=== PATIENT | female | born 1960 | race Caucasian/White ===

== ENCOUNTER 2023-07-20 05:11 | Inpatient (IN) | payer MEDICARE, OTHER, SELFPAY ==
[2023-07-19 23:00] VITALS: BP 127/78
[2023-07-20] VITALS (24 sets, daily range): BP systolic 101–139; BP diastolic 59–95; BMI 16.0
--- NOTE | 2023-07-20 00:44 | ED.GENMED ---
History of Present Illness
General
Chief Complaint: Abdominal Symptoms
Source: patient
Exam Limitations: none
Time Seen by Provider: 07/20/23 00:05
Travel History
Have you had any contact with someone who has COVID-19?: No
Do you have any symptoms of coronavirus? Fever > 100 degrees, chills, cough, shortness of breath, sore throat, loss of taste or smell, muscle aches, or headache?: No
History of Present Illness
History of Present Illness:
This is a 63 year old female that comes in with c/o abd pain and vomiting. States that for the past 3 days she has been vomiting. States that she had diarrhea 3-4 days ago but none since. States that she is SOB and has abd pain. States that she
didn't vomit today. States that she is also SOB and dizzy. Denies any fever, chills, chest pain, headache, urinary burning.
Past History
Past History
ED Past Medical History: GERD and Other (Scleroderma, esophageal stricture, PNA, interstitial lung disease, Raynaud's, Right enlarged heart); Negative Asthma, HTN, Hypercholesterolemia or NIDDM
ED Past Surgical History: Other (Skin grafts, Surgery on neck to remove cyst)
Social History
Tobacco: Former smoker
Alcohol: None
Drug: None
Personal:
Living: with family
Employment: Employed
Family History
Family History: Hypertension
Review of Systems
Review of Systems
All Other Systems: ROS reviewed and negative except as documented in HPI and ROS
Constitutional: Reports no symptoms; Denies fever or chills
EENT: Reports no symptoms
Respiratory: Reports trouble breathing; Denies cough
Cardiac: Reports no symptoms; Denies chest pain
ABD/GI: Reports abdominal pain, nausea, vomiting and diarrhea
: Reports dysuria; Denies frequency or urgency
Musculoskeletal: Reports no symptoms
Skin: Reports no symptoms
Neurological: Reports dizzy; Denies headache
Psychiatric: Reports no symptoms
Phy Exam
General Physical Exam
General Presentation: mild distress
General age: appears older than age
General Skin: warm and dry
General Habitus: cachetic
General Mental: confused (appears confused as keeps stating that her abd hurts. )
General Hydration: dry mucous membranes
ENT Exam
ENT Exam: TM's normal, pharynx normal and neck supple
Eye Exam
Eye Exam: EOMI
Cardiovascular Exam
Cardiovascular Exam: no edema, normal peripheral pulses and tachycardia
Pulmonary Exam
Pulmonary Exam: no respiratory distress, chest non tender, no rhonchi, no wheezing, no cough and other (Fine crackles throughout)
Gastrointestinal Exam
Gastrointestinal Exam: soft, no organomegaly, no pulsatile mass, non distended, tender (Generalized abd tenderness with palpation. ) and other (Hypoactive bowel sounds)
Musculoskeletal Exam
Musculoskeletal Exam: full ROM and no edema
Skin Exam
Skin Exam: normal color, warm/dry, no rash and no petechia
Psychiatric Exam
Psychiatric Exam: other (Lethargic)
Course
Orders/Labs/Results
Orders:
Orders
07/19/23 23:01
Abdominal Series [CR Obstruct Series W/pa Chest] Urgent
Comment:
Reason For Exam: abd pain, constipation
07/20/23 00:43
CT Abd/pel Without Iv Or Oral Urgent
Comment: ok to change to w/o due to iv access per Dara
Reason For Exam: Generalized abd pain
0.9% Sodium Chloride 1000 ml [Nss] 1,000 ml IV BOLUS
Ondansetron Injectable [Zofran] 4 mg IV NOW STA
07/20/23 00:55
Morphine Sulfate 2 mg IV NOW STA
07/20/23 01:29
Complete Blood Count/With Diff Urgent
Comprehensive Metabolic Panel Urgent
Lactic Acid Urgent
Abnormal Lab Results
07/20/23
01:29
RBC 3.12 L 10^6/uL
(4.20-5.40)
Hgb 9.5 L g/dL
(12.0-16.0)
Hct 27.9 L %
(37.0-47.0)
RDW 15.4 H %
(11.5-14.5)
Absolute Neuts (auto) 7.7 H 10^3/uL
(1.4-6.5)
Absolute Lymphs (auto) 0.3 L 10^3/uL
(1.2-3.4)
Neutrophils % 91.4 H %
(42.2-75.2)
Lymphocytes % 3.1 L %
(20.5-51.1)
Sodium 132 L mmol/L
(135-145)
Chloride 95 L mmol/L
(98-107)
Carbon Dioxide 31 H mmol/L
(22-30)
Creatinine 0.3 L mg/dL
(0.6-1.0)
Glucose 118 H mg/dl
(70-99)
07/20/23 01:29
07/20/23 01:29
H/H low compared to prior labs, Sodium slightly low, Chloride low. Glucose nonfasting. Lactic acid 1.6
Vital Signs
Initial and Last Documented VS:
Initial Vital Signs
Temp Pulse Resp BP Pulse Ox
97.8 F 129 17 127/78 92
07/19/23 23:00 07/19/23 23:00 07/19/23 23:00 07/19/23 23:00 07/19/23 23:00
Last Documented Vital Signs
Temp Pulse Resp BP Pulse Ox
97.8 F 121 31 127/74 85
07/19/23 23:00 07/20/23 02:00 07/20/23 02:00 07/20/23 02:00 07/20/23 01:30
MDM/Problems Addressed
Differential Diagnosis Includes:
Bowel obstruction, Viral syndrome.
MDM/Problems Addressed:
This is a 63 year old female that comes in with c/o abd pain and vomiting. States that for the past 3 days she has been vomiting. Significant other with patient state that she did not vomit today.
Will check labs and get CT of the abd.
Back into see patient. Explained that her blood work shows that her lactic acid is normal, WBC are normal and her CT may shows an Enteritis vs Ileus. Patient has also been hypoxic when here and has needed a 100% nonrebreather to help keep her oxygen
level up. Patient uses Dilaudid chronically and may be over using at home. Will admit. Hospitalist notified.
Chronic conditions affecting care: Other (Scleroderma, )
Acute Exacerbation and/or Progression of Chronic Illness: Other (Scleroderma)
*Radiology
Radiology exam reviewed: preliminary read by ED provider (chest- Negative for active disease. ), radiology read reviewed (CTnight hawk- Evluation some limited due to motion artifact and lack of IV contrast. The gastojejunostomy tube appears to be in
appropriate position. Somewhat prominent fluid loops of mid to distal small bowel, as well as fluid in the cecum. Findings are nonspecific and could be related to an ), all reviewed NAD by ED Provider (CT con-enteritis or ileus. Obstruction at the
level of the ascending colon is left less likely however this portion of the colon is slightly thickened. Differential included underdistension, a colitis, or less likely an underlying mass (although there are a few adjacent lymph nodes). Recommend
) and other (CT cont- follow up with agge-appropriate colon cancer screening. Small amount of free fluid in the pelvis. Mild mesenteric edema. unremarkable gallbladder, pancreas and kidneys. )
*Pulse Oximetry
Patient hypoxic: yes
*EKG
Interpreted by ED Provider?: NA
Rate: EKG- N/A
*Manager Of Distribution Interpretation
Rate: tachycardiac
Heart Rate: 126
Rhythm: sinus tachycardia
*Critical Care Note
Total Time (30-74mins, 75-104mins- exclusive of procedures): Not Applicable
ED Attending Note
-
Portions of this chart may have been created with voice recognition software.� Occasional wrong word or��sound alike� substitutions may have occurred due to the inherent limitations of voice recognition software.
Discharge Plan
Departure
Patient Disposition: Admit
Date of Disposition: 07/20/23
Time of Disposition: 03:29
Admit to: Telemetry
Presentation/result/management discussed w/ accepting MD/DO: Hospitalist
Patient with high blood pressure during this ER visit?: No
Condition: Good
Covid-19: Not Applicable
Discharge Problem:
Nausea & vomiting, Hypoxia
Prescriptions:
No Action
oxycodone [OxyContin] 10 MG tablet,oral only,ext.rel.12 hr
5 mg PO PRN PRN (Reason: pain)
albuterol sulfate 2.5 mg /3 mL (0.083 %) solution for nebulization
2.5 mg inhalation Q4H PRN (Reason: shortness of breath or wheezing) Qty: 180 0RF
mycophenolate mofetil 500 mg Tablet
500 mg PO Q12H
diltiazem HCl 30 mg Tablet
30 mg PO BID
Referrals:
Doc Solorio MD [Family Provider] -
Interventions
Interventions:
*Risk Screen - Suicide Last Done: 07/20/23 03:17
*General Assessment Last Done: 07/20/23 03:17
*ED COVID-19 Vaccine History Last Done: 07/20/23 03:17
AE-Gblnxx-Eczetaklmv Assessment Last Done: 07/20/23 01:09
[2023-07-20] MEDS: NSS 1000 IV ×2 (01:26→06:27)
[2023-07-20] MEDS: ZOFRAN 4 MG IV ×2 (01:27→12:06)
[2023-07-20 01:35] LABS: % Basophils 0.1 % (0-2); % Immature Granulocytes 0.4 % (0-0.5); % Lymphocytes 3.1 % (20.5-51.1); % Neutrophils 91.4 % (42.2-75.2); Absolute Lymphocytes 0.3 10^3/uL (1.2-3.4); Absolute Monocytes 0.4 10^3/uL (0.1-0.6); Absolute Neutrophils 7.7 10^3/uL (1.4-6.5); Hematocrit 27.9 % (37.0-47.0); Hemoglobin 9.5 g/dL (12.0-16.0); Mean Corp Hgb Conc. 34.1 g/dL (33.0-37.0); Mean Corpuscular Hgb 30.4 pg (27.0-31.0); Mean Corpuscular Volume 89.4 fL (81.0-99.0); Mean Platelet Volume 8.9 fL (7.4-10.4); Nucleated Red Blood Cells % 0 %; Platelet Count 379 10^3/uL (130-400); Red Blood Cell Count 3.12 10^6/uL (4.20-5.40); Red Cell Dist. Width 15.4 % (11.5-14.5); White Blood Cell Count 8.4 10^3/uL (4.8-10.8)
[2023-07-20 01:47] LABS: Lactic Acid 1.6 mmol/L (0.7-2.0)
[2023-07-20 01:50] LABS: ALT (SGPT) 12 U/L (0-35); AST (SGOT) 25 U/L (14-36); Albumin 3.9 g/dl (3.5-5.0); Alkaline Phosphatase 76 U/L (38-126); Blood Urea Nitrogen 16 mg/dl (7-17); Carbon Dioxide 31 mmol/L (22-30); Chloride 95 mmol/L (98-107); Glucose 118 mg/dl (70-99); Potassium 4.1 mmol/L (3.5-5.1); Sodium 132 mmol/L (135-145); Total Bilirubin 0.7 mg/dl (0.2-1.3); Total Protein 7.5 g/dl (6.3-8.2); eGFR > 60.00
--- NOTE | 2023-07-20 04:27 | HPS.HSE ---
Family Physician
-
Family Physician: Doc Solorio
Chief Complaint
-
N/V
History of Present Illness
63F HX ILdz, scleroderma pw abd pain and vomiting for the past 3 days she has been vomiting.
She had diarrhea 3-4 days ago but none since. She didn't vomit today.
ROS
SOB and has abd pain. States that she is also SOB and dizzy.
Denies any fever, chills, chest pain, headache, urinary burning.
Medical History
Past Medical History
Past Medical History: Reports Other (ILD , scleroderma)
Past Surgical History: Reports Other (finger and toe surgery)
Social History
Tobacco: Non-smoker
Alcohol: None
Personal:
Family History
Family History: Not pertinent
Allergies / Home Medications
Allergies reflects when Allergies were last updated in [employer].
Home Medications with original date entered in [employer]
Allergy/Medication List:
Allergies
Allergy/AdvReac Type Severity Reaction Status Date / Time
No Known Allergies Allergy Verified 07/19/23 22:59
Home Medications
oxycodone 10 mg tablet,crush resistant,extended release 12 hr (OxyContin) 5 mg PO PRN PRN pain 09/30/21
albuterol sulfate 2.5 mg/3 mL (0.083 %) solution for nebulization 2.5 mg (3 mL) inhalation Q4H PRN shortness of breath or wheezing #180 mL 06/07/22
diltiazem HCl 30 mg tablet 30 mg PO BID 08/18/22
mycophenolate mofetil 500 mg tablet 500 mg PO Q12H 08/18/22
Review of Systems
-
Constitutional: Reports No Symptoms
EENT: Reports No Symptoms
Respiratory: Reports No Symptoms
Cardiac: Reports No Symptoms
Abdomen/GI: Reports See HPI
: Reports No Symptoms
Musculoskeletal: Reports No Symptoms
Skin: Reports No Symptoms
Neurological: Reports No Symptoms
Endocrine: Reports No Symptoms
Hematologic/Lymphatic: Reports No Symptoms
Psych: Reports No Symptoms
Physical Exam
Vital Signs
Vital Signs
Temp Pulse Resp BP Pulse Ox
97.8 F 119 28 109/59 97
07/19/23 23:00 07/20/23 03:15 07/20/23 03:10 07/20/23 03:10 07/20/23 03:15
Physical Exam
General: Other (see below )
Laboratory Results
-
07/20/23:
07/20/23:
Laboratory Results
Lactic Acid 1.6 mmol/L (0.7-2.0) 07/20/23:
Total Bilirubin 0.7 mg/dl (0.2-1.3) 07/20/23:
AST 25 U/L (14-36) 07/20/23:
ALT 12 U/L (0-35) 07/20/23:
Alkaline Phosphatase 76 U/L (38-126) 07/20/23:
Data Reviewed
-
CT Scan: Report Reviewed by me
Lab Data: Labs Reviewed by me
Old Records: Reviewed
Impression/Plan
-
Reviewed VS: afebrile tachypneic tachycardic borderline hypotensivwe
PE
General: mild distress adn look toxic
HEENT:dry mucous membranes and Atraumatic
Respiratory: Decreased Breath Sounds
Cardiac: S1/S2 and Regular Rhythm; No Murmur or Rub
GI: Soft, Generalized abd tenderness with palpation.
Rectal: Deferred by Provider
Musculoskeletal: No Clubbing, No Cyanosis and No Edema
Skin: No Rash
Neuro: AO x 3 and Nonfocal/grossly intact
Psych: Calm
Data
Hgb 9.5 - baseline 12- 14s
Na 132
Cl 95
CO2 31
BUN 16
nl Cr
LA 1.6
prelim CXR - ??
CT AP night hawk
- Evluation some limited due to motion artifact and lack of IV contrast.
- The gastojejunostomy tube appears to be in appropriate position.
- Somewhat prominent fluid loops of mid to distal small bowel, as well as fluid in the cecum.
- Findings are nonspecific and could be related to an enteritis or ileus.
- Obstruction at the level of the ascending colon is left less likely however this portion of the colon is slightly thickened. - Differential included underdistension, a colitis, or less likely an underlying mass (although there are a few adjacent
lymph nodes).
- Small amount of free fluid in the pelvis.
- Mild mesenteric edema.
- unremarkable gallbladder, pancreas and kidneys.
ASSESSMENT & PLAN
Medication reconciliation pending
SIRS like picture of unclear etiology
Acute abd pain- resolved vomiting uncertain origin ? Viral origin
CT AP report review - Nonspecific enteritis or ileus vs colitis less likley obstructive
- check UA
- check Noro virus
- clear and ADAT
- IVF for now
- Anti emetics
- GI consult
Evolving sepsis and looks toxic
Acute on chr hypoxic RF required NRM
HX scleroderma ILD/pulmonary fibrosis on Home O2
Hypotension suspect hypovolemia form GI loss
- BCx
- Empirc vanco and Zosyn
- held Diltiazem
- IVF and observe HR
- cont O2 support
- Pul consult
HX scleroderma ILD/pulmonary fibrosis on Home O2
- Not on Mycophenlate per patent
DVT Ox; LMWH
Full code
IMU
[2023-07-20 06:24] LABS: Hematocrit 24.6 % (37.0-47.0); Hemoglobin 8.1 g/dL (12.0-16.0); Mean Corp Hgb Conc. 32.9 g/dL (33.0-37.0); Mean Corpuscular Hgb 30.5 pg (27.0-31.0); Mean Corpuscular Volume 92.5 fL (81.0-99.0); Mean Platelet Volume 9.2 fL (7.4-10.4); Platelet Count 390 10^3/uL (130-400); Red Blood Cell Count 2.66 10^6/uL (4.20-5.40); Red Cell Dist. Width 15.1 % (11.5-14.5); White Blood Cell Count 6.8 10^3/uL (4.8-10.8)
[2023-07-20 07:16] LABS: Blood Urea Nitrogen 13 mg/dl (7-17); Calcium 8.2 mg/dl (8.4-10.2); Carbon Dioxide 30 mmol/L (22-30); Chloride 98 mmol/L (98-107); Estimated Creatinine Clearance 72 ml/min; Glucose 107 mg/dl (70-99); Potassium 4.1 mmol/L (3.5-5.1); Sodium 133 mmol/L (135-145); eGFR > 60.00
--- NOTE | 2023-07-20 08:30 | PTCARENOTE ---
Received pt. @ change of shift. Drowsy, awakens to verbal stim, oriented x3. Anxious/flat. Generalized weakness. SR-ST on monitor. SpO2 98% on NRB. Placed on 15LMF, weaned to 10L and tolerating. +BS, abd soft, tender/tender to palpation LQ>UQ. G/J
tube in place, flushed and clamped. Assisted x 1 to BSC, cont b/b. No episodes of diarrhea. Intermittent nausea, no vomiting. #22 L wrist w IVF infusing. #24 R wrist patent, dressing c/d/i. Pt. instructed on how to report care concerns and call steele
w in reach.
[2023-07-20] MEDS: ZOSYN 50 IV ×4 (08:32→23:38)
[2023-07-20] MEDS: VANCOCIN 200 IV (09:08)
--- NOTE | 2023-07-20 09:09 | PHA.VAN.IN ---
Assessment
- Assessment
Renal Function: Appears similar to baseline
Concomitant Antimicrobials: piperacillin/tazobactam
AUC Dosing Plan
- Dosing Variables
Dosing Weight (kg): 62
Dosing CrCl (ml/min): 72-96
Vd coefficient (L/kg): 0.7
Utilized IBW for dosing weight and CrCl calculation of 96 ml/min
- Empiric Dosing
Initial / Loading Dose: 1000mg - 07/20 09:08
Maintenance Regimen: Vanc 750mg Q12H starting at 1800
Estimated AUC (mcg*h/mL): 428 - 556
Estimated Peak (mcg*h/mL): 27.2 - 32.2
Estimated Trough (mcg/ml): 10.8 - 15.9
Estimated Half Life (H): 8.2 - 10.8
- Monitoring
No levels ordered at this time: consider levels in next few days
MRSA Screen: Ordered per protocol
Pharmacokinetics Vancomycin I
- -
Patient Age: 63
Patient Sex: Female
Vancomycin Day #: 1
Indication: Gi / Intra-Abdominal
Requesting Provider: Herson Chacon
Pertinent Antimicrobial Allergies:
NKDA
Height / Weight:
Height 5 ft 7 in
Actual Weight 46.2 kg
IBW in k.6
Pertinent Past Medical History: BMI ~16, ILD (home O2)
- Vital Signs / Lab Results
Temp Pulse Resp BP Pulse Ox
99.0 F 114 28 130/72 100
07/20/23 07:51 07/20/23 04:30 07/20/23 04:30 07/20/23 04:00 07/20/23 06:43
Lab Results - Hematology
07/20/23 07/20/23
01:29 06:09
WBC 8.4 6.8
Lab Results - Chemistry
07/20/23 07/20/23
01:29 06:24
BUN 16 13
Creatinine 0.3 L 0.3 L
Estimated Creat Clear 72
Albumin 3.9
07/20/23
Lactic Acid 1.6
--- NOTE | 2023-07-20 09:25 | W.PN.UPDATE ---
Update Note
Progress Note Update
Seen by Dr. Avalos this morning
patient admitted with nausea vomiting abdominal pain and worsening of hypoxia.
She reports history of abdominal pain. Generalized. Rates 9 out of 10. Had small bowel movement today. Abdomen soft, nondistended, bowel sounds present but tender in all quadrants with some rebound. Keep her n.p.o. except meds. Hold her tube
feeds. Await GI input. Consult surgery.
Chest has bilateral crackles. Trace normally on 4 L requiring higher FiO2 here. Chest x-ray did not show any consolidation or fluid. With the repeat emesis/esophageal stricture concern for aspiration pneumonia/pneumonitis. Continue with
empirical antibiotics and follow chest x-ray. Check procalcitonin. Pulmonary to see.
BEVERLY ZHOU
--- NOTE | 2023-07-20 09:33 | CON.GI ---
Addendum entered and electronically signed by Verónica Salgado MD 07/20/23 14:43:
I saw and examined the patient.
The PA's note was reviewed and I agree with the note.
63 year old female with a past medical history of scleroderma with interstitial lung disease, esophagitis who complains of nausea, vomiting for the past 4 days with generalized 'all over' abdominal pain. On exam abdomen was distended with
generalized tenderness.
-- Abdominal pain/nausea/vomiting-noncontrast imaging showing possible enteritis/ileus r/o obstruction
--Anemia-no overt GI bleeding
-- Scleroderma
-- Interstitial lung disease-oxygen dependent. Currently on high flow oxygen
-- PEG-J placement at [place]
plan
N.p.o.
If recurrent vomiting will connect PEG-J tube for gravity
Surgical evaluation pending
antiemetics PRN
Repeat abdominal x-ray tomorrow a.m.
Will follow
Original Note:
Consultation
-
Date/Time Consultation Requested: 07/20/23
Date/Time Consultation Performed: 07/20/23 0930
Requesting Provider: Alfredo OSHEA
Performing Provider: Merlyn Medrano PA-C / Dr. Salgado
Reason for Consultation: abd pain, nausea, vomiting
Medical History
Chief Complaint / HPI
Chief Complaint: abdominal pain, nausea, vomiting
History of Present Illness:
This is a 63 year old female with a past medical history of scleroderma with interstitial lung disease, esophagitis who complains of nausea, vomiting for the past 4 days with generalized 'all over' abdominal pain. She had a few episodes of diarrhea
a few days ago, but this resolved and she now complains of constipation, which is typical for her. Her boyfriend states she has had black stools. No BRBPR. She denies any sick contacts, recent antibiotic use or travel. She is on prednisone for the
ILD. She is known to Dr. Salgado, who saw her in the office in June 2022 for complaints of dysphagia and weight loss, EGD and CT scan were ordered at that time. She had EGD with Dr. Salgado 08/2022 which showed LA Grade C esophagitis and a medium
sized hiatal hernia. She takes Pantoprazole 40mg twice daily and denies any alcohol or NSAID use. Labs show Hgb 8.1 (baseline in the 12-14 range previously) with normocytic indices. No leukocytosis, WBC count 6.8 and lactic acid 1.6. Lipase normal
(64). CT showing diffuse enteritis/ileus and mild colitis, with possible obstruction vs mass noted at the ileocecal junction. Pancreas noted to be NL on CT and PEG-J tube in place.
Past Medical History
Past Medical History: Other (scleroderma, ILD)
Social History
Tobacco: Non-Smoker
Alcohol: None
Drug: None
Personal: Partner
Allergies / Home Medications
Allergy/AdvReac Type Severity Reaction Status Date / Time
No Known Allergies Allergy Verified 07/19/23 22:59
Medication Instructions Recorded
magnesium oxide 400 mg feeding tube DAILY 07/20/23
olanzapine 5 mg tablet 5 mg PO HS 07/20/23
pantoprazole 40 mg tablet,delayed 40 mg PO DAILY 07/20/23
release
prednisone 2.5 mg tablet 7.5 mg PO DAILY 07/20/23
Review of Systems
-
History Source: Patient and Family
All other systems: A 12 pt ROS was Negative except as stated above in HPI
Vital Signs
Temp Pulse Resp BP Pulse Ox
99.0 F 114 28 130/72 100
07/20/23 07:51 07/20/23 04:30 07/20/23 04:30 07/20/23 04:00 07/20/23 06:43
Physical Exam
Exam
General: Other (thin, ill-appearing, in no acute distress)
HEENT: Anicteric
Respiratory: Clear
Cardiac: Regular Rhythm
GI: Soft, Normal Bowel Sounds, Tender (+diffuse tenderness; nonfocal exam) and Distended
Rectal: Other (no stool in rectal vault, hemoccult negative. No palpable rectal masses, no external hemorrhoids.)
Skin: Warm and Dry
Neuro: AO x 3
Psych: Calm
Results
WBC 6.8 10^3/uL (4.8-10.8) 07/20/23 06:09
Hgb 8.1 g/dL (12.0-16.0) L 07/20/23 06:09
Hct 24.6 % (37.0-47.0) L 07/20/23 06:09
MCV 92.5 fL (81.0-99.0) 07/20/23 06:09
Plt Count 390 10^3/uL (130-400) 07/20/23 06:09
Absolute Neuts (auto) 7.7 10^3/uL (1.4-6.5) H 07/20/23 01:29
Sodium 133 mmol/L (135-145) L 07/20/23 06:24
Potassium 4.1 mmol/L (3.5-5.1) 07/20/23 06:24
Chloride 98 mmol/L (98-107) 07/20/23 06:24
Carbon Dioxide 30 mmol/L (22-30) 07/20/23 06:24
BUN 13 mg/dl (7-17) 07/20/23 06:24
Creatinine 0.3 mg/dL (0.6-1.0) L 07/20/23 06:24
Calcium 8.2 mg/dl (8.4-10.2) L 07/20/23 06:24
Total Bilirubin 0.7 mg/dl (0.2-1.3) 07/20/23 01:
AST 25 U/L (14-36) 07/20/23:
ALT 12 U/L (0-35) 07/20/23:
Alkaline Phosphatase 76 U/L (38-126) 07/20/23 01:29
Diagnostic Image Results:
CT Abdomen/Pelvis 07/20/23:
-Findings suggesting diffuse ileus/enteritis.
-Mild colitis of the ascending and transverse colon. Difficult to rule out component of obstruction/mass at the ileocecal junction. Consider direct visualization.
Chest/Abdominal Xray obstruction series, 07/20/23:
1. No acute cardiopulmonary process.
2. Mildly dilated small bowel loops may reflect ileus or developing obstruction.
3. Mild to moderate diffuse colonic stool burden may reflect constipation.
Prior GI Procedures:
EGD:
08/24/22, Dr. Salgado:
Impression:� � � � � � - LA Grade C esophagitis with no bleeding.
�� � � � � � � � � � � - Medium-sized hiatal hernia.
�� � � � � � � � � � � - Normal stomach.
�� � � � � � � � � � � - Normal examined duodenum.
�� � � � � � � � � � � - No specimens collected.
01/27/2010, Dr. Dobson
�� � A benign-appearing, intrinsic moderate stenosis was found 40 cm from the
�� � incisors and was traversed. Biopsies were taken with a cold forceps for
�� � histology. A TTS dilator was passed through the scope. Dilation with a
�� � 15-16.5-18 mm balloon (to a maximum balloon size of 18 mm) and an 18 mm
�� � balloon dilator was successfully performed. The exam was otherwise
�� � without abnormality.�� � � � � � � � � � � � � � � � � � � � � � � � � � � � � � � � � � � � � � �
Impression:� � � � � - Benign-appearing esophageal stricture. This was
�� � � � � � � � � � biopsied and dilated.
�� � � � � � � � � � - The examination was otherwise normal.
Colonoscopy:
06/22/2016, Dr. Dobson
Impression:� � � � � - The entire examined colon is normal on direct and
�� � � � � � � � � � retroflexion views.
Assessment / Plan
-
This is a 63 year old female with a past medical history of scleroderma with interstitial lung disease, esophagitis who complains of nausea, vomiting for the past 4 days with generalized 'all over' abdominal pain. She had a few episodes of diarrhea
a few days ago, but this resolved and she now complains of constipation, which is typical for her. Her boyfriend states she has had black stools. No BRBPR. She denies any sick contacts, recent antibiotic use or travel. She is on prednisone for the
ILD. She is known to Dr. Salgado, who saw her in the office in June 2022 for complaints of dysphagia and weight loss, EGD and CT scan were ordered at that time. She had EGD with Dr. Salgado 08/2022 which showed LA Grade C esophagitis and a medium
sized hiatal hernia. She takes Pantoprazole 40mg twice daily and denies any alcohol or NSAID use. Labs show Hgb 8.1 (baseline in the 12-14 range previously) with normocytic indices. No leukocytosis, WBC count 6.8 and lactic acid 1.6. Lipase normal
(64). CT showing diffuse enteritis/ileus and mild colitis, with possible obstruction vs mass noted at the ileocecal junction. Pancreas noted to be NL on CT and PEG-J tube in place.
IMPRESSION / PLAN:
Enteritis/Colitis vs possible obstruction
-NPO / hold tube feeding
-await surgical consult
-
Normocytic Anemia
-Hgb 8.1 (was previously in the 12-14 range baseline)
-black stools per history, but hemoccult negative
-continue PPI
-await iron studies
-trend Hgb
Pulmonology has been consulted as well.
Other medical issues managed as per Hospitalist, Pulmonology.
We will follow.
-
-
Thank you for consultation and allowing me to participate in the patient's care. Please call the contract law specialist GI physician during the after hours with any questions or concerns.
[2023-07-20 10:02] LABS: Lipase 64 U/L (23-300)
--- NOTE | 2023-07-20 11:17 | CM ---
CM following re: discharge planning.
Reviewed pt's chart, met with pt and pt's SO Kade at bedside.
Pt is a 63 year old female, admitted with primary dx of nausea vomiting abdominal pain and worsening of hypoxia.
Pt reports she lives with UCHE Braun in a 2SH, 3 steps to enter, has no children. Pt reports she ambulates with a walker, has home Oxygen via [employer], 5L NC at baseline. Pt reports she is known to [facility] and would like to have them
again if recommended. Pt feels she will not need any after care VN services upon the discharge. No SNF history.
PCP: Luisito Solorio
Pharmacy: [facility].
D/C plan: home with anticipated no needs vs [facility] if recommended. SO to transport at discharge.
CM will follow with discharge plan updates as hospitalization progresses
--- NOTE | 2023-07-20 11:24 | CON.PUL ---
Addendum entered and electronically signed by Joseph Perkins MD 07/20/23 17:30:
HPI:
Mrs Paula Blair is a 63/W adm 07-20 with 3-4 d h/o abd pain, n/v, diarrhea, dyspnea and dizziness.
At ER, hypoxic requiring NRM. Known h/o scleroderma, Raynaud's phenomenon, ILD. Abd CT reported enteritis/colitis and suspected obstruction at ileocecal junction. Pulm consulted for hypoxemia
Chronic hypoxemia on home O2 4L for last few m
Scleroderma, Raynaud's phenomenon, ILD: follows Dr Pedersen at [facility] for last 5 y, before followed [facility]
Esophageal stricture
Required PEG placement
Pulm htn, mild: [facility] 08-18-22: PCWP 8, MPAP 24, PVR 5.3W
Moderate eccentric MR, normal RV size and function on TTE Jun 2022
Limited historian time of visit, still with abd pain and nausea, but now able to tolerate oral liquids
Currently on O2 MFNC at 8L, POx 92%, denies cough, wheezing, CP
Does not remember for how long and for what reason he is on prednisone
Original Note:
Consultation
Consultation Request
Date/Time Consultation Requested: 07-20-23
Date/Time Consultation Performed: 07-20-23
Requesting Provider: Hospitalist
Performing Provider: Dr Mendoza
Reason for Consultation: dyspnea
Medical History
-
Chief Complaint: dyspnea
Past Medical History
Past Medical History: Other (see A&P for PMH/PSH)
Social History
Tobacco: Former Smoker
Alcohol: None
Drug: None
Personal:
Living: With Family
Employment: Employed
Family History
Family History: Hypertension
Allergies / Home Medications
Allergies
Allergy/AdvReac Type Severity Reaction Status Date / Time
No Known Allergies Allergy Verified 07/19/23 22:59
Home Medications
Medication Instructions Recorded Confirmed Last Taken Type
acetaminophen 500 mg tablet 1,000 mg PO Q6H PRN pain 07/20/23 07/20/23 07/19/23 18:00 History
hydromorphone 4 mg tablet 4 mg feeding tube Q4 PRN pain 07/20/23 07/20/23 07/19/23 18:00 History
lorazepam 1 mg tablet 1 mg PO BID PRN anxiety 07/20/23 07/20/23 07/19/23 12:00 History
magnesium oxide 400 mg feeding tube DAILY 07/20/23 07/20/23 07/19/23 06:00 History
metoclopramide HCl 5 mg tablet 5 mg feeding tube TID 07/20/23 07/20/23 07/19/23 18:00 History
olanzapine 5 mg tablet 5 mg PO HS 07/20/23 07/20/23 07/19/23 21:00 History
ondansetron 4 mg oral soluble film 4 mg Q8H PRN nausea 07/20/23 07/20/23 07/19/23 18:00 History
pantoprazole 40 mg tablet,delayed 40 mg PO DAILY 07/20/23 07/20/23 07/19/23 18:00 History
release
prednisone 2.5 mg tablet 7.5 mg PO DAILY 07/20/23 07/20/23 07/19/23 06:00 History
sertraline 50 mg tablet 50 mg PO DAILY 07/20/23 07/20/23 07/19/23 06:00 History
Review of Systems
-
History Source: Patient
All other systems: Negative unless noted
Respiratory: Trouble Breathing
Abdomen/GI: Abdominal Pain, Nausea, Vomiting and Diarrhea
Vitals / Labs / Diagnostic Testing
Vital Signs
Temp Pulse Resp BP Pulse Ox
99.0 F 114 28 130/72 100
07/20/23 07:51 07/20/23 04:30 07/20/23 04:30 07/20/23 04:00 07/20/23 06:43
Lab Data
07/20/23 06:09
07/20/23 06:24
Diagnostic Testing:
Assessment
-
Assessment:
Mrs Paula Blair is a 63/W adm 07-20 with 3-4 d h/o abd pain, n/v, diarrhea, dyspnea and dizziness. At ER, hypoxic requiring NRM. Known h/o scleroderma, Raynaud's phenomenon, ILD. Abd CT reported enteritis/colitis and suspected obstruction at
ileocecal junction. Pulm consulted for hypoxemia
Impression:
Acute on chronic hypoxemia
On home O2 4L for last few m
Compounded by interim anemia and acute abdomen
Acute moderate anemia (adm Hgb 9.5 down to 8.1, was 13.5 on Jul 2022)
Diffuse ileus/enteritis, mild colitis, ?cannot rule out obstruction at ileocecal junction
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
Scleroderma, Raynaud's phenomenon, ILD: follows Dr Pedersen at [facility] for last 5 y, before followed [facility]
GERD
Esophageal stricture
Required PEG placement
Pulm htn, mild: [facility] 08-18-22: PCWP 8, MPAP 24, PVR 5.3W
Moderate eccentric MR, normal RV size and function on TTE Jun 2022
Pneumonia, pneumonitis, suspected asp pneumonia, adm DH Feb 2017
Former smoker
Plan:
Continue O2 protocol
Required NRM at ER, now down to MFNC
Increased O2 requirement from baseline 4L
Currently on 8L as inpatient, POx 92%
Known ILD due to scleroderma, also evidence of mild pulm HTN on C Jul 2022 but normal rV size/function on TTE Jun 2022
No evidence of pneumonia nor significant pneumonitis on CXR or in few lung basilar cuts on abd CT
Hypoxemia likely compounded by interim moderate anemia and acute abd
Follow H/H, transfuse as needed for Hgb <7
Keep asp precs
Add DNs prn, acapella and IS
Continue empirics atbs
GI and Surgical consultations pending
Certainly at increased risk for GI procedures or surgery given underlying lung disease
Continue prednisone outpatient regimen, she could not recall for how long or why she is on prednisone 7.5 mg qd
No current need to increase CS dose
D/w Mrs Blair
Diagnostic tests:
CXR 07-19-23 c/w Apr 2022, considering differences in technique, grossly unchanged mild to moderate increase in interstitial markings. No infiltrates. T-L scoliosis
CT abd/p 07-20-23: few lung basilar cuts with mild mosaic pattern
[2023-07-20] MEDS: ROXICODONE 5 MG TUBE ×2 (12:06→18:36)
[2023-07-20] MEDS: DELTASONE 7.5 MG TUBE (12:07)
[2023-07-20] MEDS: COLACE LIQUID 100 MG TUBE ×2 (12:07→20:16)
[2023-07-20] MEDS: MIRALAX 17 GRAMS TUBE (12:07)
--- NOTE | 2023-07-20 14:20 | CON.GS ---
Consultation
-
Date/Time Consultation Requested: 07/20/2023 10 AM
Date/Time Consultation Performed: 07/20/2023 1400
Requesting Provider: Yovani
Performing Provider: Sammie
Reason for Consultation: Abdominal pain
Medical History
-
Chief Complaint: Abdominal pain
History of Present Illness:
Patient is a 63-year-old female with multiple medical comorbidities including esophagitis with history of stricture, scleroderma with PEG/J tube for enteral access, interstitial lung disease on supplemental oxygen, Raynaud's.
Patient was in her usual baseline state of health until 3 to 4 days ago when she began developing generalized abdominal pain but worse in the lower abdomen. Her bowels are irregular at baseline between loose stools and constipation. She had a few
episodes of diarrhea but has not moved her bowels in the last 2 to 3 days. She was having nausea with vomiting so placed her PEG/J tube gastrostomy port to gravity drainage and she reports that it was significantly contents. She presented to the
emergency department secondary to persistence of her pain.
Patient's friend at bedside. She states that her nausea is better controlled now with antiemetics. She feels as though she needs to have a loose bowel movement. She continues with abdominal pain greatest in the lower abdominal region but not
localizing to the right or left side. She feels as though her pain has improved since admission overnight.
Past Medical History
Past Medical History: Other (Scleroderma with interstitial lung disease, supplemental oxygen requirement, Raynaud's, GERD, hiatal hernia, history of esophagitis)
Past Surgical History: Other (PEG/J tube, breast surgery, toe surgery, skin graft)
Social History
Tobacco: Former Smoker
Allergies / Home Medications
Allergy/AdvReac Type Severity Reaction Status Date / Time
No Known Allergies Allergy Verified 07/19/23 22:59
Medication Instructions Recorded Confirmed Type
acetaminophen 500 mg tablet 1,000 mg PO Q6H PRN pain 07/20/23 07/20/23 History
hydromorphone 4 mg tablet 4 mg feeding tube Q4 PRN pain 07/20/23 07/20/23 History
lorazepam 1 mg tablet 1 mg PO BID PRN anxiety 07/20/23 07/20/23 History
magnesium oxide 400 mg feeding tube DAILY 07/20/23 07/20/23 History
metoclopramide HCl 5 mg tablet 5 mg feeding tube TID 07/20/23 07/20/23 History
olanzapine 5 mg tablet 5 mg PO HS 07/20/23 07/20/23 History
ondansetron 4 mg oral soluble film 4 mg Q8H PRN nausea 07/20/23 07/20/23 History
pantoprazole 40 mg tablet,delayed 40 mg PO DAILY 07/20/23 07/20/23 History
release
prednisone 2.5 mg tablet 7.5 mg PO DAILY 07/20/23 07/20/23 History
sertraline 50 mg tablet 50 mg PO DAILY 07/20/23 07/20/23 History
Review of Systems
-
Unable to obtain full review of systems at this time due to: Acuity
History Source: Patient
A 10 point review of systems was completed, and was negative except as per HPI.
Physical Exam
Vital Signs
Temp Pulse Resp BP Pulse Ox
98.9 F 103 22 122/68 93
07/20/23 12:45 07/20/23 13:00 07/20/23 13:00 07/20/23 13:00 07/20/23 13:04
07/19/23 07/20/23 07/21/23
06:59 06:59 06:59
Actual Weight 46.2 kg
Body Mass Index (BMI) 16.0
Lab Results
07/20/23 06:09
07/20/23 06:24
WBC 6.8 10^3/uL (4.8-10.8) 07/20/23 06:09
Hgb 8.1 g/dL (12.0-16.0) L 07/20/23 06:09
Hct 24.6 % (37.0-47.0) L 07/20/23 06:09
Plt Count 390 10^3/uL (130-400) 07/20/23 06:09
Abs Immat Gran (auto) 0.0 10^3/uL (0-0.05) 07/20/23 01:29
Neutrophils % 91.4 % (42.2-75.2) H 07/20/23 01:29
Physical Exam
General: Other (Acute/chronically ill-appearing. Cachectic. Respiratory for history taking but somewhat limited historian.)
HEENT: Anicteric and Atraumatic
Respiratory: Accessory Resp Muscle Use and Other (Supplemental oxygen via high flow nasal cannula,)
Cardiac: Regular Rhythm (Sinus tachycardia)
GI: Soft, Tender (Generalized tenderness greatest in bilateral lower quadrant. No guarding on mild/moderate palpation. No rebound tenderness on palpation.) and Distended
Neuro: AO x 3
Psych: Calm
Data Reviewed
-
CT Scan: Image Personally Visualized and interpreted, Discussed with Physician and Discussed with Patient
Labs: Labs Reviewed by me, Discussed with Physician and Discussed with Patient
Assessment / Plan
-
Assessment: 63-year-old female with advanced scleroderma and interstitial lung disease with PEG/J-tube for enteral access/feedings. Presenting with acute on chronic abdominal pain.
Difficult to determine etiology based on very limited CT abdomen/pelvis imaging which was obtained without IV or oral contrast.
On my review, within limits of this noncontrast imaging study there is no evidence of free air, no pneumatosis, no intra-abdominal fluid collections. There is mild/moderately prominent loops of small bowel measuring up to 3 cm or slightly less in
diameter essentially all the way through the terminal ileum. There is liquid stool within the ascending colon. There is formed stool throughout the transverse and distal colon. Trace free fluid in the pelvis. PEG/J tube in appropriate position.
Possible slight thickening of the cecum/ascending colon but very challenging to adequately evaluate on this study. No additional acute intra-abdominal pathology noted.
White blood cell count normal but initially with neutrophil shift, no bandemia noted. Chemistry panel with normal BUN and creatinine, no metabolic acidosis and normal lactate. LFTs within normal limits as well as lipase.
Plan: Based on abdominal examination, stable vital signs although tachycardia noted, limited CT imaging there does not appear to be an acute surgical abdomen such as advanced bowel ischemia, perforation or closed-loop/complete bowel obstruction.
I advised patient of the need for better CT imaging with oral and IV contrast however she expressed that she cannot tolerate repeat study at this point. Again given her overall clinical stability with supportive care will follow today with bowel
rest, placed gastrostomy port to gravity drainage. Anticipate need for contrast CT imaging tomorrow unless significant clinical improvement.
Will follow.
--- NOTE | 2023-07-20 15:31 | PTCARENOTE ---
Pt.'s s/o assisted w completion of med rec, Dr. Pina aware of completed med rec. Inquired to Dr. Pina about multimedia programmer d/t pending surg/GI compliance vice president's. Received instruction per MD to admin meds through G/J tube as ordered. Pt. reported mod abd pain
and nausea @ 1200, medicated w prn pain/antiemetic medication w positive effect-see MAR. No further BMs today. Surgery to bedside this afternoon. No plan for surgery @ this time per Dr. Cochran. Further orders received, G port to gravity and J
port clamped/used for meds. Pt. call ivette w in reach.
[2023-07-20] MEDS: DILAUDID 0.25 MG IV (16:57)
[2023-07-20 17:05] LABS: Urine Albumin Trace (Neg - Trace); Urine Bilirubin Negative (Negative); Urine Character Clear (Clear); Urine Color Yellow; Urine Glucose Negative (Negative); Urine Ketone Negative (Negative); Urine Leukocyte Negative (Negative); Urine Nitrite Negative (Negative); Urine Occult Blood Negative (Negative); Urine Specific Gravity 1.015 (<1.030); Urine Urobilinogen Negative (Neg - 1+)
[2023-07-20] MEDS: LOVENOX 30 MG SC (17:45)
--- NOTE | 2023-07-20 18:10 | PTCARENOTE ---
Attempted to wean O2 back down to baseline 4LNC, pt. unable to tolerate. O2 titrated back up. Currently 10LMF to maintain SPO2 >90%. SNOW, requiring NRB for exertion. Pt.'s significant other remains @ bedside. Emotional support given. Call steele
remains w in reach.
[2023-07-20] MEDS: VANCOCIN 150 IV (18:16)
[2023-07-20] MEDS: D5/0.45%NACL 1000 IV (19:23)
--- NOTE | 2023-07-20 21:12 | PTCARENOTE ---
SOB with exertion increased midflow to 15L, pt having difficulty recovering from getting up from the bathroom. sats in the 70's. non-rebreather applied, pt did recover to the low 90's.
[2023-07-21] VITALS (13 sets, daily range): BP systolic 101–126; BP diastolic 57–76
[2023-07-21 04:02] LABS: Hematocrit 25.7 % (37.0-47.0); Hemoglobin 8.2 g/dL (12.0-16.0); Mean Corp Hgb Conc. 31.9 g/dL (33.0-37.0); Mean Corpuscular Volume 94.1 fL (81.0-99.0); Mean Platelet Volume 8.7 fL (7.4-10.4); Platelet Count 381 10^3/uL (130-400); Red Blood Cell Count 2.73 10^6/uL (4.20-5.40); Red Cell Dist. Width 15.3 % (11.5-14.5); White Blood Cell Count 9.1 10^3/uL (4.8-10.8)
[2023-07-21 04:46] LABS: Blood Urea Nitrogen 9 mg/dl (7-17); Calcium 8.7 mg/dl (8.4-10.2); Carbon Dioxide 29 mmol/L (22-30); Chloride 96 mmol/L (98-107); Estimated Creatinine Clearance 72 ml/min; Glucose 107 mg/dl (70-99); Iron 28 ug/dl (37-170); Potassium 3.4 mmol/L (3.5-5.1); Sodium 132 mmol/L (135-145); eGFR > 60.00
[2023-07-21 04:56] LABS: Percent Saturation 10 % (20-50); Total Iron Binding Capacity 260 ug/dl (265-497)
[2023-07-21 05:08] LABS: Procalcitonin 0.08 ng/ml (0.0-0.25)
[2023-07-21] MEDS: ZOSYN 50 IV ×4 (05:23→23:55)
[2023-07-21] MEDS: VANCOCIN 150 IV ×2 (06:06→17:19)
--- NOTE | 2023-07-21 06:37 | PTCARENOTE ---
Rec'd pt as transfer from [facility] [employer]. Pt presents w/ flat affect, on 15L midflow and NRB. This RN struggled to obtain accurate SaO2, replaced sensor several times. Ultimately, SaO2 of 95% on 15L midflow cannula achieved without NRB. Pt able to maintain
SaO2 while ambulating, stand/pivot to BS. Unable to obtain stool sample during this shift d/t lack of BM. G tube maintained to gravity with moderate amount of yellow drainage. J tube remained clamped. NPO maintained, very small amount ice chips
given per pt request. Mouth moisturizer packets provided to prevent dry mouth/lips. Pt denies SOB, pain, discomfort at this time. IV ABX maintained per AUG. Call steele placed within reach.
[2023-07-21] MEDS: D5/0.45%NACL 1000 IV (07:53)
--- NOTE | 2023-07-21 08:05 | PTCARENOTE ---
Patient received from security shift supervisor. Patient resting comfortably in bed. AAO, VSS. No events noted overnight. No complaints of pain or nausea. Currently on 15L MidFlow N/C, will attempt to wean as tolerated. Awaiting stool to send for sample,
R/O Norovirus. D5 1/2NSS through IV. Call steele in reach.
--- NOTE | 2023-07-21 08:38 | W.PN.HOSP.TC ---
Today's Communication/Plan
-
CT abdomen pelvis with IV and oral contrast
Assessment / Plan
Assessment / Plan
Acute abdominal pain with nausea and vomiting-patient with abdominal tenderness with mild rebound. CT scan of the abdomen pelvis which was done without oral or IV contrast shows diffuse ileus/enteritis. Mild colitis of ascending and transverse
colon. Difficult to rule out component of obstruction mass at the ileocecal junction without contrast. Patient was seen by GI and surgery. Surgery feels if persistent symptoms to repeat a CT with contrast. In view of persistent abdominal pain
plan to do a CT with oral contrast and IV contrast. In meantime keep n.p.o. except for meds and continue with IV fluids and pain medication.
Acute on chronic respiratory hypoxemic respiratory failure. Patient has scleroderma and ILD on home O2 at 4 L. On presentation she had increased oxygen demand requiring nonrebreather now weaned to mid flow nasal cannula. Chest x-ray on admission
showed no acute cardiopulmonary process but in view of nausea ,vomiting, and esophageal stricture concerned about aspiration pneumonitis/pneumonia. Continue with empirical antibiotics. Appreciate pulmonary input. No active bronchospasm. Continue
with her low-dose steroids which she takes [she is not sure about the indication]. Continue to wean oxygen as able.
Normocytic anemia-hemoglobin is low compared to her hemoglobin in July last year. No obvious external bleeding. Iron studies suggest anemia of chronic disease. Continue to follow H&H.
Hyponatremia-clinically more volume depleted. Check urine lites.
DW surgery
Full code.
Anticipated Discharge: > 48 hours
Subjective/Interval History
-
Date of Service: July 21, 2023
Nausea is improved but still with abdominal pain. Passing some gas. No vomiting.
No fever. Always feels cold.
Breathing is okay at rest. Not much cough.
Objective Data
-
Labs:
Laboratory Results
07/21/23
03:37
WBC 9.1
Hgb 8.2 L
Hct 25.7 L
Plt Count 381
Sodium 132 L
Potassium 3.4 L
Chloride 96 L
Carbon Dioxide 29
BUN 9
Creatinine 0.4 L
Glucose 107 H
Calcium 8.7
Vital Signs:
Vital Signs
Temp Pulse Resp BP Pulse Ox
98.8 F 103 30 123/71 97
07/21/23 01:00 07/21/23 06:00 07/21/23 06:00 07/21/23 06:00 07/21/23 06:34
I&O
07/20/23 07/21/23 07/22/23
06:59 06:59 06:59
Output Total 550 / 550 100 / 100
Balance -550 / -550 -100 / -100
Review of Systems
-
EENT: Denies Sore Throat
Cardiac: Denies Chest Pain
Genitourinary: Denies Dysuria
Neuro: Denies Dizzy
Physical Exam
-
General: No Apparent Distress
HEENT: Moist Mucous Membranes
Respiratory: Crackles (BL basilar left > right) and Non Labored Respirations; Negative Wheezes
Cardiac: Regular Rhythm, S1/S2 and Tachycardic
GI: Soft, Nondistended and Tender (in all quadrants ;still with some rebound); Negative Normal Bowel Sounds
Neuro: AO x 3
Psych: Calm
Data Reviewed
-
Labs: Labs Reviewed by me
[2023-07-21] MEDS: DILAUDID 0.25 MG IV ×2 (09:03→14:06)
[2023-07-21] MEDS: COLACE LIQUID 100 MG TUBE ×2 (09:03→20:03)
[2023-07-21] MEDS: MIRALAX TUBE ×2 (09:03→14:05)
[2023-07-21] MEDS: DELTASONE 7.5 MG TUBE (09:03)
[2023-07-21] MEDS: ZOFRAN 4 MG IV (09:09)
--- NOTE | 2023-07-21 09:36 | W.PN.PUL3 ---
Today's Communication / Plan
-
O2
BDs prn
CT abd
Assessment
-
Assessment:
Mrs Paula Blair is a 63/W adm 07-20 with 3-4 d h/o abd pain, n/v, diarrhea, dyspnea and dizziness. At ER, hypoxic requiring NRM. Known h/o scleroderma, Raynaud's phenomenon, ILD. Abd CT reported enteritis/colitis and suspected obstruction at
ileocecal junction. Pulm consulted for hypoxemia
Impression:
Acute on chronic hypoxemia
On home O2 4L for last few m
Compounded by interim anemia and acute abdomen
Acute moderate anemia (adm Hgb 9.5 down to 8.1, was 13.5 on Jul 2022)
Diffuse ileus/enteritis, mild colitis, ?cannot rule out obstruction at ileocecal junction
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
Scleroderma, Raynaud's phenomenon, ILD: follows Dr Pedersen at [facility] for last 5 y, before followed [facility]
GERD
Esophageal stricture
Required PEG placement
Pulm htn, mild: [facility] 08-18-22: PCWP 8, MPAP 24, PVR 5.3W
Moderate eccentric MR, normal RV size and function on TTE Jun 2022
Pneumonia, pneumonitis, suspected asp pneumonia, adm DH Feb 2017
Former smoker
Plan:
Continue O2 protocol
Required NRM at ER, now down to MFNC
Increased O2 requirement from baseline 4L at home
Currently on 15L as inpatient, POx 97%
Known ILD due to scleroderma, also evidence of mild pulm HTN on RLC Jul 2022 but normal RV size/function on TTE Jun 2022
No evidence of pneumonia nor significant pneumonitis on CXR or in few lung basilar cuts on abd CT
Hypoxemia likely to baseline ILD compounded by interim moderate anemia and acute abd
Follow H/H, transfuse as needed for Hgb <7
Keep asp precs
Added DNs prn, acapella and IS
Continue empirics atbs: zosyn/vanco
Suspected GI source: enteritis/colitgis, suspected obstruction on noncontrasted CT
MRSA screening pending
GI and Surgical consultants correspondence reviewed
CT abd/p c IV/oral c 07-21
Certainly at increased risk for GI procedures or surgery given underlying lung disease
Continue prednisone outpatient regimen, she could not recall for how long or why she is on prednisone 7.5 mg qd
No current need to increase CS dose
D/w Mrs Blair
Diagnostic tests:
CXR 07-19-23 c/w Apr 2022, considering differences in technique, grossly unchanged mild to moderate increase in interstitial markings. No infiltrates. T-L scoliosis
CT abd/p 07-20-23: few lung basilar cuts with mild mosaic pattern
Subjective Data
-
Date of Service:
Date of Service: July 21, 2023
Chief Complaint: Pulmonary Follow Up
Subjective:
No major events reported
Abd pain has mildly improved
Dyspnea improved on O2 at 15L
No longer vomiting, nausea improved
Review of Systems
General: Fever (n), Sweats (n), Chills and Satisfactory Appetite (n)
HEENT: Epistaxis
Cardiopulmonary: Dyspnea, Cough (n), Sputum Production (n), Wheezing and Hemoptysis
GI: Abdominal Pain and Nausea
Neuro: Weakness
Objective Data
Data Reviewed
Vital Signs / I&O / Oxygen:
Vital Signs
Temp Pulse Resp BP Pulse Ox
98.8 F 103 30 123/71 97
07/21/23 01:00 07/21/23 06:00 07/21/23 06:00 07/21/23 06:00 07/21/23 06:34
Intake and Output
07/20/23 07/21/23 07/22/23
06:59 06:59 06:59
Output Total 550 / 550 100 / 100
Balance -550 / -550 -100 / -100
SaO2 97
Nasal Cannula flow liters per 15
minute
Physical Exam
General: Respiratory Distress
HEENT: Normocephalic and Moist Mucous Membranes
Cardiovascular: Regular Rhythm, Murmur (n), JVD (n) and Peripheral Edema
Respiratory: Rhonchi, Accessory Resp Muscle Use and Stridor (n)
GI: Soft, Non Distended and Tender
Neurology: Awake, Oriented and No Motor Deficits
Skin: Dry
Labs/Micro/Reports
Lab Data
07/21/23 03:37
07/21/23 03:37
Microbiology
07/20/23 06:24 Blood/Venous Blood Culture - Preliminary
No Growth in 24 hours- Final report to follow
--- NOTE | 2023-07-21 09:51 | W.PN.GI.CBS2 ---
Addendum entered and electronically signed by Edwin Christiansen MD 07/21/23 20:08:
I saw and examined the patient.
The PA's note was reviewed and I agree with the note.
Comment:
Abdo CT with IV/oral contrast today showed significant stool burden, mild thickening suspicious for mild enterocolitis, otherwise unremarkable. Pt feels somewhat improved. Continue with bowel regimen. Will follow.
Original Note:
Today's Communication / Plan
-
await CT abd/pelvis with IV and oral contrast
stool studies if diarrhea persists
Assessment / Plan
-
This is a 63 year old female with a past medical history of scleroderma with interstitial lung disease, esophagitis who complains of nausea, vomiting for the past 4 days with generalized 'all over' abdominal pain. She had a few episodes of diarrhea
a few days ago, but this resolved and she now complains of constipation, which is typical for her. Her boyfriend states she has had black stools. No BRBPR. She denies any sick contacts, recent antibiotic use or travel. She is on prednisone for the
ILD. She is known to Dr. Salgado, who saw her in the office in June 2022 for complaints of dysphagia and weight loss, EGD and CT scan were ordered at that time. She had EGD with Dr. Salgado 08/2022 which showed LA Grade C esophagitis and a medium
sized hiatal hernia. She takes Pantoprazole 40mg twice daily and denies any alcohol or NSAID use. Labs show Hgb 8.1 (baseline in the 12-14 range previously) with normocytic indices. No leukocytosis, WBC count 6.8 and lactic acid 1.6. Lipase normal
(64). CT showing diffuse enteritis/ileus and mild colitis, with possible obstruction vs mass noted at the ileocecal junction. Pancreas noted to be NL on CT and PEG-J tube in place.
IMPRESSION / PLAN:
Enteritis/Colitis vs possible obstruction
-seen by Surgery and repeat CT, with oral and IV contrast, has been ordered - results pending
-NPO / hold tube feeding
-pt had loose stools again last night, consider stool studies if diarrhea persists
Normocytic Anemia
-Hgb 8.1 yesterday, 8.2 today (was previously in the 12-14 range baseline)
-black stools per history, but hemoccult negative
-continue PPI
-iron studies show slightly low serum iron, normal ferritin - suggestive of anemia of chronic disease
-continue to trend Hgb
Pulmonology has been consulted as well.
Other medical issues managed as per Hospitalist, Pulmonology.
We will follow.
Subjective
Subjective
Date of Service: July 21, 2023
'I feel a bit better today.' No vomiting, has still felt nauseous.
-She had loose bowel movements since yesterday, denies any melena/hematochezia.
-She is passing gas.
-Awaiting repeat CT scan, this time ordered with oral and IV contrast
Objective
Data Reviewed
Laboratory Data:
Laboratory Results
07/21/23 03:37
07/21/23 03:37
Laboratory Results
Total Bilirubin 0.7 mg/dl (0.2-1.3) 07/20/23 01:29
AST 25 U/L (14-36) 07/20/23 01:29
ALT 12 U/L (0-35) 07/20/23 01:29
Alkaline Phosphatase 76 U/L (38-126) 07/20/23 01:29
Lipase 64 U/L (23-300) 07/20/23 06:24
Vital Signs and I&O:
Vital Signs
Temp Pulse Resp BP Pulse Ox
98.8 F 103 30 123/71 97
07/21/23 01:00 07/21/23 06:00 07/21/23 06:00 07/21/23 06:00 07/21/23 06:34
I&O
07/20/23 07/21/23 07/22/23
06:59 06:59 06:59
Output Total 550 / 550 100 / 100
Balance -550 / -550 -100 / -100
Physical Exam
Physical Exam
GI: Soft, Non Distended, Tender (mild LLQ tenderness) and Other (hypoactive bowel sounds)
Extremities: No Edema
[2023-07-21] MEDS: OMNIPAQUE 50 ML PO (09:55)
--- NOTE | 2023-07-21 10:04 | PN.CDI ---
CDI
- -
CDI:
Physician Documentation Request
Admit Date: 07/20/23 05:11
Dear Doctor Yovani,
Patient admitted with ileus.
Please review the following and provide your response in the progress notes.
Clinical Indicators:
Height: 5' 7'
Weight: 101 lb 13 oz
BMI: 16.0
Please provide an associated diagnosis related to the abnormal BMI, such as:
Underweight
Cachectic
Anorexia
BMI is not significant
Other
BMI < or = to 19
Underweight
Weight Loss
Cachectic
Anorexia
Use of terms such as suspected, likely, concern for, or probable (associated with a specific diagnosis that is being evaluated, monitored, or treated as if it exists) are acceptable and can be coded in the inpatient setting, when documented at the
time of discharge.
Thank you,
Maira ASHER,RN,CCDS
CDI Specialist
Available via [place] text
Please use your independent medical judgment in providing your response.
[2023-07-21 10:08] LABS: Osmolality Urine 536 mOsm/kg (300-900)
--- NOTE | 2023-07-21 11:07 | W.PN.GS2 ---
Addendum entered and electronically signed by Marques Marrufo MD 07/21/23 14:55:
CT scan imaging was reviewed. No evidence of an obstruction, no significant inflammation or worry for bowel ischemia. Constipation and dilation of small bowel likely related to dysmotility from scleroderma. No plans for surgical intervention at
this time. Further care per GI. Please call with any questions or concerns.
Original Note:
Today's Communication / Plan
-
-- CT abdomen pelvis with oral and IV contrast
Assessment / Plan
-
Patient is a 63 yo F with advanced scleroderma and interstitial lung disease and PEG/J-tube for enteral access/feedings who presents with acute on chronic abdominal pain.
Difficult to exactly determine the etiology of her abdominal discomfort, however, most likely an acute on chronic exacerbation of her underlying scleroderma and bowel motility disorder. Differential also includes enteritis or colitis from an
ischemic or inflammatory standpoint. No radiographic evidence of pneumatosis or free air. Clinically symptoms have improved. Plan for repeat CT scan with oral and IV contrast, to help delineate diagnosis and rule out a more acute process. No
indication or plan for surgical intervention at this point.
-- No plans for surgical intervention
-- Repeat CT scan with oral and IV contrast
Subjective Data
-
Date of Service: July 21, 2023
Reports abdominal pain is slightly improved. No flatus, small loose BM. Mild nausea, no vomiting. No fevers
Objective Data
-
Intake and Output
07/20/23 07/21/23 07/22/23
06:59 06:59 06:59
Output Total 550 / 550 100 / 100
Balance -550 / -550 -100 / -100
Output:
Urine, Voided 550 / 550 100 / 100
Other:
Number of approximated SMALL 1
amounts of urine
Vital Signs
Temp Pulse Resp BP Pulse Ox
98.0 F 103 30 123/71 97
07/21/23 07:11 07/21/23 06:00 07/21/23 06:00 07/21/23 06:00 07/21/23 06:34
Lab Results
07/21/23 03:37
07/21/23 03:37
Calcium 8.7 mg/dl (8.4-10.2) 07/21/23 03:37
Total Bilirubin 0.7 mg/dl (0.2-1.3) 07/20/23 01:29
AST 25 U/L (14-36) 07/20/23 01:29
ALT 12 U/L (0-35) 07/20/23 01:29
Alkaline Phosphatase 76 U/L (38-126) 07/20/23 01:29
Total Protein 7.5 g/dl (6.3-8.2) 07/20/23 01:
Albumin 3.9 g/dl (3.5-5.0) 07/20/23 01:29
Physical Exam
-
Gen: NAD, tired
Abd: soft, mild tenderness, mild/moderate distension, non-peritoneal
[2023-07-21 11:25] LABS: Urine Sodium 67 mmol/L (30-90)
[2023-07-21] MEDS: ROXICODONE 5 MG TUBE ×2 (11:43→20:03)
--- NOTE | 2023-07-21 13:03 | CM ---
Patient with Hx advanced scleroderma, ILD, PEG/J-tube for enteral access/feedings with Dx abdominal pain with n/v, acute hypoxemic resp failure, anemia. NPO. O2 15 L midflow. Receiving IV Zosyn, IV vanco.
As per prior CM notes patient has home O2 in place, and had [facility] previously.
Plan follow patient's nutrition needs, activity/current functional status, and O2 needs.
Plan offer VN closer to d/c.
Probable home with VN.
[2023-07-21] MEDS: TYLENOL 650 MG TUBE (13:12)
[2023-07-21] MEDS: KCL ELIXIR 40 MEQ TUBE (14:01)
--- NOTE | 2023-07-21 16:26 | PHA.VAN.FU ---
Vancomycin Assessment / Plan
- Assessment
Renal Function: Stable
WBC's are: WNL
In the past 24 hrs, patient has been: Afebrile
Concomitant Antimicrobials: piperacillin/tazobactam
- Dosing Plan
Continue: Vanc 750mg Q12H
- Monitoring Plan
Peak Level: 07/21 20:30
Trough Level: 07/22 05:30
Monitoring Comments: levels to be drawn after 3rd maintenance dose
- Follow Up
Pharmacy will continue to follow.
Vancomycin Follow UP
- -
Patient Age: 63
Patient Sex: Female
Vancomycin Day #: 2
Indication: Gi / Intra-Abdominal
Requesting Provider: Herson Chacon
Pertinent Antimicrobial Allergies:
NKDA
Height / Weight:
Height 5 ft 7 in
Actual Weight 46.2 kg
IBW in k.6
Pertinent Past Medical History: BMI ~16, ILD (home O2)
- Vital Signs / Lab Results
Temp Pulse Resp BP Pulse Ox
98.3 F 98 33 123/71 92
07/21/23 11:16 07/21/23 10:00 07/21/23 10:00 07/21/23 06:00 07/21/23 11:25
Lab Results - Hematology
07/20/23 07/20/23 07/21/23
01:29 06:09 03:37
WBC 8.4 6.8 9.1
Lab Results - Chemistry
07/20/23 07/20/23 07/21/23
01:29 06:24 03:37
BUN 16 13 9
Creatinine 0.3 L 0.3 L 0.4 L
Estimated Creat Clear 72 72
Albumin 3.9
07/20/23
01:29
Lactic Acid 1.6
Lab Results - Urine
07/20/23
16:50
Urine Nitrite (Reflex) Negative
Leukocyte Esterase Rfl Negative
Microbiology Results
07/20/23 12:46 MRSA Screen - Final
Nose No Methicillin Resistant Staphylococcus aureus isolated.
07/20/23 06:24 Blood Culture - Preliminary
Blood/Venous No Growth in 24 hours- Final report to follow
[2023-07-21] MEDS: LOVENOX 30 MG SC (17:19)
--- NOTE | 2023-07-21 18:28 | PTCARENOTE ---
In patients I&O's, 960mL listed as oral intake even though ordered NPO. Given as Oral contrast for abdominal CT scan through the J-tube.
[2023-07-21] MEDS: D5/0.45%NSS with KCL 10 MEQ 1000 IV (20:06)
[2023-07-21 22:12] LABS: Vancomycin Peak 16.1 ug/ml (18-26)
[2023-07-22] VITALS (13 sets, daily range): BP systolic 104–155; BP diastolic 57–96; BMI 16.7
--- NOTE | 2023-07-22 00:09 | PTCARENOTE ---
Vanco peak due at 20:30. This RN had difficulty obtaining the lab. Lab was successfully drawn at 21:40.
[2023-07-22] MEDS: ROXICODONE 5 MG TUBE ×2 (00:21→04:23)
--- NOTE | 2023-07-22 02:20 | PTCARENOTE ---
Pt AAOx3, NSR on bus monitor. 12L midflow cannula at 93%, denies SOB. G tube maintained to gravity. J tube clamped unless used for medications. Pt c/o intense pain from IV sites, IVT assessed & remedied. Pt c/o 03/05 abdominal pain x2 for this
RN, denies nausea. PRN medication given x2. Pt educated on side effects of pain medications related to bowels and importance of being mindful about effect of analgesia on existing GI symptoms. On pain assessment, pt states that she has abdominal
pain at home as well.
[2023-07-22] MEDS: TYLENOL 650 MG TUBE ×2 (04:31→21:26)
[2023-07-22] MEDS: ZOSYN 50 IV ×4 (05:21→23:16)
--- NOTE | 2023-07-22 05:58 | PTCARENOTE ---
Assumed care of pt 3a-7a. aaox3, SR/ST on monitor. Remains 12LMF, NRB at bedside, pt uses periodically. all assessment findings the same. Changed GJtube dressing. Tylenol & oxycodone given for pain in abdomen & back. Very small looser bm. ivf
running. ivabx given. No other issues at this time. Call steele in reach.
[2023-07-22 06:07] LABS: Hematocrit 21.9 % (37.0-47.0); Hemoglobin 7.2 g/dL (12.0-16.0); Mean Corp Hgb Conc. 32.9 g/dL (33.0-37.0); Mean Corpuscular Hgb 30.3 pg (27.0-31.0); Mean Platelet Volume 9.2 fL (7.4-10.4); Platelet Count 382 10^3/uL (130-400); Red Blood Cell Count 2.38 10^6/uL (4.20-5.40); Red Cell Dist. Width 15.1 % (11.5-14.5); White Blood Cell Count 9.6 10^3/uL (4.8-10.8)
[2023-07-22 06:20] LABS: Blood Urea Nitrogen 6 mg/dl (7-17); Calcium 8.3 mg/dl (8.4-10.2); Carbon Dioxide 30 mmol/L (22-30); Chloride 92 mmol/L (98-107); Estimated Creatinine Clearance 75 ml/min; Glucose 110 mg/dl (70-99); Potassium 3.2 mmol/L (3.5-5.1); Sodium 130 mmol/L (135-145); eGFR > 60.00
[2023-07-22 06:23] LABS: Vancomycin Trough 8.3 ug/ml (5-20)
[2023-07-22] MEDS: VANCOCIN 150 IV (06:45)
--- NOTE | 2023-07-22 07:58 | PHA.VAN.FU ---
Vancomycin Assessment / Plan
- Assessment
Renal Function: Stable
WBC's are: WNL
In the past 24 hrs, patient has been: Afebrile
Concomitant Antimicrobials: zosyn
- Assessment - Therapeutic Drug Monitoring
Extrapolated Cmax (mcg/mL): 21.7
Peak level was drawn: More than 3 hours after previous dose (~3.5hrs after infusion finished)
Extrapolated Cmin (mcg/mL): 8.3
Trough Drawn: Appropriately (8.3)
Levels were drawn: At steady state
Calculated AUC (mcg*h/mL): 337
Calculated ke: 0.0872
Calculated half life (H): 7.9
Calculated Vd (L): 51.05
Calculated Vanc CL (ml/min): 74.18
- Dosing Plan
Adjust Regimen to: 1000mg q12h
New Regimen Predicts: AUC (469), Peak (30.2), Trough (11.6)
- Monitoring Plan
Level(s) appropriate: Recheck trough at minimum of weekly intervals, Repeat sooner for changes in renal function or clinical status
- Follow Up
Pharmacy will continue to follow.
Vancomycin Follow UP
- -
Patient Age: 63
Patient Sex: Female
Vancomycin Day #: 2
Indication: Gi / Intra-Abdominal
Requesting Provider: Herson Chacon
Pertinent Antimicrobial Allergies:
NKDA
Height / Weight:
Height 5 ft 7 in
Actual Weight 48.2 kg
IBW in k.6
Pertinent Past Medical History: BMI ~16, ILD (home O2)
- Vital Signs / Lab Results
Temp Pulse Resp BP Pulse Ox
99.3 F 105 25 111/66 91
07/22/23 03:19 07/22/23 06:00 07/22/23 06:00 07/22/23 06:00 07/22/23 06:00
Lab Results - Hematology
07/20/23 07/20/23 07/21/23
06:09 03:37
WBC 8.4 6.8 9.1
07/22/23
05:20
WBC 9.6
Lab Results - Chemistry
07/20/23 07/20/23 07/21/23
06:24 03:37
BUN 16 13 9
Creatinine 0.3 L 0.3 L 0.4 L
Estimated Creat Clear 72 72
Albumin 3.9
07/22/23
05:20
BUN 6 L
Creatinine 0.3 L
Estimated Creat Clear 75
Albumin
07/20/23
:
Lactic Acid 1.6
Microbiology Results
07/20/23 06:24 Blood Culture - Preliminary
Blood/Venous No Growth in 48 hours- Final report to follow
07/21/23 17:49 - Final
Feces/Stool Negative for Norovirus GI and GII.
07/20/23 12:46 MRSA Screen - Final
Nose No Methicillin Resistant Staphylococcus aureus isolated.
Therapeutic Drug Monitoring
Vancomycin Peak 16.1 ug/ml (18-26) L 07/21/23 21:44
Vancomycin Trough 8.3 ug/ml (5-20) 07/22/23 05:20
--- NOTE | 2023-07-22 08:57 | W.PN.HOSP.TC ---
Today's Communication/Plan
-
CW ABX
start on diet
Assessment / Plan
Assessment / Plan
Acute abdominal pain with nausea and vomiting-patient with abdominal tenderness with mild rebound.
CT scan of the abdomen pelvis which was done without oral or IV contrast shows diffuse ileus/enteritis. Mild colitis of ascending and transverse colon. Difficult to rule out component of obstruction mass at the ileocecal junction without contrast.
CT with contrast shows Large stool burden from the sigmoid colon to the mid transverse colon raising concern for constipation. Suspected mild enterocolitis. Nondistended distal sigmoid colon and rectum. Small volume pelvic ascites.
Pt CT shows constipation but pt having loose stools .
CW Emp abx for colitis -already on zosyn
Check stools for C diff /WBC
Start on PEG tube feeds
Acute on chronic respiratory hypoxemic respiratory failure. Patient has scleroderma and ILD on home O2 at 4 L. On presentation she had increased oxygen demand requiring nonrebreather now weaned to mid flow nasal cannula. Chest x-ray on admission
showed no acute cardiopulmonary process but in view of nausea ,vomiting, and esophageal stricture concerned about aspiration pneumonitis/pneumonia. Continue with empirical antibiotics. Appreciate pulmonary input. No active bronchospasm. Continue
with her low-dose steroids which she takes [she is not sure about the indication]. Continue to wean oxygen as able.
Normocytic anemia-hemoglobin is low compared to her hemoglobin in July last year. No obvious external bleeding. Iron studies suggest anemia of chronic disease. Continued drop in HH . Check stools for blood.
Hyponatremia-clinically more volume depleted and pt having loose stools with hypokalemia . Urine lytes suggests presence of ADH .Will hold on FR and follow .
Hypokalemia - repelete
Full code.
Anticipated Discharge: > 48 hours
Subjective/Interval History
-
Date of Service: July 22, 2023
Nausea improved but still with abdominal pain and discomfort.
Bowel movements are usually looser at home and they are looser here as well.
Breathing is okay.
Objective Data
-
Labs:
Laboratory Results
07/22/23
05:20
WBC 9.6
Hgb 7.2 L
Hct 21.9 L
Plt Count 382
Sodium 130 L
Potassium 3.2 L
Chloride 92 L
Carbon Dioxide 30
BUN 6 L
Creatinine 0.3 L
Glucose 110 H
Calcium 8.3 L
Vital Signs:
Vital Signs
Temp Pulse Resp BP Pulse Ox
99.3 F 105 25 111/66 91
07/22/23 03:19 07/22/23 06:00 07/22/23 06:00 07/22/23 06:00 07/22/23 06:00
I&O
07/21/23 07/22/23 07/23/23
06:59 06:59 06:59
Intake Total 1530 / 1530
Output Total 550 / 550 1100 / 1100
Balance -550 / -550 430 / 430
Review of Systems
-
Constitutional: Denies Fever or Chills
EENT: Denies Sore Throat
Respiratory: Reports Trouble Breathing (ok at rest)
Cardiac: Denies Chest Pain
Neuro: Denies Dizzy
Physical Exam
-
General: No Apparent Distress
HEENT: Moist Mucous Membranes
Respiratory: Crackles (bl lower zone); Negative Wheezes
Cardiac: Regular Rhythm and S1/S2
GI: Soft, Nondistended, Normal Bowel Sounds and Tender (discomfort in general but no rebound)
Neuro: AO x 3
Psych: Calm
Data Reviewed
-
CT Scan: Report Reviewed by me (CT a/p)
Labs: Labs Reviewed by me
[2023-07-22] MEDS: DILAUDID 0.25 MG IV ×2 (09:15→12:13)
[2023-07-22] MEDS: D5/0.45%NSS with KCL 10 MEQ 1000 IV ×2 (10:14→22:43)
[2023-07-22] MEDS: KCL ELIXIR 40 MEQ TUBE (10:15)
[2023-07-22] MEDS: DELTASONE 7.5 MG TUBE (10:15)
[2023-07-22] MEDS: COLACE LIQUID 100 MG TUBE (10:15)
[2023-07-22] MEDS: MIRALAX 17 GRAMS TUBE (10:16)
[2023-07-22] MEDS: ZOFRAN 4 MG IV (10:24)
--- NOTE | 2023-07-22 11:17 | PTCARENOTE ---
Patient complaining of severe abdominal pain, and nausea. Abdomen firm, hyperactive bowel sounds, small amounts of liquid stool in commode mixed with urine gastric tube to gravity draininage with 600 of green output. Orders to start tube feeding
ackowledged. Discussed patients pain and nausea with Dr. Pina and was instructed to proceed.
[2023-07-22] MEDS: ATIVAN 1 MG PO ×2 (12:32→20:03)
[2023-07-22] MEDS: ZOLOFT 50 MG PO (12:32)
--- NOTE | 2023-07-22 12:54 | PTCARENOTE ---
Stool testing negative for cdiff and norovirus, isolation removed at this time.
--- NOTE | 2023-07-22 14:00 | W.PN.GI.CBS2 ---
Today's Communication / Plan
-
enema
Assessment / Plan
-
This is a 63 year old female with a past medical history of scleroderma with interstitial lung disease, esophagitis who complains of nausea, vomiting for the past 4 days with generalized 'all over' abdominal pain. She had a few episodes of diarrhea
a few days ago, but this resolved and she now complains of constipation, which is typical for her. Her boyfriend states she has had black stools. No BRBPR. She denies any sick contacts, recent antibiotic use or travel. She is on prednisone for the
ILD. She is known to Dr. Salgado, who saw her in the office in June 2022 for complaints of dysphagia and weight loss, EGD and CT scan were ordered at that time. She had EGD with Dr. Salgado 08/2022 which showed LA Grade C esophagitis and a medium
sized hiatal hernia. She takes Pantoprazole 40mg twice daily and denies any alcohol or NSAID use. Labs show Hgb 8.1 (baseline in the 12-14 range previously) with normocytic indices. No leukocytosis, WBC count 6.8 and lactic acid 1.6. Lipase normal
(64). CT showing diffuse enteritis/ileus and mild colitis, with possible obstruction vs mass noted at the ileocecal junction. Pancreas noted to be NL on CT and PEG-J tube in place.
Continues to have abdominal pain. Had few watery BMs o/n, which may be overflow. Given the stool burden seen from recent CT, will order enema to see if she will have BMs.
Total Time Spent with Patient (in minutes): 35
Subjective
Subjective
Date of Service: July 22, 2023
continues to have abdominal pain
Objective
Data Reviewed
Laboratory Data:
Laboratory Results
07/22/23 05:20
07/22/23 05:20
Laboratory Results
Total Bilirubin 0.7 mg/dl (0.2-1.3) 07/20/23 01:29
AST 25 U/L (14-36) 07/20/23 01:29
ALT 12 U/L (0-35) 07/20/23 01:29
Alkaline Phosphatase 76 U/L (38-126) 07/20/23 01:29
Lipase 64 U/L (23-300) 07/20/23 06:24
Vital Signs and I&O:
Vital Signs
Temp Pulse Resp BP Pulse Ox
99.0 F 107 31 118/64 92
07/22/23 11:14 07/22/23 12:00 07/22/23 12:00 07/22/23 12:00 07/22/23 12:00
I&O
07/21/23 07/22/23 07/23/23
06:59 06:59 06:59
Intake Total 1530 / 1530 0 / 0
Output Total 550 / 550 1100 / 1100 900 / 900
Balance -550 / -550 430 / 430 -900 / -900
--- NOTE | 2023-07-22 15:00 | W.PN.PUL3 ---
Today's Communication / Plan
-
O2
BDs prn
Abx
IS
Ideally would get up OOB as tolerated
Pain control
Check CXR
Assessment
-
Assessment:
Mrs Paula Blair is a 63/W adm 07-20 with 3-4 d h/o abd pain, n/v, diarrhea, dyspnea and dizziness. At ER, hypoxic requiring NRM. Known h/o scleroderma, Raynaud's phenomenon, ILD. Abd CT reported enteritis/colitis and suspected obstruction at
ileocecal junction. Pulm consulted for hypoxemia
Impression:
Acute on chronic hypoxemia
On home O2 4L for last few m
Compounded by interim anemia and acute abdomen with hypoventilation
Acute moderate anemia (adm Hgb 9.5 down to 8.1, was 13.5 on Jul 2022)
Diffuse ileus/enteritis, mild colitis, no SBO seen on CT A/P from 07/21/2023
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
Scleroderma, Raynaud's phenomenon, ILD: follows Dr Pedersen at [facility] for last 5 y, before followed [facility]
GERD
Esophageal stricture
Required PEG placement
Pulm htn, mild: [facility] 08-18-22: PCWP 8, MPAP 24, PVR 5.3W
Moderate eccentric MR, normal RV size and function on TTE Jun 2022
Pneumonia, pneumonitis, suspected asp pneumonia, adm DH Feb 2017
Former smoker
Plan:
Continue O2 protocol
Required NRM at ER, now down to [facility]
Increased O2 requirement from baseline 4L at home
Currently on 12L as inpatient, POx 90%
Known ILD due to scleroderma, also evidence of mild pulm HTN on [facility] Jul 2022 but normal RV size/function on TTE Jun 2022
No evidence of pneumonia nor significant pneumonitis on CXR or in few lung basilar cuts on abd CT
Hypoxemia likely to baseline ILD compounded by interim moderate anemia and acute abd with hypoventilation
Follow H/H, transfuse as needed for Hgb <7
Keep asp precs
prn Nebulized albuterol/Duonebs, acapella and IS
Check CXR
Continue empirics atbs: zosyn/vanco --> narrowed today to only zosyn
Suspected GI source: enteritis/colitgis, suspected obstruction on noncontrasted CT
MRSA screening negative
GI and Surgical consultants correspondence reviewed
CT abd/p c IV/oral c 07-21
Certainly at increased risk for GI procedures or surgery given underlying lung disease
Procal is negative x2 (0.08 --> 0.16)
Continue prednisone outpatient regimen, she could not recall for how long or why she is on prednisone 7.5 mg qd
No current need to increase CS dose
D/w Mrs Blair and her at bedside.
Pulmonary service will continue to follow along.
(Patient seen and evaluated on 07/22/2023)
Diagnostic tests:
CXR 07-19-23 c/w Apr 2022, considering differences in technique, grossly unchanged mild to moderate increase in interstitial markings. No infiltrates. T-L scoliosis
CT A/P 07-21-2023: Large stool burden from the sigmoid colon to the mid transverse colon raising concern for constipation. Suspected mild enterocolitis. Nondistended distal sigmoid colon and rectum. Small volume pelvic ascites.
CT abd/p 07-20-23: few lung basilar cuts with mild mosaic pattern
Subjective Data
-
Date of Service:
Date of Service: July 22, 2023
Chief Complaint: Pulmonary Follow Up
Subjective:
Patient seen today at bedside with as well. BP 122/69, heart rate 113 and saturating 90% on 12 L/min mid flow. G-tube in place and she is receiving tube feeds. She denies any shortness of breath or cough. Denies chest pain, fevers or
chills.
Review of Systems
General: Other (12 point ROS performed and is negative unless mentioned above.)
Objective Data
Data Reviewed
Vital Signs / I&O / Oxygen:
Vital Signs
Temp Pulse Resp BP Pulse Ox
99.0 F 117 23 127/82 93
07/22/23 11:14 07/22/23 14:00 07/22/23 14:00 07/22/23 14:00 07/22/23 14:00
Intake and Output
07/21/23 07/22/23 07/23/23
06:59 06:59 06:59
Intake Total 1530 / 1530 0 / 0
Output Total 550 / 550 1100 / 1100 900 / 900
Balance -550 / -550 430 / 430 -900 / -900
SaO2 93
Nasal Cannula flow liters per 15
minute
Physical Exam
General: Respiratory Distress (neg) and Chills (neg)
HEENT: Normocephalic, Anicteric and Moist Mucous Membranes
Cardiovascular: S1-S2, Murmur (n), JVD (n) and Peripheral Edema (negative)
Respiratory: Wheeze (Negative), Crackles (R>L), Rhonchi (wet rhonchi heard on left hemithorax), Accessory Resp Muscle Use (with exertion) and Stridor (n)
GI: Soft, Non Distended, Tender and Feeding Tube (G-tube )
Neurology: Awake, Oriented and No Motor Deficits
Skin: Warm and Dry
Labs/Micro/Reports
Lab Data
07/22/23 05:20
07/22/23 05:20
Microbiology
07/22/23 12:03 Feces/Stool Stool Leukocytes - Final
07/22/23 12:03 Feces/Stool C. difficile GDH Antigen & Toxins - Final
Negative for toxigenic C.difficile
07/20/23 06:24 Blood/Venous Blood Culture - Preliminary
No Growth in 48 hours- Final report to follow
07/21/23 17:49 Feces/Stool - Final
Negative for Norovirus GI and GII.
07/20/23 12:46 Nose MRSA Screen - Final
No Methicillin Resistant Staphylococcus aureus isolated.
[2023-07-22] MEDS: DILAUDID 4 MG TUBE ×2 (16:08→20:03)
--- NOTE | 2023-07-22 16:26 | PTCARENOTE ---
Patient has been more comfortable since Ativan administered and extra dose of IV Dilaudid. Patient took a nap. Milk and molasses enema administered with moderate amount of loose stool. Tube feeds initiated at 20ml/ hour. Aspiration precaution
enforced, patient sitting up in bed with partner at bedside.
[2023-07-22] MEDS: LOVENOX 30 MG SC (17:40)
[2023-07-22] MEDS: COLACE LIQUID TUBE (20:01)
[2023-07-22] MEDS: ZYPREXA 5 MG PO (23:16)
[2023-07-23] VITALS (12 sets, daily range): BP systolic 94–148; BP diastolic 59–93; BMI 16.8
[2023-07-23] MEDS: ZOSYN 50 IV ×4 (05:05→23:37)
[2023-07-23] MEDS: DILAUDID 4 MG TUBE ×4 (05:05→18:09)
[2023-07-23 05:44] LABS: Hematocrit 26.4 % (37.0-47.0); Hemoglobin 8.6 g/dL (12.0-16.0); Mean Corp Hgb Conc. 32.6 g/dL (33.0-37.0); Mean Corpuscular Hgb 30.5 pg (27.0-31.0); Mean Corpuscular Volume 93.6 fL (81.0-99.0); Mean Platelet Volume 9.2 fL (7.4-10.4); Platelet Count 419 10^3/uL (130-400); Red Blood Cell Count 2.82 10^6/uL (4.20-5.40); White Blood Cell Count 13.4 10^3/uL (4.8-10.8)
--- NOTE | 2023-07-23 05:56 | PTCARENOTE ---
Partner is supportive of pt and was at bedside until about 2100. Patient can be drowsy and forgetful, especially after pain medication has been given. Patient had fever 101.4 overnight, medicated with tylenol. BILL CLERK Irma made aware. Prn dilaudid
and ativan provided per pt request. Abd pain varies from 9/10 down to 6/10. Multiple loose BMs. x1 episode of incontinence. Voiding adequately in BSC. Tolerating TF and IV Abx. Tele showing sinus tachycardia HR up to 140s when OOB. Sp02 85-88% on
12L, 02 increased to 15L midflow and Sp02 has been 90-97%. Lungs with crackles throughout; Encouraged deep breathing. Pt requesting cream for her hemorrhoids. Bed alarm set for safety. Call steele and tray table is within reach.
[2023-07-23 06:06] LABS: Blood Urea Nitrogen 6 mg/dl (7-17); Calcium 8.8 mg/dl (8.4-10.2); Carbon Dioxide 26 mmol/L (22-30); Chloride 93 mmol/L (98-107); Estimated Creatinine Clearance 75 ml/min; Glucose 125 mg/dl (70-99); Potassium 3.6 mmol/L (3.5-5.1); Sodium 130 mmol/L (135-145); eGFR > 60.00
--- NOTE | 2023-07-23 09:12 | W.PN.HOSP.TC ---
Addendum entered and electronically signed by Scotty Pina MD 07/25/23 17:49:
BMI 16.0 suggestive of underweight
Original Note:
Today's Communication/Plan
-
Repeat chest x-ray
Check an EKG/troponin/BNP
Repeat procalcitonin
Check COVID
Assessment / Plan
Assessment / Plan
Acute abdominal pain with nausea and vomiting-patient with abdominal tenderness with mild rebound.
CT scan of the abdomen pelvis which was done without oral or IV contrast shows diffuse ileus/enteritis. Mild colitis of ascending and transverse colon. Difficult to rule out component of obstruction mass at the ileocecal junction without contrast.
CT with contrast shows Large stool burden from the sigmoid colon to the mid transverse colon raising concern for constipation. Suspected mild enterocolitis. Nondistended distal sigmoid colon and rectum. Small volume pelvic ascites.
Pt CT shows constipation but pt having loose stools ?overflow- got enema .
CW Emp abx for colitis - on zosyn
Stools for C diff /WBC neg
seems tolerating PEG tube feeds
Acute on chronic respiratory hypoxemic respiratory failure. Patient has scleroderma and ILD on home O2 at 4 L. On presentation she had increased oxygen demand requiring nonrebreather now weaned to mid flow nasal cannula. Chest x-ray on admission
showed no acute cardiopulmonary process but in view of nausea ,vomiting, and esophageal stricture concerned about aspiration pneumonitis/pneumonia. Continue with empirical antibiotics. Appreciate pulmonary input. No active bronchospasm. Continue
with her low-dose steroids which she takes [she is not sure about the indication]. Continue to wean oxygen as able.
Repeat CXR with persistence of hypoxia and tahcypnea
Also check for CHF - see JVD and no improvement in FIO2 despite tx so far
Fever spike - now elevated WBC - on emp abx for colitis/aspiration pneumonia/itis. Check COVID, procal .Non bacteremic.
Normocytic anemia-hemoglobin is low compared to her hemoglobin in July last year. No obvious external bleeding. Iron studies suggest anemia of chronic disease. Heme neg stools
Hyponatremia-clinically more volume depleted and pt having loose stools with hypokalemia . Urine lytes suggests presence of ADH .Will hold on FR and follow .
Hypokalemia - repeleted
Hx of scleroderma
Full code.
Total time spent on today's encounter was 52 minutes which included time spent in counseling the patient regarding diagnosis and treatment plan as listed above, goals of care, and symptom management. Case was discussed with nursing staff . All labs
and imaging personally reviewed by me. Remainder the time spent in detailed review of previous records, lab data, imaging, and other medical provider documentation.
Anticipated Discharge: > 48 hours
Subjective/Interval History
-
Date of Service: July 23, 2023
Patient states abdominal pain better but she keeps moaning and when I asked why she keeps moaning she states beacause of abdominal pain. Denies any nausea or vomiting.
She is on tube feeds which she seems to be tolerating at 40 mL/h. She had an enema yesterday.
Patient still requiring high FiO2 via nasal cannula. Tachypnea noted. She is also tachycardic saturating okay on high FiO2.
Objective Data
-
Labs:
Laboratory Results
07/23/23 07/23/23
05:17 05:18
WBC 13.4 H
Hgb 8.6 L
Hct 26.4 L
Plt Count 419 H
Sodium 130 L
Potassium 3.6
Chloride 93 L
Carbon Dioxide 26
BUN 6 L
Creatinine 0.3 L
Glucose 125 H
Calcium 8.8
Vital Signs:
Vital Signs
Temp Pulse Resp BP Pulse Ox
98.4 F 126 26 119/67 90
07/23/23 07:56 07/23/23 06:00 07/23/23 06:00 07/23/23 06:00 07/23/23 06:00
I&O
07/22/23 07/23/23 07/24/23
06:59 06:59 06:59
Intake Total 1530 / 1530 2400 / 2400
Output Total 1100 / 1100 900 / 900
Balance 430 / 430 1500 / 1500
Review of Systems
-
Constitutional: Reports Fever (yesterday)
Respiratory: Reports Trouble Breathing
Cardiac: Denies Chest Pain
Abdomen/GI: Reports Abdominal Pain; Denies Nausea or Vomiting
Neuro: Denies Dizzy
Physical Exam
-
General: No Apparent Distress
HEENT: Moist Mucous Membranes
Respiratory: Crackles (BL lower zone) and Non Labored Respirations (tachypnea); Negative Wheezes or Accessory Resp Muscle Use
Cardiac: Regular Rhythm, S1/S2 and Tachycardic
GI: Soft, Nondistended, Normal Bowel Sounds and Tender (discomfort in general)
Musculoskeletal: No Edema
Neuro: AO x 3
Psych: Calm
Data Reviewed
-
Labs: Labs Reviewed by me
[2023-07-23] MEDS: ZOLOFT 50 MG PO (09:41)
[2023-07-23] MEDS: MIRALAX 17 GRAMS TUBE (09:41)
[2023-07-23] MEDS: DELTASONE 7.5 MG TUBE (09:41)
[2023-07-23] MEDS: COLACE LIQUID 100 MG TUBE ×2 (09:41→22:38)
[2023-07-23 10:42] LABS: Blood Urea Nitrogen 7 mg/dl (7-17); Calcium 8.2 mg/dl (8.4-10.2); Carbon Dioxide 31 mmol/L (22-30); Chloride 91 mmol/L (98-107); Estimated Creatinine Clearance 75 ml/min; Glucose 143 mg/dl (70-99); Potassium 3.5 mmol/L (3.5-5.1); Sodium 129 mmol/L (135-145); eGFR > 60.00
[2023-07-23 10:51] LABS: NT-proBNP 6330 pg/ml; Troponin I 0.408 ng/ml
[2023-07-23 10:55] LABS: Procalcitonin 0.16 ng/ml (0.0-0.25)
--- NOTE | 2023-07-23 11:02 | W.PN.PUL3 ---
Today's Communication / Plan
-
O2
BDs prn
Abx
IS
Ideally would get up OOB as tolerated
Pain control
Trial of diuresis
Assessment
-
Assessment:
Mrs Paula Blair is a 63/W adm 07-20 with 3-4 d h/o abd pain, n/v, diarrhea, dyspnea and dizziness. At ER, hypoxic requiring NRM. Known h/o scleroderma, Raynaud's phenomenon, ILD. Abd CT reported enteritis/colitis and suspected obstruction at
ileocecal junction. Pulm consulted for hypoxemia
Impression:
Acute on chronic hypoxemia
On home O2 4L for last few m
Compounded by interim anemia and acute abdomen with hypoventilation
Acute moderate anemia (adm Hgb 9.5 down to 8.1, was 13.5 on Jul 2022)
Diffuse ileus/enteritis, mild colitis, no SBO seen on CT A/P from 07/21/2023
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
Scleroderma, Raynaud's phenomenon, ILD: follows Dr Pedersen at [facility] for last 5 y, before followed [facility]
GERD
Esophageal stricture
Required PEG placement
Pulm htn, mild: [facility] 08-18-22: PCWP 8, MPAP 24, PVR 5.3W
Moderate eccentric MR, normal RV size and function on TTE Jun 2022
Pneumonia, pneumonitis, suspected asp pneumonia, adm DH Feb 2017
Former smoker
Plan:
Continue O2 protocol
Required NRM at ER, now down to [facility]NC
Increased O2 requirement from baseline 4L at home
Currently on 12-15L as inpatient, POx 90%
Known ILD due to scleroderma, also evidence of mild pulm HTN on C Jul 2022 but normal RV size/function on TTE Jun 2022
No evidence of pneumonia nor significant pneumonitis on CXR or in few lung basilar cuts on abd CT
Hypoxemia likely to baseline ILD compounded by interim moderate anemia and acute abd with hypoventilation
Follow H/H, transfuse as needed for Hgb <7
Keep asp precs
prn Nebulized albuterol/Duonebs, acapella and IS
Check CXR --> shows bilateral patchy opacities. Procal is <0.25, so unlikely a new pneumonia. Pro-BNP elevated --> trial of diuresis is warranted. Continue to trend proBNP and follow clinically. Hopefully her O2 requirements will improve with
diuresis. She does have a Hx of pulm HTN (Group III) --> recheck TTE
Continue empirics atbs: zosyn/vanco --> narrowed on 07/22 to zosyn only
Suspected GI source: enteritis/colitis, suspected obstruction on noncontrasted CT --> she is having bowel movements and tolerating TF
MRSA screening negative
GI and Surgical consultants correspondence reviewed
CT abd/p c IV/oral c 07-21
Certainly at increased risk for GI procedures or surgery given underlying lung disease
Procal is negative x2 (0.08 --> 0.16)
Continue prednisone outpatient regimen, she could not recall for how long or why she is on prednisone 7.5 mg qd
No current need to increase CS dose
D/w Mrs Blair and her at bedside.
Pulmonary service will continue to follow along.
(Patient seen and evaluated on 07/23/2023)
Diagnostic tests:
CXR 07-23-2023:
Prominent bronchovascular markings which could represent mild interstitial and alveolar edema. The differential may also include subtle diffuse pneumonia in the proper clinical setting.
Possible minor localized atelectasis or pneumonia in the lingula.
Subtle linear opacity in the left apex, unlikely pneumothorax, though not entirely excluded. Clinical correlation and follow-up recommended.
CXR 07-19-23 c/w Apr 2022, considering differences in technique, grossly unchanged mild to moderate increase in interstitial markings. No infiltrates. T-L scoliosis
CT A/P 07-21-2023: Large stool burden from the sigmoid colon to the mid transverse colon raising concern for constipation. Suspected mild enterocolitis. Nondistended distal sigmoid colon and rectum. Small volume pelvic ascites.
CT abd/p 07-20-23: few lung basilar cuts with mild mosaic pattern
Subjective Data
-
Date of Service:
Date of Service: July 23, 2023
Chief Complaint: Pulmonary Follow Up
Subjective:
Seen this afternoon. She is sleeping and at bedside. She says she feels well today. Having bowel movements, loose. Still on midflow at 15L/min. HR 121. No overnight events reported. There is no IS at bedside.
Review of Systems
General: Other (negative unless mentioned above)
Objective Data
Data Reviewed
Vital Signs / I&O / Oxygen:
Vital Signs
Temp Pulse Resp BP Pulse Ox
98.3 F 126 25 129/64 80
07/23/23 19:40 07/23/23 18:00 07/23/23 18:00 07/23/23 18:00 07/23/23 18:00
Intake and Output
07/22/23 07/23/23 07/24/23
06:59 06:59 06:59
Intake Total 1530 / 1530 2400 / 2400 50 / 50
Output Total 1100 / 1100 900 / 900
Balance 430 / 430 1500 / 1500 50 / 50
SaO2 80
Nasal Cannula flow liters per 15
minute
Physical Exam
General: Respiratory Distress (neg), Comfortable and Chills (neg)
HEENT: Normocephalic, Anicteric and Moist Mucous Membranes
Cardiovascular: S1-S2, Murmur (n), JVD (n) and Peripheral Edema (negative)
Respiratory: Wheeze (Negative), Crackles (R>L), Rhonchi (wet rhonchi heard on left hemithorax), Accessory Resp Muscle Use (with exertion), Stridor (n) and Other (Bubbling sounds during inspiration, likely due to severe esophageal dilation)
GI: Soft, Non Distended, Tender and Feeding Tube (G-tube )
Neurology: Awake, Oriented and No Motor Deficits
Skin: Warm and Dry
Labs/Micro/Reports
Lab Data
07/23/23 05:18
07/23/23 10:16
Microbiology
07/20/23 06:24 Blood/Venous Blood Culture - Preliminary
No Growth in 72 hours- Final report to follow
07/22/23 12:03 Feces/Stool Stool Leukocytes - Final
07/22/23 12:03 Feces/Stool C. difficile GDH Antigen & Toxins - Final
Negative for toxigenic C.difficile
07/21/23 17:49 Feces/Stool - Final
Negative for Norovirus GI and GII.
07/20/23 12:46 Nose MRSA Screen - Final
No Methicillin Resistant Staphylococcus aureus isolated.
[2023-07-23] MEDS: LASIX 40 MG IV (12:09)
--- NOTE | 2023-07-23 12:55 | W.PN.GI.CBS2 ---
Today's Communication / Plan
-
.
Assessment / Plan
-
This is a 63 year old female with a past medical history of scleroderma with interstitial lung disease, esophagitis who complains of nausea, vomiting for the past 4 days with generalized 'all over' abdominal pain. She had a few episodes of diarrhea
a few days ago, but this resolved and she now complains of constipation, which is typical for her. Her boyfriend states she has had black stools. No BRBPR. She denies any sick contacts, recent antibiotic use or travel. She is on prednisone for the
ILD. She is known to Dr. Salgado, who saw her in the office in June 2022 for complaints of dysphagia and weight loss, EGD and CT scan were ordered at that time. She had EGD with Dr. Salgado 08/2022 which showed LA Grade C esophagitis and a medium
sized hiatal hernia. She takes Pantoprazole 40mg twice daily and denies any alcohol or NSAID use. Labs show Hgb 8.1 (baseline in the 12-14 range previously) with normocytic indices. No leukocytosis, WBC count 6.8 and lactic acid 1.6. Lipase normal
(64). CT showing diffuse enteritis/ileus and mild colitis, with possible obstruction vs mass noted at the ileocecal junction. Pancreas noted to be NL on CT and PEG-J tube in place.
Received enema yesterday, had BM x 3. Reports abdo pain is improved, although this isn't clear. Tachycardic and requiring increased O2 supplements, ICU team working this up. Continue with TF for now. Will follow.
Total Time Spent with Patient (in minutes): 35
Subjective
Subjective
Date of Service: July 23, 2023
Requiring increased O2
Objective
Data Reviewed
Laboratory Data:
Laboratory Results
07/23/23 05:18
07/23/23 10:16
Laboratory Results
Total Bilirubin 0.7 mg/dl (0.2-1.3) 07/20/23 01:29
AST 25 U/L (14-36) 07/20/23 01:29
ALT 12 U/L (0-35) 07/20/23 01:29
Alkaline Phosphatase 76 U/L (38-126) 07/20/23 01:29
Lipase 64 U/L (23-300) 07/20/23 06:24
Vital Signs and I&O:
Vital Signs
Temp Pulse Resp BP Pulse Ox
98.4 F 138 26 119/76 92
07/23/23 07:56 07/23/23 12:09 07/23/23 06:00 07/23/23 12:09 07/23/23 08:00
I&O
07/22/23 07/23/23 07/24/23
06:59 06:59 06:59
Intake Total 1530 / 1530 2400 / 2400
Output Total 1100 / 1100 900 / 900
Balance 430 / 430 1500 / 1500
--- NOTE | 2023-07-23 13:00 | PTCARENOTE ---
Pt is AAOx3, tachycardic and tachypneic , Voiding and having BM on BSC.Pt states she has pain in her mouth Dr Pina advised. Boyfriend at bedside. Pt remains on 15 l mid flow at this time. POX 92% . PCXR done earlier
--- NOTE | 2023-07-23 13:30 | CON.CAR ---
Consultation
Consultation Request
Date/Time Consultation Requested: 07/23/2023 13: 00
Date/Time Consultation Performed: 07/23/2023 13: 30
Requesting Provider: Yovani
Performing Provider: Rafia
Reason for Consultation: CHF
Medical History
-
Chief Complaint: Abdominal pain and vomiting
History of Present Illness:
Paula has a history of pulm hypertension followed by Dr. Pang at the [facility], scleroderma, systemic sclerosis, esophageal dysmotility, hypertension, on chronic 4 L of oxygen. She had a right heart catheterization in July 2022
and felt to have class I pulm hypertension with PVR of 5.3 Wood units, PA pressure 38/15 with a mean of 24 and a wedge of 8 and cardiac index of 3.0 Liters.
She presented with n abdominal pain and vomiting. She had worsening shortness of breath and is now on 10 L. Cardiology is consulted for acute diastolic CHF with elevated proBNP of 6330 and chest x-ray with pneumonia versus CHF.
Past Medical History
Past Medical History: Other (See HPI)
Past Surgical History: Other (Skin graft, toe surgery, breast surgery)
Social History
Tobacco: Former Smoker
Alcohol: None
Drug: None
Personal:
Living: With Family
Employment: Employed
Family History
Family History: Other (Mother at 70 and had CHF)
Allergies / Home Medications
Allergy/AdvReac Type Severity Reaction Status Date / Time
No Known Allergies Allergy Verified 07/19/23 22:59
Medication Instructions Recorded Confirmed Type
acetaminophen 500 mg tablet 1,000 mg PO Q6H PRN pain 07/20/23 07/20/23 History
hydromorphone 4 mg tablet 4 mg feeding tube Q4 PRN pain 07/20/23 07/20/23 History
lorazepam 1 mg tablet 1 mg PO BID PRN anxiety 07/20/23 07/20/23 History
magnesium oxide 400 mg feeding tube DAILY 07/20/23 07/20/23 History
Supplement
metoclopramide HCl 5 mg tablet 5 mg feeding tube TID 07/20/23 07/20/23 History
Gastrointestinal Issue
olanzapine 5 mg tablet 5 mg PO HS Mental Health/Anxiety 07/20/23 07/20/23 History
ondansetron 4 mg oral soluble film 4 mg Q8H PRN nausea 07/20/23 07/20/23 History
pantoprazole 40 mg tablet,delayed 40 mg PO DAILY GERD 07/20/23 07/20/23 History
release
prednisone 2.5 mg tablet 7.5 mg PO DAILY INFLAMMATION 07/20/23 07/20/23 History
sertraline 50 mg tablet 50 mg PO DAILY Mental 07/20/23 07/20/23 History
Health/Anxiety
Review of Systems
-
History Source: Patient
All other systems: Negative unless noted
Constitutional: No Symptoms
EENT: No Symptoms
Respiratory: Trouble Breathing
Cardiac: No Symptoms
Abdomen/GI: Abdominal Pain and Vomiting
: No Symptoms
Musculoskeletal: No Symptoms
Skin: No Symptoms
Neurological: No Symptoms
Endocrine: No Symptoms
Hematologic/Lymphatic: No Symptoms
Physical Exam
Vital Signs
Temp Pulse Resp BP Pulse Ox
98.4 F 138 26 119/76 92
07/23/23 07:56 07/23/23 12:09 07/23/23 06:00 07/23/23 12:09 07/23/23 08:00
Lab Results
07/23/23 05:18
07/23/23 10:16
Troponin I Cancelled 07/23/23 19:15
.Vwm-D-Aktearlycnx Pept 6330 pg/ml 07/23/23 10:16
General: Appears chronically ill and cachectic
Neck: Supple, no JVD, HJR, carotids +2 B/L, no bruits bilaterally.
Heart: Non displaced PMI, RRR, no murmurs, No S3, S4, no rubs.
Lungs: Scattered rhonchi
Abdomen: Normal bowel sounds, soft, non-tender, non-distended.
Extremities: No clubbing, cyanosis or edema bilaterally.
Neuro: Grossly nonfocal, awake, alert and oriented x3.
Impression / Plan
-
Primary cardiology: [facility] cardiology: Bird
Primary: [facility]
Impression:
Acute diastolic CHF
Fever
Presentation with acute abdominal pain and vomiting
History of pulm hypertension
Scleroderma
Systemic sclerosis
Esophageal dysmotility
At least moderate MR in 2022
Hypertension
Anemia
Hyponatremia
Echocardiogram 07/07/2022: Ejection fraction 55 to 60%, mild prolapse of posterior mitral valve leaflet with at least moderate MR and cannot exclude more significant MR, moderate TR with PA systolic 57 mmHg
right heart catheterization in July 2022 and felt to have class I pulm hypertension with PVR of 5.3 Wood units, PA pressure 38/15 with a mean of 24 and a wedge of 8 and cardiac index of 3.0 Liters.
Plan:
Patient with acute respiratory failure
Of note her weight is approximately 14 pounds more than August 2022 (currently 106 pounds and was 92 pounds in August 2022)
She also has had fever and could have pneumonia
Will treat for acute diastolic CHF with IV Lasix and assess response
Continue antibiotics for pneumonia
Check echocardiogram
Patients with pulm hypertension can be very difficult to treat and right heart catheterization may need to be considered if he continues to remain hypoxemic
Data Reviewed
-
EKG: Tracing Personally Visualized and interpreted
Radiology: Report Reviewed by me
Medical Tests (Nuc Med, Echo etc): Report Reviewed by me
Labs: Labs Reviewed by me
Old Records: Reviewed
[2023-07-23] MEDS: ZOFRAN 4 MG IV (15:35)
[2023-07-23] MEDS: LOVENOX 30 MG SC (17:41)
[2023-07-23 19:43] LABS: Troponin I 0.449 ng/ml
[2023-07-23] MEDS: ZYPREXA 5 MG PO (22:38)
[2023-07-24] VITALS (12 sets, daily range): BP systolic 112–145; BP diastolic 75–92; BMI 16.8
--- NOTE | 2023-07-24 00:34 | PTCARENOTE ---
Patient reports 9/10 pain to abdomen. Upon getting prn dilaudid and returning to the room pt sleeping with eyes rolled back. Pt has been lethargic and forgetful, so dilaudid was returned and not given for safety.
Pt breathing via mouth and desatting to 70s. RT removed midflow and placed NRB. Sp02 98% on 15L NRB. Whenever pt takes off NRB, Sp02 decreases dramatically.
[2023-07-24] MEDS: DILAUDID 4 MG TUBE ×4 (01:06→17:36)
--- NOTE | 2023-07-24 01:41 | PTCARENOTE ---
Patient reports 9/10 'chest pressure' to left side of anterior chest. Pt reports it worsens with inspiration. EKG done. BUDGET COORDINATOR Irma made aware. Troponin drawn and sent. Tele showing sinus tachycardia heart rates 110-130s. NRB in place, Sp02 90-98%.
Prn dilaudid provided for 9/10 abdominal pain. Pt more alert at this time and less drowsy.
Call steele and tray table within reach. Reassurance provided. Bed alarm set for safety as pt can forget to call for assistance when getting oob.
[2023-07-24 02:45] LABS: Troponin I 0.471 ng/ml
[2023-07-24] MEDS: ZOSYN 50 IV ×4 (05:39→23:24)
[2023-07-24] MEDS: COLACE LIQUID 100 MG TUBE ×2 (08:01→20:08)
[2023-07-24] MEDS: ZOLOFT 50 MG PO (08:01)
[2023-07-24] MEDS: LASIX 40 MG IV ×2 (08:01→20:08)
[2023-07-24] MEDS: MIRALAX 17 GRAMS TUBE (08:01)
[2023-07-24] MEDS: DELTASONE 7.5 MG TUBE (08:01)
[2023-07-24 08:05] LABS: Hematocrit 22.8 % (37.0-47.0); Hemoglobin 7.2 g/dL (12.0-16.0); Mean Corp Hgb Conc. 31.6 g/dL (33.0-37.0); Mean Corpuscular Hgb 30.1 pg (27.0-31.0); Mean Corpuscular Volume 95.4 fL (81.0-99.0); Mean Platelet Volume 9.6 fL (7.4-10.4); Platelet Count 471 10^3/uL (130-400); Red Blood Cell Count 2.39 10^6/uL (4.20-5.40); Red Cell Dist. Width 15.1 % (11.5-14.5); White Blood Cell Count 19.6 10^3/uL (4.8-10.8)
[2023-07-24 08:31] LABS: Troponin I 0.314 ng/ml
--- NOTE | 2023-07-24 09:17 | W.PN.HOSP.TC ---
Today's Communication/Plan
-
Prolonged QTc: hold Sertraline and Olanzapine. Avoid/minimize QTc-prolonging medications
Please see below
Assessment / Plan
Assessment / Plan
Physical Exam
General: No Apparent Distress
HEENT: Moist Mucous Membranes
Respiratory: Crackles (BL lower zone) and Non Labored Respirations (tachypnea); Negative Wheezes or Accessory Resp Muscle Use
Cardiac: Regular Rhythm, S1/S2 and Tachycardic
GI: Soft, Nondistended, Normal Bowel Sounds and Tender (discomfort in general)
Musculoskeletal: No Edema
Neuro: AO x 3
Psych: Calm

Acute abdominal pain with nausea and vomiting-patient with abdominal tenderness with mild rebound.
CT scan of the abdomen pelvis which was done without oral or IV contrast shows diffuse ileus/enteritis. Mild colitis of ascending and transverse colon. Difficult to rule out component of obstruction mass at the ileocecal junction without contrast.
CT with contrast shows Large stool burden from the sigmoid colon to the mid transverse colon raising concern for constipation. Suspected mild enterocolitis. Nondistended distal sigmoid colon and rectum. Small volume pelvic ascites.
Pt CT shows constipation but pt having loose stools ?overflow- got enema .
CW Emp abx for colitis - on zosyn
Stools for C diff /WBC neg
seems tolerating PEG tube feeds
GI consulted, recommendations appreciated
Prolonged QTc: hold Sertraline and Olanzapine. Avoid/minimize QTc-prolonging medications
Acute on chronic respiratory hypoxemic respiratory failure. Patient has scleroderma and ILD on home O2 at 4 L. On presentation she had increased oxygen demand requiring nonrebreather now weaned to mid flow nasal cannula. Chest x-ray on admission
showed no acute cardiopulmonary process but in view of nausea ,vomiting, and esophageal stricture concerned about aspiration pneumonitis/pneumonia. Continue with empirical antibiotics. Appreciate pulmonary input. No active bronchospasm. Continue
with her low-dose steroids which she takes [she is not sure about the indication]. Continue to wean oxygen as able.
Repeat CXR with persistence of hypoxia and tahcypnea
Patient may have aspirated while brushing her teeth on 07/24/23.
Will consider ID consultation.
Repeat CXR tomorrow AM
Also check for CHF - cardiology consulted and IV Lasix has been increased to 40 mg twice daily (patient's weight is 15 lbs higher than her weight in August 2022 - currently 107 pounds and was 92 pounds in August 2022)
History of Pulmonary Hypertension - may need right heart catheterization if remains significantly hypoxemic
Echo as per Dr. Mark Rodriguez Text on 07/24/23 showed that the RV is dilated and hypo kinetic , which is different from June 2022. However, the pulmonary hypertension is less --> pulmonary aware
Fever spike - now elevated WBC - on emp abx for colitis/aspiration pneumonia/itis. Procal low. Check COVID. Non bacteremic.
Normocytic anemia-hemoglobin is low compared to her hemoglobin in July last year. No obvious external bleeding. Iron studies suggest anemia of chronic disease. Heme neg stools
Hyponatremia-clinically more volume depleted and pt having loose stools with hypokalemia . Urine lytes suggests presence of ADH .Will hold on FR and follow .
Hypokalemia - repleted
Hx of scleroderma
Systemic sclerosis
Esophageal dysmotility
History of MR
Hypertension
Anemia
Non-WA troponin elevation with peak troponin 0.449
Full code.
Anticipated Discharge: > 48 hours
Subjective/Interval History
-
Date of Service: July 24, 2023
Patient was seen and examined. There were no new symptoms or complaints reported. Per patient's nurse, patient may have aspirated while brushing her teeth.
Objective Data
-
Labs:
Laboratory Results
07/24/23
07:57
WBC 19.6 H
Hgb 7.2 L
Hct 22.8 L
Plt Count 471 H
Vital Signs:
Vital Signs
Temp Pulse Resp BP Pulse Ox
98.2 F 117 30 123/92 98
07/24/23 03:40 07/24/23 08:01 07/24/23 06:00 07/24/23 08:01 07/24/23 08:47
I&O
07/23/23 07/24/23 07/25/23
06:59 06:59 06:59
Intake Total 2400 / 2400 755 / 755
Output Total 900 / 900 100 / 100
Balance 1500 / 1500 655 / 655
--- NOTE | 2023-07-24 09:57 | W.PN.GI.CBS2 ---
Addendum entered and electronically signed by Edwin Christiansen MD 07/24/23 19:57:
I saw and examined the patient.
The PA's note was reviewed and I agree with the note.
Comment:
Abdominal pain has improved. Having BMs. Tolerating tube feeds. Currently having increased O2 requirements, ? aspiration pneumonitis vs pulm HTN, cardiology evaluating. Given improvement of GI symptoms, will s/o, pls call with additional
questions.
Original Note:
Today's Communication / Plan
-
Assessment / Plan
-
This is a 63 year old female with a past medical history of scleroderma with interstitial lung disease, esophagitis who complains of nausea, vomiting for the past 4 days with generalized 'all over' abdominal pain. She had a few episodes of diarrhea
a few days ago, but this resolved and she now complains of constipation, which is typical for her. Her boyfriend states she has had black stools. No BRBPR. She denies any sick contacts, recent antibiotic use or travel. She is on prednisone for the
ILD. She is known to Dr. Salgado, who saw her in the office in June 2022 for complaints of dysphagia and weight loss, EGD and CT scan were ordered at that time. She had EGD with Dr. Salgado 08/2022 which showed LA Grade C esophagitis and a medium
sized hiatal hernia. She takes Pantoprazole 40mg twice daily and denies any alcohol or NSAID use. Labs show Hgb 8.1 (baseline in the 12-14 range previously) with normocytic indices. No leukocytosis, WBC count 6.8 and lactic acid 1.6. Lipase normal
(64). CT showing diffuse enteritis/ileus and mild colitis, with possible obstruction vs mass noted at the ileocecal junction. Pancreas noted to be NL on CT and PEG-J tube in place.
Received enema yesterday, had BM x 3. Reports improved abdominal pain, no nausea, vomiting. Tachycardic and requiring increased O2 supplements, ICU team working this up and Cardiology consulted for acute CHF. Continue with TF for now. Will follow.
Subjective
Subjective
Date of Service: July 24, 2023
No abdominal pain, nausea or vomiting.
Has been having BMs, last BM last night.
No rectal bleeding.
Objective
Data Reviewed
Laboratory Data:
Laboratory Results
07/24/23 07:57
07/23/23 10:16
Laboratory Results
Total Bilirubin 0.7 mg/dl (0.2-1.3) 07/20/23:
AST 25 U/L (14-36) 07/20/23:
ALT 12 U/L (0-35) 07/20/23:
Alkaline Phosphatase 76 U/L (38-126) 07/20/23:
Lipase 64 U/L (23-300) 07/20/23 06:24
Vital Signs and I&O:
Vital Signs
Temp Pulse Resp BP Pulse Ox
96.5 F L 117 30 123/92 98
07/24/23 07:20 07/24/23 08:01 07/24/23 06:00 07/24/23 08:01 07/24/23 08:47
I&O
07/23/23 07/24/23 07/25/23
06:59 06:59 06:59
Intake Total 2400 / 2400 755 / 755
Output Total 900 / 900 100 / 100
Balance 1500 / 1500 655 / 655
Physical Exam
Physical Exam
GI: Soft, Distended, Non Tender and Normal Bowel Sounds
--- NOTE | 2023-07-24 10:46 | PTCARENOTE ---
Pt is AAO x3, very drowsy. Blanca TF at 45ml . Pt wearing Non rebreather . HR 111. Voiding on commode, lungs are coarse
--- NOTE | 2023-07-24 11:20 | W.PN.CARDCBS ---
Today's Communication / Plan
-
Remains significantly hypoxemic
Increase Lasix to 40 mg IV twice daily
Check echo
May need right heart cath if remains hypoxemic but could be multifactorial hypoxemia with fever and pneumonia
Impression / Plan
-
Primary cardiology: [facility]: Pang
Primary: [facility]
Impression:
Acute diastolic CHF
Fever
Presentation with acute abdominal pain and vomiting
History of pulm hypertension
Scleroderma
Systemic sclerosis
Esophageal dysmotility
At least moderate MR in 2022
Hypertension
Anemia
Hyponatremia
Non-PA troponin elevation with peak troponin 0.449
Echocardiogram 07/07/2022: Ejection fraction 55 to 60%, mild prolapse of posterior mitral valve leaflet with at least moderate MR and cannot exclude more significant MR, moderate TR with PA systolic 57 mmHg
right heart catheterization in July 2022 and felt to have class I pulm hypertension with PVR of 5.3 Wood units, PA pressure 38/15 with a mean of 24 and a wedge of 8 and cardiac index of 3.0 Liters.
Plan:
She remains significantly hypoxemic
She may have gained 1 pound overnight despite IV Lasix
Will increase Lasix to 40 mg IV twice daily
Of note her weight is approximately 15 pounds more than August 2022 (currently 107 pounds and was 92 pounds in August 2022)
Check echocardiogram
Patients with pulm hypertension can be very difficult to treat and right heart catheterization may need to be considered if he continues to remain hypoxemic
She also has had fever and could have pneumonia
Continue antibiotics for pneumonia
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
Subjective
Date of Service: July 24, 2023
She has no complaints. She remains on significant oxygen at 15 L. She normally is on 4 L at home.
Objective
Labs:
07/24/23 07:57
07/23/23 10:16
Labs
Hgb 7.2 g/dL (12.0-16.0) L 07/24/23 07:57
Hct 22.8 % (37.0-47.0) L 07/24/23 07:57
Plt Count 471 10^3/uL (130-400) H 07/24/23 07:57
Sodium 129 mmol/L (135-145) L 07/23/23 10:16
Potassium 3.5 mmol/L (3.5-5.1) 07/23/23 10:16
BUN 7 mg/dl (7-17) 07/23/23 10:16
Creatinine 0.3 mg/dL (0.6-1.0) L 07/23/23 10:16
Glucose 143 mg/dl (70-99) H 07/23/23 10:16
Troponins
07/23/23 07/23/23 07/23/23
10:15 10:16 11:15
Troponin I Cancelled 0.408 H* Cancelled
07/23/23 07/23/23 07/24/23
19:11 19:15 01:36
Troponin I 0.449 H* Cancelled 0.471 H*
07/24/23
07:57
Troponin I 0.314 H* D
Vital Signs and I&O:
Vital Signs
Temp Pulse Resp BP Pulse Ox
96.5 F L 117 30 123/92 98
07/24/23 07:20 07/24/23 08:01 07/24/23 06:00 07/24/23 08:01 07/24/23 08:47
Vital Signs
Temp Pulse Resp BP Pulse Ox
96.5 F L 117 30 123/92 98
07/24/23 07:20 07/24/23 08:01 07/24/23 06:00 07/24/23 08:01 07/24/23 08:47
Intake & Output
07/22/23 07/23/23 07/24/23 01/30/24
06:59 06:59 06:59 06:59
Intake Total 1530 / 1530 2400 / 2400 755 / 755
Output Total 1100 / 1100 900 / 900 100 / 100
Balance 430 / 430 1500 / 1500 655 / 655
Physical Exam
Physical Exam
General: Appears chronically ill
Neck: Supple, no JVD, HJR, carotids +2 B/L, no bruits bilaterally.
Heart: Non displaced PMI, RRR, no murmurs, No S3, S4, no rubs.
Lungs: Scattered rhonchi
Extremities: No clubbing, cyanosis or edema bilaterally.
Neuro: Grossly nonfocal, awake, alert and oriented x3.
[2023-07-24 12:34] LABS: Albumin 3.4 g/dl (3.5-5.0); Blood Urea Nitrogen 13 mg/dl (7-17); Calcium 8.2 mg/dl (8.4-10.2); Carbon Dioxide 37 mmol/L (22-30); Chloride 85 mmol/L (98-107); Estimated Creatinine Clearance 76 ml/min; Glucose 143 mg/dl (70-99); Magnesium 1.7 mg/dl (1.6-2.3); Phosphorus 3.4 mg/dl (2.5-4.5); Potassium 3.4 mmol/L (3.5-5.1); Sodium 130 mmol/L (135-145); eGFR > 60.00
[2023-07-24] MEDS: MAGNESIUM SULFATE 50 IV (12:48)
[2023-07-24] MEDS: KCL ELIXIR 40 MEQ TUBE (13:14)
--- NOTE | 2023-07-24 13:40 | PTCARENOTE ---
Kathy sisiter helping pt bruch teeth , pt choked desat to 70, 15 l o2 and 15 l NRB pt pox to 92%
--- NOTE | 2023-07-24 15:42 | W.PN.PUL3 ---
Today's Communication / Plan
-
O2
BDs prn
Abx
IS
Ideally would get up OOB as tolerated
Pain control
Trial of diuresis but careful not to over-diurese given her RV dysfunction
Assessment
-
Assessment:
Mrs Paula Blair is a 63/W adm 07-20 with 3-4 d h/o abd pain, n/v, diarrhea, dyspnea and dizziness. At ER, hypoxic requiring NRM. Known h/o scleroderma, Raynaud's phenomenon, ILD. Abd CT reported enteritis/colitis and suspected obstruction at
ileocecal junction. Pulm consulted for hypoxemia
Impression:
Acute on chronic hypoxemia
On home O2 4L for last few m
Compounded by interim anemia and acute abdomen with hypoventilation
Acute moderate anemia (adm Hgb 9.5 down to 8.1, was 13.5 on Jul 2022)
Diffuse ileus/enteritis, mild colitis, no SBO seen on CT A/P from 07/21/2023
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
Scleroderma, Raynaud's phenomenon, ILD: follows Dr Pedersen at [facility] for last 5 y, before followed [facility]
GERD
Esophageal stricture
Required PEG placement
Pulm htn, mild: [facility] 08-18-22: PCWP 8, MPAP 24, PVR 5.3W
Moderate eccentric MR, normal RV size and function on TTE Jun 2022
Pneumonia, pneumonitis, suspected asp pneumonia, adm DH Feb 2017
Former smoker
Plan:
Continue O2 protocol
Required NRM at ER, now down to [facility]
Increased O2 requirement from baseline 4L at home
Currently on 12-15L as inpatient, POx 90%
Known ILD due to scleroderma, also evidence of mild pulm HTN on RLC Jul 2022 but normal RV size/function on TTE Jun 2022
No evidence of pneumonia nor significant pneumonitis on CXR or in few lung basilar cuts on abd CT
Hypoxemia likely to baseline ILD compounded by interim moderate anemia and acute abd with hypoventilation
Follow H/H, transfuse as needed for Hgb <7
Keep asp precs
prn Nebulized albuterol/Duonebs, acapella and IS
CXR shows bilateral patchy opacities. Procal is <0.25, so unlikely a new pneumonia. Pro-BNP elevated --> trial of diuresis is warranted. Continue to trend proBNP and follow clinically. Hopefully her O2 requirements will improve with diuresis.
She does have a Hx of pulm HTN (Group III) -->TTE shows hypokinetic RV with RV dysfunction. I suspect she has acute right heart failure, perhaps acute on chronic given her long standing pHTN. RHC would be helpful to confirm this and to assess PCWP.
Continue empirics atbs: zosyn/vanco --> narrowed on 07/22 to zosyn only
Suspected GI source: enteritis/colitis, suspected obstruction on noncontrasted CT --> she is having bowel movements and tolerating TF
MRSA screening negative
GI and Surgical consultants correspondence reviewed
CT abd/p c IV/oral c 07-21
Certainly at increased risk for GI procedures or surgery given underlying lung disease
Procal is negative x2 (0.08 --> 0.16)
Continue prednisone outpatient regimen, she could not recall for how long or why she is on prednisone 7.5 mg qd
No current need to increase CS dose
D/w Mrs Blair and her at bedside.
Pulmonary service will continue to follow along.
(Patient seen and evaluated on 07/24/2023)
Diagnostic tests:
CXR 07-23-2023:
Prominent bronchovascular markings which could represent mild interstitial and alveolar edema. The differential may also include subtle diffuse pneumonia in the proper clinical setting.
Possible minor localized atelectasis or pneumonia in the lingula.
Subtle linear opacity in the left apex, unlikely pneumothorax, though not entirely excluded. Clinical correlation and follow-up recommended.
CXR 07-19-23 c/w Apr 2022, considering differences in technique, grossly unchanged mild to moderate increase in interstitial markings. No infiltrates. T-L scoliosis
CT A/P 07-21-2023: Large stool burden from the sigmoid colon to the mid transverse colon raising concern for constipation. Suspected mild enterocolitis. Nondistended distal sigmoid colon and rectum. Small volume pelvic ascites.
CT abd/p 07-20-23: few lung basilar cuts with mild mosaic pattern
Subjective Data
-
Date of Service:
Date of Service: July 24, 2023
Chief Complaint: Pulmonary Follow Up
Subjective:
Pt seen this afternoon. On 15L/min still, sats 96%. No acute events reported from overnight.
Review of Systems
General: Other (neg unless mentioned above)
Objective Data
Data Reviewed
Vital Signs / I&O / Oxygen:
Vital Signs
Temp Pulse Resp BP Pulse Ox
96.5 F L 117 30 123/92 98
07/24/23 07:20 07/24/23 08:01 07/24/23 06:00 07/24/23 08:01 07/24/23 08:47
Intake and Output
07/23/23 07/24/23 07/25/23
06:59 06:59 06:59
Intake Total 2400 / 2400 755 / 755
Output Total 900 / 900 100 / 100
Balance 1500 / 1500 655 / 655
SaO2 98
Nasal Cannula flow liters per 15
minute
Physical Exam
General: Respiratory Distress (neg), Comfortable and Chills (neg)
HEENT: Normocephalic, Anicteric and Moist Mucous Membranes
Cardiovascular: S1-S2, Murmur (n), JVD (n) and Peripheral Edema (negative)
Respiratory: Wheeze (Negative), Crackles (R>L), Rhonchi (neg), Accessory Resp Muscle Use (with exertion), Stridor (n) and Other (Bubbling sounds during inspiration, likely due to severe esophageal dilation)
GI: Soft, Non Distended, Tender and Feeding Tube (G-tube )
Neurology: Awake, Oriented and No Motor Deficits
Skin: Warm and Dry
Labs/Micro/Reports
Lab Data
07/24/23 07:57
Microbiology
07/20/23 06:24 Blood/Venous Blood Culture - Preliminary
No Growth in 4 days- Final report to follow
07/22/23 12:03 Feces/Stool Stool Leukocytes - Final
07/22/23 12:03 Feces/Stool C. difficile GDH Antigen & Toxins - Final
Negative for toxigenic C.difficile
07/21/23 17:49 Feces/Stool - Final
Negative for Norovirus GI and GII.
07/20/23 12:46 Nose MRSA Screen - Final
No Methicillin Resistant Staphylococcus aureus isolated.
[2023-07-24] MEDS: LOVENOX 30 MG SC (17:00)
[2023-07-24 19:05] LABS: COVID-19 Antigen Negative (Negative)
[2023-07-24 23:00] LABS: Glucose - Point of Care 104 mg/dl (70-99)
[2023-07-25] VITALS (13 sets, daily range): BP systolic 111–139; BP diastolic 71–89; BMI 16.4
[2023-07-25] MEDS: ATIVAN 1 MG PO ×2 (01:10→17:42)
[2023-07-25] MEDS: TYLENOL 650 MG TUBE ×2 (04:08→17:42)
[2023-07-25] MEDS: ZOSYN 50 IV (05:15)
[2023-07-25 05:30] LABS: % Basophils 0.3 % (0-2); % Eosinophils 0.6 % (0-6); % Immature Granulocytes 0.5 % (0-0.5); % Lymphocytes 3.8 % (20.5-51.1); % Monocytes 6.3 % (1.7-9.3); % Neutrophils 88.5 % (42.2-75.2); Absolute Eosinophils 0.1 10^3/uL (0-0.7); Absolute Immature Granulocytes 0.1 10^3/uL (0-0.05); Absolute Lymphocytes 0.6 10^3/uL (1.2-3.4); Absolute Neutrophils 13.5 10^3/uL (1.4-6.5); Mean Corpuscular Hgb 29.6 pg (27.0-31.0); Mean Corpuscular Volume 92.6 fL (81.0-99.0); Mean Platelet Volume 9.7 fL (7.4-10.4); Nucleated Red Blood Cells % 0 %; Platelet Count 477 10^3/uL (130-400); Red Cell Dist. Width 15.1 % (11.5-14.5); White Blood Cell Count 15.3 10^3/uL (4.8-10.8)
[2023-07-25] MEDS: ZOFRAN 4 MG IV (06:03)
[2023-07-25 07:29] LABS: ALT (SGPT) 24 U/L (0-35); AST (SGOT) 44 U/L (14-36); Alkaline Phosphatase 143 U/L (38-126); Blood Urea Nitrogen 21 mg/dl (7-17); Calcium 8.5 mg/dl (8.4-10.2); Carbon Dioxide 39 mmol/L (22-30); Chloride 83 mmol/L (98-107); Estimated Creatinine Clearance 74 ml/min; Glucose 135 mg/dl (70-99); Magnesium 2.2 mg/dl (1.6-2.3); Phosphorus 3.1 mg/dl (2.5-4.5); Potassium 3.5 mmol/L (3.5-5.1); Sodium 132 mmol/L (135-145); Total Bilirubin 0.5 mg/dl (0.2-1.3); Total Protein 6.4 g/dl (6.3-8.2); eGFR > 60.00
--- NOTE | 2023-07-25 09:11 | PTCARENOTE ---
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 Patient resting comfortably in bed. AAO, VSS. No events noted overnight. No complaints of pain or nausea. Currently on 15L MidFlow N/C, will attempt to wean as tolerated as well as get a more accurate and
consistent wave form. Multiple loose BM's. Quintana in place. Call steele in reach.
[2023-07-25] MEDS: COLACE LIQUID 100 MG TUBE ×2 (09:37→20:41)
[2023-07-25] MEDS: LASIX 40 MG IV ×2 (09:38→20:40)
[2023-07-25] MEDS: DELTASONE 7.5 MG TUBE (09:39)
[2023-07-25] MEDS: MIRALAX 17 GRAMS TUBE (09:40)
[2023-07-25] MEDS: KCL ELIXIR 40 MEQ TUBE (09:41)
--- NOTE | 2023-07-25 10:25 | CON.ID ---
Consultation
-
Date/Time Consultation Requested: July 25, 2023 0905
Date/Time Consultation Performed: July 25, 2023 1025
Requesting Provider: Dr. Claude Hinson
Performing Provider: Dr. Courtney Jauregui
Reason for Consultation: PNA
Chief Complaint / Past History
Chief Complaint
Abdominal pain
History of Present Illness
63-year-old female with advanced scleroderma on prednisone, mycophenolate, interstitial lung disease on chronic oxygen 4 L, pulmonary hypertension, esophagitis/dysphagia status post PEG tube placement who presented to the ER in July 19
complaining of 3-day history of abdominal pain with nausea and vomiting. Had diarrhea. Patient noted to be hypoxic. Procalcitonin on July 21 in July [address] of the abdomen pelvis showed ileus/enteritis, positive
stool burden. C. difficile negative. Stool cultures negative. Patient was started on empiric Zosyn since July 20. July 22 she had an episode of fever x 1. Blood cultures were negative. COVID-negative. UA negative. She is now having
bowel movements with enema. However patient with increased oxygen requirement.She had episodes of hypothermia yesterday. Also her white count has been trending up. She states she was brushing her teeth yesterday and aspirated. She now has
nonproductive cough. No chills. No fever. Abdominal pain slightly better. No urinary symptoms.
Past History
Additional Past Medical History:
Scleroderma on prednisone, mycophenolate
Interstitial lung disease on home 02 4L
pulm hypertension
Esophagitis/Dysphagia s/p PEG
Esophageal stricture dilations
Additional Past Surgical History:
Finger and toe amputations
Allergy History:
No Known Allergies Allergy (Verified 07/19/23 22:59)
Medications Reviewed: Yes
Current Antibiotics:
Zosyn d6
Social History
Tobacco: Former Smoker
Alcohol: None
Drug: None
Family History
Family History: Not Pertinent
Review of Systems
Review of Systems
General: Negative Fever or Chills
HEENT: Negative Sinus Problems, Headache or Pharyngitis
Cardiovascular: Negative Chest Pain
Respiratory: Dyspnea and Cough; Negative Sputum Production
Genital / Urological: Negative Dysuria or Flank Pain
Endocrine: Weakness
Skin / Hair / Nails: Negative Rash
Neurological: Negative Headache
All systems: All other systems were reviewed and were negative
Vital Signs
Temp Pulse Resp BP Pulse Ox
96.8 F L 108 37 135/79 87
07/25/23 07:35 07/25/23 09:38 07/25/23 06:07 07/25/23 09:38 07/25/23 04:00
Physical Exam
Physical Exam
Constitutional: Acutely Ill, Chronically Ill and Cachetic
Eyes: No Conjunctival Hemorrhage and Sclera Anicteric
Oral: Other (dry mucous membranes)
Cardiovascular: S1/S2 and Other (tachycardic)
Pulmonary: Coarse (coarse crackles bilaterally)
Gastrointestinal: Soft, Non Tender and Non Distended
Genito-Urinary: Negative CVA Tenderness
Extremities: Negative Edema
Neurological: AO x 3 and Other (Drowsy)
Lab / Diagnostic Study Results
07/25/23 05:20
07/25/23 06:35
Abs Immat Gran (auto) 0.1 10^3/uL (0-0.05) H 07/25/23 05:20
Absolute Neuts (auto) 13.5 10^3/uL (1.4-6.5) H 07/25/23 05:20
Absolute Lymphs (auto) 0.6 10^3/uL (1.2-3.4) L 07/25/23 05:20
Absolute Monos (auto) 1.0 10^3/uL (0.1-0.6) H 07/25/23 05:20
Absolute Basos (auto) 0.0 10^3/uL (0-0.2) 07/25/23 05:20
Immature Gran % 0.5 % (0-0.5) 07/25/23 05:20
Neutrophils % 88.5 % (42.2-75.2) H 07/25/23 05:20
Lymphocytes % 3.8 % (20.5-51.1) L 07/25/23 05:20
Monocytes % 6.3 % (1.7-9.3) 07/25/23 05:20
Eosinophils % 0.6 % (0-6) 07/25/23 05:20
Basophils % 0.3 % (0-2) 07/25/23 05:20
Lactic Acid 1.6 mmol/L (0.7-2.0) 07/20/23 01:29
C-Reactive Protein 196.40 mg/L (0.0-10.00) H 07/23/23 10:16
Procalcitonin 0.16 ng/ml (0.0-0.25) 07/23/23 10:16
Microbiology Results
Micro:
07/20/23 06:24 Blood Culture - Final
Blood/Venous No Growth - Final Report
07/22/23 12:03 Stool Leukocytes - Final
Feces/Stool
07/22/23 12:03 C. difficile GDH Antigen & Toxins - Final
Feces/Stool Negative for toxigenic C.difficile
07/21/23 17:49 - Final
Feces/Stool Negative for Norovirus GI and GII.
07/20/23 12:46 MRSA Screen - Final
Nose No Methicillin Resistant Staphylococcus aureus isolated.
07/23/23 CXR: Prominent bronchovascular markings which could represent mild interstitial and alveolar edema. The differential may also include subtle diffuse pneumonia in the proper clinical setting.
07/21/[address] a/p: Large stool burden from the sigmoid colon to the mid transverse colon raising concern for constipation. Suspected mild enterocolitis. Nondistended distal sigmoid colon and rectum. Small volume pelvic ascites.
07/20/23 CT a/p: Findings suggesting diffuse ileus/enteritis. Mild colitis of the ascending and transverse colon. Difficult to rule out component of obstruction/mass at the ileocecal junction. Consider direct visualization.
Assessment / Plan
#Aspiration event
# Acute on chronic hypoxemic respiratory failure, remains on midflow oxygen
# Leukocytosis, hypothermia
# advanced scleroderma, esophageal stricture with PEG
# ILD, pulmonary HTN on chronic baseline 02 4L
- Replace Zosyn (d5) with IV ceftriaxone and enteric metronidazole.
-Aspiration precaution.
-Follow temps/wbc.
--- NOTE | 2023-07-25 10:36 | W.PN.PUL3 ---
Today's Communication / Plan
-
O2 - try to obtain accurate O2 sats and titrate O2 to keep sats >90%
If chest pain persists then check troponin and repeat EKG - notify cardiology regarding any changes
Diuresis
If diuresis fails to improve hypoxia and b/l opacities persist, I will start high dose steroids for inflammatory pneumonitis
BDs prn
Abx per ID
IS
Ideally would get up OOB as tolerated - she is very weak/deconditioned; PT/OT
Pain control
Careful not to over-diurese given her RV dysfunction (TAPSE: 1cm)
Assessment
-
Assessment:
Mrs Paula Blair is a 63/W adm 07-20 with 3-4 d h/o abd pain, n/v, diarrhea, dyspnea and dizziness. At ER, hypoxic requiring NRM. Known h/o scleroderma, Raynaud's phenomenon, ILD. Abd CT reported enteritis/colitis and suspected obstruction at
ileocecal junction. Pulm consulted for hypoxemia
Impression:
Acute on chronic hypoxemia
On home O2 4L for last few m
Compounded by interim anemia and acute abdomen with hypoventilation;
Bialteral interstitial opacities on CXR - DDx includes acute HFpEF in setting of valvular heart disese (mild-moderate eccentric MR) vs inflammatory pneumonitis
Acute moderate anemia (adm Hgb 9.5 down to 8.1, was 13.5 on Jul 2022)
Diffuse ileus/enteritis, mild colitis, no SBO seen on CT A/P from 07/21/2023
RV dysfunction with hypokinetic RV seen on TTE from 07/24/2023
Chest pain with new TWI in V2-3
Conditions [employer]:
Scleroderma, Raynaud's phenomenon, ILD: follows Dr Pedersen at [facility] for last 5 y, before followed [facility]
GERD
Esophageal stricture
Required PEG placement
Pulm htn, mild: RHC 08-18-22: PCWP 8, MPAP 24, PVR 5.3W
Moderate eccentric MR, normal RV size and function on TTE Jun 2022
Pneumonia, pneumonitis, suspected asp pneumonia, adm DH Feb 2017
Former smoker
Plan:
Continue O2 protocol; change pulse ox site to forehead as there is discrepancy between her peripheral SaO2 versus DP O2 obtained on ABG showing pO2 159 on 15 L/min.
Required NRM at ER, now down to [facility]
Increased O2 requirement from baseline 4L at home
Currently on 12-15L as inpatient, POx 90%
Known ILD due to scleroderma, also evidence of mild pulm HTN on RLC Jul 2022 but normal RV size/function on TTE Jun 2022
Previously: No evidence of pneumonia nor significant pneumonitis on CXR or in few lung basilar cuts on abd CT
Hypoxemia likely to baseline ILD compounded by interim moderate anemia and acute abd with hypoventilation
Follow H/H, transfuse as needed for Hgb <7
Keep asp precs
prn Nebulized albuterol/Duonebs, acapella and IS
CXR shows bilateral patchy opacities from 07/24/2023 --> Procal is <0.25, so unlikely a new pneumonia. Pro-BNP elevated --> trial of diuresis is warranted. Continue to trend proBNP and follow clinically. Hopefully her O2 requirements will improve
with diuresis. She does have a Hx of pulm HTN (Group III) -->TTE shows hypokinetic RV with RV dysfunction. RHC would be helpful to confirm severity of her pHTN and to assess PCWP, however there is high risk with any sedation given her lethargic
mental status and high O2 requirements currently - she could end up on ventilator.
She is not in a low flow state given normal lactate today of 1.2. She also was not clinically in acute right heart failure given absent JVD and no lower extremity edema. RHC will at least tell us the severity of her pulmonary hypertension and
assess for left-sided heart failure given her recent CXR showing possible vascular congestion.
If her O2 requirements do not improve with diuresis then will raise her steroids. Check CRP level for now and tren pro-BNP
Continue empirics atbs: zosyn/vanco --> narrowed on 07/22 to zosyn only --> today she was narrowed further to rocephin/PO flagyl
Suspected GI source: enteritis/colitis, suspected obstruction on noncontrasted CT --> she is having bowel movements and tolerating TF
MRSA screening negative
GI and Surgical consultants correspondence reviewed
CT abd/p c IV/oral c 07-21
Certainly at increased risk for GI procedures or surgery given underlying lung disease
Procal is negative x2 (0.08 --> 0.16)
Cardiology on board - pt had chest pain with TWI seen in V2-3. Defer additional workup to cards.
Check lipid panel
Serial EKG and check troponin
Check a1C
Continue prednisone outpatient regimen, she could not recall for how long or why she is on prednisone 7.5 mg qd
No current need to increase CS dose unless she does not improve her O2 requirements with diuresis given the bilateral interstitial opacities seen on CXR
D/w Mrs Blair and her at bedside.
Pulmonary service will continue to follow along.
Diagnostic tests:
CXR 07/25/2023:
There is stable moderate diffuse coarsening of the interstitial markings throughout both lungs more prominent on the right than the left.
The stability of this finding is more suggestive of interstitial pneumonia than pulmonary edema though the latter is included in the differential diagnosis.
CXR 07-23-2023:
Prominent bronchovascular markings which could represent mild interstitial and alveolar edema. The differential may also include subtle diffuse pneumonia in the proper clinical setting.
Possible minor localized atelectasis or pneumonia in the lingula.
Subtle linear opacity in the left apex, unlikely pneumothorax, though not entirely excluded. Clinical correlation and follow-up recommended.
CXR 07-19-23 c/w Apr 2022, considering differences in technique, grossly unchanged mild to moderate increase in interstitial markings. No infiltrates. T-L scoliosis
CT A/P 07-21-2023: Large stool burden from the sigmoid colon to the mid transverse colon raising concern for constipation. Suspected mild enterocolitis. Nondistended distal sigmoid colon and rectum. Small volume pelvic ascites.
CT abd/p 07-20-23: few lung basilar cuts with mild mosaic pattern
Subjective Data
-
Date of Service:
Date of Service: July 25, 2023
Chief Complaint: Pulmonary Follow Up
Subjective:
Patient seen this morning. She has some chest pain while having a bowel movement. Chest pain comes and goes. EKG obtained showing
Objective Data
Data Reviewed
Vital Signs / I&O / Oxygen:
Vital Signs
Temp Pulse Resp BP Pulse Ox
96.8 F L 108 37 135/79 87
07/25/23 07:35 07/25/23 09:38 07/25/23 06:07 07/25/23 09:38 07/25/23 04:00
Intake and Output
07/24/23 07/25/23 07/26/23
06:59 06:59 06:59
Intake Total 755 / 755 1020 / 1020
Output Total 100 / 100 750 / 750
Balance 655 / 655 270 / 270
SaO2 87
Nasal Cannula flow liters per 15
minute
Physical Exam
General: Respiratory Distress (neg), Comfortable and Chills (neg)
HEENT: Normocephalic, Anicteric and Moist Mucous Membranes
Cardiovascular: S1-S2, Murmur (n), JVD (n) and Peripheral Edema (negative)
Respiratory: Wheeze (Negative), Crackles (R>L), Rhonchi (neg), Accessory Resp Muscle Use (with exertion), Stridor (n) and Other (Bubbling sounds during inspiration, likely due to severe esophageal dilation)
GI: Soft, Non Distended, Tender and Feeding Tube (G-tube )
Neurology: Oriented, No Motor Deficits and Lethargic (easily arousable and converses normally but then falls back asleep after few moments)
Skin: Warm and Dry
Labs/Micro/Reports
Lab Data
07/25/23 05:20
07/25/23 06:35
Microbiology
07/20/23 06:24 Blood/Venous Blood Culture - Final
No Growth - Final Report
07/22/23 12:03 Feces/Stool Stool Leukocytes - Final
07/22/23 12:03 Feces/Stool C. difficile GDH Antigen & Toxins - Final
Negative for toxigenic C.difficile
--- NOTE | 2023-07-25 12:18 | CM ---
Patient with Hx advanced scleroderma, ILD, PEG/J-tube for enteral access/feedings with Dx abdominal pain with n/v, acute hypoxemic resp failure, anemia. O2 15 L midflow. Vital 1.2 tube feeds. Receiving IV ceftriaxone, IV Lasix. Per nurse
assessment; drowsy, forgetful.
Message to Dr Hinson requesting PT/OT Evals.
Plan follow up after PT/OT Evals.
[2023-07-25] MEDS: STERILE WATER FOR INJECTION 10 ML IV (12:22)
[2023-07-25] MEDS: FLAGYL 500 MG TUBE ×2 (12:22→20:41)
[2023-07-25] MEDS: ROCEPHIN 1000 MG IV (12:22)
[2023-07-25 12:23] LABS: B.E. 21.5 mmol/L; O2 Saturation % 97.1 % (94-98); PCO2 62 mmHg (32-35); PO2 159 mmHg (83-108); pH 7.49 (7.35-7.45)
--- NOTE | 2023-07-25 12:23 | W.PN.CARDCBS ---
Today's Communication / Plan
-
Plan:
1. She remains significantly hypoxemic, on 15 L of oxygen mid flow. Her main complaint remains abdominal pain.
2. On exam she does not appear to be significantly volume overloaded however her weight is approximately 15 pounds more than August 2022 (currently 107 pounds and was 92 pounds in August 2022)
3. Echocardiogram with mild RV enlargement and reduced function in the setting of known severe pulmonary hypertension, WHO class I based on right heart cath in July 2022.
4. Given she appears frail and chronically ill with ongoing confusion or currently she does not appear to be consentable, I would favor optimizing medical therapy as best able before exposing her to a right heart catheterization.
5. Her pleth for oxygen saturation has not been quite reliable also recommended checking a arterial blood gas to figure out with her A-a gradient would be and to check a lactate to rule out any concerns for a low flow state and perfusion mismatch.
Reviewed ID note with some concern for possible aspiration event which could also be contributing to her hypoxia. She continues to remain hypothermic and is currently on antibiotic therapy for presumed pneumonia.
Discussed with nursing at bedside and Pulm/crit care attending.
Brisa Klein MD, [facility], [facility]
Impression / Plan
-
Primary cardiology: [facility] cardiology: P[facility]
Primary: [facility]
Impression:
Acute diastolic CHF
Fever
Presentation with acute abdominal pain and vomiting
History of pulm hypertension
Scleroderma
Systemic sclerosis
Esophageal dysmotility
At least moderate MR in 2022
Hypertension
Anemia
Hyponatremia
Non-MS troponin elevation with peak troponin 0.449
Echocardiogram 07/07/2022: Ejection fraction 55 to 60%, mild prolapse of posterior mitral valve leaflet with at least moderate MR and cannot exclude more significant MR, moderate TR with PA systolic 57 mmHg
Right heart catheterization in July 2022 and felt to have class I pulm hypertension with PVR of 5.3 Wood units, PA pressure 38/15 with a mean of 24 and a wedge of 8 and cardiac index of 3.0 Liters.
Plan:
1. She remains significantly hypoxemic, on 15 L of oxygen mid flow. Her main complaint remains abdominal pain.
2. On exam she does not appear to be significantly volume overloaded however her weight is approximately 15 pounds more than August 2022 (currently 107 pounds and was 92 pounds in August 2022)
3. Echocardiogram with mild RV enlargement and reduced function in the setting of known severe pulmonary hypertension, WHO class I based on right heart cath in July 2022.
4. Given she appears frail and chronically ill with ongoing confusion or currently she does not appear to be consentable, I would favor optimizing medical therapy as best able before exposing her to a right heart catheterization.
5. Her pleth for oxygen saturation has not been quite reliable also recommended checking a arterial blood gas to figure out with her A-a gradient would be and to check a lactate to rule out any concerns for a low flow state and perfusion mismatch.
Reviewed ID note with some concern for possible aspiration event which could also be contributing to her hypoxia. She continues to remain hypothermic and is currently on antibiotic therapy for presumed pneumonia.
Discussed with nursing at bedside and Pulm/crit care attending.
Progress Note - Office Aide
Subjective
Date of Service: July 25, 2023
Continues to complain of abdominal pain.
Objective
Labs:
07/25/23 05:20
07/25/23 06:35
Labs
Hgb 8.0 g/dL (12.0-16.0) L 07/25/23 05:20
Hct 25.0 % (37.0-47.0) L 07/25/23 05:20
Plt Count 477 10^3/uL (130-400) H 07/25/23 05:20
Sodium 132 mmol/L (135-145) L 07/25/23 06:35
Potassium 3.5 mmol/L (3.5-5.1) 07/25/23 06:35
BUN 21 mg/dl (7-17) H 07/25/23 06:35
Creatinine 0.4 mg/dL (0.6-1.0) L 07/25/23 06:35
Glucose 135 mg/dl (70-99) H 07/25/23 06:35
Troponins
07/23/23 07/23/23 07/23/23
10:15 10:16 11:15
Troponin I Cancelled 0.408 H* Cancelled
07/23/23 07/23/23 07/24/23
19:11 19:15 01:36
Troponin I 0.449 H* Cancelled 0.471 H*
07/24/23
07:57
Troponin I 0.314 H* D
Vital Signs and I&O:
Vital Signs
Temp Pulse Resp BP Pulse Ox
96.8 F L 108 37 135/79 93
07/25/23 07:35 07/25/23 09:38 07/25/23 06:07 07/25/23 09:38 07/25/23 09:41
Vital Signs
Temp Pulse Resp BP Pulse Ox
96.8 F L 108 37 135/79 93
07/25/23 07:35 07/25/23 09:38 07/25/23 06:07 07/25/23 09:38 07/25/23 09:41
Intake & Output
07/23/23 07/24/23 07/25/23 07/26/23
06:59 06:59 06:59 06:59
Intake Total 2400 / 2400 755 / 755 1020 / 1020
Output Total 900 / 900 100 / 100 750 / 750
Balance 1500 / 1500 655 / 655 270 / 270
Physical Exam
Physical Exam
General: Appears chronically ill, confused (states she had heart cath last week), A+O x2
Neck: Supple, no JVD, HJR, carotids +2 B/L, no bruits bilaterally.
Heart: Non displaced PMI, RRR, no murmurs, No S3, S4, no rubs.
Lungs: Scattered rhonchi
Extremities: No clubbing, cyanosis or edema bilaterally.
Neuro: Grossly nonfocal, very somnolent and difficult to arouse
[2023-07-25 12:25] LABS: HCO3 47.2 mmol/L (21-28)
[2023-07-25 12:37] LABS: Lactic Acid 1.2 mmol/L (0.7-2.0)
[2023-07-25 15:03] LABS: NT-proBNP 12700 pg/ml
[2023-07-25] MEDS: FLAGYL TUBE (17:39)
[2023-07-25] MEDS: LOVENOX 30 MG SC (17:42)
--- NOTE | 2023-07-25 18:26 | W.PN.HOSP.TC ---
Today's Communication/Plan
-
Continue antibiotics
Continue diuresis but careful not to overdiurese
Appreciate Pulm and Cardio assistance
Assessment / Plan
Assessment / Plan
Physical Exam
General: No Apparent Distress
HEENT: Moist Mucous Membranes
Respiratory: Crackles (BL lower zone)
Cardiac: Regular Rhythm, S1/S2 and Tachycardic
GI: Soft, Nondistended, Normal Bowel Sounds and Tender (discomfort in general)
Musculoskeletal: No Edema
Neuro: AO x 3
Psych: Calm

Acute abdominal pain with nausea and vomiting-patient with abdominal tenderness with mild rebound.
CT scan of the abdomen pelvis which was done without oral or IV contrast shows diffuse ileus/enteritis. Mild colitis of ascending and transverse colon. Difficult to rule out component of obstruction mass at the ileocecal junction without contrast.
CT with contrast shows Large stool burden from the sigmoid colon to the mid transverse colon raising concern for constipation. Suspected mild enterocolitis. Nondistended distal sigmoid colon and rectum. Small volume pelvic ascites.
Pt CT shows constipation but pt having loose stools ?overflow- got enema .
CW Emp abx for colitis - on zosyn
Stools for C diff /WBC neg
seems tolerating PEG tube feeds
GI consulted, recommendations appreciated
Prolonged QTc: hold Sertraline and Olanzapine. Avoid/minimize QTc-prolonging medications
Chest Pain
-If chest pain continues/recurs then check troponin and repeat EKG - notify cardiology regarding any changes
Acute on chronic respiratory hypoxemic respiratory failure. Patient has scleroderma and ILD on home O2 at 4 L. On presentation she had increased oxygen demand requiring nonrebreather now weaned to mid flow nasal cannula. Chest x-ray on admission
showed no acute cardiopulmonary process but in view of nausea ,vomiting, and esophageal stricture concerned about aspiration pneumonitis/pneumonia. Appreciate pulmonary input. No active bronchospasm. Continue with her low-dose steroids which she
takes [she is not sure about the indication]. Continue to wean oxygen as able.
Repeat CXR with persistence of hypoxia and tahcypnea
Patient may have aspirated while brushing her teeth on 07/24/23.
Aspiration Event.
ID consulted, recommendations appreciated
-Status post Zosyn
-Now on Ceftriaxone and Flagyl
Repeat CXR results noted
Congestive Heart Failure - cardiology consulted and IV Lasix has been increased to 40 mg twice daily (patient's weight is 15 lbs higher than her weight in August 2022 - currently 107 pounds and was 92 pounds in August 2022) - avoid overdiuresis given
patient's RV dysfunction and pulmonary hypertension history - if diuresis fails to improve hypoxia and b/l opacities persist, pulmonary will start high dose steroids for inflammatory pneumonitis
Known History of Severe Pulmonary Hypertension - may need right heart catheterization if remains significantly hypoxemic
Echo as per Dr. Mark Rodriguez Text on 07/24/23 showed that the RV is dilated and hypo kinetic , which is different from June 2022. However, the pulmonary hypertension is less --> pulmonary aware
Per cardiology, they would favor optimizing medical therapy as best able before exposing patient to a right heart catheterization which is carries an elevated risk in this patient.
Fever spike, Hypothermia - elevated WBC - on emp abx for colitis/aspiration pneumonia/itis. Procal low. Check COVID. Non bacteremic.
Normocytic anemia-hemoglobin is low compared to her hemoglobin in July last year. No obvious external bleeding. Iron studies suggest anemia of chronic disease. Heme neg stools
Hyponatremia-clinically more volume depleted and pt having loose stools with hypokalemia . Urine lytes suggests presence of ADH .Will hold on FR and follow .
Hypokalemia - repleted. Continue scheduled potassium. Appreciate clinical pharmacist's assistance.
Hx of scleroderma
Systemic sclerosis
Esophageal dysmotility
History of MR
Hypertension
Anemia
Non-CA troponin elevation with peak troponin 0.449
Full code.
Requirement of high levels of oxygen with RV dysfunction, as well as needing diuresis and antibiotics for pneumonia is a high-risk encounter.
Anticipated Discharge: > 48 hours
Subjective/Interval History
-
Date of Service: July 25, 2023
Patient was seen and examined. She remains hypoxic, but alert and awake and able to gesture yes and no to some questions.
Objective Data
-
Labs:
Laboratory Results
07/25/23 07/25/23 07/25/23
05:20 06:35 12:16
HCO3 47.2 H*
Sodium Cancelled 132 L
Potassium Cancelled 3.5
Chloride Cancelled 83 L
Carbon Dioxide Cancelled 39 H
BUN Cancelled 21 H
Creatinine Cancelled 0.4 L
Glucose Cancelled 135 H
Calcium Cancelled 8.5
Total Bilirubin Cancelled 0.5
AST Cancelled 44 H
ALT Cancelled 24
Alkaline Phosphatase Cancelled 143 H
Vital Signs:
Vital Signs
Temp Pulse Resp BP Pulse Ox
97.0 F 108 21 131/75 99
07/25/23 11:35 07/25/23 14:00 07/25/23 14:00 07/25/23 12:00 07/25/23 14:15
I&O
07/24/23 07/25/23 07/26/23
06:59 06:59 06:59
Intake Total 755 / 755 1020 / 1020
Output Total 100 / 100 750 / 750 350 / 350
Balance 655 / 655 270 / 270 -350 / -350
[2023-07-26] VITALS (12 sets, daily range): BP systolic 104–140; BP diastolic 68–99; PULSE 121; O2SAT 97; BMI 16.1
[2023-07-26] MEDS: FLAGYL 500 MG TUBE ×3 (04:36→19:01)
[2023-07-26] MEDS: DILAUDID 4 MG TUBE ×3 (04:36→19:01)
[2023-07-26 05:06] LABS: % Basophils 0.1 % (0-2); % Eosinophils 0.4 % (0-6); % Immature Granulocytes 0.9 % (0-0.5); % Lymphocytes 3.9 % (20.5-51.1); % Monocytes 6.9 % (1.7-9.3); % Neutrophils 87.8 % (42.2-75.2); Absolute Eosinophils 0.1 10^3/uL (0-0.7); Absolute Immature Granulocytes 0.1 10^3/uL (0-0.05); Absolute Lymphocytes 0.5 10^3/uL (1.2-3.4); Absolute Monocytes 0.9 10^3/uL (0.1-0.6); Hematocrit 24.7 % (37.0-47.0); Hemoglobin 7.8 g/dL (12.0-16.0); Mean Corp Hgb Conc. 31.6 g/dL (33.0-37.0); Mean Corpuscular Hgb 30.5 pg (27.0-31.0); Mean Corpuscular Volume 96.5 fL (81.0-99.0); Mean Platelet Volume 10.6 fL (7.4-10.4); Nucleated Red Blood Cells % 0 %; Platelet Count 564 10^3/uL (130-400); Red Blood Cell Count 2.56 10^6/uL (4.20-5.40); Red Cell Dist. Width 15.1 % (11.5-14.5); White Blood Cell Count 13.7 10^3/uL (4.8-10.8)
[2023-07-26 05:37] LABS: ALT (SGPT) 31 U/L (0-35); AST (SGOT) 41 U/L (14-36); Alkaline Phosphatase 179 U/L (38-126); Blood Urea Nitrogen 27 mg/dl (7-17); Calcium 8.8 mg/dl (8.4-10.2); Chloride 82 mmol/L (98-107); Estimated Creatinine Clearance 73 ml/min; Glucose 117 mg/dl (70-99); HDL Cholesterol 25 mg/dl; LDL Cholesterol, Calculated 94 mg/dl; Magnesium 2.1 mg/dl (1.6-2.3); Phosphorus 2.6 mg/dl (2.5-4.5); Potassium 3.8 mmol/L (3.5-5.1); Sodium 133 mmol/L (135-145); Total Bilirubin 0.5 mg/dl (0.2-1.3); Total Cholesterol 137 mg/dl (50-199); Total Protein 6.5 g/dl (6.3-8.2); Triglyceride 93 mg/dl (10-149); Very Low Density Lipoprotein 18 mg/dl (0-30); eGFR > 60.00
[2023-07-26 05:46] LABS: Carbon Dioxide 39 mmol/L (22-30)
[2023-07-26] MEDS: COLACE LIQUID 100 MG TUBE ×2 (08:16→19:01)
[2023-07-26] MEDS: TUMS 1 TABLET PO (08:16)
[2023-07-26] MEDS: KCL ELIXIR 40 MEQ TUBE (08:16)
[2023-07-26] MEDS: MIRALAX 17 GRAMS TUBE (08:16)
[2023-07-26] MEDS: LASIX 40 MG IV ×2 (08:16→20:01)
[2023-07-26] MEDS: DELTASONE 7.5 MG TUBE (08:16)
[2023-07-26] MEDS: ATIVAN 1 MG PO ×2 (08:18→20:22)
--- NOTE | 2023-07-26 08:31 | PTCARENOTE ---
Patient received from car shifter. Patient resting comfortably in bed. AAO and a little anxious, VSS. No events noted overnight. No complaints of pain but complaints of indigestion. Currently on 8L MidFlow N/C, will attempt to wean as
tolerated. Multiple loose BM's. Rectal trumpet in place, may removed if continuing to leak around. Tube Feed Vital 1.2 @ 45mL/hr with 15mL flush. Call steele in reach.
--- NOTE | 2023-07-26 09:10 | W.PN.PUL3 ---
Today's Communication / Plan
-
O2 - try to obtain accurate O2 sats and titrate O2 to keep sats >90%
If chest pain recurds then check troponin and repeat EKG - notify cardiology regarding any changes
Diuresis
Obtain RHC records from [facility]
If diuresis fails to improve hypoxia and b/l opacities persist, I will start high dose steroids for inflammatory pneumonitis
BDs prn
Abx per ID
IS
Ideally would get up OOB as tolerated - she is very weak/deconditioned; PT/OT
Pain control
Careful not to over-diurese given her RV dysfunction (TAPSE: 1cm)
Assessment
-
Assessment:
Mrs Paula Blair is a 63/W adm 07-20 with 3-4 d h/o abd pain, n/v, diarrhea, dyspnea and dizziness. At ER, hypoxic requiring NRM. Known h/o scleroderma, Raynaud's phenomenon, ILD. Abd CT reported enteritis/colitis and suspected obstruction at
ileocecal junction. Pulm consulted for hypoxemia
Impression:
Acute on chronic hypoxemia
On home O2 4L for last few m
Compounded by interim anemia and acute abdomen with hypoventilation
Bilateral interstitial opacities on CXR - DDx includes acute HFpEF in setting of valvular heart disese (mild-moderate eccentric MR) vs inflammatory pneumonitis
Acute moderate anemia (adm Hgb 9.5 down to 8.1, was 13.5 on Jul 2022)
Diffuse ileus/enteritis, mild colitis, no SBO seen on CT A/P from 07/21/2023
RV dysfunction with hypokinetic RV seen on TTE from 07/24/2023
Chest pain with new TWI in V2-3 - chest pain currently resolved as of evening of 07/25/2023
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
Scleroderma, Raynaud's phenomenon, ILD: follows Dr Pedersen at [place] [facility]D for last 5 y, before followed [facility]
GERD
Esophageal stricture
Required PEG placement
Pulm htn, mild: RHC 08-18-22: PCWP 8, MPAP 24, PVR 5.3W
Moderate eccentric MR, normal RV size and function on TTE Jun 2022
Pneumonia, pneumonitis, suspected asp pneumonia, adm DH Feb 2017
Former smoker
Plan:
Continue O2 protocol; change pulse ox site to forehead as there is discrepancy between her peripheral SaO2 versus DP O2 obtained on ABG showing pO2 159 on 15 L/min.
Required NRM at ER, now down to MFNC
Increased O2 requirement from baseline 4L at home
Known ILD due to scleroderma, also evidence of mild pulm HTN on [facility] Jul 2022 but normal RV size/function on TTE Jun 2022
Previously: No evidence of pneumonia nor significant pneumonitis on CXR or in few lung basilar cuts on abd CT
Hypoxemia likely to baseline ILD compounded by interim moderate anemia and acute abd with hypoventilation
Follow H/H, transfuse as needed for Hgb <7
Keep asp precs
prn Nebulized albuterol/Duonebs, acapella and IS
CXR from 07/24/2023 shows bilateral patchy opacities --> Procal is <0.25, so unlikely a new pneumonia. Pro-BNP elevated --> trial of diuresis is warranted. Continue to trend proBNP and follow clinically. Hopefully her O2 requirements will improve
with diuresis. She does have a Hx of pulm HTN (Group III) -->TTE shows hypokinetic RV with RV dysfunction. RHC would be helpful to confirm severity of her pHTN and to assess PCWP, however there is high risk with any sedation given her lethargic
mental status and high O2 requirements currently - she could end up on ventilator.
She is not in a low flow state given normal lactate today of 1.2 (collected 07/25). She also is not clinically in acute right heart failure given absent JVD and no lower extremity edema, but rather she is in chronic RHF given her dilated,
hypokinetic RV in setting of long-standing pHTN. RHC will at least tell us the severity of her pulmonary hypertension and assess for left-sided heart failure given her recent CXR showing suspected vascular congestion.
Obtain medical records of recent RHC done at [facility]
If her O2 requirements do not improve with diuresis then will raise her steroids. Trend CRP & proBNP
Continue empirics atbs: zosyn/vanco --> narrowed on 07/22 to zosyn only --> on 07/25 she was narrowed further to rocephin/PO flagyl
Suspected GI source: enteritis/colitis, suspected obstruction on noncontrasted CT --> she is having bowel movements and tolerating TF but with diarrhea --> she may need shaffer given UTI risk from frequent loose stool
MRSA screening negative
GI and Surgical consultants correspondence reviewed
CT abd/p c IV/oral c 07-21
Certainly at increased risk for GI procedures or surgery given underlying lung disease
Procal is negative x2 (0.08 --> 0.16)
Cardiology on board - pt had chest pain with TWI seen in V2-3. Defer additional workup to cards.
LDL 94 --> defer starting statin to cardiology
Continue prednisone outpatient regimen, she could not recall for how long or why she is on prednisone 7.5 mg qd
No current need to increase CS dose unless she does not improve her O2 requirements with diuresis given the bilateral interstitial opacities seen on CXR
D/w Mrs Blair and her at bedside.
Pulmonary service will continue to follow along.
Diagnostic tests:
CXR 07/25/2023:
There is stable moderate diffuse coarsening of the interstitial markings throughout both lungs more prominent on the right than the left.
The stability of this finding is more suggestive of interstitial pneumonia than pulmonary edema though the latter is included in the differential diagnosis.
CXR 07-23-2023:
Prominent bronchovascular markings which could represent mild interstitial and alveolar edema. The differential may also include subtle diffuse pneumonia in the proper clinical setting.
Possible minor localized atelectasis or pneumonia in the lingula.
Subtle linear opacity in the left apex, unlikely pneumothorax, though not entirely excluded. Clinical correlation and follow-up recommended.
CXR 07-19-23 c/w Apr 2022, considering differences in technique, grossly unchanged mild to moderate increase in interstitial markings. No infiltrates. T-L scoliosis
CT A/P 07-21-2023: Large stool burden from the sigmoid colon to the mid transverse colon raising concern for constipation. Suspected mild enterocolitis. Nondistended distal sigmoid colon and rectum. Small volume pelvic ascites.
CT abd/p 07-20-23: few lung basilar cuts with mild mosaic pattern
Subjective Data
-
Date of Service:
Date of Service: July 26, 2023
Chief Complaint: Pulmonary Follow Up
Subjective:
Seen this AM. at bedside. She is having loose stool. Purewick in place. Pt is at risk for UTI due to frequency of loose stools. She gets up to commode but does not always make it in time and is incontinent. I/O are not accurate due to
this. RN is taking daily weights. She is on 8L/min NC. She had RHC recently at [place] -cardiology is working on obtaining these records. Pt denies chest pain, CHATTERJEE, nausea, f/c.
Review of Systems
General: Other (neg unless mentioned above)
Objective Data
Data Reviewed
Vital Signs / I&O / Oxygen:
Vital Signs
Temp Pulse Resp BP Pulse Ox
98.8 F 116 23 133/80 94
07/26/23 07:40 07/26/23 08:16 07/26/23 06:00 07/26/23 08:16 07/26/23 11:21
Intake and Output
07/25/23 07/26/23 07/27/23
06:59 06:59 06:59
Intake Total 1020 / 1020 840 / 840
Output Total 750 / 750 1050 / 1050
Balance 270 / 270 -210 / -210
SaO2 94
Nasal Cannula flow liters per 15
minute
Physical Exam
General: Respiratory Distress (neg), Comfortable and Chills (neg)
HEENT: Normocephalic, Anicteric and Moist Mucous Membranes
Cardiovascular: S1-S2, Murmur (n), JVD (negative) and Peripheral Edema (negative)
Respiratory: Wheeze (Negative), Crackles (R>L), Rhonchi (bilaterally, heard best in posterior lung galeas), Accessory Resp Muscle Use (with exertion), Stridor (n) and Other (Bubbling sounds during inspiration, likely due to severe esophageal
dilation)
GI: Soft, Non Distended, Tender and Feeding Tube (G-tube )
Neurology: Oriented, No Motor Deficits and Lethargic (easily arousable and converses normally but then falls back asleep after few moments)
Skin: Warm and Dry
Labs/Micro/Reports
Lab Data
07/26/23 04:42
07/26/23 04:42
Laboratory Results
07/25/23
12:16
pH 7.49 H
pCO2 62 H
pO2 159 H
HCO3 47.2 H*
O2 Delivery Level
Microbiology
07/20/23 06:24 Blood/Venous Blood Culture - Final
No Growth - Final Report
--- NOTE | 2023-07-26 09:12 | W.PN.CARDCBS ---
Today's Communication / Plan
-
Obtain recent records right heart catheterization from [facility]
Continue diuresis dry weight is likely in the mid 90s
Continue to decrease oxygen as tolerates
Continue supportive care and pulmonary care.
Continue GI assessment.
Impression / Plan
-
Primary cardiology: [facility]
Being followed by Dr. Paula Pang at [facility]
Center cardiology: [facility]
Primary: [facility]
Impression:
Acute diastolic CHF
History of pre and postcapillary pulmonary hypertension.
Fever
Presentation with acute abdominal pain and vomiting
History of pulm hypertension
Scleroderma
Systemic sclerosis
Esophageal dysmotility
At least moderate MR in 2022
Hypertension
Anemia
Hyponatremia
Non-OK troponin elevation with peak troponin 0.449
Echocardiogram 07/07/2022: Ejection fraction 55 to 60%, mild prolapse of posterior mitral valve leaflet with at least moderate MR and cannot exclude more significant MR, moderate TR with PA systolic 57 mmHg
Right heart catheterization in July 2022 and felt to have class I pulm hypertension with PVR of 5.3 Wood units, PA pressure 38/15 with a mean of 24 and a wedge of 8 and cardiac index of 3.0 Liters.
Plan:
She is able to answer questions today. Her is at the bedside. They tell me she had a right heart catheterization within the past week at [facility]. Will obtain. She has not been in our office since September. She has been
seen at pulmonary hypertension clinic at [facility]. Have requested records.
At last right heart cath at [place] she had pre and post capillary pulmonary hypertension. Previously on sildenafil and appears to be discontinued. Await records. Volume continues to play a role given her dry weights are usually 92 to 97
pounds. She is now diuresing and I would continue.
-Hypoxemia noted but better today. She was on 15 L now on 8 L of oxygen (baseline at home 4 L). This is improved with diuresis. Continue diuresis. proBNP was significantly elevated 12,700.
-Hypoxemia is multifactorial. Pulmonary following for interstitial lung disease continue to maximize.,
-Echocardiogram with mild RV enlargement and reduced function in the setting of known pulmonary hypertension.
-She appears frail and chronically ill but a little bit brighter today. Continue support.
-Appreciate other physicians notes. Continue to maximize GI status. Avoid aspiration. Ileus and enteritis also noted.
Discussed with nursing at bedside and at the bedside.
Progress Note - Home Health Care Social Worker
Subjective
Date of Service: July 26, 2023
She does want to go home. She denies chest pain and palpitations.
Objective
Labs:
07/26/23 04:42
07/26/23 04:42
Labs
Hgb 7.8 g/dL (12.0-16.0) L 07/26/23 04:42
Hct 24.7 % (37.0-47.0) L 07/26/23 04:42
Plt Count 564 10^3/uL (130-400) H 07/26/23 04:42
Sodium 133 mmol/L (135-145) L 07/26/23 04:42
Potassium 3.8 mmol/L (3.5-5.1) 07/26/23 04:42
BUN 27 mg/dl (7-17) H 07/26/23 04:42
Creatinine 0.3 mg/dL (0.6-1.0) L 07/26/23 04:42
Glucose 117 mg/dl (70-99) H 07/26/23 04:42
Troponins
07/23/23 07/23/23 07/23/23
10:15 10:16 11:15
Troponin I Cancelled 0.408 H* Cancelled
07/23/23 07/23/23 07/24/23
19:11 19:15 01:36
Troponin I 0.449 H* Cancelled 0.471 H*
07/24/23
07:57
Troponin I 0.314 H* D
Vital Signs and I&O:
Vital Signs
Temp Pulse Resp BP Pulse Ox
97.7 F 116 23 133/80 99
07/26/23 04:14 07/26/23 08:16 07/26/23 06:00 07/26/23 08:16 07/26/23 06:00
Vital Signs
Temp Pulse Resp BP Pulse Ox
97.7 F 116 23 133/80 99
07/26/23 04:14 07/26/23 08:16 07/26/23 06:00 07/26/23 08:16 07/26/23 06:00
Intake & Output
07/24/23 07/25/23 07/26/23 07/27/23
06:59 06:59 06:59 06:59
Intake Total 755 / 755 1020 / 1020 840 / 840
Output Total 100 / 100 750 / 750 1050 / 1050
Balance 655 / 655 270 / 270 -210 / -210
Physical Exam
Physical Exam
Chronically ill thin woman
Heart: distant heart sounds tacky
Lungs: Coarse anterior breath sounds
Extremities: No clubbing, cyanosis or edema bilaterally.
Neuro: Grossly nonfocal, awake, alert
--- NOTE | 2023-07-26 09:15 | W.PN.UPDATE ---
Update Note
Progress Note Update
Called Dr. Alberts's ([phone]) office to obtain recent RHC. When asked for records was routed to [facility] and after on hold for 6:34 min was asked to leave number for a call back. Await call back to try and obtain RHC report.
[2023-07-26 09:34] LABS: Glycohemoglobin (HgbA1c) 5.6 % (4.0-5.6)
[2023-07-26] MEDS: ROCEPHIN 1000 MG IV (11:52)
[2023-07-26] MEDS: STERILE WATER FOR INJECTION 10 ML IV (11:52)
--- NOTE | 2023-07-26 13:16 | W.PN.ID1 ---
Date of Service
Date of Service: July 26, 2023
Today's Communication
Continue ceftriaxone/metronidazole.
Assessment / Plan
#Aspiration event/pneumonia
# Acute on chronic hypoxemic respiratory failure, remains on midflow oxygen
# Leukocytosis, hypothermia: improving
# advanced scleroderma, esophageal stricture with PEG
# ILD, pulmonary HTN on chronic baseline 02 4L
- Continue IV ceftriaxone and enteric metronidazole, short course through 07/29.
-Aspiration precaution.
-Follow temps/wbc.
Chief Complaint
-: Pneumonia
Subjective / Review of Systems
Cough better today.
Vital Signs / Physical Exam
Vital Signs
Vital Signs
Temp Pulse Resp BP Pulse Ox
98.8 F 116 23 133/80 94
07/26/23 07:40 07/26/23 08:16 07/26/23 06:00 07/26/23 08:16 07/26/23 11:21
Physical Exam
Constitutional: Comfortable and Chronically Ill
Eyes: Sclera Anicteric
Cardiovascular: S1/S2 and Other (tachycardic)
Pulmonary: Coarse
Gastrointestinal: Soft and Non Tender
Extremities: Negative Edema
Neurological: Alert (more alert today) and AO x 3
Objective Data
Lab Data
Lab Results
07/26/23 04:42
07/26/23 04:42
Estimated Creat Clear 73 ml/min 07/26/23 04:42
Lactic Acid 1.2 mmol/L (0.7-2.0) 07/25/23 12:16
Total Bilirubin 0.5 mg/dl (0.2-1.3) 07/26/23 04:42
AST 41 U/L (14-36) H 07/26/23 04:42
ALT 31 U/L (0-35) 07/26/23 04:42
Alkaline Phosphatase 179 U/L (38-126) H 07/26/23 04:42
C-Reactive Protein 211.70 mg/L (0.0-10.00) H 07/25/23 06:35
Most recent labs reviewed.
Micro Results:
07/20/23 06:24 Blood Culture - Final
Blood/Venous No Growth - Final Report
07/22/23 12:03 Stool Leukocytes - Final
Feces/Stool
07/22/23 12:03 C. difficile GDH Antigen & Toxins - Final
Feces/Stool Negative for toxigenic C.difficile
07/21/23 17:49 - Final
Feces/Stool Negative for Norovirus GI and GII.
07/20/23 12:46 MRSA Screen - Final
Nose No Methicillin Resistant Staphylococcus aureus isolated.
07/25/23 CXR: There is stable moderate diffuse coarsening of the interstitial markings throughout both lungs more prominent on the right than the left.
The stability of this finding is more suggestive of interstitial pneumonia than pulmonary edema though the latter is included in the differential diagnosis.
07/23/23 CXR: Prominent bronchovascular markings which could represent mild interstitial and alveolar edema. The differential may also include subtle diffuse pneumonia in the proper clinical setting.
07/21/[address] a/p: Large stool burden from the sigmoid colon to the mid transverse colon raising concern for constipation. Suspected mild enterocolitis. Nondistended distal sigmoid colon and rectum. Small volume pelvic ascites.
07/20/23 CT a/p: Findings suggesting diffuse ileus/enteritis. Mild colitis of the ascending and transverse colon. Difficult to rule out component of obstruction/mass at the ileocecal junction. Consider direct visualization.
--- NOTE | 2023-07-26 15:27 | CM ---
Patient with Hx advanced scleroderma, ILD, PEG/J-tube for enteral access/feedings with Dx acute hypoxemic resp failure, CHF, anemia. O2 8 L midflow. Receiving IV ceftriaxone, IV Lasix, IV Dilaudid prn. PT & OT Evals pending.
Spoke with patient and her SO Kade; patient/SO confirm that patient wants to return home at discharge regardless of PT/OT recommendations, and they are requesting a hospital bed for home due to tube feeds and due to respiratory status - agree to ask
MD and will order through [employer] if possible, the same company that provides her home O2.
The patient says she would like to have [facility] again for SN and PT/OT if needed. Will wait for therapy evals to make referral.
Kade states he feels able to resume caring for the patient at home, however he is unsure he will be able to continue doing this on his own in the future. The patient does not have the finances to hire a private caregiver. Provided ph # for [employer]
with information needed re; the Waiver program- he will look into it.
Kade wondering if patient will need higher flow O2 at home - her current concentrator goes to 5L and she has portable tanks - agree will watch for home O2 needs.
Message to Dr Hinson requesting documentation for hospital bed.
Referral to [facility].
Plan follow up after PT/OT Evals.
Plan continue to watch home O2 needs.
Plan referral for hospital bed once MD documentation available.
[facility]
--- NOTE | 2023-07-26 17:10 | W.PN.HOSP.TC ---
Today's Communication/Plan
-
Doing better, oxygen requirements better
Appreciate pulm, ID and cardio assistance
Assessment / Plan
Assessment / Plan
Physical Exam
General: No Apparent Distress
HEENT: Moist Mucous Membranes
Respiratory: Crackles (BL lower zone). Rhonchi. NOW ON 8 L MIDFLOW OXYGEN (decreased from the 15 L midflow before - HOME BASELINE is 4 L NASAL CANNULA).
Cardiac: Regular Rhythm, S1/S2 and Tachycardic
GI: Soft, Nondistended, Normal Bowel Sounds and Tender (discomfort in general). G-tube feeding.
Musculoskeletal: No Edema
Neuro: AAO x 3
Psych: Calm

Acute abdominal pain with nausea and vomiting-patient with abdominal tenderness with mild rebound.
CT scan of the abdomen pelvis which was done without oral or IV contrast shows diffuse ileus/enteritis. Mild colitis of ascending and transverse colon. Difficult to rule out component of obstruction mass at the ileocecal junction without contrast.
CT with contrast shows Large stool burden from the sigmoid colon to the mid transverse colon raising concern for constipation. Suspected mild enterocolitis. Nondistended distal sigmoid colon and rectum. Small volume pelvic ascites.
Pt CT shows constipation but pt having loose stools ?overflow- got enema .
CW Emp abx for colitis - on zosyn
Stools for C diff /WBC neg
seems tolerating PEG tube feeds
GI consulted, recommendations appreciated
Prolonged QTc: hold Sertraline and Olanzapine. Avoid/minimize QTc-prolonging medications
Chest Pain
-If chest pain continues/recurs then check troponin and repeat EKG - notify cardiology regarding any changes
Acute on chronic respiratory hypoxemic respiratory failure. Patient has scleroderma and ILD on home O2 at 4 L. On presentation she had increased oxygen demand requiring nonrebreather now weaned to mid flow nasal cannula. Chest x-ray on admission
showed no acute cardiopulmonary process but in view of nausea ,vomiting, and esophageal stricture concerned about aspiration pneumonitis/pneumonia. Appreciate pulmonary input. No active bronchospasm. Continue with her low-dose steroids which she
takes [she is not sure about the indication]. Continue to wean oxygen as able.
Repeat CXR with persistence of hypoxia and tahcypnea
Patient may have aspirated while brushing her teeth on 07/24/23.
Aspiration Event.
ID consulted, recommendations appreciated
-Status post Zosyn
-Now on Ceftriaxone and Flagyl -- continue
Repeat CXR results noted
Need records from [facility] including recent cardiac cath - cardiology assistance appreciated
Congestive Heart Failure - cardiology consulted and IV Lasix has been increased to 40 mg twice daily (patient's weight is 15 lbs higher than her weight in August 2022 - currently 107 pounds and was 92 pounds in August 2022) - avoid overdiuresis given
patient's RV dysfunction and pulmonary hypertension history - if diuresis fails to improve hypoxia and b/l opacities persist, pulmonary will start high dose steroids for inflammatory pneumonitis
Known History of Severe Pulmonary Hypertension - may need right heart catheterization if remains significantly hypoxemic
Echo as per Dr. Mark Rodriguez Text on 07/24/23 showed that the RV is dilated and hypo kinetic , which is different from June 2022. However, the pulmonary hypertension is less --> pulmonary aware
Per cardiology, they would favor optimizing medical therapy as best able before exposing patient to a right heart catheterization which is carries an elevated risk in this patient.
Fever spike, Hypothermia - elevated WBC - on emp abx for colitis/aspiration pneumonia/itis. Procal low. COVID negative. Non bacteremic.
Normocytic anemia-hemoglobin is low compared to her hemoglobin in July last year. No obvious external bleeding. Iron studies suggest anemia of chronic disease. Heme neg stools
Hyponatremia-clinically more volume depleted and pt having loose stools with hypokalemia . Urine lytes suggests presence of ADH .Will hold on FR and follow .
Hypokalemia - repleted. Continue scheduled potassium. Appreciate clinical pharmacist's assistance.
Hx of scleroderma
Systemic sclerosis
Esophageal dysmotility
History of MR
Hypertension
Anemia
Non-NV troponin elevation with peak troponin 0.449
Full code.
Anticipated Discharge: > 48 hours
Subjective/Interval History
-
Date of Service: July 26, 2023
Patient was seen and examined. She was doing better today, sitting up on the commode on 8 L of midflow oxygen. Patient's significant other/friend was present in the room at the time of attempted patient encounter.
Objective Data
-
Labs:
Laboratory Results
07/26/23
04:42
WBC 13.7 H
Hgb 7.8 L
Hct 24.7 L
Plt Count 564 H
Sodium 133 L
Potassium 3.8
Chloride 82 L
Carbon Dioxide 39 H
BUN 27 H
Creatinine 0.3 L
Glucose 117 H
Calcium 8.8
Total Bilirubin 0.5
AST 41 H
ALT 31
Alkaline Phosphatase 179 H
Vital Signs:
Vital Signs
Temp Pulse Resp BP Pulse Ox
98.7 F 114 40 124/99 96
07/26/23 11:35 07/26/23 16:00 07/26/23 16:00 07/26/23 14:00 07/26/23 14:00
I&O
07/25/23 07/26/23 07/27/23
06:59 06:59 06:59
Intake Total 1020 / 1020 1560 / 1560 720 / 720
Output Total 750 / 750 1050 / 1050
Balance 270 / 270 510 / 510 720 / 720
[2023-07-26] MEDS: LOVENOX 30 MG SC (18:24)
--- NOTE | 2023-07-26 23:45 | PTCARENOTE ---
Received pt at start of shift. aaox3, very drowsy, flat. ST on monitor, 120's. EKG was done by day shift RN at very start of shift. EKG was forwarded to overnight PATIENT ACCESS ASSOCIATE. CXR ordered for AM, ativan prn given. HR down to 110's. Started shift with 10LMF,
had to increase o2 to 12L then 15LMF, pt was 86% then 88%. SNOW & sob at rest. IV lasix given, purewick placed. GJ tube in place, J tube to tube feedings. Tolerating well. Q2T. Will continue to monitor. Call steele in reach.
[2023-07-27] VITALS (12 sets, daily range): BP systolic 125–158; BP diastolic 71–96; BMI 15.7
[2023-07-27] MEDS: ATIVAN 1 MG PO ×2 (01:38→20:02)
[2023-07-27] MEDS: XOPENEX 0.63 MG INHALANT SOLUTION 0.630000000000000004 MG INH (02:02)
[2023-07-27 04:10] LABS: % Basophils 0.4 % (0-2); % Eosinophils 0.5 % (0-6); % Immature Granulocytes 0.8 % (0-0.5); % Lymphocytes 7.5 % (20.5-51.1); % Monocytes 4.1 % (1.7-9.3); % Neutrophils 86.7 % (42.2-75.2); Absolute Eosinophils 0.1 10^3/uL (0-0.7); Absolute Immature Granulocytes 0.1 10^3/uL (0-0.05); Absolute Lymphocytes 0.8 10^3/uL (1.2-3.4); Absolute Monocytes 0.5 10^3/uL (0.1-0.6); Absolute Neutrophils 9.5 10^3/uL (1.4-6.5); Hematocrit 27.6 % (37.0-47.0); Hemoglobin 8.9 g/dL (12.0-16.0); Mean Corp Hgb Conc. 32.2 g/dL (33.0-37.0); Mean Corpuscular Hgb 29.6 pg (27.0-31.0); Mean Corpuscular Volume 91.7 fL (81.0-99.0); Mean Platelet Volume 9.9 fL (7.4-10.4); Nucleated Red Blood Cells % 0 %; Platelet Count 797 10^3/uL (130-400); Red Blood Cell Count 3.01 10^6/uL (4.20-5.40); Red Cell Dist. Width 15.3 % (11.5-14.5)
[2023-07-27 04:15] LABS: ALT (SGPT) 28 U/L (0-35); AST (SGOT) 32 U/L (14-36); Albumin 3.5 g/dl (3.5-5.0); Alkaline Phosphatase 163 U/L (38-126); Blood Urea Nitrogen 31 mg/dl (7-17); Calcium 9.5 mg/dl (8.4-10.2); Chloride 79 mmol/L (98-107); Estimated Creatinine Clearance 71 ml/min; Glucose 114 mg/dl (70-99); Magnesium 2.1 mg/dl (1.6-2.3); Phosphorus 3.4 mg/dl (2.5-4.5); Potassium 4.3 mmol/L (3.5-5.1); Sodium 133 mmol/L (135-145); Total Bilirubin 0.5 mg/dl (0.2-1.3); Total Protein 7.5 g/dl (6.3-8.2); eGFR > 60.00
[2023-07-27 04:18] LABS: NT-proBNP 14500 pg/ml
[2023-07-27 04:20] LABS: Carbon Dioxide 40 mmol/L (22-30)
[2023-07-27] MEDS: FLAGYL 500 MG TUBE ×3 (05:01→19:59)
--- NOTE | 2023-07-27 06:23 | PTCARENOTE ---
Up to 15LMF, WOB increased. RT up to see pt and give xopenex treatment. Another dose of ativan ordered and given.
This AM pt 86% on 15L, NRB placed and now 99%. RINK RAT & RT aware. CXR done this morning. When ask pt how she is feeling she stated she does not feel any different & she wants to go home today. Educated pt that she is very sick and will not be able to go
home today unfortunately, unless she decided on comfort care. Asked pt if that is something she would like to consider and pt shook her head no. Pt looks very tired and withdrawn. Will monitor.
--- NOTE | 2023-07-27 08:06 | W.PN.CARDCBS ---
Addendum entered and electronically signed by Tico Alvarez MD 07/27/23 09:48:
I saw and examined the patient.
The Correctional Classification Counselor's note was reviewed and I agree with the note.
Comment: 63-year-old woman past medical history of pulmonary hypertension and resultant heart failure with preserved ejection fraction, scleroderma/systemic sclerosis who presented with hypoxic respiratory failure related in part to heart failure
but also pneumonia
Has been receiving IV diuresis, renal function stable and weight downtrending
Unfortunately still requiring 15L O2 this AM on non-rebreather
Several pounds up from her dry weight, but with rising bicarbonate would hold on additional dose of IV lasix today
Reassess labs in AM and consider Diamox
Consider repeat ABG, she is lethargic today, possibly related to CO2 retention
Gen: NAD, awake, but lethargic
HEENT: NC/AT, sclera anicteric
Neck: No JVD
CV: RRR, NL s1/s2
Lungs: On 15L non-rebreather
Abd: S/ND
Ext: Trace LE edema
Skin: Warm, dry
Neuro: Non-focal
Original Note:
Today's Communication / Plan
-
RHC data at [facility] located and summarized below
Impression / Plan
-
Primary cardiology: [facility] cardiology: Dr. Paula Pang at [facility]
Primary: Dr. Solorio
Impression:
Acute diastolic CHF
History of pre and postcapillary pulmonary hypertension.
Fever
Presentation with acute abdominal pain and vomiting
History of pulm hypertension
Scleroderma
Systemic sclerosis
Esophageal dysmotility
At least moderate MR in 2022
Hypertension
Anemia
Hyponatremia
Non-OR troponin elevation with peak troponin 0.449
Echo 07/07/22: Ejection fraction 55 to 60%, mild prolapse of posterior mitral valve leaflet with at least moderate MR and cannot exclude more significant MR, moderate TR with PA systolic 57 mmHg
RHC in 07/2022 and felt to have class I pulm hypertension with PVR of 5.3 Wood units, PA pressure 38/15 with a mean of 24 and a wedge of 8 and cardiac index of 3.0 Liters.
RHC 07/07/23: RA 11, PA 63/27/38, PCWP 15, CO/CI 4.7/2.9, PVR 5.4
Plan:
-RHC data from 07/07/23 study at [facility] obtained by cardiology and noted above.
-Patient follows with Dr. Alberts at [facility] for her PHTN. Patient previously had hypoxia on a PDE 5. Thre was a recommendation for adding Tyvaso at her last visit, but the patient wanted to think about it and then decide at her upcoming Dr.
Aristeo appt which was scheduled for 07/26/23 and appointment missed due to this hospitalization.
-Dry weight was previously 92-97 lbs. Weight peaked at 107 lbs this admission. Patient has diuresed down to 100 lbs on 07/27/23 with Lasix 40 mg IV BID. Patient was not taking a diuretic prior to admission.
-Patient was on oxygen at 4 L NC prior to admission and now requiring 15 L.
-Echocardiogram with mild RV enlargement and reduced function in the setting of known pulmonary hypertension.
-Troponin peaked 0.471 and will be managed as a nonischemic myocardial injury Troponin elevation due to acute HF
Progress Note - Supervisor Scrap Preparation
Subjective
Date of Service: July 27, 2023
Tired
Objective
Labs:
07/27/23 03:32
07/27/23 03:32
Labs
Hgb 8.9 g/dL (12.0-16.0) L 07/27/23 03:32
Hct 27.6 % (37.0-47.0) L 07/27/23 03:32
Plt Count 797 10^3/uL (130-400) H D 07/27/23 03:32
Sodium 133 mmol/L (135-145) L 07/27/23 03:32
Potassium 4.3 mmol/L (3.5-5.1) 07/27/23 03:32
BUN 31 mg/dl (7-17) H 07/27/23 03:32
Creatinine 0.3 mg/dL (0.6-1.0) L 07/27/23 03:32
Glucose 114 mg/dl (70-99) H 07/27/23 03:32
Troponins
07/24/23
07:57
Troponin I 0.314 H* D
Vital Signs and I&O:
Vital Signs
Temp Pulse Resp BP Pulse Ox
98.4 F 121 40 151/88 91
07/27/23 07:13 07/27/23 06:00 07/27/23 06:00 07/27/23 06:00 07/27/23 06:00
Vital Signs
Temp Pulse Resp BP Pulse Ox
98.4 F 121 40 151/88 91
07/27/23 07:13 07/27/23 06:00 07/27/23 06:00 07/27/23 06:00 07/27/23 06:00
Intake & Output
07/25/23 07/26/23 07/27/23 07/28/23
06:59 06:59 06:59 06:59
Intake Total 1020 / 1020 1560 / 1560 720 / 720
Output Total 750 / 750 1050 / 1050 700 / 700
Balance 270 / 270 510 / 510
--- NOTE | 2023-07-27 09:59 | PTCARENOTE ---
Assumed are of pt from night RN, pt AAO, drowsy. Remains on 15L O2 midflow with NRB prn. Tachypneic, breathing appears labored at times. Tube feed infusing at goal. Repositioned in bed frequently, incontinence care provided as needed. Will continue
to monitor through shift.
--- NOTE | 2023-07-27 10:09 | W.PN.ID1 ---
Date of Service
Date of Service: July 27, 2023
Today's Communication
Continue IV ceftriaxone and enteric metronidazole, short course through 07/29.
Assessment / Plan
#Aspiration event/pneumonia
# Acute on chronic hypoxemic respiratory failure, remains on 15Lmidflow oxygen
# Leukocytosis improving
# advanced scleroderma, esophageal stricture with PEG
# ILD, pulmonary HTN on chronic baseline 02 4L
- Continue IV ceftriaxone and enteric metronidazole, short course through 07/29.
-Aspiration precaution.
Chief Complaint
-: Pneumonia
Subjective / Review of Systems
Cough better.
Vital Signs / Physical Exam
Vital Signs
Vital Signs
Temp Pulse Resp BP Pulse Ox
98.4 F 121 40 151/88 99
07/27/23 07:13 07/27/23 06:00 07/27/23 06:00 07/27/23 06:00 07/27/23 08:00
Physical Exam
Constitutional: Chronically Ill
Cardiovascular: S1/S2 and Other (tachy)
Pulmonary: Other (decreased BS )
Gastrointestinal: Soft, Non Tender and Non Distended
Extremities: Negative Edema
Objective Data
Lab Data
Lab Results
07/27/23 03:32
07/27/23 03:32
Estimated Creat Clear 71 ml/min 07/27/23 03:32
Lactic Acid 1.2 mmol/L (0.7-2.0) 07/25/23 12:16
Total Bilirubin 0.5 mg/dl (0.2-1.3) 07/27/23 03:32
AST 32 U/L (14-36) 07/27/23 03:32
ALT 28 U/L (0-35) 07/27/23 03:32
Alkaline Phosphatase 163 U/L (38-126) H 07/27/23 03:32
C-Reactive Protein 178.80 mg/L (0.0-10.00) H 07/27/23 03:32
Most recent labs reviewed.
Micro Results:
07/20/23 06:24 Blood Culture - Final
Blood/Venous No Growth - Final Report
07/22/23 12:03 Stool Leukocytes - Final
Feces/Stool
07/22/23 12:03 C. difficile GDH Antigen & Toxins - Final
Feces/Stool Negative for toxigenic C.difficile
07/21/23 17:49 - Final
Feces/Stool Negative for Norovirus GI and GII.
07/20/23 12:46 MRSA Screen - Final
Nose No Methicillin Resistant Staphylococcus aureus isolated.
07/25/23 CXR: There is stable moderate diffuse coarsening of the interstitial markings throughout both lungs more prominent on the right than the left.
The stability of this finding is more suggestive of interstitial pneumonia than pulmonary edema though the latter is included in the differential diagnosis.
07/23/23 CXR: Prominent bronchovascular markings which could represent mild interstitial and alveolar edema. The differential may also include subtle diffuse pneumonia in the proper clinical setting.
07/21/[address] a/p: Large stool burden from the sigmoid colon to the mid transverse colon raising concern for constipation. Suspected mild enterocolitis. Nondistended distal sigmoid colon and rectum. Small volume pelvic ascites.
07/20/23 CT a/p: Findings suggesting diffuse ileus/enteritis. Mild colitis of the ascending and transverse colon. Difficult to rule out component of obstruction/mass at the ileocecal junction. Consider direct visualization.
[2023-07-27] MEDS: COLACE LIQUID TUBE (10:56)
[2023-07-27] MEDS: DELTASONE 7.5 MG TUBE (10:56)
[2023-07-27] MEDS: MIRALAX TUBE (10:58)
[2023-07-27] MEDS: TYLENOL 650 MG TUBE ×2 (10:58→20:02)
--- NOTE | 2023-07-27 11:11 | W.PN.PUL3 ---
Today's Communication / Plan
-
Check lower extremity Dopplers
Wean oxygen, check saturation with forehead oximeter if possible
Finger oximeter inaccurate
Antibiotics per ID
May require increased to IV steroids given history of steroid responsive process if no improvement
Assessment
-
Mrs Paula Blair is a 63/W adm 07-20 with 3-4 d h/o abd pain, n/v, diarrhea, dyspnea and dizziness. At ER, hypoxic requiring NRM. Known h/o scleroderma, Raynaud's phenomenon, ILD. Abd CT reported enteritis/colitis and suspected obstruction at
ileocecal junction. Pulm consulted for hypoxemia
Acute on chronic hypoxemia
On home O2 4L for last few m
Compounded by interim anemia and acute abdomen with hypoventilation
Bilateral interstitial opacities on CXR - DDx includes acute HFpEF in setting of valvular heart disese (mild-moderate eccentric MR) vs inflammatory pneumonitis
Acute moderate anemia (adm Hgb 9.5 down to 8.1, was 13.5 on Jul 2022)
Diffuse ileus/enteritis, mild colitis, no SBO seen on CT A/P from 07/21/2023
RV dysfunction with hypokinetic RV seen on TTE from 07/24/2023
Chest pain with new TWI in V2-3 - chest pain currently resolved as of evening of 07/25/2023
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
Scleroderma, Raynaud's phenomenon, ILD: follows Dr Pedersen at [place] [facility] for last 5 y, before followed [facility]
GERD
Esophageal stricture
Required PEG placement
Pulm htn, mild: RHC 08-18-22: PCWP 8, MPAP 24, PVR 5.3W
Moderate eccentric MR, normal RV size and function on TTE Jun 2022
Pneumonia, pneumonitis, suspected asp pneumonia, adm DH Feb 2017
Former smoker
Plan/recommendations
At this time, respiratory status is tenuous
Not convinced she requires nonrebreather and nasal cannula, currently 99%, appears comfortable, no use of accessory muscles
I contacted her [place] curing oven tender (Edwardo Pedersen)
Patient has chronic hypoxia, requiring only 2 L. Apparently patient increases oxygen therapy despite lack of need, due to anxiety
Has responded to IV steroids in the past with worsening hypoxia
Cause of interstitial process is unclear
Patient also at high risk for aspiration
Moving forward
Decrease oxygen therapy down to 6 L
Maintain saturation greater than 88%
Patient requires forehead oximeter, finger pulse oximeter not accurate to due to Raynaud's
Patient with known interstitial disease, steroid responsive (per [facility])
Continue prednisone 7.5 mg for now, may require higher dose if no improvement
Will follow
Per discussion with [facility], recent RHC with mean PAP 35, normal cardiac index
Had failed sildenafil in the past, was being evaluated for Tyvaso (Kashif Pang)
Echo 07/24 with dilated RV, reduced function, PA pressure 40
Maintain n.p.o.
Keep asp precs
prn Nebulized albuterol/Duonebs, acapella and IS
Obtain lower extremity Dopplers
If her O2 requirements do not improve with diuresis then will raise her steroids. Trend CRP & proBNP
No indication for antibiotics from pulmonary standpoint
Do not suspect infectious pneumonitis
ID following, remains on ceftriaxone and enteric Flagyl through 07/29
Denies any GI symptoms at this time, tolerating tube feeds
GI has signed off
Reviewed with patient
Remains complex situation, high risk respiratory status
Follow
Diagnostic tests:
CXR 07/25/2023:
There is stable moderate diffuse coarsening of the interstitial markings throughout both lungs more prominent on the right than the left.
The stability of this finding is more suggestive of interstitial pneumonia than pulmonary edema though the latter is included in the differential diagnosis.
CXR 07-23-2023:
Prominent bronchovascular markings which could represent mild interstitial and alveolar edema. The differential may also include subtle diffuse pneumonia in the proper clinical setting.
Possible minor localized atelectasis or pneumonia in the lingula.
Subtle linear opacity in the left apex, unlikely pneumothorax, though not entirely excluded. Clinical correlation and follow-up recommended.
CXR 07-19-23 c/w Apr 2022, considering differences in technique, grossly unchanged mild to moderate increase in interstitial markings. No infiltrates. T-L scoliosis
CT A/P 07-21-2023: Large stool burden from the sigmoid colon to the mid transverse colon raising concern for constipation. Suspected mild enterocolitis. Nondistended distal sigmoid colon and rectum. Small volume pelvic ascites.
CT abd/p 07-20-23: few lung basilar cuts with mild mosaic pattern
Subjective Data
-
Date of Service:
Date of Service: July 27, 2023
Chief Complaint: Pulmonary Follow Up
Subjective:
Patient feels improved overall. Despite this, she is on 100% nonrebreather and nasal cannula, 99%. She has weak cough, generally weak. She is able to vocalize. She denies chest pain, abdominal pain, hemoptysis
Objective Data
Data Reviewed
Vital Signs / I&O / Oxygen:
Vital Signs
Temp Pulse Resp BP Pulse Ox
98.4 F 121 40 151/88 99
07/27/23 07:13 07/27/23 06:00 07/27/23 06:00 07/27/23 06:00 07/27/23 08:00
Intake and Output
07/26/23 07/27/23 07/28/23
06:59 06:59 06:59
Intake Total 1560 / 1560 720 / 720
Output Total 1050 / 1050 700 / 700
Balance 510 / 510 20 / 20
SaO2 99
Nasal Cannula flow liters per 15
minute
Physical Exam
General: Comfortable and Other (Cachectic)
HEENT: Normocephalic, Anicteric and Moist Mucous Membranes
Cardiovascular: S1-S2, Murmur (n), JVD (negative) and Peripheral Edema (negative)
Respiratory: Wheeze (Negative), Crackles (Scattered posterior), Rhonchi (n), Non-Labored Respirations, Stridor (n), Crepitus (n) and Other
GI: Soft, Non Distended, Non Tender and Feeding Tube (G-tube )
Neurology: Awake, Alert and No Motor Deficits (Generally weak)
Skin: Cyanosis (n), Jaundice (n) and Rash (n)
Labs/Micro/Reports
Lab Data
07/27/23 03:32
07/27/23 03:32
Microbiology
07/20/23 06:24 Blood/Venous Blood Culture - Final
No Growth - Final Report
[2023-07-27] MEDS: LASIX IV (11:13)
[2023-07-27] MEDS: KCL ELIXIR TUBE (11:13)
[2023-07-27] MEDS: ROCEPHIN 1000 MG IV (12:18)
[2023-07-27] MEDS: STERILE WATER FOR INJECTION 10 ML IV (12:18)
--- NOTE | 2023-07-27 13:12 | W.PN.HOSP.TC ---
Today's Communication/Plan
-
Might need transfer to [place]
IV Lasix stopped in setting of rising bicarb
Assessment / Plan
Assessment / Plan
Physical Exam
General: No Apparent Distress
HEENT: Moist Mucous Membranes
Respiratory: Crackles (BL lower zone). Rhonchi. BACK ON 15 L MIDFLOW OXYGEN
Cardiac: Regular Rhythm, S1/S2 and Tachycardic
GI: Soft, Nondistended, Normal Bowel Sounds and Tender (discomfort in general). G-tube feeding.
Musculoskeletal: No Edema
Neuro: AAO x 3
Psych: Calm

Acute abdominal pain with nausea and vomiting-patient with abdominal tenderness with mild rebound.
CT scan of the abdomen pelvis which was done without oral or IV contrast shows diffuse ileus/enteritis. Mild colitis of ascending and transverse colon. Difficult to rule out component of obstruction mass at the ileocecal junction without contrast.
CT with contrast shows Large stool burden from the sigmoid colon to the mid transverse colon raising concern for constipation. Suspected mild enterocolitis. Nondistended distal sigmoid colon and rectum. Small volume pelvic ascites.
Pt CT shows constipation but pt having loose stools ?overflow- got enema .
CW Emp abx for colitis
Stools for C diff /WBC neg
seems tolerating PEG tube feeds
GI consulted, recommendations appreciated
Prolonged QTc: hold Sertraline and Olanzapine. Avoid/minimize QTc-prolonging medications
Chest Pain
-If chest pain continues/recurs then check troponin and repeat EKG - notify cardiology regarding any changes
Acute on chronic respiratory hypoxemic respiratory failure. Patient has scleroderma and ILD on home O2 at 4 L. On presentation she had increased oxygen demand requiring nonrebreather now weaned to mid flow nasal cannula. Chest x-ray on admission
showed no acute cardiopulmonary process but in view of nausea ,vomiting, and esophageal stricture concerned about aspiration pneumonitis/pneumonia. Appreciate pulmonary input. No active bronchospasm. Continue with her low-dose steroids which she
takes [she is not sure about the indication]. Continue to wean oxygen as able.
Repeat CXR with persistence of hypoxia and tahcypnea
Patient may have aspirated while brushing her teeth on 07/24/23.
Aspiration Event.
ID consulted, recommendations appreciated
-Status post Zosyn
-Now on Ceftriaxone and Flagyl -- continue
Repeat CXR results noted
Records from [facility] including recent cardiac cath - cardiology assistance appreciated - per cardiology note, 'Patient follows with Dr. Alberts at [facility] for her PHTN. Patient previously had hypoxia on a PDE 5. Thre was a recommendation for adding
Tyvaso at her last visit, but the patient wanted to think about it and then decide at her upcoming Dr. Alberts appt which was scheduled for 07/26/23 and appointment missed due to this hospitalization.'
Congestive Heart Failure - cardiology consulted and now status post IV Lasix (patient's weight is 15 lbs higher than her weight in August 2022 - currently 107 pounds and was 92 pounds in August 2022) - avoid overdiuresis given patient's RV dysfunction
and pulmonary hypertension history - IV Lasix discontinued due to rise in bicarbonate
Known History of Severe Pulmonary Hypertension - may need right heart catheterization if remains significantly hypoxemic (but reportedly had cath at [facility] recently)
Echo as per Dr. Mark Rodriguez Text on 07/24/23 showed that the RV is dilated and hypo kinetic , which is different from June 2022. However, the pulmonary hypertension is less --> pulmonary aware
Per cardiology, they would favor optimizing medical therapy as best able before exposing patient to a right heart catheterization which is carries an elevated risk in this patient.
Fever spike, Hypothermia - elevated WBC - on emp abx for colitis/aspiration pneumonia/itis. Procal low. COVID negative. Non bacteremic.
Normocytic anemia-hemoglobin is low compared to her hemoglobin in July last year. No obvious external bleeding. Iron studies suggest anemia of chronic disease. Heme neg stools
Hyponatremia-clinically more volume depleted and pt having loose stools with hypokalemia . Urine lytes suggests presence of ADH .Will hold on FR and follow .
Hypokalemia - repleted. Appreciate clinical pharmacist's assistance.
Hx of scleroderma
Systemic sclerosis
Esophageal dysmotility
History of MR
Hypertension
Anemia
Non-NV troponin elevation with peak troponin 0.449
Full code.
Anticipated Discharge: > 48 hours
Subjective/Interval History
-
Date of Service: July 27, 2023
Patient was seen and examined. She is now back on 15 liter of midflow nasal cannula.
Objective Data
-
Labs:
Laboratory Results
07/27/23
03:32
WBC 11.0 H
Hgb 8.9 L
Hct 27.6 L
Plt Count 797 H D
Sodium 133 L
Potassium 4.3
Chloride 79 L
Carbon Dioxide 40 H
BUN 31 H
Creatinine 0.3 L
Glucose 114 H
Calcium 9.5
Total Bilirubin 0.5
AST 32
ALT 28
Alkaline Phosphatase 163 H
Vital Signs:
Vital Signs
Temp Pulse Resp BP Pulse Ox
98.9 F 121 40 151/88 99
07/27/23 11:00 07/27/23 06:00 07/27/23 06:00 07/27/23 06:00 07/27/23 08:00
I&O
07/26/23 07/27/23 07/28/23
06:59 06:59 06:59
Intake Total 1560 / 1560 720 / 720
Output Total 1050 / 1050 700 / 700
Balance 510 / 510 20 / 20
[2023-07-27] MEDS: LOVENOX 30 MG SC (17:20)
[2023-07-27] MEDS: COLACE LIQUID 100 MG TUBE (19:59)
[2023-07-28] VITALS (12 sets, daily range): BP systolic 131–152; BP diastolic 79–107; BMI 15.6
[2023-07-28] MEDS: NSS (PRESERVATIVE FREE) 0.5 ML IV (04:07)
[2023-07-28] MEDS: ATIVAN 1 MG IV (04:08)
[2023-07-28] MEDS: FLAGYL 500 MG TUBE ×3 (04:09→20:41)
--- NOTE | 2023-07-28 04:37 | PTCARENOTE ---
Received pt at start of shift. aaox3, flat, withdrawn. Tried weaning o2 down but unsuccessful. Was 86% on 10L. PT states that she just wants to go home. Pt c/o not being able to sleep. 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 GJ tube intact, tube feeds
running. abx given. Tylenol given for pain. 2 bm's overnight. No other issues at this time. Call steele in reach.
--- NOTE | 2023-07-28 06:43 | PTCARENOTE ---
Pt not improving. Loose Bm's overnight, rectal trumpet inserted. Pt SNOW & SOB at rest, tachypneic. Was able to wean down to 10LMF for brief time but began desating eventually. PT was at 12LMF but then started desating to 86% so we increased back up
to 14LMF. Pt frustrated & wants to go home.
[2023-07-28 06:44] LABS: % Basophils 0.3 % (0-2); % Eosinophils 0.5 % (0-6); % Immature Granulocytes 1.3 % (0-0.5); % Lymphocytes 4.9 % (20.5-51.1); % Monocytes 4.4 % (1.7-9.3); % Neutrophils 88.6 % (42.2-75.2); Absolute Eosinophils 0.1 10^3/uL (0-0.7); Absolute Immature Granulocytes 0.1 10^3/uL (0-0.05); Absolute Lymphocytes 0.5 10^3/uL (1.2-3.4); Absolute Monocytes 0.5 10^3/uL (0.1-0.6); Absolute Neutrophils 9.7 10^3/uL (1.4-6.5); Hematocrit 27.9 % (37.0-47.0); Hemoglobin 8.8 g/dL (12.0-16.0); Mean Corp Hgb Conc. 31.5 g/dL (33.0-37.0); Mean Corpuscular Hgb 29.3 pg (27.0-31.0); Mean Platelet Volume 9.8 fL (7.4-10.4); Nucleated Red Blood Cells % 0 %; Platelet Count 740 10^3/uL (130-400); Red Cell Dist. Width 15.2 % (11.5-14.5)
[2023-07-28 07:04] LABS: ALT (SGPT) 20 U/L (0-35); AST (SGOT) 24 U/L (14-36); Alkaline Phosphatase 127 U/L (38-126); Blood Urea Nitrogen 25 mg/dl (7-17); Calcium 8.9 mg/dl (8.4-10.2); Chloride 86 mmol/L (98-107); Estimated Creatinine Clearance 70 ml/min; Glucose 110 mg/dl (70-99); Magnesium 2.1 mg/dl (1.6-2.3); Sodium 131 mmol/L (135-145); Total Bilirubin 0.4 mg/dl (0.2-1.3); Total Protein 6.6 g/dl (6.3-8.2); eGFR > 60.00
[2023-07-28 07:13] LABS: Carbon Dioxide 41 mmol/L (22-30)
--- NOTE | 2023-07-28 08:29 | W.PN.PUL3 ---
Addendum entered and electronically signed by Jodie Valdez MD 07/28/23 15:53:
Updated sister at length.
Confirmed DNR status as well. Sister and patient have had multiple discussions in the past
Patient does not want intubation/mechanical ventilation/shock, intubation
Sister is POA
All questions answered
Addendum entered and electronically signed by Jodie Valdez MD 07/28/23 12:31:
Attempted to contact Sister Radha ([phone])
No answer
Message left
Original Note:
Today's Communication / Plan
-
Start IV steroids
GERD therapy
Consider Ventimask as patient is mouth breather, should be able to wean down to 30 to 45%
Patient is DNR
Assessment
-
Mrs Paula Blair is a 63/W adm 07-20 with 3-4 d h/o abd pain, n/v, diarrhea, dyspnea and dizziness. At ER, hypoxic requiring NRM. Known h/o scleroderma, Raynaud's phenomenon, ILD. Abd CT reported enteritis/colitis and suspected obstruction at
ileocecal junction. Pulm consulted for hypoxemia
Acute on chronic hypoxemia
On home O2 4L for last few m
Compounded by interim anemia and acute abdomen with hypoventilation
Bilateral interstitial opacities on CXR - DDx includes acute HFpEF in setting of valvular heart disese (mild-moderate eccentric MR) vs inflammatory pneumonitis
Acute moderate anemia (adm Hgb 9.5 down to 8.1, was 13.5 on Jul 2022)
Diffuse ileus/enteritis, mild colitis, no SBO seen on CT A/P from 07/21/2023
RV dysfunction with hypokinetic RV seen on TTE from 07/24/2023
Chest pain with new TWI in V2-3 - chest pain currently resolved as of evening of 07/25/2023
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
Scleroderma, Raynaud's phenomenon, ILD: follows Dr Pedersen at [facility] for last 5 y, before followed [facility]
GERD
Esophageal stricture
Required PEG placement
Pulm htn, mild: RHC 08-18-22: PCWP 8, MPAP 24, PVR 5.3W
Moderate eccentric MR, normal RV size and function on TTE Jun 2022
Pneumonia, pneumonitis, suspected asp pneumonia, adm DH Feb 2017
Former smoker
Plan/recommendations
At this time, respiratory status is tenuous
98% on 12 L nasal cannula
She is primarily a mouth breather, taking nasal oxygen therapy suboptimal
Primary complaint is fatigue, insomnia
She was given Ativan and additional dose through the night
Dopplers have yet to be obtained, ordered 07/27
I contacted her [facility] school based therapist (Edwardo Pedersen)
Patient has chronic hypoxia, requiring only 2 L. Apparently patient increases oxygen therapy despite lack of need, due to anxiety
Has responded to IV steroids in the past with worsening hypoxia
Cause of interstitial process is unclear
Patient also at high risk for aspiration
Moving forward
Continue to wean oxygen, baseline is 2 L at home per outpatient pulmonary, increases to 6 L with activity
Maintain saturation greater than 88%
May benefit from Ventimask set up given mouth breather. Will review with respiratory care
Patient requires forehead oximeter, finger pulse oximeter not accurate to due to Raynaud's
Presently finger oximetry is registering
Patient with known interstitial disease, steroid responsive (per [facility])
Will change to IV methylprednisolone and follow-up in the next 24 to 48 hours
Has had waxing and waning flareups of hypoxia in the past per [facility], responded to IV, increased dose steroids
Follow blood sugars
Continue GERD therapy
Will follow
Per discussion with [facility], recent RHC with mean PAP 35, normal cardiac index
Had failed sildenafil in the past, was being evaluated for Tyvaso (Kashif Pang)
Echo 07/24 with dilated RV, reduced function, PA pressure 40
Maintain n.p.o.
Keep asp precs
prn Nebulized albuterol/Duonebs, acapella and IS
No indication for antibiotics from pulmonary standpoint
Do not suspect infectious pneumonitis
ID following, remains on ceftriaxone and enteric Flagyl through 07/29
Denies any GI symptoms at this time, tolerating tube feeds
GI has signed off
Patient lives with boyfriend.
Power of transactional attorney is sister Radha Borrero ([phone])
Patient has requested medical information to be discussed with sister and ex- who was at bedside
Although boyfriend lives with the patient, he does not make medical decisions. Family is concerned about his lack of attention to patient's medical issues
Patient also has confirmed and clarified that she is DNR, does not want Mechanical ventilation/intubation, CPR
This was discussed with ex- at the bedside as well
Reviewed with patient, nursing, primary service
Remains complex situation, high risk respiratory status
Follow
Diagnostic tests:
CXR 07/25/2023:
There is stable moderate diffuse coarsening of the interstitial markings throughout both lungs more prominent on the right than the left.
The stability of this finding is more suggestive of interstitial pneumonia than pulmonary edema though the latter is included in the differential diagnosis.
CXR 07-23-2023:
Prominent bronchovascular markings which could represent mild interstitial and alveolar edema. The differential may also include subtle diffuse pneumonia in the proper clinical setting.
Possible minor localized atelectasis or pneumonia in the lingula.
Subtle linear opacity in the left apex, unlikely pneumothorax, though not entirely excluded. Clinical correlation and follow-up recommended.
CXR 07-19-23 c/w Apr 2022, considering differences in technique, grossly unchanged mild to moderate increase in interstitial markings. No infiltrates. T-L scoliosis
CT A/P 07-21-2023: Large stool burden from the sigmoid colon to the mid transverse colon raising concern for constipation. Suspected mild enterocolitis. Nondistended distal sigmoid colon and rectum. Small volume pelvic ascites.
CT abd/p 07-20-23: few lung basilar cuts with mild mosaic pattern
Subjective Data
-
Date of Service:
Date of Service: July 28, 2023
Chief Complaint: Pulmonary Follow Up
Subjective:
Patient has been weaned down to mid flow, currently 98% on 12 L. Patient is a mouth breather and with rapid shallow breathing at times. Patient primary complaint is insomnia, fatigue. Received Ativan overnight. Ex- is at bedside. She has
a weak cough, denies abdominal pain, chest pain, nausea
Objective Data
Data Reviewed
Vital Signs / I&O / Oxygen:
Vital Signs
Temp Pulse Resp BP Pulse Ox
98.5 F 121 38 150/84 90
07/28/23 03:10 07/28/23 04:00 07/28/23 04:00 07/28/23 04:00 07/28/23 04:00
Intake and Output
07/27/23 07/28/23 07/29/23
06:59 06:59 06:59
Intake Total 720 / 720 695 / 695
Output Total 700 / 700
Balance 20 / 20 695 / 695
SaO2 90
Nasal Cannula flow liters per 13
minute
Physical Exam
General: Comfortable, Other (Dry mucosa) and Other (Cachectic)
HEENT: Normocephalic, Anicteric and Moist Mucous Membranes
Cardiovascular: S1-S2, Murmur (n), JVD (negative) and Peripheral Edema (negative)
Respiratory: Wheeze (Negative), Crackles (Scattered posterior), Rhonchi (n), Non-Labored Respirations, Stridor (n), Crepitus (n) and Other
GI: Soft, Non Distended, Non Tender and Feeding Tube (G-tube )
Neurology: Awake, Alert and No Motor Deficits (Generally weak)
Skin: Cyanosis (n), Jaundice (n) and Rash (n)
Labs/Micro/Reports
Lab Data
07/28/23 06:26
07/28/23 06:26
Microbiology
07/20/23 06:24 Blood/Venous Blood Culture - Final
No Growth - Final Report
--- NOTE | 2023-07-28 08:42 | PTCARENOTE ---
Patient received from lieutenant shift supervisor. Patient resting comfortably in bed. AAO, VSS aside from consistent tachycardia. No events noted over night. No complaints of pain at this time. Continues on high level of O2, 14L Midflow. Will attempt to wean
as applicable. Patient remains incontinent of loose stool. Call steele in reach.
[2023-07-28] MEDS: COLACE LIQUID 100 MG TUBE (09:43)
[2023-07-28] MEDS: MIRALAX TUBE (09:44)
[2023-07-28] MEDS: DELTASONE 7.5 MG TUBE (09:44)
[2023-07-28] MEDS: PROTONIX IV 40 MG IV (11:13)
[2023-07-28] MEDS: NSS (PRESERVATIVE FREE) 10 ML IV (11:14)
[2023-07-28] MEDS: ROCEPHIN 1000 MG IV (11:15)
[2023-07-28] MEDS: STERILE WATER FOR INJECTION 10 ML IV (11:15)
[2023-07-28] MEDS: SOLU-MEDROL PF 40 MG IV (11:15)
--- NOTE | 2023-07-28 12:17 | W.PN.ID1 ---
Date of Service
Date of Service: July 28, 2023
Today's Communication
Continue ceftriaxone/metronidazole.
Assessment / Plan
#Aspiration event/pneumonia
# Acute on chronic hypoxemic respiratory failure, remains hypoxic
# Leukocytosis improving
# advanced scleroderma, esophageal stricture with PEG
# ILD, pulmonary HTN on chronic baseline 02 4L. IV steroid started by pulm
- Continue IV ceftriaxone and enteric metronidazole, short course through 07/29.
-Aspiration precaution.
Chief Complaint
-: Pneumonia
Subjective / Review of Systems
Weak. Not coughing as much.
Vital Signs / Physical Exam
Vital Signs
Vital Signs
Temp Pulse Resp BP Pulse Ox
97.9 F 121 38 150/84 90
07/28/23 11:49 07/28/23 04:00 07/28/23 04:00 07/28/23 04:00 07/28/23 04:00
Physical Exam
Constitutional: Chronically Ill and Cachetic
Cardiovascular: S1/S2
Pulmonary: Clear (anteriorly)
Gastrointestinal: Soft, Non Tender and Non Distended
Extremities: Negative Edema
Objective Data
Lab Data
Lab Results
07/28/23 06:26
07/28/23 06:26
Estimated Creat Clear 70 ml/min 07/28/23 06:26
Lactic Acid 1.2 mmol/L (0.7-2.0) 07/25/23 12:16
Total Bilirubin 0.4 mg/dl (0.2-1.3) 07/28/23 06:26
AST 24 U/L (14-36) 07/28/23 06:26
ALT 20 U/L (0-35) 07/28/23 06:26
Alkaline Phosphatase 127 U/L (38-126) H 07/28/23 06:26
C-Reactive Protein 178.80 mg/L (0.0-10.00) H 07/27/23 03:32
Most recent labs reviewed.
Micro Results:
07/20/23 06:24 Blood Culture - Final
Blood/Venous No Growth - Final Report
07/22/23 12:03 Stool Leukocytes - Final
Feces/Stool
07/22/23 12:03 C. difficile GDH Antigen & Toxins - Final
Feces/Stool Negative for toxigenic C.difficile
07/21/23 17:49 - Final
Feces/Stool Negative for Norovirus GI and GII.
07/20/23 12:46 MRSA Screen - Final
Nose No Methicillin Resistant Staphylococcus aureus isolated.
07/25/23 CXR: There is stable moderate diffuse coarsening of the interstitial markings throughout both lungs more prominent on the right than the left.
The stability of this finding is more suggestive of interstitial pneumonia than pulmonary edema though the latter is included in the differential diagnosis.
07/23/23 CXR: Prominent bronchovascular markings which could represent mild interstitial and alveolar edema. The differential may also include subtle diffuse pneumonia in the proper clinical setting.
07/21/[address] a/p: Large stool burden from the sigmoid colon to the mid transverse colon raising concern for constipation. Suspected mild enterocolitis. Nondistended distal sigmoid colon and rectum. Small volume pelvic ascites.
07/20/23 CT a/p: Findings suggesting diffuse ileus/enteritis. Mild colitis of the ascending and transverse colon. Difficult to rule out component of obstruction/mass at the ileocecal junction. Consider direct visualization.
07/27/23 CXR: Predominantly stable pattern of bilateral prominent interstitial markings,�
--- NOTE | 2023-07-28 12:28 | W.PN.HOSP.TC ---
Today's Communication/Plan
-
Accepted for transfer to [facility], under the care of Dr. Merry Sharp
Please see below
Assessment / Plan
Assessment / Plan
Physical Exam
General: No Apparent Distress. Cachexia.
HEENT: Normocephalic. Moist Mucous Membranes.
Respiratory: Crackles Bilaterally. REMAINS ON 15 L MIDFLOW OXYGEN
Cardiac: Regular Rhythm, S1/S2 and Tachycardic
GI: Soft, Nondistended, Normal Bowel Sounds and Tender (discomfort in general). G-tube feeding.
Musculoskeletal: No Edema
Neuro: AAO x 3
Psych: Calm

Acute on chronic respiratory hypoxemic respiratory failure
Bilateral Interstitial Opacities on Chest X-ray: pneumonitis vs. CHF
Right Ventricular dysfunction with hypokinetic Right Ventricle seen on Transthoracic Echocardiogram from 07/24/2023
Concern for Aspiration Pneumonitis/Pneumonia (patient may have aspirated while brushing her teeth on 07/24/23)
Abdominal Pain
Diffuse ileus/enteritis, mild colitis
Scleroderma - esophageal stricture requiring PEG placement
Systemic sclerosis
Esophageal dysmotility
Interstitial Lung Disease on 4 L of oxygen at home (baseline)
Fever
Hypothermia
On presentation she had increased oxygen demand requiring nonrebreather - now weaned to mid flow nasal cannula.
Home Prednisone 7.5 mg daily changed to Solumedrol 40 mg IV Q24H (changed from Q12H to Q24H due to concerns of preventing Scleroderma Renal Crisis)
Continue to wean oxygen as able.
Repeat CXR with persistence of hypoxia and tahcypnea
ID consulted, recommendations appreciated
-Status post Zosyn
-Now on Ceftriaxone and Flagyl -- continue through July 29, 2023 as per Infectious Disease
-Records from [facility] including recent cardiac cath - cardiology assistance appreciated - per cardiology note, 'Patient follows with Dr. Alberts at [facility] for her PHTN. Patient previously had hypoxia on a PDE 5. Thre was a recommendation for adding
Tyvaso at her last visit, but the patient wanted to think about it and then decide at her upcoming Dr. Alberts appt which was scheduled for 07/26/23 and appointment missed due to this hospitalization.' Patient also failed Sildenafil in the past.
-Spoke with Dr. Merry Sharp at [facility] and she accepted on July 28, 2023 patient for transfer to [facility] to be under the care of pulmonary service
Prolonged QTc
Hold Sertraline and Olanzapine. Avoid/minimize QTc-prolonging medications
Congestive Heart Failure
Chest Pain - RESOLVED
-Cardiology consulted and now status post IV Lasix - IV Lasix discontinued due to rise in bicarbonate - avoid overdiuresis given patient's RV dysfunction and pulmonary hypertension history -
-Echo as per Dr. Mark Rodriguez Text on 07/24/23 showed that the RV is dilated and hypo kinetic , which is different from June 2022. However, the pulmonary hypertension is less --> pulmonary aware
Per cardiology, they would favor optimizing medical therapy as best able before exposing patient to a right heart catheterization which is carries an elevated risk in this patient.
Known History of Severe Pulmonary Hypertension
-Patient reportedly had cath at [facility] recently. Patient being transferred to [facility] as above.
Normocytic anemia
-Likely from Anemia of Chronic Disease with Scleroderma
-Hemoglobin is low compared to her hemoglobin in July last year. No obvious external bleeding.
-Component of anemia of chronic disease
-Monitor CBC
Hyponatremia
-Stable
-Clinically volume depleted and patient having loose stools with some days of hypokalemia. Urine lytes suggested presence of ADH.Will hold on FR and follow .
Hypokalemia
-Repleted. Appreciate clinical pharmacist's assistance.
GERD
History of MR
Hypertension
Anemia
Non-NE troponin elevation with peak troponin 0.449
Full code.
Anticipated Discharge: 24 - 48 hours
Subjective/Interval History
-
Date of Service: July 28, 2023
Patient was seen and examined. Overnight, she had some loose bowel movements. She is still requiring significant levels of oxygen at 15 liters of mid-flow oxygen.
Objective Data
-
Labs:
Laboratory Results
07/28/23
06:26
WBC 11.0 H
Hgb 8.8 L
Hct 27.9 L
Plt Count 740 H
Sodium 131 L
Potassium 4.0
Chloride 86 L
Carbon Dioxide 41 H
BUN 25 H
Creatinine 0.3 L
Glucose 110 H
Calcium 8.9
Total Bilirubin 0.4
AST 24
ALT 20
Alkaline Phosphatase 127 H
Vital Signs:
Vital Signs
Temp Pulse Resp BP Pulse Ox
97.9 F 121 38 150/84 90
07/28/23 11:49 07/28/23 04:00 07/28/23 04:00 07/28/23 04:00 07/28/23 04:00
I&O
07/27/23 07/28/23 07/29/23
06:59 06:59 06:59
Intake Total 720 / 720 695 / 695
Output Total 700 / 700
Balance 695 / 695
--- NOTE | 2023-07-28 12:54 | CM ---
Patient with Hx advanced scleroderma, ILD, PEG/J-tube for enteral access/feedings with Dx acute hypoxemic resp failure, CHF, anemia. O2 12L midflow.
Message from Dr Hinson: he spoke with Dr. Sharp stone circular sawyer at [facility], and they accepted Ms Blair for transfer to [facility], apparently a bed was available.
spoke with Kade, SO this morning and told him that if Paula was going to be transferred to [facility] that would not be ordering a hospital bed for her, as [facility] will be doing the d/c planning for her, and he understood.
Plan transfer to [facility].
--- NOTE | 2023-07-28 13:56 | W.PN.CARDCBS ---
Today's Communication / Plan
-
For transfer to [facility] given continued severe hypoxemia despite attempts at diuresis
Impression / Plan
-
Primary cardiology: [facility]: Dr. Paula Pang at [facility]
Primary: Dr. Solorio
Impression:
Acute diastolic CHF
History of pre and postcapillary pulmonary hypertension.
Fever
Presentation with acute abdominal pain and vomiting
History of pulm hypertension
Scleroderma
Systemic sclerosis
Esophageal dysmotility
At least moderate MR in 2022
Hypertension
Anemia
Hyponatremia
Non-IN troponin elevation with peak troponin 0.449
Echo 07/07/22: Ejection fraction 55 to 60%, mild prolapse of posterior mitral valve leaflet with at least moderate MR and cannot exclude more significant MR, moderate TR with PA systolic 57 mmHg
RHC in 07/2022 and felt to have class I pulm hypertension with PVR of 5.3 Wood units, PA pressure 38/15 with a mean of 24 and a wedge of 8 and cardiac index of 3.0 Liters.
RHC 07/07/23: RA 11, PA 63/27/38, PCWP 15, CO/CI 4.7/2.9, PVR 5.4
Plan:
She remains severely hypoxemic despite treatment IV diuretics
Dry weight was previously 92-97 lbs. Weight peaked at 107 lbs this admission. Patient has diuresed down to 99 lbs on 07/28/23 with Lasix 40 mg IV BID. Patient was not taking a diuretic prior to admission.
May be also due to pneumonia as well
Transfer has been arranged to [facility] and agree and may need repeat right heart catheterization
Patient follows with Dr. Alberts at [facility] for her PHTN. Patient previously had hypoxia on a PDE 5. Thre was a recommendation for adding Tyvaso at her last visit, but the patient wanted to think about it and then decide at her upcoming .
[facility] appt which was scheduled for 07/26/23 and appointment missed due to this hospitalization.
Patient was on oxygen at 4 L NC prior to admission
Progress Note - Stevedoring Supervisor
Subjective
Date of Service: July 28, 2023
Remains short of breath on 10 L of oxygen
Objective
Labs:
07/28/23 06:26
07/28/23 06:26
Labs
Hgb 8.8 g/dL (12.0-16.0) L 07/28/23 06:26
Hct 27.9 % (37.0-47.0) L 07/28/23 06:26
Plt Count 740 10^3/uL (130-400) H 07/28/23 06:26
Sodium 131 mmol/L (135-145) L 07/28/23 06:26
Potassium 4.0 mmol/L (3.5-5.1) 07/28/23 06:26
BUN 25 mg/dl (7-17) H 07/28/23 06:26
Creatinine 0.3 mg/dL (0.6-1.0) L 07/28/23 06:26
Glucose 110 mg/dl (70-99) H 07/28/23 06:26
Vital Signs and I&O:
Vital Signs
Temp Pulse Resp BP Pulse Ox
97.9 F 121 38 150/84 90
07/28/23 11:49 07/28/23 04:00 07/28/23 04:00 07/28/23 04:00 07/28/23 04:00
Vital Signs
Temp Pulse Resp BP Pulse Ox
97.9 F 121 38 150/84 90
07/28/23 11:49 07/28/23 04:00 07/28/23 04:00 07/28/23 04:00 07/28/23 04:00
Intake & Output
07/26/23 07/27/23 07/28/23 07/29/23
06:59 06:59 06:59 06:59
Intake Total 1560 / 1560 720 / 720 695 / 695
Output Total 1050 / 1050 700 / 700
Balance 510 / 510 20 / 20 695 / 695
Physical Exam
Physical Exam
General: Appears chronically ill
Neck: Supple, no JVD, HJR, carotids +2 B/L, no bruits bilaterally.
Heart: Non displaced PMI, RRR, no murmurs, No S3, S4, no rubs.
Lungs: Scattered rhonchi
Extremities: No clubbing, cyanosis or edema bilaterally.
Neuro: Grossly nonfocal, awake, alert and oriented x3.
--- NOTE | 2023-07-28 14:22 | PTCARENOTE ---
Patient update given to Tommy at [facility], awaiting bed to become available and assigned.
[2023-07-28] MEDS: LOVENOX 30 MG SC (17:26)
[2023-07-28] MEDS: DILAUDID 4 MG TUBE (17:26)
[2023-07-28] MEDS: TYLENOL 650 MG TUBE (20:41)
[2023-07-28] MEDS: ATIVAN 1 MG PO (20:42)
[2023-07-28] MEDS: COLACE LIQUID TUBE (20:49)
--- NOTE | 2023-07-28 21:24 | PTCARENOTE ---
Report give to Andreas ZHOU @ [facility]
--- NOTE | 2023-07-28 21:49 | PTCARENOTE ---
Assumed care of Pt from Day RN. PT AAOx3, Pt will be transferred to [facility] day RN has called report. Assessment care and vitals as charted.
--- NOTE | 2023-07-28 22:56 | PTCARENOTE ---
Patient left via Ambulance to [facility] with all known belongings. Patients significant other with her until she left.
--- NOTE | 2023-07-31 09:23 | W.DCSUMMARY ---
Discharge Summary
Discharge Data
Date of Admission: 07/20/23
Date of Discharge: 07/28/23
Total time spent discharging patient (in min): 70
-
Pending Results: Yes
Additional Pending Results:
Any outstanding lab/imaging results
Hospital Course
63 y/o female with history of interstitial lung disease and scleroderma, pulmonary hypertension (followed at [facility]), on an outpatient prednisone daily regimen, and PEG-J placement at [facility] who presented with abdominal pain and vomiting.
Imaging showed possible enteritis/ileus and suspected obstruction at ileocecal junction. Patient was noted to be on baseline 4 liters of oxygen at home, requiring more oxygen when hospitalized this admission. There was also a concern that patient
aspirated with resultant aspiration pneumonitis/pneumonia. Patient was started on empiric antibiotics; patient did have a fever and also leukocytosis.
Pulmonary, gastroenterology and general surgery were consulted. Repeat CT imaging of the abdomen was done, and it showed as per surgery team, 'No evidence of an obstruction, no significant inflammation or worry for bowel ischemia. Constipation and
dilation of small bowel likely related to dysmotility from scleroderma' and there were no plans for surgical intervention at the time. Enema and bowel regimen were ordered for constipation and patient subsequently had bowel movements. Patient was
tolerating her tube feeding.
Patient's main complaint remained as abdominal pain.
Cardiology was consulted for exacerbation of congestive heart failure and patient was started on intravenous Lasix. Echocardiogram was performed showed LVEF of 65%, right ventricular enlargement, reduced right ventricular systolic function and
pulmonary hypertension (please see separate echocardiogram report for details). Patient was on nonrebreather oxygen but was switched to midflow at 15 L/min. She remained at that level of oxygen need for most of her hospitalization but occasionally
at times was decreased.
Patient was found to have a prolonged QTc and patient's Sertraline and Olanzapine were held. Infectious Diseases was consulted and switched her Zosyn to Ceftriaxone and Flagyl.
Patient's Lasix had to be stopped because of an increase in her bicarbonate. Patient's steroids were increased. Patient's case was discussed with Dr. Merry Sharp at [facility] and she accepted the patient on July 28, 2023 patient for
transfer to [facility] to be under the care of pulmonary service. Patient was transferred on July 28, 2023.
Discharge Plan
-
Patient Disposition: Acute Care Hospital
Discharge Orders:
Discharge Patient (As Directed); Ordered 08/01/23
Ordered By: Claude Hinson
Discharge Date and Time
Discharge Date/Time: 07/28/23 22:58
== END 2023-07-28 22:58 | disposition short-term general hospital (02) | DRG 177 ==
LOC: IMU 05:11
PROVIDERS: Clinical Nurse Specialist Family Health; Internal Medicine; Internal Medicine Critical Care Medicine; Nurse Practitioner Gerontology; ADMITTING PHYSICIAN Internal Medicine; ATTENDING PHYSICIAN Hospitalist; CONSULT PHYSICIAN Internal Medicine Cardiovascular Disease; CONSULT PHYSICIAN Internal Medicine Gastroenterology; CONSULT PHYSICIAN Internal Medicine Infectious Disease; CONSULT PHYSICIAN Surgery; EMERGENCY PHYSICIAN Emergency Medicine; FAMILY PHYSICIAN Family Medicine; OTHER PHYSICIAN Internal Medicine Pulmonary Disease
DX: J69.0 Pneumonitis due to inhalation of food and vomit (principal); I50.31 Acute diastolic (congestive) heart failure; J96.21 Acute and chronic respiratory failure with hypoxia; M34.81 Systemic sclerosis with lung involvement; K56.7 Ileus, unspecified; E87.1 Hypo-osmolality and hyponatremia; Z68.1 Body mass index [BMI] 19.9 or less, adult; I5A Non-ischemic myocardial injury (non-traumatic); K52.9 Noninfective gastroenteritis and colitis, unspecified; J84.10 Pulmonary fibrosis, unspecified; J84.89 Other specified interstitial pulmonary diseases; I11.0 Hypertensive heart disease with heart failure; K21.00 Gastro-esophageal reflux disease with esophagitis, without bleeding; K44.9 Diaphragmatic hernia without obstruction or gangrene; D64.9 Anemia, unspecified; I73.00 Raynaud's syndrome without gangrene; E87.6 Hypokalemia; R63.6 Underweight; K22.2 Esophageal obstruction; I27.20 Pulmonary hypertension, unspecified; Z11.52 Encounter for screening for COVID-19; Z87.891 Personal history of nicotine dependence; Z66 Do not resuscitate; Z99.81 Dependence on supplemental oxygen; Z82.49 Family history of ischemic heart disease and other diseases of the circulatory system; Z93.4 Other artificial openings of gastrointestinal tract status
CPT/HCPCS: 36600; 71045; 74022; 74176; 74177; 80048; 80053; 80061; 80069; 80202; 81003; 82728; 82805; 82962; 83036; 83540; 83550; 83605; 83690; 83735; 83880; 83935; 84100; 84145; 84300; 84484; 85025; 85027; 86140; 87040; 87070; 87324; 87449; 87798; 87811; 89055; 93005; 93306; 93970; 94640; 96361; 96374; 96375; 97163; 99285; J3480; Q9967

== ENCOUNTER 2023-08-08 06:47 | Emergency (ER) | payer MEDICARE, OTHER, SELFPAY ==
[2023-08-08] VITALS (9 sets, daily range): BP systolic 104–136; BP diastolic 69–89; BMI 15.7
--- NOTE | 2023-08-08 08:28 | EDRN ---
this RN called IV team to place line per Dr. Pitt
--- NOTE | 2023-08-08 08:37 | ED.GENMED ---
History of Present Illness
General
Chief Complaint: Abdominal Symptoms
Source: patient and family
Exam Limitations: none
Time Seen by Provider: 08/08/23 08:06
Nursing documentation reviewed up to this point in time: agreed with
Travel History
Have you had any contact with someone who has COVID-19?: No
Do you have any symptoms of coronavirus? Fever > 100 degrees, chills, cough, shortness of breath, sore throat, loss of taste or smell, muscle aches, or headache?: No
History of Present Illness
History of Present Illness:
Patient with history of scleroderma and oxygen dependent COPD, recently discharged from the hospital 5 days ago after being treated for aspiration pneumonia as well as ileus/constipation, returns to ED secondary to recurrent diffuse abdominal pain
associated with nausea and vomiting over the past 2 days. Patient does state that she is having bowel movements, but not as much, despite utilizing stool softeners and laxatives at home. Denies fever. Denies coughing. Denies dizziness. Patient
and family at bedside confirmed that her abdominal pain is similar to what she has been treated for and during recent admission with bowel regimen. Patient also receives feeding through the G-tube, which has not revealed any high residual volume.
Past History
Past History
ED Past Medical History: GERD and Other (Scleroderma, esophageal stricture, PNA, interstitial lung disease, Raynaud's, Right enlarged heart); Negative Asthma, HTN, Hypercholesterolemia or NIDDM
ED Past Surgical History: Other (Skin grafts, Surgery on neck to remove cyst)
Social History
Tobacco: Former smoker
Alcohol: None
Drug: None
Personal:
Living: with family
Employment: Employed
Family History
Family History: Hypertension
Review of Systems
Review of Systems
Allergies reviewed?: Yes
All Other Systems: ROS reviewed and negative except as documented in HPI and ROS
Constitutional: Reports no symptoms
EENT: Reports no symptoms
Respiratory: Reports no symptoms; Denies cough
Cardiac: Reports no symptoms
ABD/GI: Reports abdominal pain, nausea, vomiting and constipated; Denies diarrhea
: Reports no symptoms
Musculoskeletal: Reports no symptoms
Skin: Reports no symptoms
Neurological: Reports weakness
Phy Exam
Physical Exam
Physical Exam:
Physical Exam
General: mild distress, chronically ill appearing. afebrile
Head: nc/at. eomi
Neck: supple. no meningeal signs.
Heart: tachycardic, no murmur. equal radial pulses.
Lungs: no acute respiratory distress. clear bilaterally
Abdomen: normal bowel sounds. G-tube noted over LUQ, with minimal surrounding erythema, nontender. no distention. mild diffuse lower abdominal tenderness noted.
Neuro: alert and oriented. no focal neurological deficits
Skin: no rash
Psychiatric: well kept. interactive and cooperative
Extremities: no edema. no calf tenderness.
Course
Orders/Labs/Results
Orders:
Orders
08/08/23 08:26
Electrocardiogram (*1) Urgent
Reason for Study: QTc Monitoring
EKG- Treatment ONCE
CR Obstruct Series W/pa Chest Urgent
Comment:
Reason For Exam: abdominal pain
08/08/23 08:27
0.9% Sodium Chloride 1000 ml [Nss] 1,000 ml IV BOLUS
08/08/23 08:43
Ondansetron Injectable [Zofran] 4 mg IV NOW STA
08/08/23 08:47
Suctioning- Treatment ONCE
08/08/23 08:57
Complete Blood Count/With Diff Urgent
Comprehensive Metabolic Panel Urgent
Lactic Acid Urgent
Lipase Urgent
Magnesium Urgent
08/08/23 10:52
HYDROmorphone [Dilaudid] 0.5 mg IV NOW STA
Abnormal Lab Results
08/08/23
08:57
RBC 3.03 L 10^6/uL
(4.20-5.40)
Hgb 9.2 L g/dL
(12.0-16.0)
Hct 27.8 L %
(37.0-47.0)
RDW 16.0 H %
(11.5-14.5)
Plt Count 470 H 10^3/uL
(130-400)
Abs Immat Gran (auto) 0.1 H 10^3/uL
(0-0.05)
Absolute Neuts (auto) 7.8 H 10^3/uL
(1.4-6.5)
Absolute Lymphs (auto) 0.4 L 10^3/uL
(1.2-3.4)
Immature Gran % 0.7 H %
(0-0.5)
Neutrophils % 90.1 H %
(42.2-75.2)
Lymphocytes % 5.0 L %
(20.5-51.1)
Sodium 130 L mmol/L
(135-145)
Chloride 94 L mmol/L
(98-107)
Carbon Dioxide 33 H mmol/L
(22-30)
Creatinine 0.3 L mg/dL
(0.6-1.0)
Glucose 110 H mg/dl
(70-99)
08/08/23 08:57
08/08/23 08:57
Vital Signs
Initial and Last Documented VS:
Initial Vital Signs
Temp Pulse Resp BP Pulse Ox
98.0 F 125 18 132/86 99
08/08/23 06:49 08/08/23 06:49 08/08/23 06:49 08/08/23 06:49 08/08/23 06:49
Last Documented Vital Signs
Temp Pulse Resp BP Pulse Ox
97.6 F 87 16 136/71 99
08/08/23 14:05 08/08/23 14:05 08/08/23 14:05 08/08/23 14:05 08/08/23 14:05
MDM/Problems Addressed
MDM/Problems Addressed:
Pt unfortunately presenting with acute on chronic abdominal pain, with component of ileus, which is multifactorial. Patient given IV fluids and NG tube connected to suction, with significant improvement in symptoms. At this time, patient feels
comfortable going home without any further treatment. Patient and family will administer small quantities of tube feeding, may be more frequently, to reduce some of her symptoms. In addition, patient has a follow-up in the near future with her
scleroderma group at [facility]. Advised to return to ED with worsening symptoms. Otherwise as patient is afebrile, alert, awake, and hemodynamically, at time of discharge.
*EKG
Interpreted by ED Provider?: Yes
EKG Intrepretation Date: 08/08/23
Heart Rate: 116
Rate: tachycardiac
Rhythm: sinus
[place]: normal axis
Interval: normal interval
*Critical Care Note
Total Time (30-74mins, 75-104mins- exclusive of procedures): Not Applicable
ED Attending Note
-
Portions of this chart may have been created with voice recognition software.� Occasional wrong word or��sound alike� substitutions may have occurred due to the inherent limitations of voice recognition software.
Discharge Plan
Departure
Patient Disposition: Home (Routine Discharge)
Date of Disposition: 08/08/23
Time of Disposition: 13:47
Patient with high blood pressure during this ER visit?: Yes
Condition: Good
Discharge Problem:
Ileus
Instructions: Abdominal Pain, Adult ED
Prescriptions:
No Action
pantoprazole 40 mg Tablet,Delayed Release (Dr/Ec)
40 mg PO DAILY
olanzapine 5 mg Tablet
5 mg PO HS
magnesium oxide 400 mg magnesium Tablet
400 mg feeding tube DAILY
prednisone 2.5 mg Tablet
7.5 mg PO DAILY
metoclopramide HCl 5 mg Tablet
5 mg feeding tube TID
sertraline 50 mg Tablet
50 mg PO DAILY
acetaminophen 500 mg Tablet
1,000 mg PO Q6H PRN (Reason: pain)
hydromorphone 4 mg Tablet
4 mg feeding tube Q4 PRN (Reason: pain)
lorazepam 1 mg Tablet
1 mg PO BID PRN (Reason: anxiety)
ondansetron 4 mg Film
4 mg Q8H PRN (Reason: nausea )
naloxone 0.4 mg/mL Solution
1 mg SC Q1M PRN (Reason: opioid overdose)
azathioprine [Imuran] 50 mg Tablet
50 mg PO DAILY
sennosides [senna] 8.8 mg/5 mL Syrup
10 ml PO BID PRN (Reason: constipation)
levofloxacin 250 mg/10 mL Solution
750 mg feeding tube DAILY
linaclotide 145 mcg Capsule
145 mcg G-tube DAILY
Movantik 25 mg Tablet
25 mg PO DAILY
Rx Instructions:
must be taken on empty stomach; no food 1 hr after or 2-3 hrs before dose
Referrals:
Doc Solorio MD [Family Provider] -
Activity Restrictions/Additional Instructions:
As discussed, please follow up with your physician at [facility] for continual evaluation and treatment.
Interventions
Interventions:
*Risk Screen - Suicide Last Done: 08/08/23 07:46
*General Assessment Last Done: 08/08/23 07:46
*Neglect/Abuse Screening Last Done: 08/08/23 07:46
ED- Fall Risk Assessment Last Done: 08/08/23 07:46
*ED COVID-19 Vaccine History Last Done: 08/08/23 07:46
*Nursing Disposition Last Done: 08/08/23 14:05
IS-Pasosr-Fozagapzdg Assessment Last Done: 08/08/23 07:46
Discharge Date and Time
Discharge Date/Time: 08/08/23 14:05
--- NOTE | 2023-08-08 08:47 | EDRN ---
IV team at the pts bedside
[2023-08-08 09:10] LABS: % Basophils 0.1 % (0-2); % Eosinophils 0.1 % (0-6); % Immature Granulocytes 0.7 % (0-0.5); % Neutrophils 90.1 % (42.2-75.2); Absolute Immature Granulocytes 0.1 10^3/uL (0-0.05); Absolute Lymphocytes 0.4 10^3/uL (1.2-3.4); Absolute Monocytes 0.4 10^3/uL (0.1-0.6); Absolute Neutrophils 7.8 10^3/uL (1.4-6.5); Hematocrit 27.8 % (37.0-47.0); Hemoglobin 9.2 g/dL (12.0-16.0); Mean Corp Hgb Conc. 33.1 g/dL (33.0-37.0); Mean Corpuscular Hgb 30.4 pg (27.0-31.0); Mean Corpuscular Volume 91.7 fL (81.0-99.0); Mean Platelet Volume 8.9 fL (7.4-10.4); Nucleated Red Blood Cells % 0 %; Platelet Count 470 10^3/uL (130-400); Red Blood Cell Count 3.03 10^6/uL (4.20-5.40); White Blood Cell Count 8.7 10^3/uL (4.8-10.8)
[2023-08-08] MEDS: ZOFRAN 4 MG IV (09:13)
[2023-08-08 09:18] LABS: Lactic Acid 0.9 mmol/L (0.7-2.0)
[2023-08-08 09:19] LABS: ALT (SGPT) 16 U/L (0-35); AST (SGOT) 33 U/L (14-36); Albumin 3.6 g/dl (3.5-5.0); Alkaline Phosphatase 97 U/L (38-126); Blood Urea Nitrogen 16 mg/dl (7-17); Calcium 8.8 mg/dl (8.4-10.2); Carbon Dioxide 33 mmol/L (22-30); Chloride 94 mmol/L (98-107); Estimated Creatinine Clearance 71 ml/min; Glucose 110 mg/dl (70-99); Lipase 134 U/L (23-300); Magnesium 1.9 mg/dl (1.6-2.3); Potassium 4.6 mmol/L (3.5-5.1); Sodium 130 mmol/L (135-145); Total Bilirubin 0.5 mg/dl (0.2-1.3); Total Protein 7.4 g/dl (6.3-8.2); eGFR > 60.00
[2023-08-08] MEDS: NSS 1000 IV (09:19)
--- NOTE | 2023-08-08 09:49 | EDRN ---
Dr. Pitt contacted GI SENIOR CLINICAL SAS PROGRAMMER to look at the pts peg tube, the type of end of the Peg tube will now call center supervisor the suctions as it is a threaded port, awaiting for GI to come to the pts bedside
--- NOTE | 2023-08-08 10:08 | EDRN ---
GI MOTOR VEHICLES SUPERVISOR came to the pts bedside and provided apparatus to place PEG tube to suction, Dr. Pitt and this RN at the pts bedside
--- NOTE | 2023-08-08 10:52 | EDRN ---
Dr. Pitt at the pts bedside
--- NOTE | 2023-08-08 10:53 | EDRN ---
the pt is resting in stretcher in the lowest position, side rails up x2, call steele within reach, HOB slightly elevated, the pt is currently Sinus tach in the 120's, no c/o chest pain, no c/o SOB, no c/o palpitations, pt currently still on 5L NC Sp02
98%, the pt pressed the call steele and this RN entered the pts room, the pt stated that her right wrist PIV hurt her, this RN assessed the pts PIV and PIV was infiltrated, Dr. Pitt notified, per Dr. Pitt IV team is to be called and a midline is to be
placed
--- NOTE | 2023-08-08 11:24 | EDRN ---
Moshe GONZALEZ at the pts bedside attempting to place PIV
[2023-08-08] MEDS: DILAUDID 0.5 MG IV (11:38)
--- NOTE | 2023-08-08 13:39 | EDRN ---
Dr. Pitt currently at the pts bedside
== END 2023-08-08 14:05 | disposition home or self-care (01) ==
LOC: EMR 06:47
PROVIDERS: EMERGENCY PHYSICIAN Emergency Medicine; FAMILY PHYSICIAN Family Medicine
DX: K56.7 Ileus, unspecified (principal); I10 Essential (primary) hypertension; J44.9 Chronic obstructive pulmonary disease, unspecified; Z99.81 Dependence on supplemental oxygen; Z87.891 Personal history of nicotine dependence
CPT/HCPCS: 99285; 96375; 96374; 96361; 74022; 80053; 83605; 83690; 83735; 85025; 93005

== ENCOUNTER 2023-09-26 09:13 | Inpatient (IN) | payer MEDICARE, OTHER, SELFPAY ==
[2023-09-26] VITALS (9 sets, daily range): BP systolic 97–133; BP diastolic 58–71; BMI 13.9; BMI 14.6
--- NOTE | 2023-09-26 04:04 | ED.GENMED ---
History of Present Illness
<JERRICA De La Rosa - Last Filed: 09/26/23 04:34>
General
Chief Complaint: Abdominal Symptoms
Source: patient
Exam Limitations: none
Time Seen by Provider: 09/26/23 03:52
Nursing documentation reviewed up to this point in time: agreed with
Travel History
Have you had any contact with someone who has COVID-19?: No
Do you have any symptoms of coronavirus? Fever > 100 degrees, chills, cough, shortness of breath, sore throat, loss of taste or smell, muscle aches, or headache?: No
History of Present Illness
History of Present Illness:
patient is a 63 y/o female with PMH of scleroderma and a Peg tube presenting with N/V and abdominal pain x 1 day. patient states that her vomit is bilious and started spontaneously. Patient admits to lower abdominal pain x 1 day. Patient states the
pain is dull and comes and goes. Patient admits to associated diarrhea. patient admits to a new onset CHATTERJEE that is left sided that began yesterday around the same time. Patient denies fever, chills, heartburn, blood in vomit or urine, dysuria, or
bloating. Patient admits to medication change withe fentanyl patch. Patient denies any sick contacts.
Past History
<JERRICA De La Rosa - Last Filed: 09/26/23 04:34>
Past History
ED Past Medical History: GERD and Other (Scleroderma, esophageal stricture, PNA, interstitial lung disease, Raynaud's, Right enlarged heart); Negative Asthma, HTN, Hypercholesterolemia or NIDDM
ED Past Surgical History: Other (Skin grafts, Surgery on neck to remove cyst)
Social History
Tobacco: Former smoker
Alcohol: None
Drug: None
Personal:
Living: with family
Employment: Employed
Family History
Family History: Hypertension
Review of Systems
<JERRICA De La Rosa - Last Filed: 09/26/23 04:34>
Review of Systems
Constitutional: Reports no symptoms
EENT: Reports no symptoms
Respiratory: Reports trouble breathing
Cardiac: Reports no symptoms
ABD/GI: Reports abdominal pain, nausea, vomiting and diarrhea
: Reports no symptoms
Musculoskeletal: Reports no symptoms
Neurological: Reports headache
Phy Exam
<JERRICA De La Rosa - Last Filed: 09/26/23 04:34>
General Physical Exam
General Presentation: well appearing and no apparent distress
General Skin: warm and dry
General Habitus: normal
General Mental: alert
General Hydration: appears well hydrated
ENT Exam
ENT Exam: EOMI, pharynx normal, neck supple and normocephalic
Eye Exam
Eye Exam: PERRL, cornea clear and conjunctiva normal
Cardiovascular Exam
Cardiovascular Exam: regular rate/rhythm, no edema, no murmur and normal peripheral pulses
Pulmonary Exam
Pulmonary Exam: lungs clear, no respiratory distress, no rales, no crackles, no rhonchi, no stridor, no wheezing and no cough
Gastrointestinal Exam
Gastrointestinal Exam: normal bowel sounds, soft, no organomegaly, no pulsatile mass and non distended
Neurological Exam
Neurological Exam: alert, oriented x3, no motor deficits and speech normal
Musculoskeletal Exam
Musculoskeletal Exam: full ROM and no edema
Skin Exam
Skin Exam: normal color, warm/dry, no rash and no petechia
Psychiatric Exam
Psychiatric Exam: normal mood/affect
Course
<JERRICA De La Rosa - Last Filed: 09/26/23 04:34>
Orders/Labs/Results
Orders:
Orders
09/26/23 04:15
Urinalysis Reflex To Culture Urgent
09/26/23 04:20
Complete Blood Count/With Diff Urgent
Comprehensive Metabolic Panel Urgent
Lactic Acid Urgent
Lipase Urgent
09/26/23 04:33
0.9% Sodium Chloride 1000 ml [Nss] 1,000 ml IV 150 mls/hr
HYDROmorphone [Dilaudid] 1 mg IV NOW STA
Metoclopramide [Reglan] 5 mg IV NOW STA
09/26/23 04:34
Lorazepam [Ativan] 1 mg IV NOW STA
09/26/23 04:48
CT Abd/pelvis W Iv Cont Urgent
Comment:
Reason For Exam: gen abd pain, N/V x 2 days
09/26/23 07:38
HYDROmorphone [Dilaudid] 1 mg IV NOW STA
Abnormal Lab Results
09/26/23
04:20
RBC 3.28 L 10^6/uL
(4.20-5.40)
Hgb 9.7 L g/dL
(12.0-16.0)
Hct 30.5 L %
(37.0-47.0)
MCHC 31.8 L g/dL
(33.0-37.0)
RDW 15.1 H %
(11.5-14.5)
Plt Count 429 H 10^3/uL
(130-400)
Absolute Neuts (auto) 8.8 H 10^3/uL
(1.4-6.5)
Absolute Lymphs (auto) 0.2 L 10^3/uL
(1.2-3.4)
Neutrophils % 94.5 H %
(42.2-75.2)
Lymphocytes % 2.2 L %
(20.5-51.1)
Sodium 127 L mmol/L
(135-145)
Chloride 86 L mmol/L
(98-107)
Carbon Dioxide 33 H mmol/L
(22-30)
BUN 21 H mg/dl
(7-17)
Creatinine 0.4 L mg/dL
(0.6-1.0)
Glucose 118 H mg/dl
(70-99)
09/26/23 04:20
09/26/23 04:20
Vital Signs
Initial and Last Documented VS:
Initial Vital Signs
Temp Pulse Resp BP Pulse Ox
97.7 F 63 24 133/71 93
09/26/23 03:33 09/26/23 03:33 09/26/23 03:33 09/26/23 03:33 09/26/23 03:33
Last Documented Vital Signs
Temp Pulse Resp BP Pulse Ox
97.7 F 113 18 111/58 99
09/26/23 03:33 09/26/23 07:00 09/26/23 07:00 09/26/23 05:00 09/26/23 06:45
<Eugenie Fernández DO - Last Filed: 09/26/23 07:44>
Orders/Labs/Results
Orders:
Orders
09/26/23 04:15
Urinalysis Reflex To Culture Urgent
09/26/23 04:20
Complete Blood Count/With Diff Urgent
Comprehensive Metabolic Panel Urgent
Lactic Acid Urgent
Lipase Urgent
09/26/23 04:33
0.9% Sodium Chloride 1000 ml [Nss] 1,000 ml IV 150 mls/hr
HYDROmorphone [Dilaudid] 1 mg IV NOW STA
Metoclopramide [Reglan] 5 mg IV NOW STA
09/26/23 04:34
Lorazepam [Ativan] 1 mg IV NOW STA
09/26/23 04:48
CT Abd/pelvis W Iv Cont Urgent
Comment:
Reason For Exam: gen abd pain, N/V x 2 days
09/26/23 07:38
HYDROmorphone [Dilaudid] 1 mg IV NOW STA
Abnormal Lab Results
09/26/23
04:20
RBC 3.28 L 10^6/uL
(4.20-5.40)
Hgb 9.7 L g/dL
(12.0-16.0)
Hct 30.5 L %
(37.0-47.0)
MCHC 31.8 L g/dL
(33.0-37.0)
RDW 15.1 H %
(11.5-14.5)
Plt Count 429 H 10^3/uL
(130-400)
Absolute Neuts (auto) 8.8 H 10^3/uL
(1.4-6.5)
Absolute Lymphs (auto) 0.2 L 10^3/uL
(1.2-3.4)
Neutrophils % 94.5 H %
(42.2-75.2)
Lymphocytes % 2.2 L %
(20.5-51.1)
Sodium 127 L mmol/L
(135-145)
Chloride 86 L mmol/L
(98-107)
Carbon Dioxide 33 H mmol/L
(22-30)
BUN 21 H mg/dl
(7-17)
Creatinine 0.4 L mg/dL
(0.6-1.0)
Glucose 118 H mg/dl
(70-99)
09/26/23 04:20
09/26/23 04:20
Vital Signs
Initial and Last Documented VS:
Initial Vital Signs
Temp Pulse Resp BP Pulse Ox
97.7 F 63 24 133/71 93
09/26/23 03:33 09/26/23 03:33 09/26/23 03:33 09/26/23 03:33 09/26/23 03:33
Last Documented Vital Signs
Temp Pulse Resp BP Pulse Ox
97.7 F 113 18 111/58 99
09/26/23 03:33 09/26/23 07:00 09/26/23 07:00 09/26/23 05:00 09/26/23 06:45
<JERRICA De La Rosa - Last Filed: 09/26/23 04:34>
MDM/Problems Addressed
Differential Diagnosis Includes:
ileus
gastroenteritis
constipation
MDM/Problems Addressed:
N/V and abdominal pain
<JERRICA De La Rosa - Last Filed: 09/26/23 04:34>
*Critical Care Note
Total Time (30-74mins, 75-104mins- exclusive of procedures): Not Applicable
<Eugenie Fernández DO - Last Filed: 09/26/23 07:44>
*Radiology
Radiology exam reviewed: radiology read reviewed
*Pulse Oximetry
Patient hypoxic: no
*President And Ceo Interpretation
Rate: tachycardiac
Interpretation: abnormal
Rhythm: sinus, PAC's and PVC's
ED Attending Note
<JERRICA De La Rosa - Last Filed: 09/26/23 04:34>
-
Portions of this chart may have been created with voice recognition software.� Occasional wrong word or��sound alike� substitutions may have occurred due to the inherent limitations of voice recognition software.
<Eugenie Fernández DO - Last Filed: 09/26/23 07:44>
ED Attending Note
Patient seen and examined by attending physician: Yes
I performed the substantive portion of visit, reviewed & personally made and approve the management plan that is documented in note by myself or MICH.: Yes
I performed a history and physical exam of patient and discussed management with resident, I reviewed resident's note and agree with documented findings and plan of care.: Yes
ED Attending Note:
This is a 63-year-old woman with history of scleroderma, chronic pain syndrome�narcotic dependent, PEG tube, pulmonary hypertension/bronchiectasis�O2 dependent at 4 L nasal cannula who was last hospitalized early July with acute hypoxia, acute
abdominal pain and vomiting with initial imaging concerning for bowel obstruction versus enteritis/ileus. Repeat imaging showed no evidence of obstruction but did show element of constipation, symptoms improved with bowel regimen and continued pain
medication, she was transferred to [facility] for further evaluation and discharged within a few days from [facility].
She then returned to the ED with recurrent abdominal pain, nausea and vomiting on August 08, NG tube inserted with initial bilious drainage. She felt improved and was discharged to home.
She has had no recurrent episodes since that ED visit mid July until yesterday when she developed generalized mid to lower abdominal crampy pain, nausea with intermittent bilious vomiting as well as intermittent dry heaves and a few loose
stools. She has had no hematemesis nor hematochezia. She complains of moderate to severe crampy abdominal pain. She is chronically maintained on
Hydromorphone 4 mg tablets 150/month and most recently 6 days ago was started on fentanyl 12 mcg patch.
She continues on her regular bowel regimen of Linzess, Movantik. She does not believe she has had a fever and no close contacts with similar symptoms.
GENERAL: 63-year-old significantly thin, frail, cachectic woman appears somewhat older than stated age. She is awake and alert, appears in moderate distress related to pain.
EYE: anicteric
NECK: Supple, nontender, no meningismus, no significant adenopathy.
ENT: posterior pharynx is clear, oral mucosa is mildly dry. No rhinorrhea.
CARDIAC: Mildly tachycardic, occasional ectopy, no murmur.
LUNGS: no acute respiratory distress, fine dry rales at bases otherwise clear to auscultation.
ABDOMEN: Soft, nondistended, moderate generalized tenderness to the lower abdomen, no r/g, no cvat. Mildly hyperactive, high-pitched bowel sounds. PEG tube left upper quadrant, scant pale yellow exudate at base but no evidence of infection. There
is no leakage about the the PEG tube.
NEUROLOGICAL: Alert and oriented x3, no focal neuro deficits.
SKIN: Warm and dry, normal color, skin intact. No rash.
MUSCULOSKELETAL: No C/C/E. peripheral pulses are full and equal b/l. No palpable tenderness.
PSYCH: Mildly anxious related to pain.
Concern for acute gastroenteritis, small bowel obstruction, exacerbation of scleroderma, exacerbation of chronic pain syndrome/concern for potential opioid withdrawal syndrome.
Concern for electrolyte abnormality, acute kidney injury.
Labs are pending.
Will initiate IV fluids. Patient has prior history of CHF requiring IV Lasix during most recent hospitalization thus will be judicious with IV fluids. Will give an IV dose of Reglan, and IV dose of Dilaudid for pain and an IV dose of Ativan.
Will plan for CT abdomen pelvis with IV contrast.
09/26/2023 0706 AM
Patient reports near complete relief of abdominal pain, no further nausea/vomiting after 1 IV dose of Dilaudid, Ativan, metoclopramide.
She has had no diarrhea since arrival to the ED.
Labs show normal white blood cell count, mild stable anemia.
Chemistries show mild hyponatremia, somewhat similar to previous. Normal creatinine and stable BUN.
CAT scan shows acute gastroenteritis and colitis without obstruction or perforation. Patchy opacities at the lung bases are suspicious for pneumonia however patient has history of bronchiectasis, has not had a cough nor shortness of breath, I
suspect this is chronic.
She is tolerating ice chips without return of symptoms. Will trial some apple juice. She remains afebrile. She is eager to be discharged to home.
If tolerating oral fluids will plan for discharge to home with recommendations for clear liquids today, slowly advance as tolerated.
If pain, nausea return, due to significant chronic malnutrition and overall fragile state, patient will require acute hospitalization for continued intravenous fluids and IV antiemetics and pain medication.
09/26/2023 0742 AM with trial of limited oral fluids patient
Has had return of abdominal pain, nausea, retching.
Will continue IV fluids, IV pain medication and plan to admit to hospitalist service.
Discharge Plan
Departure
Patient Disposition: Admit
Date of Disposition: 09/26/23
Time of Disposition: 07:43
Admit to: Med/Surg
Presentation/result/management discussed w/ accepting MD/DO: Hospitalist
Condition: Fair
Discharge Problem:
Acute gastroenteritis, Acute colitis, Intractable nausea/vomiting/abdominal pa, Cachexia, Immunosuppressed status
Prescriptions:
No Action
pantoprazole 40 mg Tablet,Delayed Release (Dr/Ec)
40 mg PO DAILY
olanzapine 5 mg Tablet
5 mg PO HS
magnesium oxide 400 mg magnesium Tablet
400 mg feeding tube DAILY
prednisone 2.5 mg Tablet
7.5 mg PO DAILY
metoclopramide HCl 5 mg Tablet
5 mg feeding tube TID
sertraline 50 mg Tablet
50 mg PO DAILY
acetaminophen 500 mg Tablet
1,000 mg PO Q6H PRN (Reason: pain)
hydromorphone 4 mg Tablet
4 mg feeding tube Q4 PRN (Reason: pain)
lorazepam 1 mg Tablet
1 mg PO BID PRN (Reason: anxiety)
ondansetron 4 mg Film
4 mg Q8H PRN (Reason: nausea )
naloxone 0.4 mg/mL Solution
1 mg SC Q1M PRN (Reason: opioid overdose)
azathioprine [Imuran] 50 mg Tablet
50 mg PO DAILY
sennosides [senna] 8.8 mg/5 mL Syrup
10 ml PO BID PRN (Reason: constipation)
levofloxacin 250 mg/10 mL Solution
750 mg feeding tube DAILY
linaclotide 145 mcg Capsule
145 mcg G-tube DAILY
Movantik 25 mg Tablet
25 mg PO DAILY
Rx Instructions:
must be taken on empty stomach; no food 1 hr after or 2-3 hrs before dose
Referrals:
Doc Solorio MD [Family Provider] -
Interventions
Interventions:
*General Assessment Last Done: 09/26/23 04:06
*ED COVID-19 Vaccine History Last Done: 09/26/23 04:06
OY-Cltrog-Scinjpcjad Assessment Last Done: 09/26/23 04:08
Discharge Date and Time
Print Language: BENGALI
[2023-09-26 04:28] LABS: % Basophils 0.1 % (0-2); % Eosinophils 0.1 % (0-6); % Immature Granulocytes 0.2 % (0-0.5); % Lymphocytes 2.2 % (20.5-51.1); % Monocytes 2.9 % (1.7-9.3); % Neutrophils 94.5 % (42.2-75.2); Absolute Lymphocytes 0.2 10^3/uL (1.2-3.4); Absolute Monocytes 0.3 10^3/uL (0.1-0.6); Absolute Neutrophils 8.8 10^3/uL (1.4-6.5); Hematocrit 30.5 % (37.0-47.0); Hemoglobin 9.7 g/dL (12.0-16.0); Mean Corp Hgb Conc. 31.8 g/dL (33.0-37.0); Mean Corpuscular Hgb 29.6 pg (27.0-31.0); Mean Platelet Volume 8.8 fL (7.4-10.4); Nucleated Red Blood Cells % 0 %; Platelet Count 429 10^3/uL (130-400); Red Blood Cell Count 3.28 10^6/uL (4.20-5.40); Red Cell Dist. Width 15.1 % (11.5-14.5); White Blood Cell Count 9.4 10^3/uL (4.8-10.8)
[2023-09-26 04:42] LABS: ALT (SGPT) < 10 U/L (0-35); AST (SGOT) 27 U/L (14-36); Alkaline Phosphatase 87 U/L (38-126); Blood Urea Nitrogen 21 mg/dl (7-17); Calcium 9.1 mg/dl (8.4-10.2); Carbon Dioxide 33 mmol/L (22-30); Chloride 86 mmol/L (98-107); Estimated Creatinine Clearance 66 ml/min; Glucose 118 mg/dl (70-99); Lipase 53 U/L (23-300); Potassium 4.2 mmol/L (3.5-5.1); Sodium 127 mmol/L (135-145); Total Bilirubin 0.6 mg/dl (0.2-1.3); Total Protein 7.9 g/dl (6.3-8.2); eGFR > 60.00
[2023-09-26] MEDS: REGLAN 5 MG IV ×2 (04:48→15:10)
[2023-09-26] MEDS: DILAUDID 1 MG IV ×5 (04:52→21:01)
[2023-09-26 04:53] LABS: Lactic Acid 1.6 mmol/L (0.7-2.0)
[2023-09-26] MEDS: NSS 1000 IV ×2 (04:55→15:09)
[2023-09-26] MEDS: ATIVAN 1 MG IV (04:55)
[2023-09-26 08:41] LABS: Urine Albumin 1+ (Neg - Trace); Urine Bilirubin Negative (Negative); Urine Character Clear (Clear); Urine Color Yellow; Urine Glucose Negative (Negative); Urine Ketone Negative (Negative); Urine Leukocyte Negative (Negative); Urine Nitrite Negative (Negative); Urine Occult Blood Negative (Negative); Urine Specific Gravity 1.015 (<1.030); Urine Urobilinogen Negative (Neg - 1+)
--- NOTE | 2023-09-26 08:55 | HPS.HSE ---
Family Physician
-
Family Physician: Doc Solorio
Chief Complaint
-
Abdominal pain, vomiting
History of Present Illness
63-year-old female with scleroderma here with abdominal pain, nausea vomiting and diarrhea. Symptoms started 2 days ago. Improved somewhat in the emergency room with analgesics and antiemetics. Had a similar presentation a couple months ago.
Medical History
Past Medical History
Past Medical History: Reports Other
Additional Past Medical History:
Scleroderma
Pulmonary hypertension
Interstitial lung disease
Essential hypertension
Chronic anemia
Hyponatremia
Heart failure with preserved EF
Past Surgical History: Reports Other
Additional Past Surgical History:
Finger and toe surgery
Social History
Tobacco: Non-smoker
Alcohol: None
Drug: None
Personal:
Living: With Family
Family History
Family History: Not pertinent
Allergies / Home Medications
Allergies reflects when Allergies were last updated in [facility].
Home Medications with original date entered in [facility]
Allergy/Medication List:
Allergies
Allergy/AdvReac Type Severity Reaction Status Date / Time
No Known Allergies Allergy Verified 07/19/23 22:59
Review of Systems
-
History Source: Patient
A 12 point ROS was completed and negative except as noted: Yes
Abdomen/GI: Reports Abdominal Pain, Nausea, Vomiting and Diarrhea
Physical Exam
Vital Signs
Vital Signs
Temp Pulse Resp BP Pulse Ox
97.7 F 102 17 115/64 99
09/26/23 03:33 09/26/23 08:30 09/26/23 08:30 09/26/23 08:00 09/26/23 06:45
Physical Exam
General: No Apparent Distress, Comfortable and Other (Cachectic)
HEENT: NormoCephalic, Anicteric and Moist mucous membranes
Respiratory: Clear
Cardiac: S1/S2 and Regular Rhythm
GI: Soft, Non Distended and Tender (No guarding or rebound)
Genito-urinary: Deferred by me
Musculoskeletal: No Clubbing, No Cyanosis and No Edema
Neuro: AO x 3
Hematologic/Lymphatic: No Lymphadenopathy
Psych: Calm
Laboratory Results
-
09/26/23 04:20
09/26/23 04:20
Laboratory Results
Lactic Acid 1.6 mmol/L (0.7-2.0) 09/26/23 04:20
Total Bilirubin 0.6 mg/dl (0.2-1.3) 09/26/23 04:20
AST 27 U/L (14-36) 09/26/23 04:20
ALT < 10 U/L (0-35) 09/26/23 04:20
Alkaline Phosphatase 87 U/L (38-126) 09/26/23 04:20
Lipase 53 U/L (23-300) 09/26/23 04:20
Impression/Plan
-
Acute gastroenteritis -unclear trigger. Hemodynamically stable. Admit to [facility]. Clear liquid diet. Normally gets most of her nutrition through her PEG tube. Continue IV fluids, antiemetics, analgesics. CT abdomen completed, report pending.
Scleroderma
Interstitial lung disease/pulmonary hypertension
Chronic hypoxic respiratory failure -on 4 L nasal cannula oxygen at home. Etiology due to interstitial lung disease and pulmonary hypertension related to scleroderma.
Essential hypertension -stable.
Chronic heart failure preserved EF
Chronic hyponatremia -sodium 127 today, usually runs around 130. Will check labs. Fluid restriction.
Chronic anemia -likely due to anemia of chronic disease. Hemoglobin at baseline.
Chronic opiate dependence/chronic pain syndrome -on Dilaudid at home.
Severe protein calorie malnutrition -due to chronic illness. BMI 13.9.
DNR -confirmed with patient.
updated at the bedside.
--- NOTE | 2023-09-26 09:06 | PHANOTE ---
Addendum entered by Jimbo Perdomo 09/26/23 09:37:
09/26/2023, [facility], called [facility] to confirm dose and frequency of Azathioprine; per [facility], pt. filled Azathioprine 50 mg/ml liquid on 09/04/2023 for 45 ml and is instructed to take 1.5 ml (75 mg) daily; pt.'s significant other confirms
that he gives pt. 1.5 ml of this med. daily.
Original Note:
09/26/2023, med [employer], spoke to pt. and significant other to obtain pt.'s med. history; pt. takes Azathioprine 50 mg daily and fills this med. at [facility]; could not find in pharmacy fill data or [facility] records.
[2023-09-26 09:13] LABS: Urine Amorphous Seen
[2023-09-26 09:16] LABS: Urine Red Blood Cell 0-2 /HPF (0-2); Urine White Cell 0-2 /HPF (0-5)
[2023-09-26 13:45] LABS: TSH 0.37 uIU/ml (0.47-4.68)
[2023-09-26] MEDS: TYLENOL 1000 MG TUBE (15:09)
[2023-09-26] MEDS: DELTASONE 7.5 MG TUBE (15:09)
[2023-09-26 16:35] LABS: Urine Sodium 10 mmol/L (30-90)
[2023-09-26 16:43] LABS: Osmolality Urine 632 mOsm/kg (300-900)
--- NOTE | 2023-09-26 18:26 | PTCARENOTE ---
Pt admitted into room 407-1, ambulated with [id number] into room. VSS. Pt oriented to room and has call steele within reach. Per swallow screening, pt is to be made NPO because she has PEG tube. Pt reports having some swallowing difficulty in the past
but states the PEG was not placed due to to this. She says she does eat minimally at home - regular textures and thin liquids and has no issue with this currently. Spoke with Dr. Laura who states okay for patient to remain on clear liquids.
[2023-09-26] MEDS: HEPARIN 5000 UNITS SC (21:00)
[2023-09-26] MEDS: PREVACID 30 MG TUBE (21:00)
[2023-09-26] MEDS: ZOLOFT 100 MG TUBE (22:29)
[2023-09-26] MEDS: ZYPREXA 5 MG TUBE (22:29)
[2023-09-26] MEDS: MELATONIN 3 MG TUBE (22:29)
[2023-09-27] MEDS: TYLENOL 1000 MG TUBE ×3 (00:39→17:46)
[2023-09-27] MEDS: NSS 1000 IV (03:48)
[2023-09-27 06:29] LABS: ALT (SGPT) < 10 U/L (0-35); AST (SGOT) 25 U/L (14-36); Albumin 3.1 g/dl (3.5-5.0); Alkaline Phosphatase 71 U/L (38-126); Blood Urea Nitrogen 11 mg/dl (7-17); Calcium 8.6 mg/dl (8.4-10.2); Carbon Dioxide 28 mmol/L (22-30); Chloride 97 mmol/L (98-107); Estimated Creatinine Clearance 66 ml/min; Glucose 83 mg/dl (70-99); Sodium 128 mmol/L (135-145); Total Bilirubin 0.3 mg/dl (0.2-1.3); Total Protein 6.4 g/dl (6.3-8.2); eGFR > 60.00
[2023-09-27 07:00] VITALS: BP 110/62
[2023-09-27] MEDS: DURAGESIC 12 MCG/HR PATCH 1 PATCH TRANSDERM (08:42)
[2023-09-27] MEDS: HEPARIN 5000 UNITS SC ×2 (08:42→21:15)
[2023-09-27] MEDS: PREVACID 30 MG TUBE ×2 (08:43→21:15)
[2023-09-27] MEDS: DILAUDID 1 MG IV ×3 (09:55→17:46)
--- NOTE | 2023-09-27 10:14 | W.PN.HOSP.TC ---
Addendum entered and electronically signed by Toy Laura DO 09/27/23 13:03:
Patient is in need of a semi-electric hospital bed wiht foam mattress due to the need to elevate head of bed above 30 degrees to prevent aspiration
and to facilitate frequent repositioning to prevent bed ulcers and pressure points.
Original Note:
Today's Communication/Plan
-
Resume tube feeds
Assessment / Plan
Assessment / Plan
Gen-AAOx3, NAD, cachectic
HEENT-NC, AT, anicteric, clear oral mm
Neck-supple
CV-reg, no M, +S1/S2
Lungs-clear B/L
Abd-soft, NT, ND, G-tube
Ext-no edema
Musculoskeletal-no cyanosis, clubbing
Skin-warm and dry
Neuro-grossly non-focal
Psych-calm, cooperative
Acute gastroenteritis -clinically improved. No further vomiting or diarrhea. Hemodynamically stable. Can resume tube feeds today and gradually advance to goal over the next 24 hours. Anticipate discharge tomorrow if she tolerates tube feeds.
to bring in tube feed formula from home as we do not carry it. Discussed with nurse and patient.
Scleroderma likely playing a role in her GI symptoms.
Scleroderma
Interstitial lung disease/pulmonary hypertension
Chronic hypoxic respiratory failure -on 4 L nasal cannula oxygen at home. Etiology due to interstitial lung disease and pulmonary hypertension related to scleroderma.
Essential hypertension -stable.
Chronic heart failure preserved EF
Chronic hyponatremia -sodium 128.
Chronic anemia -likely due to anemia of chronic disease. Hemoglobin at baseline.
Chronic opiate dependence/chronic pain syndrome -on Dilaudid at home.
Severe protein calorie malnutrition -due to chronic illness. BMI 13.9.
DNR -confirmed with patient.
Anticipated Discharge: Within 24 hours
Subjective/Interval History
-
Date of Service: September 27, 2023
Patient seen and examined. Feeling much better. Eager to start her tube feeds and go home. No complaints.
Objective Data
-
Labs:
Laboratory Results
09/27/23
05:28
Sodium 128 L
Potassium 4.0
Chloride 97 L
Carbon Dioxide 28
BUN 11
Creatinine 0.4 L
Glucose 83
Calcium 8.6
Total Bilirubin 0.3
AST 25
ALT < 10
Alkaline Phosphatase 71
Vital Signs:
Vital Signs
Temp Pulse Resp BP Pulse Ox
98 F 75 16 110/62 98
09/27/23 07:00 09/27/23 07:00 09/27/23 07:00 09/27/23 07:00 09/27/23 07:00
I&O
09/26/23 09/27/23 09/28/23
06:59 06:59 06:59
Intake Total 1260 / 1260
Balance 1260 / 1260
Review of Systems
-
History Source: Patient
All other systems: Reviewed and negative
[2023-09-27 11:37] VITALS: BMI 14.6
[2023-09-27] MEDS: DELTASONE 7.5 MG TUBE (12:51)
--- NOTE | 2023-09-27 14:03 | CM ---
CM met with pt bedside
Pt resides with her SO Kade in a 2SH with 1 HERSON- 7 steps to second floor
Pt notes independence with her ADLs with use of WW- she utilizes a WC while incommunity
SO assists as needed
Pt has home oxygen through [facility] and peg/tube feeds through [facility]
Pt has hx with [facility] and notes she was closed recently
Would like to start back up with [facility] on dc
Pt requesting a hospital bed be arranged in dc
PCP- Doc Conner- pt notes she has seeing Dr Dent mostly
Rx- [facility]
Referral sent to [facility] via [facility]
Script and referral faxed to [facility] for hospital bed
Referral packet on chart
Discharge Disposition- home with [facility] ([facility] pending) and new hospital bed
[2023-09-27 15:00] VITALS: BP 104/58
[2023-09-27] MEDS: ATIVAN 1 MG TUBE (17:46)
[2023-09-27] MEDS: ZYPREXA 5 MG TUBE (21:15)
[2023-09-27] MEDS: ZOLOFT 100 MG TUBE (21:16)
[2023-09-27] MEDS: MELATONIN 3 MG TUBE (21:16)
[2023-09-27 23:50] VITALS: BP 126/66
[2023-09-28] MEDS: TYLENOL 1000 MG TUBE ×2 (01:44→07:46)
[2023-09-28 07:30] VITALS: BP 115/65
[2023-09-28] MEDS: HEPARIN 5000 UNITS SC (07:46)
[2023-09-28] MEDS: PREVACID 30 MG TUBE (07:46)
[2023-09-28] MEDS: DILAUDID 1 MG IV ×2 (08:15→11:42)
--- NOTE | 2023-09-28 09:16 | CM ---
Addendum entered by Tiarra Pittman 09/28/23 11:19:
Patient seen bedside.
Patient stated hospital bed to be delivered today, spouse is waiting.
patient hoping for d/c home today.
Patient able to manage TF at home.
Patient known to [facility], accepted on referral.
Spouse will transport home.
IMM completed.
Plan: home with [facility]

Original Note:
[facility] referral placed in [facility].
[2023-09-28 09:45] LABS: Blood Urea Nitrogen 10 mg/dl (7-17); Calcium 8.6 mg/dl (8.4-10.2); Carbon Dioxide 29 mmol/L (22-30); Chloride 98 mmol/L (98-107); Estimated Creatinine Clearance 66 ml/min; Glucose 93 mg/dl (70-99); Potassium 3.6 mmol/L (3.5-5.1); Sodium 130 mmol/L (135-145); eGFR > 60.00
--- NOTE | 2023-09-28 10:56 | PN.CDI ---
CDI
- -
CDI:
Physician Documentation Request
Admit Date: 09/26/23 09:13
Dear Doctor Valentín,
Hospitalist progress notes states 'Severe protein calorie malnutrition -due to chronic illness. BMI 13.9.
RD 09/26 note states 'Chart reviewed due to pt with low BMI.... Skin no pressure wounds. CBW: 93 lbs 5 oz BMI 14.6 underweight range, pts weight previous admission listed as 99 labs 2/2. Reflective of 6 lb (6%) weight loss.'
To ensure the quality of the medical record, based on the above information and the recognized standards for malnutrition , could you please verify in your progress notes which of the following responses best reflects the patient's nutritional
status:
Severe Malnutrition is/was present and is a clinical diagnosis (please provide additional support in the medical record)
Other level of malnutrition is present (Mild, Moderate please provide additional support in medical record)
Underweight without malnutrition
Other (please specify)
Woodruff Criteria (ACP Hospitalist 2017)
2 or more criteria must be present for either
non severe or severe malnutrition
Note that the criteria differs related to the
presence of an acute or chronic illness
Acute Illness Chronic Illness
Energy Intake Non Severe: <75% for >7 days Non Severe: <75% for >1 month
Severe: <50% for >5 days Severe: <75% for >1 month
Weight Loss Non Severe: 1-2% over 1 week Non Severe: 5% over 1 month
5% over 1 month 7.5% over 3 months
7.5% over 3 months 10% over 6 months
1 year N/A 20% over 1 year
Severe: >2% over 1 week Severe: >5% over 1 month
>5% over 1 month >7.5% over 3 months
>7.5% over 3 months >10% over 6 months
1 year N/A >20% over 1 year
Body Fat Non Severe: Mild Decrease Non Severe: Mild Loss
Severe: Moderate Decrease Severe: Severe Loss
Muscle Mass Non Severe: Mild Decrease Non Severe: Mild Loss
Severe: Moderate Decrease Severe: Severe Loss
Fluid Accumulation Non Severe: Mild Accumulation Non Severe: Mild Accumulation
Severe: Moderate to severe Severe: Moderate to severe
accumulation accumulation
Reduced Heating And Ventilating Drafter Strength Non Severe: N/A Non Severe: N/A
Severe: Measurably reduced Severe: Measurably reduced
Additional criteria that can be used to Determine if Mild or Moderate Malnutrition (Merck Manual 2018)
Mild Moderate Severe
Albumin gm/dl <3.0 gm/dl <2.5 gm/dl <2.0 gm/dl
Pre Albumin mg/dl <15 gm/dl <10 mg/dl <5.0 mg/dl
BMI <18.5 <17 <16
Use of terms such as suspected, likely, concern for, or probable (associated with a specific diagnosis that is being evaluated, monitored, or treated as if it exists) are acceptable and can be coded in the inpatient setting, when documented at the
time of discharge.
Thank you,
Yuko White RN, BSN
CDI Specialist
tiger text
Please use your independent medical judgment in providing your response.
[2023-09-28] MEDS: DELTASONE 7.5 MG TUBE (11:42)
--- NOTE | 2023-09-28 11:59 | W.PN.HOSP.TC ---
Addendum entered and electronically signed by Toy Laura DO 09/28/23 15:14:
BMI is less than 16 and severe muscle mass and body fat loss supportive of severe protein calorie malnutrition of chronic illness due to scleroderma.
Original Note:
Today's Communication/Plan
-
Discharge
Assessment / Plan
Assessment / Plan
Gen-AAOx3, NAD, cachectic
HEENT-NC, AT, anicteric, clear oral mm
Neck-supple
CV-reg, no M, +S1/S2
Lungs-clear B/L
Abd-soft, NT, ND, G-tube
Ext-no edema
Musculoskeletal-no cyanosis, clubbing
Skin-warm and dry
Neuro-grossly non-focal
Psych-calm, cooperative
Acute gastroenteritis -clinically improved. No further vomiting or diarrhea. Hemodynamically stable. Tolerating tube feeds.
Scleroderma likely playing a role in her GI symptoms.
Scleroderma -follow-up with rheumatology.
Interstitial lung disease/pulmonary hypertension
Chronic hypoxic respiratory failure -on 4 L nasal cannula oxygen at home. Etiology due to interstitial lung disease and pulmonary hypertension related to scleroderma.
Essential hypertension -stable.
Chronic heart failure preserved EF
Chronic hyponatremia -sodium 128.
Chronic anemia -likely due to anemia of chronic disease. Hemoglobin at baseline.
Chronic opiate dependence/chronic pain syndrome -on Dilaudid at home.
Severe protein calorie malnutrition -due to chronic illness. BMI 13.9.
DNR -confirmed with patient.
Dispo -medically stable for discharge. Outpatient follow-up.
32-minute spent in discharge process.
Anticipated Discharge: Today
Subjective/Interval History
-
Date of Service: September 28, 2023
Patient seen and examined. Tolerating tube feeds. Eager to go home.
Objective Data
-
Labs:
Laboratory Results
09/28/23
08:58
Sodium 130 L
Potassium 3.6
Chloride 98
Carbon Dioxide 29
BUN 10
Creatinine 0.3 L
Glucose 93
Calcium 8.6
Vital Signs:
Vital Signs
Temp Pulse Resp BP Pulse Ox
98.1 F 105 14 115/65 99
09/28/23 07:30 09/28/23 07:30 09/28/23 07:30 09/28/23 07:30 09/28/23 08:20
I&O
09/27/23 09/28/23 09/29/23
06:59 06:59 06:59
Intake Total 1260 / 1260 1625 / 1625
Balance 1260 / 1260 1625 / 1625
Review of Systems
-
History Source: Patient
All other systems: Reviewed and negative
--- NOTE | 2023-09-28 12:01 | W.DS.TRANS ---
DC Summary - Proced Tech
-
Discharge Instructions:
Discharge Diagnosis/Procedures Acute gastroenteritis
Diet Tube feeding
Activity As tolerated
Driving Restrictions As prior to admission
Bathing Restrictions None
Instructions:
Stand-Alone Forms:
Changes to Home Medications: No
Discharge Medications:
DC Medications w/original date entered in [facility]
Movantik 25 mg G-tube DAILY Constipation 09/26/23
acetaminophen 500 mg tablet 1,000 mg feeding tube Q8H Pain 09/26/23
azathioprine 75 mg G-tube DAILY scleroderma 09/26/23
fentanyl 12 mcg/hr transdermal patch 1 patch transdermal Q72H Pain 09/26/23
hydromorphone 4 mg tablet 4 mg feeding tube DAILYPRN PRN severe pain 09/26/23
hydromorphone 4 mg tablet 4 mg feeding tube QID Pain 09/26/23
linaclotide 290 mcg capsule (Linzess) 290 mcg G-tube DAILY Gastrointestinal Issue 09/26/23
lorazepam 1 mg tablet 1 mg feeding tube BID PRN anxiety 09/26/23
magnesium oxide 400 mg feeding tube NOON Supplement 09/26/23
melatonin 3 mg tablet 3 mg feeding tube HS Sleep 09/26/23
metoclopramide HCl 5 mg tablet 5 mg feeding tube BIDPRN PRN nausea/vomiting 09/26/23
olanzapine 5 mg tablet 5 mg feeding tube HS Neurological Condition 09/26/23
pantoprazole 40 mg G-tube BID Gastrointestinal Issue 09/26/23
prednisone 5 mg tablet 7.5 mg feeding tube NOON anti-inflammation 09/26/23
sertraline 100 mg tablet 100 mg feeding tube HS Mental Health 09/26/23
Home Medication Changes
Pending Results: No
[2023-09-28 13:25] VITALS: BP 105/67
== END 2023-09-28 14:09 | disposition home health service (06) | DRG 391 ==
LOC: 4 EAST ACU 09:13
PROVIDERS: ADMITTING PHYSICIAN Hospitalist; EMERGENCY PHYSICIAN Emergency Medicine; FAMILY PHYSICIAN Family Medicine
DX: K52.9 Noninfective gastroenteritis and colitis, unspecified (principal); E43 Unspecified severe protein-calorie malnutrition; J84.9 Interstitial pulmonary disease, unspecified; F11.20 Opioid dependence, uncomplicated; D84.9 Immunodeficiency, unspecified; E87.1 Hypo-osmolality and hyponatremia; J96.11 Chronic respiratory failure with hypoxia; I50.32 Chronic diastolic (congestive) heart failure; Z68.1 Body mass index [BMI] 19.9 or less, adult; M34.9 Systemic sclerosis, unspecified; I73.00 Raynaud's syndrome without gangrene; K21.9 Gastro-esophageal reflux disease without esophagitis; I27.20 Pulmonary hypertension, unspecified; G89.4 Chronic pain syndrome; I11.0 Hypertensive heart disease with heart failure; D63.8 Anemia in other chronic diseases classified elsewhere; Z66 Do not resuscitate; Z99.81 Dependence on supplemental oxygen; Z93.1 Gastrostomy status; Z87.891 Personal history of nicotine dependence
CPT/HCPCS: 74177; 80048; 80053; 81003; 81015; 82533; 83605; 83690; 83935; 84300; 84443; 85025; 96374; 96375; 96376; 99285; Q9967

== ENCOUNTER 2024-02-05 10:21 | Emergency (ER) | payer MEDICARE, OTHER, SELFPAY ==
[2024-02-05] VITALS (8 sets, daily range): BP systolic 101–135; BP diastolic 69–80
--- NOTE | 2024-02-05 10:57 | ED.MUSCINJ ---
HPI-Injury
<Briana Crystal CRACKER SPRAYER - Last Filed: 02/06/24 17:51>
General
Chief Complaint: Fall
Source: patient, spouse and ambulance crew
Exam Limitations: none
Time Seen by Provider: 02/05/24 10:48
Nursing documentation reviewed up to this point in time: agreed with
History of Present Illness-Injury
Initial Injury comments:
64 yo female w h/o scleroderma, Interstitial lung disease, GERD, dysphagia, feeding tube, presents with significant other who states as per their daily routine he placed pt in her chair to await for his mom to come over to watch her. He left her at
9:15 to golf, mom arrived 10:40 and found pt at the bottom of 8 wooden steps. S/O states she was going up to brush her teeth but she knows she's not supposed to go anywhere without assistance. Has noted diminished cognitive ability in past week. Pt
c/o pain in left shoulder.
Past History
<Briana Crystal, CRACKER SPRAYER - Last Filed: 02/06/24 17:51>
Past History
ED Past Medical History: GERD and Other (Scleroderma, esophageal stricture, PNA, interstitial lung disease, Raynaud's, Right enlarged heart); Negative Asthma, HTN, Hypercholesterolemia or NIDDM
ED Past Surgical History: Other (Skin grafts, Surgery on neck to remove cyst)
Social History
Tobacco: Former smoker
Alcohol: None
Drug: None
Personal:
Living: with family
Employment: Employed
Family History
Family History: Hypertension
Review of Systems
<Briana Crystal, CRACKER SPRAYER - Last Filed: 02/06/24 17:51>
Review of Systems
Allergies reviewed?: Yes
All Other Systems: ROS reviewed and negative except as documented in HPI and ROS
Constitutional: Reports fever
EENT: Denies sore throat
Respiratory: Denies trouble breathing
Cardiac: Denies chest pain
ABD/GI: Reports other (PEG tube); Denies abdominal pain, nausea, vomiting, diarrhea or constipated
Musculoskeletal: Reports other (left shoulder pain); Denies edema
Skin: Reports no symptoms
Neurological: Reports weakness (generalized, chronic)
Phy Exam
<Briana Crystal, CRACKER SPRAYER - Last Filed: 02/06/24 17:51>
Physical Exam
Physical Exam:
GENERAL: No acute distress. Cachectic . A&Ox3.
CONSTITUTIONAL: Afebrile.
EYES: PERRL, conjunctivae normal
ENMT: very dry mucus membranes, Pharynx nl
RESPIRATORY: Regular respirations, nonlabored, lungs clear.
CARDIOVASCULAR: Regular rate and rhythm, no murmurs, no rubs.
GI: Soft, nontender, normal BS
MUSCULOSKELETAL: Muscle wasting, cachectic, needs complete assist with pivoting from wheelchair to bed.no spinal bony tenderness. Left shoulder pain with anterior swelling compared to the right. Well perfused.
SKIN: Warm, dry, pink
PSYCH: Anxious, depressed mood and affect.
NEUROLOGIC: Awake, alert and oriented. No focal neurological deficits
Injury Course
<Briana Crystal, CRACKER SPRAYER - Last Filed: 02/06/24 17:51>
Orders/Labs/Results
Orders:
Orders
02/05/24 10:56
0.9% Sodium Chloride 1000 ml [Nss] 1,000 ml IV BOLUS
02/05/24 11:12
COVID-19 Antigen Urgent
Source: Nasal Swab
02/05/24 11:32
Complete Blood Count/With Diff Urgent
Comprehensive Metabolic Panel Urgent
02/05/24 11:51
Trauma Shoulder, Left CR [CR Shoulder, Trauma - Left] Urgent
Comment:
Reason For Exam: pain after fall
02/05/24 12:37
Shoulder Immobilizer Left- Tx ONCE
02/05/24 12:40
CT Head W/o Iv Contrast Urgent
Comment:
Reason For Exam: change in mental state, fall
02/05/24 12:58
Morphine Sulfate 4 mg IV NOW STA
02/05/24 13:00
0.9% Sodium Chloride 1000 ml [Nss] 1,000 ml IV BOLUS
02/05/24 13:21
Urinalysis Reflex To Culture Urgent
Date Specimen was Collected: 02/05/24
Time Specimen was Collected: 13:20
02/05/24 17:10
Aspirin Chewable [Low Strength Aspirin] 81 mg TUBE NOW STA
Clopidogrel Bisulfate [Plavix] 75 mg TUBE NOW STA
Abnormal Lab Results
02/05/24
11:32
RBC 2.97 L 10^6/uL
(4.20-5.40)
Hgb 8.1 L g/dL
(12.0-16.0)
Hct 25.6 L %
(37.0-47.0)
MCHC 31.6 L g/dL
(33.0-37.0)
RDW 16.1 H %
(11.5-14.5)
Absolute Neuts (auto) 7.2 H 10^3/uL
(1.4-6.5)
Absolute Lymphs (auto) 0.4 L 10^3/uL
(1.2-3.4)
Neutrophils % 87.1 H %
(42.2-75.2)
Lymphocytes % 5.0 L %
(20.5-51.1)
Sodium 133 L mmol/L
(135-145)
Chloride 95 L mmol/L
(98-107)
Creatinine 0.4 L mg/dL
(0.6-1.0)
Glucose 106 H mg/dl
(70-99)
02/05/24 11:32
02/05/24 11:32
<Jena Quintana MD - Last Filed: 02/05/24 17:09>
Orders/Labs/Results
Orders:
Orders
02/05/24 10:56
0.9% Sodium Chloride 1000 ml [Nss] 1,000 ml IV BOLUS
02/05/24 11:12
COVID-19 Antigen Urgent
Source: Nasal Swab
02/05/24 11:32
Complete Blood Count/With Diff Urgent
Comprehensive Metabolic Panel Urgent
02/05/24 11:51
Trauma Shoulder, Left CR [CR Shoulder, Trauma - Left] Urgent
Comment:
Reason For Exam: pain after fall
02/05/24 12:37
Shoulder Immobilizer Left- Tx ONCE
02/05/24 12:40
CT Head W/o Iv Contrast Urgent
Comment:
Reason For Exam: change in mental state, fall
02/05/24 12:58
Morphine Sulfate 4 mg IV NOW STA
02/05/24 13:00
0.9% Sodium Chloride 1000 ml [Nss] 1,000 ml IV BOLUS
02/05/24 13:21
Urinalysis Reflex To Culture Urgent
Date Specimen was Collected: 02/05/24
Time Specimen was Collected: 13:20
02/05/24 17:10
Aspirin Chewable [Low Strength Aspirin] 81 mg TUBE NOW STA
Clopidogrel Bisulfate [Plavix] 75 mg TUBE NOW STA
Abnormal Lab Results
02/05/24
11:32
RBC 2.97 L 10^6/uL
(4.20-5.40)
Hgb 8.1 L g/dL
(12.0-16.0)
Hct 25.6 L %
(37.0-47.0)
MCHC 31.6 L g/dL
(33.0-37.0)
RDW 16.1 H %
(11.5-14.5)
Absolute Neuts (auto) 7.2 H 10^3/uL
(1.4-6.5)
Absolute Lymphs (auto) 0.4 L 10^3/uL
(1.2-3.4)
Neutrophils % 87.1 H %
(42.2-75.2)
Lymphocytes % 5.0 L %
(20.5-51.1)
Sodium 133 L mmol/L
(135-145)
Chloride 95 L mmol/L
(98-107)
Creatinine 0.4 L mg/dL
(0.6-1.0)
Glucose 106 H mg/dl
(70-99)
02/05/24 11:32
02/05/24 11:32
<Briana Crystal, CRACKER SPRAYER - Last Filed: 02/06/24 17:51>
MDM/Problems Addressed
Differential Diagnosis Includes:
Fx left shoulder vs STI
Dehydration, UTI, fluid depletion
MDM/Problems Addressed:
64 yo female w h/o scleroderma, Interstitial lung disease, GERD, dysphagia, feeding tube, presents with significant other who states as per their daily routine he placed pt in her chair to await for his mom to come over to watch her. He left her at
9:15 to golf, mom arrived 10:40 and found pt at the bottom of 8 wooden steps. S/O states she was going up to brush her teeth but she knows she's not supposed to go anywhere without assistance. Has noted diminished cognitive ability in past week. Pt
c/o pain in left shoulder.
SO states for about 2 weeks she's been declining neurologically and 2 days ago she even forgot how to use her phone.
12:00 PM:
CBC: Hemoglobin 8.1, patient baseline
CMP: No clinically significant abnormality
COVID-negative
Left shoulder x-ray: Initially read by this examiner there is a nondisplaced fracture of the left humeral neck
3:[address] radiology report reviewed: IMPRESSION:
1. Small transcortical infarcts in the posterior and lateral right parietal lobe which appear to contain cytotoxic edema suggesting acute ischemic infarcts (possibly occurring 24 hours ago given the patient's onset of symptoms). Subacute or
chronic infarcts with encephalomalacia are also a diagnostic possibility.
2. Small chronic infarcts in the left cerebellar hemisphere.
3. No CT evidence for acute intracranial hemorrhage.
Hospitalist notified of admission
Dr. España neurology recommends Clopiogrel 75 mg and ASA 81 mg for 21 days.
Pharmacy confirmed these may be crushed and given in PEG tube
In further discussion with pt and family, she is choosing to go home. She wants to be DNR.
They are interested in hospice information. I spoke with Arminda Malik the hospice nurse instructor extension work and she will have someone reach out to them tomorrow.
<Briana Crystal NP - Last Filed: 02/06/24 17:51>
*Critical Care Note
Total Time (30-74mins, 75-104mins- exclusive of procedures): Not Applicable
ED Attending Note
<Briana Crystal CRACKER SPRAYER - Last Filed: 02/06/24 17:51>
-
Portions of this chart may have been created with voice recognition software.� Occasional wrong word or��sound alike� substitutions may have occurred due to the inherent limitations of voice recognition software.
<Jena Quintana MD - Last Filed: 02/05/24 17:09>
ED Attending Note
Patient seen and examined by attending physician: Yes
I performed the substantive portion of visit, reviewed & personally made and approve the management plan that is documented in note by myself or MICH.: Yes
ED Attending Note:
Very long d/w pt and pt's and mil...r/bof outpt w/u vs inpt w/u for acute infarcts discussed. She is not currenlt yon AP agents. Also, d/w neuro and hospitalists, recommend outpt eval and add asa and plavix. Given informed decision
making, understanding pts chronically ill status and her wishes (she reportedly has a DNR), risks of recurrent stroke, etc, they elect to do outpt eval. Will Rx asa and plavix with close neuro fu
Discharge Plan
Departure
Patient Disposition: Home (Routine Discharge)
Date of Disposition: 02/05/24
Time of Disposition: 16:25
Patient with high blood pressure during this ER visit?: No
Condition: Serious
Discharge Problem:
Fall, Fracture of left shoulder, Stroke
Instructions: Upper Arm Fracture, Stroke - Discharge instructions
Prescriptions:
New
clopidogrel 75 mg tablet
75 mg feeding tube DAILY Qty: 30 0RF
No Action
sertraline 100 mg Tablet
100 mg feeding tube HS
prednisone 5 mg Tablet
7.5 mg feeding tube NOON
olanzapine 5 mg Tablet
10 mg feeding tube HS
acetaminophen 500 mg Tablet
1,000 mg feeding tube TID
metoclopramide HCl 5 mg Tablet
5 mg feeding tube AC
pantoprazole [Protonix] 40 mg Tablet,Delayed Release (Dr/Ec)
40 mg PO DAILY Qty: 0
Rx Instructions:
VIA TUBE
lorazepam 1 mg Tablet
1 mg feeding tube NOON
Linzess 290 mcg Capsule
290 mcg G-tube DAILYPRN PRN (Reason: CONSTIPATION)
Movantik 25 mg Tablet
25 mg PO DAILYPRN PRN (Reason: CONSTIPATION) Qty: 0
magnesium oxide 400 mg magnesium Tablet
400 mg feeding tube NOON
ondansetron HCl [Zofran] 4 mg Tablet
4 mg feeding tube Q6HPRN PRN (Reason: NAUSEA)
morphine 15 mg tablet
15 mg feeding tube Q4HPRN PRN (Reason: SEVERE PAIN)
Referrals:
Jhony España MD [Active] - As needed
Andreas Neil MD [Active] - Next open appointment
UNKNOWN - PT DOES,NOT KNOW [Family Provider] -
Activity Restrictions/Additional Instructions:
As we discussed, wear the sling until further instructed by the orthopedic doctor. Call tomorrow and make next available appointment.
I sent a prescription to your pharmacy for Clopidogrel 75 mg to crush and give in feeding tube
Also, give Baby aspirin (81 mg) daily (crush and give in feeding tube)
Dr. España is the Neurologist to use if you wish to follow up for the stroke.
Someone from Hospice will call you tomorrow.
If you don't hear from them tomorrow, call [facility] at [phone]
Interventions
Interventions:
*Risk Screen - Suicide Last Done: 02/05/24 11:03
*General Assessment Last Done: 02/05/24 10:43
*Neglect/Abuse Screening Last Done: 02/05/24 10:43
ED- Fall Risk Assessment Last Done: 02/05/24 11:23
*ED COVID-19 Vaccine History Last Done: 02/05/24 18:03
*Nursing Disposition Last Done: 02/05/24 18:03
ED-Musculoskeletal Assessment Last Done: 02/05/24 11:22
ED- Neurological Assessment Last Done: 02/05/24 11:22
ED-Skin Assessment Last Done: 02/05/24 11:23
Discharge Date and Time
Discharge Date/Time: 02/05/24 18:03
Print Language: ECUADOREAN
[2024-02-05] MEDS: NSS 1000 IV ×2 (11:38→13:10)
[2024-02-05 11:40] LABS: COVID-19 Antigen Negative (Negative)
[2024-02-05 11:49] LABS: % Basophils 0.1 % (0-2); % Eosinophils 0.2 % (0-6); % Immature Granulocytes 0.4 % (0-0.5); % Monocytes 7.2 % (1.7-9.3); % Neutrophils 87.1 % (42.2-75.2); Absolute Lymphocytes 0.4 10^3/uL (1.2-3.4); Absolute Monocytes 0.6 10^3/uL (0.1-0.6); Absolute Neutrophils 7.2 10^3/uL (1.4-6.5); Hematocrit 25.6 % (37.0-47.0); Hemoglobin 8.1 g/dL (12.0-16.0); Mean Corp Hgb Conc. 31.6 g/dL (33.0-37.0); Mean Corpuscular Hgb 27.3 pg (27.0-31.0); Mean Corpuscular Volume 86.2 fL (81.0-99.0); Mean Platelet Volume 10.1 fL (7.4-10.4); Nucleated Red Blood Cells % 0 %; Platelet Count 331 10^3/uL (130-400); Red Blood Cell Count 2.97 10^6/uL (4.20-5.40); Red Cell Dist. Width 16.1 % (11.5-14.5); White Blood Cell Count 8.2 10^3/uL (4.8-10.8)
[2024-02-05 12:03] LABS: ALT (SGPT) < 10 U/L (0-35); AST (SGOT) 31 U/L (14-36); Albumin 4.3 g/dl (3.5-5.0); Alkaline Phosphatase 126 U/L (38-126); Blood Urea Nitrogen 13 mg/dl (7-17); Calcium 9.5 mg/dl (8.4-10.2); Carbon Dioxide 30 mmol/L (22-30); Chloride 95 mmol/L (98-107); Glucose 106 mg/dl (70-99); Sodium 133 mmol/L (135-145); Total Bilirubin 0.4 mg/dl (0.2-1.3); Total Protein 8.2 g/dl (6.3-8.2); eGFR > 60.00
[2024-02-05] MEDS: MORPHINE SULFATE 4 MG IV (13:09)
[2024-02-05 14:06] LABS: Urine Albumin Negative (Neg - Trace); Urine Bilirubin Negative (Negative); Urine Character Clear (Clear); Urine Color Yellow; Urine Glucose Negative (Negative); Urine Ketone Negative (Negative); Urine Leukocyte Negative (Negative); Urine Nitrite Negative (Negative); Urine Occult Blood Negative (Negative); Urine Urobilinogen Negative (Neg - 1+)
[2024-02-05] MEDS: PLAVIX 75 MG TUBE (17:23)
[2024-02-05] MEDS: LOW STRENGTH ASPIRIN 81 MG TUBE (17:23)
== END 2024-02-05 18:03 | disposition home or self-care (01) ==
LOC: EMR 10:21
PROVIDERS: Registered Nurse; EMERGENCY PHYSICIAN Emergency Medicine
DX: S42.92XA Fracture of left shoulder girdle, part unspecified, initial encounter for closed fracture (principal); I63.9 Cerebral infarction, unspecified; W19.XXXA Unspecified fall, initial encounter; K21.9 Gastro-esophageal reflux disease without esophagitis; I73.00 Raynaud's syndrome without gangrene; J84.9 Interstitial pulmonary disease, unspecified; M34.9 Systemic sclerosis, unspecified; M81.0 Age-related osteoporosis without current pathological fracture; Z11.52 Encounter for screening for COVID-19; Z66 Do not resuscitate; Z82.49 Family history of ischemic heart disease and other diseases of the circulatory system; Z87.891 Personal history of nicotine dependence
CPT/HCPCS: 99284; 96374; 96361; 70450; 73030; 80053; 81003; 85025; 87811

== ENCOUNTER 2024-02-26 18:53 | Inpatient (IN) | payer MEDICARE, OTHER, SELFPAY ==
[2024-02-26 13:09] VITALS: BP 115/75
--- NOTE | 2024-02-26 17:14 | ED.GENMED ---
History of Present Illness
General
Chief Complaint: Catheter/Tube Problem
Source: patient
Exam Limitations: none
Time Seen by Provider: 02/26/24 15:07
Nursing documentation reviewed up to this point in time: agreed with
History of Present Illness
History of Present Illness:
Patient to ED with blocked JG tube. Tube was placed at [facility] in the spring. He had tube changes approx 6weeks later at [facility] for blockage. Brought to ED today for tube changes. Tube became blocked after med use this AM.
Past History
Past History
ED Past Medical History: Asthma, CVA, GERD, HTN, Hypercholesterolemia, NIDDM, Other (Scleroderma, esophageal stricture, PNA, interstitial lung disease, Raynaud's, Right enlarged heart) and Other (fx left shoulder)
ED Past Surgical History: Other (Skin grafts, Surgery on neck to remove cyst)
Social History
Tobacco: Former smoker
Alcohol: None
Drug: None
Personal:
Living: with family
Employment: Employed
Family History
Family History: Hypertension
Review of Systems
Review of Systems
All Other Systems: ROS reviewed and negative except as documented in HPI and ROS
Constitutional: Reports no symptoms
EENT: Reports no symptoms
Respiratory: Reports no symptoms
Cardiac: Reports no symptoms
ABD/GI: Reports other (blocked GJ tube)
: Reports no symptoms
Musculoskeletal: Reports no symptoms
Skin: Reports no symptoms
Neurological: Reports weakness
Psychiatric: Reports no symptoms
Phy Exam
General Physical Exam
General Presentation: mild distress
General age: appears older than age
General Skin: warm, dry and decubitus (left posterior elbow)
General Habitus: cachetic and frail
General Mental: alert
Cardiovascular Exam
Cardiovascular Exam: regular rate/rhythm and no edema
Pulmonary Exam
Pulmonary Exam: no respiratory distress
Gastrointestinal Exam
Gastrointestinal Exam: non tender, soft, no organomegaly, non distended and other (blocked GJ tube)
Musculoskeletal Exam
Musculoskeletal Exam: full ROM
Skin Exam
Skin Exam: normal color, warm/dry and no rash
Psychiatric Exam
Psychiatric Exam: normal mood/affect
Course
Orders/Labs/Results
Orders:
Orders
02/26/24 17:13
Morphine Sulfate 4 mg IV NOW STA
02/26/24 17:15
0.9% Sodium Chloride 1000 ml [Nss] 1,000 ml IV 125 mls/hr
02/26/24 17:17
Ondansetron Injectable [Zofran] 4 mg IV NOW STA
02/26/24 17:52
Complete Blood Count/With Diff Urgent
Comprehensive Metabolic Panel Urgent
02/26/24 18:36
Admit/Transfer Patient As Directed
Co-Sign Provider:
Level of Care: Inpatient admission
Assign to:: Medical/Surgical
Physician / Group: Hospitalist
Diagnosis: clogged GJ tube
Reason for Hospitalization: Blocked GJ tube
Expected length of stay greater than two midnights?: Yes
ELOS- Estimated Length of Stay in days: 2
I certify the patient meets the requirements for IP care: Yes
02/26/24 18:37
PRN Pain Medication Management As Directed
May give lesser potent ordered pain med per pt: Yes
preference::
Protocol:: Medication orders for pain may be administered in a
manner that supports deferring to patient preference
when the pt is:
- Requesting an ordered lesser potent pain medication.
Least to most potent pain medications are defined
as: acetaminophen < NSAID < tramadol < opioids
(morphine, oxycodone, hydromorphone).
- Requesting a lesser dose of the same medication IF
ORDERED.
- Requesting a less intrusive route of administration
if both routes are prescribed by the provider (PO <
IV).
02/26/24 18:38
Code Status As Directed
Resuscitation Status: Do not resuscitate
Reached after discussion with pt or family/Healthcare POA: Yes
Decision communicated with: patient and at bedside
DNR Bracelet Application ONCE
02/26/24 20:10
Bisacodyl [Dulcolax] 10 mg RECTAL A63HCLL PRN
Morphine Sulfate 8 mg IV Q4HPRN PRN
Ondansetron Injectable [Zofran] 4 mg IV Q6HPRN PRN
02/26/24 20:10
[facility] CONSULT Routine
Consulting Provider: Ceasar Yap
Was physician already notified: Yes
Reason for Consult/Procedure: Replacement of clogged GJ tube
Acknowledgement that appropriate orders are entered: Yes
Activity As Directed
Activity Level: With Assistance
Pneumatic Compression Sleeves As Directed
Type: Knee high
Vital Signs As Directed
Frequency: Per unit guidelines
DX Deep Vein Thrombosis Video Routine
02/27/24 Breakfast
NPO
Allow oral meds: No
Allow clear liquids: Sips of Clears
Basic Metabolic Panel IN AM
Complete Blood Count/No Diff IN AM
Abnormal Lab Results
02/26/24
17:52
RBC 3.07 L 10^6/uL
(4.20-5.40)
Hgb 8.2 L g/dL
(12.0-16.0)
Hct 26.6 L %
(37.0-47.0)
MCH 26.7 L pg
(27.0-31.0)
MCHC 30.8 L g/dL
(33.0-37.0)
RDW 15.9 H %
(11.5-14.5)
Plt Count 435 H 10^3/uL
(130-400)
Absolute Lymphs (auto) 0.5 L 10^3/uL
(1.2-3.4)
Neutrophils % 86.1 H %
(42.2-75.2)
Lymphocytes % 6.8 L %
(20.5-51.1)
Chloride 92 L mmol/L
(98-107)
Carbon Dioxide 37 H mmol/L
(22-30)
Creatinine 0.3 L mg/dL
(0.6-1.0)
Alkaline Phosphatase 151 H U/L
(38-126)
02/26/24 17:52
02/26/24 17:52
Vital Signs
Initial and Last Documented VS:
Initial Vital Signs
Temp Pulse Resp BP Pulse Ox
97.5 F 112 22 115/75 89
02/26/24 13:09 02/26/24 13:09 02/26/24 13:09 02/26/24 13:09 02/26/24 13:09
Last Documented Vital Signs
Temp Pulse Resp BP Pulse Ox
97.7 F 100 18 123/73 89
02/26/24 20:29 02/26/24 20:29 02/26/24 20:29 02/26/24 20:29 02/26/24 20:29
*Critical Care Note
Total Time (30-74mins, 75-104mins- exclusive of procedures): Not Applicable
Update Note
Update Note:
Unable to unblock tube after multiple attempts. IR consulted, will plan for tube change tomorrow. Will admit for hydration, medication administration pending tube change
ED Attending Note
-
Portions of this chart may have been created with voice recognition software.� Occasional wrong word or��sound alike� substitutions may have occurred due to the inherent limitations of voice recognition software.
Discharge Plan
Departure
Patient Disposition: Admit
Date of Disposition: 02/26/24
Time of Disposition: 17:21
Presentation/result/management discussed w/ accepting MD/DO: Hospitalist
Condition: Fair
Covid-19: Not Applicable
Discharge Problem:
Encounter for gastrojejunal (GJ) tube placement
Interventions
Interventions:
*Risk Screen - Suicide Last Done: 02/26/24 15:23
*General Assessment Last Done: 02/26/24 15:23
*Neglect/Abuse Screening Last Done: 02/26/24 15:23
ED- Fall Risk Assessment Last Done: 02/26/24 15:24
*ED COVID-19 Vaccine History Last Done: 02/26/24 19:38
*Nursing Disposition Last Done: 02/26/24 19:38
YU-Qmfrcv-Odcbwhwxnn Assessment Last Done: 02/26/24 15:23
ED-Female Genitourinary Assessment Last Done: 02/26/24 15:23
Discharge Date and Time
Discharge Date/Time: 02/26/24 19:39
[2024-02-26 17:34] VITALS: BP 122/84
[2024-02-26] MEDS: NSS 1000 IV (17:49)
[2024-02-26] MEDS: MORPHINE SULFATE 4 MG IV ×3 (17:49→23:24)
[2024-02-26] MEDS: ZOFRAN 4 MG IV (17:49)
[2024-02-26 17:59] LABS: % Basophils 0.1 % (0-2); % Eosinophils 0.9 % (0-6); % Immature Granulocytes 0.4 % (0-0.5); % Lymphocytes 6.8 % (20.5-51.1); % Monocytes 5.7 % (1.7-9.3); % Neutrophils 86.1 % (42.2-75.2); Absolute Eosinophils 0.1 10^3/uL (0-0.7); Absolute Lymphocytes 0.5 10^3/uL (1.2-3.4); Absolute Monocytes 0.4 10^3/uL (0.1-0.6); Absolute Neutrophils 5.8 10^3/uL (1.4-6.5); Hematocrit 26.6 % (37.0-47.0); Hemoglobin 8.2 g/dL (12.0-16.0); Mean Corp Hgb Conc. 30.8 g/dL (33.0-37.0); Mean Corpuscular Hgb 26.7 pg (27.0-31.0); Mean Corpuscular Volume 86.6 fL (81.0-99.0); Mean Platelet Volume 9.6 fL (7.4-10.4); Nucleated Red Blood Cells % 0 %; Platelet Count 435 10^3/uL (130-400); Red Blood Cell Count 3.07 10^6/uL (4.20-5.40); Red Cell Dist. Width 15.9 % (11.5-14.5); White Blood Cell Count 6.7 10^3/uL (4.8-10.8)
[2024-02-26 18:00] VITALS: BP 120/78
--- NOTE | 2024-02-26 18:12 | HPS.HSE ---
Family Physician
-
Family Physician: Doc Solorio
Chief Complaint
-
Clogged GJ tube
History of Present Illness
64 woman with h/o scleroderma, comes to the ED with a blocked JG tube. This tube was placed at [facility] in the spring, and she has had a tube changed approx 6weeks later at [facility] for a blockage. The tube became blocked after med use this AM. At the
time of my interview, she was otherwise asymptomatic. She has an unrelated wound on her left elbow, from a fall.
Medical History
Past Medical History
Past Medical History: Reports Other
Additional Past Medical History:
Asthma,
CVA,
GERD,
essential HTN,
Hypercholesterolemia,
NIDDM,
Scleroderma,
esophageal stricture,
PNA,
interstitial lung disease,
Raynaud's,
Right enlarged heart
recent fx left shoulder
Skin grafts, Surgery on neck to remove cyst
Protein calorie malnutrition
CHF, chronic diastolic
BMI < 19
Chronic resp failure
Opioid dependence
Immunosuppression
Pos PPD
Past Surgical History: Reports Other
Additional Past Surgical History:
See above
Social History
Tobacco: Non-smoker
Alcohol: None
Personal:
Living: With Family
Family History
Family History: Not pertinent
Allergies / Home Medications
Allergies reflects when Allergies were last updated in [facility].
Home Medications with original date entered in [facility]
Allergy/Medication List:
Allergies
Allergy/AdvReac Type Severity Reaction Status Date / Time
No Known Allergies Allergy Verified 02/26/24 13:09
Home Medications
acetaminophen 500 mg tablet 1,000 mg feeding tube TID Pain 09/26/23
linaclotide 290 mcg capsule (Linzess) 290 mcg G-tube DAILYPRN PRN CONSTIPATION 04/02/24
lorazepam 1 mg tablet 1 mg feeding tube NOON 09/26/23
magnesium oxide 400 mg feeding tube NOON Supplement 09/26/23
metoclopramide HCl 5 mg tablet 5 mg feeding tube AC 09/26/23
naloxegol 25 mg tablet (Movantik) 25 mg PO DAILYPRN PRN CONSTIPATION ##0 09/26/23
olanzapine 5 mg tablet 10 mg feeding tube HS Neurological Condition 09/26/23
pantoprazole 40 mg tablet,delayed release (Protonix) 40 mg PO DAILY Gastrointestinal Issue ##0 09/26/23
prednisone 5 mg tablet 5 mg feeding tube NOON anti-inflammation 09/26/23
sertraline 100 mg tablet 100 mg feeding tube HS Mental Health 09/26/23
morphine 15 mg immediate release tablet 15 mg feeding tube Q4HPRN PRN SEVERE PAIN 02/05/24
ondansetron HCl 4 mg tablet 4 mg feeding tube Q6HPRN PRN NAUSEA 02/05/24
aspirin 81 mg chewable tablet 81 mg feeding tube QPM 02/26/24
clopidogrel 75 mg tablet 75 mg feeding tube HS 02/26/24
melatonin 3 mg tablet 3 mg feeding tube HS 02/26/24
Review of Systems
-
A 12 point ROS was completed and negative except as noted: Yes
Constitutional: Reports See HPI
Abdomen/GI: Reports See HPI
Physical Exam
Vital Signs
Vital Signs
Temp Pulse Resp BP Pulse Ox
97.5 F 101 19 122/84 93
02/26/24 13:09 02/26/24 17:34 02/26/24 17:34 02/26/24 17:34 02/26/24 15:24
Physical Exam
General: Comfortable, Conversant, Appears Chronically Ill and Cachectic
HEENT: Nose Appears Normal and Ears Appear Normal
Respiratory: Clear
Cardiac: S1/S2 and Regular Rhythm
GI: Soft, Non Tender and Non Distended
Skin: Warm, Dry and Decubitus Ulcers (On left elbow)
Neuro: Awake, Alert, Oriented and AO x 3
Psych: Calm
Laboratory Results
-
02/26/24 17:52
Data Reviewed
-
Lab Data: Labs Reviewed by me
Impression/Plan
-
IMPRESSION:
64 woman with blocked GJ tube, (h/o scleroderma). Needs replacement by IR.
PLAN:
1. Blocked GJ tube
IR consulted by ER
Replacement in AM
2. Wound on Left elbow (chronic)
Would consult
3. Anemia - H/H 8.2/26.6
At baseline
No acute action needed
Follow as outpatient
4. High A-phos, 151.
Has had this elevation before
Follow as outpatient
5. CO2 of 37
Has been at this level before
Follow as outpatient
6. Chronic pain and nausea
Switch morphine and zofran to IV overnight
Other meds OK to wait until tube is unclogged in am
Code: DNR (reviewed with patient and at bedside)
VCD for DVTp.
[2024-02-26 18:14] LABS: ALT (SGPT) < 10 U/L (0-35); AST (SGOT) 26 U/L (14-36); Albumin 3.7 g/dl (3.5-5.0); Alkaline Phosphatase 151 U/L (38-126); Blood Urea Nitrogen 14 mg/dl (7-17); Calcium 9.5 mg/dl (8.4-10.2); Carbon Dioxide 37 mmol/L (22-30); Chloride 92 mmol/L (98-107); Glucose 96 mg/dl (70-99); Potassium 4.4 mmol/L (3.5-5.1); Sodium 135 mmol/L (135-145); Total Bilirubin 0.4 mg/dl (0.2-1.3); Total Protein 7.3 g/dl (6.3-8.2); eGFR > 60.00
[2024-02-26 19:00] VITALS: BP 106/71
--- NOTE | 2024-02-26 19:50 | PTCARENOTE ---
Pt [facility] from the ED at 19:50 on a stretcher and was pulled over onto the bed. Unstageable pressure injury on Left elbow present on admission. Cleaned with saline, no sting barrier film applied and saline foam border applied. Stage 2
pressure injury on the sacrum present on admission. Cleaned with saline, no sting barrier film applied and saline foam border applied. Head to toe assessment complete. Patient complaining of 10/10 pain. Bed locked and in lowest position. Pt oriented
to room and call steele. Will continue to monitor.
[2024-02-26 20:29] VITALS: BP 123/73; BMI 13.5
[2024-02-26 23:20] VITALS: BP 114/67
[2024-02-27] MEDS: MORPHINE SULFATE 4 MG IV ×4 (00:47→21:04)
[2024-02-27] MEDS: NSS 1000 IV ×3 (01:56→21:08)
[2024-02-27] MEDS: NSS (PRESERVATIVE FREE) 0.5 ML IV (02:37)
[2024-02-27] MEDS: ATIVAN 1 MG IV (02:37)
[2024-02-27 07:25] VITALS: BP 121/71
--- NOTE | 2024-02-27 07:25 | W.PN.HOSP.TC ---
Addendum entered and electronically signed by Keya Magana MD 02/27/24 17:06:
Notified by Nurse new G-J tube is incompatible with patient's Home Equipment.
Discussed with Patient and her Kade at bedside, holding discharge at this time to arrange home services and appropriate supplies for new G-J tube by tomorrow.
Original Note:
Today's Communication/Plan
-
discharge
Assessment / Plan
Assessment / Plan
Physical Exam
General: Comfortable, Conversant, Appears Chronically Ill and Cachectic
HEENT: Nose Appears Normal and Ears Appear Normal
Respiratory: Clear
Cardiac: S1/S2 and Regular Rhythm
GI: Soft, Non Tender and Non Distended
Skin: Warm, Dry and Decubitus Ulcer On left elbow
Neuro: Awake, Alert, Oriented x 3
Psych: Calm
64 woman with blocked GJ tube, (h/o scleroderma). Replaced by IR. Hx left shoulder humerus neck fracture from fall and stroke diagnosed approx 3 weeks ago, started on ASA Plavix.
PLAN:
# Blocked GJ tube
IR consult appreciated GJ tube exchanged 02.27.24 ok to use
# Wound on Left elbow
Would consult appreciated
cont wound care
outpt follow up wound care center recommended
discussed obtaining elbow X-ray to evaluate for possible fracture or underlying bone infection contributing to wound, Patient and declined in favor of outpt follow up for imaging with primary care provider or outpatient orthopedic
#Left Shoulder humerus neck fracture
outpatient follow up with orthopedic
Anemia
Anemia of Chronic disease
H&H appears baseline
Iron Study suggests anemia of chronic disease, Iron level within normal limits
Outpatient follow up with primary recommended
Elevated A-phos, 151.
Has had this elevation before
possibly related to recent fracture as above
Follow up repeat CMP with primary care provider recommended
Chronic pain and nausea
well controlled at this time
ok to resume home regimen on discharge
Code: DNR
VCD for DVTp.
Total Time Preparing Discharge ___50____ minutes including examination of the patient, summary of the hospital stay, instructions for continuing care to all relevant caregivers; and preparation of discharge records, prescriptions, and referral
forms if necessary.
Anticipated Discharge: Today
Subjective/Interval History
-
Date of Service: February 27, 2024
Seen and examined at bedside, following G-J tube exchange with IR, in no acute distress sitting up comfortably in bed. Kade present during evaluation. Reports left arm pain and elbow wound, patient/ attributed to irritation due to
sling. Patient otherwise reports feeling well, eager to go home. Discussed concerns for possible fracture and/or underlying bone infection contributing to left elbow wound. Declines imaging of left arm, preferring to follow up outpatient instead.
Objective Data
-
Labs:
Laboratory Results
02/27/24 02/27/24
06:41 07:14
WBC Cancelled Pending
Hgb Cancelled Pending
Hct Cancelled Pending
Plt Count Cancelled Pending
Sodium Pending
Potassium Pending
Chloride Pending
Carbon Dioxide Pending
BUN Pending
Creatinine Pending
Glucose Pending
Calcium Pending
Vital Signs:
Vital Signs
Temp Pulse Resp BP Pulse Ox
97.6 F 97 18 114/67 97
02/26/24 23:20 02/26/24 23:20 02/26/24 23:20 02/26/24 23:20 02/27/24 01:46
[2024-02-27 07:36] LABS: Blood Urea Nitrogen 9 mg/dl (7-17); Calcium 8.8 mg/dl (8.4-10.2); Carbon Dioxide 29 mmol/L (22-30); Chloride 98 mmol/L (98-107); Estimated Creatinine Clearance 60 ml/min; Glucose 81 mg/dl (70-99); Potassium 4.3 mmol/L (3.5-5.1); Sodium 134 mmol/L (135-145); eGFR > 60.00
[2024-02-27 08:55] LABS: Hematocrit 24.3 % (37.0-47.0); Hemoglobin 7.6 g/dL (12.0-16.0); Mean Corp Hgb Conc. 31.3 g/dL (33.0-37.0); Mean Corpuscular Hgb 27.7 pg (27.0-31.0); Mean Corpuscular Volume 88.7 fL (81.0-99.0); Mean Platelet Volume 9.5 fL (7.4-10.4); Platelet Count 342 10^3/uL (130-400); Red Blood Cell Count 2.74 10^6/uL (4.20-5.40)
[2024-02-27 10:46] VITALS: BMI 13.5
[2024-02-27 11:00] VITALS: BP 124/72; BP_SYST 86
[2024-02-27 11:43] VITALS: BP 124/72
--- NOTE | 2024-02-27 13:45 | WOUNDNOTE ---
WON RN note: Patient admitted with blocked feeding tube.
See H&P for complete history. Lives at home with significant other.
PMH: NIDDM, Dysphagia, strokes, ex smoker, scleroderma, skin grafts post cyst removal, peg tube, anorexia.
Wound Location and type/assessment: Patient admitted with: Sacral stage 2 vs healing stage 3 PI, chronic wound. L elbow with large unstageable PI small yellow slough, remainder dark brown eschar, small drainage. L arm and elbow painful upon touch
or gentle movement. Patient and significant other Kade at bedside, states her L arm was fractured s/p fall and wound developed from sling. Now not using sling, elevating arm on pillow. R elbow intact and heels blanchable pink. Patient turned with
assistance, very weak. Takes supplemental boost protein drink at home states Kade, about 3 a day if can tolerate it. Plans to follow up with office machine mechanic and orthopedic MD for arm.
Appetite: NPO post Peg tube placement. Encouraged protein intake when she can eat.
Pressure redistribution devices in place: On Accumax, turns with assist, gets oob to chair with assist.
Plan: L elbow Cleaned with saline, adaptic and dry gauze dressing applied with Spandage. Will order Santyl and nurse Kary aware to apply when obtained. Sacrum applied silicone foam to be changed q 2-3 days. Protected R elbow with adhesive foam.
Dr. Magana to order x ray of L arm to rule out osteomyelitis and approved of Santyl. Made Dr. Magana aware patient not using sling. Confirmed can elevate L arm on pillow. Teaching done with Kade regarding wound care, confirmed he can do at home. Updated
care plan, nurse and will follow as needed.
Note to case management of equipment requested for discharge: None.
Recommend follow up at wound care center upon discharge.
--- NOTE | 2024-02-27 14:28 | CM ---
Addendum entered by Ashtyn Kim 02/27/24 16:15:
Referral sent via all scripts at physician request. Patient and significant other requested [facility]. fax [phone].
Original Note:
Patient seen at bedside with significant other. Patient s/p procedure in IR. Patient significant other stated that he was caring for patient and that she had 24/ aides. Patient stated that he has been working with a Director Of Enterprise Architecture to obtain more
assistance. Patient eager to resume diet and drink. Patient PCP is Dr. Solorio and she uses the [facility] in [place]. CM will continue to follow for discharge planning needs.
Plan; home with family and tube feeds.
[2024-02-27] MEDS: SANTYL OINTMENT 1 APPLIC TOPICAL (14:35)
--- NOTE | 2024-02-27 14:42 | PTCARENOTE ---
RN in to see patient for hourly rounds. Patient eating crackers, chips and drinking helena adilia. RN informed patient that her diet is NPO. Patient stated, 'I know I am NPO, but I need to eat food'. Dr. Magana made aware. Care ongoing at this time.
[2024-02-27 14:47] LABS: Iron 44 ug/dl (37-170)
[2024-02-27 14:56] LABS: Percent Saturation 17 % (20-50); Total Iron Binding Capacity 246 ug/dl (265-497)
[2024-02-27 15:10] VITALS: BP 130/81
--- NOTE | 2024-02-27 16:03 | W.DCSUMMARY ---
Discharge Summary
Discharge Data
Date of Admission: 02/26/24
Date of Discharge: 02/27/24
-
Pending Results: Yes
Additional Pending Results:
B12 Folate Ferritin
Discharge Plan
-
Patient Disposition: Home (Routine Discharge)
Discharge Diagnosis/Procedures: Blocked GJ tube status post Exchange
Left elbow wound/pressure injury
Left Shoulder Humeral neck fracture
Osteoporosis
Anemia
Anemia of Chronic disease
History Scleroderma
History Stroke
Condition: Fair
Diet: As tolerated and Tube feeding
Activity: As tolerated
Driving Restrictions: No driving
Bathing Restrictions: None
Blood Work: Please repeat CBC and CMP with primary care provider in 1 week of discharge
Others Tests: Please obtain Left Shoulder and Elbow X-ray with primary care provider in 1 week of discharge.
Activity Restrictions/Additional Instructions:
Wound Care Instructions
L elbow: Clean with saline or soap and water, Santyl, adaptic and dry gauze dressing daily.
elevate arm when in bed on pillow
sacrum: clean with soap and water, apply Neosporin then dry dressing leiva daily
Air cushion when sitting
increase protein in diet, follow up with biotechnician as planned.
Follow up at wound care center call for an appointment.
Please follow up with primary care provider and Orthopedic in 1 week of discharge.
Referrals:
Doc Solorio MD [Family Provider] - in one week
Prescriptions:
Continued
sertraline 100 mg Tablet
100 mg feeding tube HS
prednisone 5 mg Tablet
5 mg feeding tube NOON
olanzapine 5 mg Tablet
10 mg feeding tube HS
acetaminophen 500 mg Tablet
1,000 mg feeding tube TID
metoclopramide HCl 5 mg Tablet
5 mg feeding tube AC
pantoprazole [Protonix] 40 mg Tablet,Delayed Release (Dr/Ec)
40 mg PO DAILY Qty: 0
Rx Instructions:
VIA TUBE
lorazepam 1 mg Tablet
1 mg feeding tube NOON
Patient Comments:
02/26/24: last filled 02/13/24 for 60 tablets over 30 days.
Linzess 290 mcg Capsule
290 mcg G-tube DAILYPRN PRN (Reason: CONSTIPATION)
Movantik 25 mg Tablet
25 mg PO DAILYPRN PRN (Reason: CONSTIPATION) Qty: 0
magnesium oxide 400 mg magnesium Tablet
400 mg feeding tube NOON
ondansetron HCl 4 mg Tablet
4 mg feeding tube Q6HPRN PRN (Reason: NAUSEA)
morphine 15 mg tablet
15 mg feeding tube Q4HPRN MDD 75 mg PRN (Reason: SEVERE PAIN)
Patient Comments:
02/26/24: last filled 02/14/24 for 150 tablets over 30 days
melatonin 3 mg Tablet
3 mg feeding tube HS
aspirin 81 mg Tablet,Chewable
81 mg feeding tube QPM
clopidogrel 75 mg tablet
75 mg feeding tube HS
Discharge Orders:
Discharge Patient (As Directed); Ordered 02/27/24
Ordered By: Keya Magana
Discharge Date and Time
Print Language: ESTONIAN
[2024-02-27 16:12] LABS: Ferritin 71.1 ng/ml (11.1-264.0)
[2024-02-27 16:44] LABS: Folate > 20.0 ng/ml (2.76-20); Vitamin B12 643 pg/ml (239-931)
[2024-02-27 20:40] VITALS: BP 152/85
--- NOTE | 2024-02-27 22:09 | PTCARENOTE ---
Jevity went up at 19:45 at 20ml/hr, 21:30 pt requested to have it stopped until am because she feels she is not tolerating it well, she and her who is at the bedside said they will resume it at home... I tried to educate them but they were
both adamant about stopping it ... 21:50 nurse went in to re-educate and encourage pt regarding tube feed. pt is aaox3 and did not want tube feed re-started.. DATA CAPTURE CLERK notified
[2024-02-28] MEDS: ATIVAN 0.5 MG IV (00:34)
--- NOTE | 2024-02-28 00:47 | PTCARENOTE ---
pt accepted peg tube flushes 25cc /hr
[2024-02-28] MEDS: NSS 1000 IV ×2 (01:46→06:19)
[2024-02-28 03:06] VITALS: BP 138/80
[2024-02-28] MEDS: MORPHINE SULFATE 4 MG IV ×2 (04:31→08:34)
[2024-02-28 07:10] VITALS: BP 153/83
--- NOTE | 2024-02-28 07:19 | W.PN.HOSP.TC ---
Addendum entered and electronically signed by Keya Magana MD 03/07/24 13:13:
Sacral stage 2 vs healing stage 3 PI
Severe Protein Calorie Malnutrition
Original Note:
Today's Communication/Plan
-
discharge
Assessment / Plan
Assessment / Plan
Physical Exam
General: Comfortable, Conversant, Appears Chronically Ill and Cachectic
HEENT: Nose Appears Normal and Ears Appear Normal
Respiratory: Clear
Cardiac: S1/S2 and Regular Rhythm
GI: Soft, Non Tender and Non Distended
Skin: Warm, Dry and Decubitus Ulcer On left elbow
Neuro: Awake, Alert, Oriented x 3
Psych: Calm
64 woman with blocked GJ tube, (h/o scleroderma). Replaced by IR. Hx left shoulder humerus neck fracture from fall and stroke diagnosed approx 3 weeks ago, started on ASA Plavix.
PLAN:
# Blocked GJ tube
IR consult appreciated GJ tube exchanged 02.27.24 ok to use
case mgmt consult appreciated, adapter provided from central supply and shipment additional adapters, from pt's outpt vendor, arranged to arrive at home within next day.
Nutrition eval appreciated tube feeds resumed
speech eval appreciated soft bite size diet appropriate
#Left Shoulder humerus neck fracture
#Wound on Left elbow
Would consult appreciated
cont wound care
outpt follow up wound care center recommended
Lt Shoulder and Elbow X-rays appreciated no acute abn's, known left humeral neck fracture remains stable
outpatient follow up with orthopedic recommended
Anemia
Anemia of Chronic disease
H&H appears baseline, trending up
Iron Study suggests anemia of chronic disease, Iron level within normal limits
B12 Folate wnl
Outpatient follow up with primary recommended
Elevated A-phos, 151.
Has had this elevation before
possibly related to recent fracture as above
Follow up repeat CMP with primary care provider recommended
Chronic Hypoxic Respiratory Failure
on baseline oxygen supplementation 4L
Chronic pain and nausea
well controlled at this time
ok to resume home regimen on discharge
Code: DNR
VCD for DVTp.
Medically stable for discharge home with outpatient follow up recommendations
Total Time Preparing Discharge ___50____ minutes including examination of the patient, summary of the hospital stay, instructions for continuing care to all relevant caregivers; and preparation of discharge records, prescriptions, and referral
forms if necessary.
Anticipated Discharge: Today
Subjective/Interval History
-
Date of Service: February 28, 2024
Seen and examined at bedside in no acute distress sitting up comfortably in bed. Adapter was provided from central supply allowing patient's new G-J tube to be compatible with patient's old supplies- confirmed by at bedside. Case mgmt also
discussed with patient's outpt supply vendor who will be shipping adapters that will be available within in a day. Patient denies new acute issues, eager to go home.
Objective Data
-
Labs:
Laboratory Results
02/28/24
06:39
WBC Pending
Hgb Pending
Hct Pending
Plt Count Pending
Sodium Pending
Potassium Pending
Chloride Pending
Carbon Dioxide Pending
BUN Pending
Creatinine Pending
Glucose Pending
Calcium Pending
Vital Signs:
Vital Signs
Temp Pulse Resp BP Pulse Ox
97.0 F 110 20 138/80 91
02/28/24 03:06 02/28/24 03:06 02/28/24 03:06 02/28/24 03:06 02/28/24 03:06
I&O
02/27/24 02/28/24 02/29/24
06:59 06:59 06:59
Intake Total 3000 / 3000
Output Total 300 / 300
Balance 2700 / 2700
[2024-02-28 08:15] LABS: Hematocrit 26.8 % (37.0-47.0); Hemoglobin 8.5 g/dL (12.0-16.0); Mean Corp Hgb Conc. 31.7 g/dL (33.0-37.0); Mean Corpuscular Hgb 27.2 pg (27.0-31.0); Mean Corpuscular Volume 85.9 fL (81.0-99.0); Mean Platelet Volume 9.6 fL (7.4-10.4); Platelet Count 455 10^3/uL (130-400); Red Blood Cell Count 3.12 10^6/uL (4.20-5.40); Red Cell Dist. Width 16.3 % (11.5-14.5); White Blood Cell Count 8.3 10^3/uL (4.8-10.8)
[2024-02-28] MEDS: SANTYL OINTMENT 1 APPLIC TOPICAL (08:19)
[2024-02-28 08:23] LABS: Blood Urea Nitrogen 5 mg/dl (7-17); Calcium 8.8 mg/dl (8.4-10.2); Carbon Dioxide 31 mmol/L (22-30); Chloride 94 mmol/L (98-107); Estimated Creatinine Clearance 60 ml/min; Glucose 78 mg/dl (70-99); Magnesium 1.6 mg/dl (1.6-2.3); Phosphorus 3.7 mg/dl (2.5-4.5); Potassium 3.9 mmol/L (3.5-5.1); Sodium 133 mmol/L (135-145); eGFR > 60.00
--- NOTE | 2024-02-28 08:41 | CM ---
Addendum entered by Ashtyn Kim 02/28/24 12:55:
home with [facility] to follow up with patient. please fax transfer information to [phone].
Original Note:
CM spoke with patient significant other and problem is the connectors of the tubing. CM called to [facility] and await response. Physician also aware of issue as is patient nursing. CM will continue to follow for discharge planning needs.
Plan; home with [facility] for tube feedings
--- NOTE | 2024-02-28 09:26 | PTOTSP ---
ST Acute Care Evaluation
Pt currently presents with clinical signs of mild oral dysphagia characterized by prolonged mastication and bolus formation, reduced bolus formation, and oral residue with solids, as well as a documented hx of aspiration PNA, GERD, esophageal
stricture, and esophageal motility.
Recommendations:
- Continue with SOFT BITE SIZED SOLIDS and THIN LIQUIDS; meds whole in puree or via G/J tube.
- Aspiration & reflux precautions: HOB upright for all PO intake and for 60 minutes after PO intake; alternate liquids and solids; small frequent meals.
- AGING BOX HAND to f/u re: pt's tolerance of recommended diet consistencies.
- AGING BOX HAND to f/u re: pt's hx of cognitive linguistic evaluation/tx since TIA/CVA, as well as to perhaps complete updated testing to determine if pt would continue to benefit from these AGING BOX HAND services.
--- NOTE | 2024-02-28 12:10 | W.DCSUMMARY ---
Discharge Summary
Discharge Data
Date of Admission: 02/26/24
Date of Discharge: 02/28/24
-
Pending Results: No
Discharge Plan
-
Patient Disposition: Home with Home Care
Discharge Diagnosis/Procedures: Blocked GJ tube status post Exchange
Left elbow wound/pressure injury
Left Shoulder Humeral neck fracture
Osteoporosis
Anemia
Anemia of Chronic disease
History Scleroderma
History Stroke
Chronic Hypoxic Respiratory Failure on 4L at home
Condition: Fair
Diet: Tube feeding
Additional Diets: soft bite sized diet, tube feeds supplemental nutrition as tolerated
Activity: As tolerated
Driving Restrictions: No driving
Bathing Restrictions: None
Blood Work: Please repeat CBC and CMP with primary care provider in 1 week of discharge
Activity Restrictions/Additional Instructions:
Wound Care Instructions
L elbow: Clean with saline or soap and water, Santyl, adaptic and dry gauze dressing daily.
elevate arm when in bed on pillow
sacrum: clean with soap and water, apply Neosporin then dry dressing leiva daily
Air cushion when sitting
increase protein in diet, follow up with medical review specialist as planned.
Follow up at wound care center call for an appointment.
Please follow up with primary care provider and Orthopedic in 1 week of discharge- and keep your appointment with Neurology.
Referrals:
Doc Solorio MD [Family Provider] - in one week
Prescriptions:
Continued
sertraline 100 mg Tablet
100 mg feeding tube HS
prednisone 5 mg Tablet
5 mg feeding tube NOON
olanzapine 5 mg Tablet
10 mg feeding tube HS
acetaminophen 500 mg Tablet
1,000 mg feeding tube TID
metoclopramide HCl 5 mg Tablet
5 mg feeding tube AC
pantoprazole [Protonix] 40 mg Tablet,Delayed Release (Dr/Ec)
40 mg PO DAILY Qty: 0
Rx Instructions:
VIA TUBE
lorazepam 1 mg Tablet
1 mg feeding tube NOON
Patient Comments:
02/26/24: last filled 02/13/24 for 60 tablets over 30 days.
Linzess 290 mcg Capsule
290 mcg G-tube DAILYPRN PRN (Reason: CONSTIPATION)
Movantik 25 mg Tablet
25 mg PO DAILYPRN PRN (Reason: CONSTIPATION) Qty: 0
magnesium oxide 400 mg magnesium Tablet
400 mg feeding tube NOON
ondansetron HCl 4 mg Tablet
4 mg feeding tube Q6HPRN PRN (Reason: NAUSEA)
morphine 15 mg tablet
15 mg feeding tube Q4HPRN MDD 75 mg PRN (Reason: SEVERE PAIN)
Patient Comments:
02/26/24: last filled 02/14/24 for 150 tablets over 30 days
melatonin 3 mg Tablet
3 mg feeding tube HS
aspirin 81 mg Tablet,Chewable
81 mg feeding tube QPM
clopidogrel 75 mg tablet
75 mg feeding tube HS
Discharge Orders:
Discharge Patient (As Directed); Ordered 02/28/24
Ordered By: Keya Magana
Discharge Date and Time
Print Language: ARABIC
--- NOTE | 2024-02-28 12:18 | PTCARENOTE ---
Two GJ [employer] connectors provided for patient per order
[2024-02-28 12:35] VITALS: BP 144/95
--- NOTE | 2024-02-28 13:02 | PN.CDI ---
CDI
- -
CDI:
Physician Documentation Request
Admit Date: 02/26/24 18:53
Dear Doctor Chino,
Clinical Indicators:
Patient admitted with blocked PEG tube.
BMI 13.5
02/26 PN, Physical Exam: Cachectic
02/26 note/assessment:-Unintentional Weight Loss >7.5% in 3 months
-Intake <75% of estimated energy needs >/= to 3 months
-Muscle Loss: Temporal Moderate Clavicle Severe
-Patient meets ASPEN criteria for Severe Protein Calorie Malnutrition
Based on the above information and your assessment, which of the following most accurately represents the patient's nutritional status?
Severe Protein Calorie Malnutrition
Moderate Protein Calorie Malnutrition
Mild Protein Calorie Malnutrition
Cachexia without malnutrition
Other, please specify
Leland Criteria ([facility] Hospitalist 2017)
2 or more criteria must be present for either
non severe or severe malnutrition
Note that the criteria differs related to the
presence of an acute or chronic illness
Acute Illness Chronic Illness
Energy Intake Non Severe: <75% for >7 days Non Severe: <75% for >1 month
Severe: <50% for >5 days Severe: <75% for >1 month
Weight Loss Non Severe: 1-2% over 1 week Non Severe: 5% over 1 month
5% over 1 month 7.5% over 3 months
7.5% over 3 months 10% over 6 months
1 year N/A 20% over 1 year
Severe: >2% over 1 week Severe: >5% over 1 month
>5% over 1 month >7.5% over 3 months
>7.5% over 3 months >10% over 6 months
1 year N/A >20% over 1 year
Body Fat Non Severe: Mild Decrease Non Severe: Mild Loss
Severe: Moderate Decrease Severe: Severe Loss
Muscle Mass Non Severe: Mild Decrease Non Severe: Mild Loss
Severe: Moderate Decrease Severe: Severe Loss
Fluid Accumulation Non Severe: Mild Accumulation Non Severe: Mild Accumulation
Severe: Moderate to severe Severe: Moderate to severe
accumulation accumulation
Reduced Development Executive Strength Non Severe: N/A Non Severe: N/A
Severe: Measurably reduced Severe: Measurably reduced
Additional criteria that can be used to Determine if Mild or Moderate Malnutrition (Merck Manual 2018)
Mild Moderate Severe
Albumin gm/dl <3.0 gm/dl <2.5 gm/dl <2.0 gm/dl
Pre Albumin mg/dl <15 gm/dl <10 mg/dl <5.0 mg/dl
BMI <18.5 <17 <16
Use of terms such as suspected, likely, concern for, or probable (associated with a specific diagnosis that is being evaluated, monitored, or treated as if it exists) are acceptable and can be coded in the inpatient setting, when documented at the
time of discharge.
Thank you,
Dannielle Jackson RN BSN
CDI Specialist
available via tiger text
Please use your independent medical judgment in providing your response.
--- NOTE | 2024-02-28 13:13 | PN.CDI ---
CDI
- -
CDI:
Physician Documentation Request
Admit Date: 02/26/24 18:53
Dear Doctor Chino,
Clinical Indicators:
Patient admitted with blocked PEG tube.
02/26 [facility] RN note, 'Patient admitted with Sacral stage 2 vs healing stage 3 PI...'
Treatment: Silicone border foam dressing
Physician documentation of the type and location of wounds is required for compliant documentation. Based on the above clinical findings and your assessment, please provide the following in your progress note:
1. Location of the ulcer/wound, including laterality.
2. Type (etiology) of ulcer/wound:
- Pressure (decubitus) ulcer
- Non-healing surgical wound
- Other
- Unable to determine
3. If a pressure ulcer, please also include the stage* of the ulcer:
- Stage 1 - Skin intact, non-blanchable redness
- Stage 2 - Partial thickness loss of dermis, includes intact or open blister
- Stage 3 - Full thickness tissue not including bone, tendon or muscle
- Stage 4 - Full thickness tissue loss, including exposed bone, tendon or muscle
- Unstageable - Full thickness loss in which the base of the ulcer is covered by slough (yellow, curtis, martin, green or brown) and/or eschar (curtis, brown or black) in the wound bed.
- Unable to determine
Use of terms such as suspected, likely, concern for, or probable (associated with a specific diagnosis that is being evaluated, monitored, or treated as if it exists) are acceptable and can be coded in the inpatient setting, when documented at the
time of discharge.
Thank you,
Dannielle Jackson RN BSN
CDI Specialist
available via tiger text
Please use your independent medical judgment in providing your response.
*Source: National Pressure Ulcer Advisory Panel (NPUAP)
== END 2024-02-28 13:23 | disposition home health service (06) | DRG 393 ==
LOC: 2 SOUTH 18:53
PROVIDERS: Nurse Practitioner; Radiology Vascular & Interventional Radiology; ADMITTING PHYSICIAN Internal Medicine; ATTENDING PHYSICIAN Internal Medicine; EMERGENCY PHYSICIAN Emergency Medicine; FAMILY PHYSICIAN Family Medicine
PROC: 0D2DXUZ Change Feeding Device in Lower Intestinal Tract, External Approach (ICD-10-PCS; 2024-02-27)
DX: K94.23 Gastrostomy malfunction (principal); E43 Unspecified severe protein-calorie malnutrition; L89.153 Pressure ulcer of sacral region, stage 3; J96.11 Chronic respiratory failure with hypoxia; R64 Cachexia; Z68.1 Body mass index [BMI] 19.9 or less, adult; G89.29 Other chronic pain; R11.0 Nausea; Z66 Do not resuscitate; D63.8 Anemia in other chronic diseases classified elsewhere; L89.029 Pressure ulcer of left elbow, unspecified stage
CPT/HCPCS: 49452; 73030; 73070; 80048; 80053; 82607; 82728; 82746; 83540; 83550; 83735; 84100; 85025; 85027; 92610; 96374; 96375; 99285; C1769

== ENCOUNTER 2024-04-08 11:24 | Inpatient (IN) | payer MEDICARE, OTHER, SELFPAY ==
[2024-04-08] VITALS (8 sets, daily range): BP systolic 101–140; BP diastolic 54–87; BMI 13.2; BMI 13.6
[2024-04-08 05:12] LABS: % Basophils 0.3 % (0-2); % Eosinophils 1.8 % (0-6); % Immature Granulocytes 0.4 % (0-0.5); % Lymphocytes 4.3 % (20.5-51.1); % Monocytes 6.2 % (1.7-9.3); Absolute Eosinophils 0.2 10^3/uL (0-0.7); Absolute Lymphocytes 0.5 10^3/uL (1.2-3.4); Absolute Monocytes 0.7 10^3/uL (0.1-0.6); Absolute Neutrophils 9.3 10^3/uL (1.4-6.5); Hematocrit 24.8 % (37.0-47.0); Hemoglobin 7.4 g/dL (12.0-16.0); Mean Corp Hgb Conc. 29.8 g/dL (33.0-37.0); Mean Corpuscular Hgb 25.3 pg (27.0-31.0); Mean Corpuscular Volume 84.6 fL (81.0-99.0); Mean Platelet Volume 9.9 fL (7.4-10.4); Nucleated Red Blood Cells % 0 %; Platelet Count 379 10^3/uL (130-400); Red Blood Cell Count 2.93 10^6/uL (4.20-5.40); Red Cell Dist. Width 16.8 % (11.5-14.5); White Blood Cell Count 10.7 10^3/uL (4.8-10.8)
[2024-04-08 05:24] LABS: Lactic Acid 1.6 mmol/L (0.7-2.0)
[2024-04-08 05:25] LABS: ALT (SGPT) 16 U/L (0-35); AST (SGOT) 33 U/L (14-36); Albumin 3.9 g/dl (3.5-5.0); Alkaline Phosphatase 188 U/L (38-126); Blood Urea Nitrogen 12 mg/dl (7-17); Calcium 9.4 mg/dl (8.4-10.2); Carbon Dioxide 32 mmol/L (22-30); Chloride 94 mmol/L (98-107); Estimated Creatinine Clearance 59 ml/min; Glucose 108 mg/dl (70-99); Potassium 4.6 mmol/L (3.5-5.1); Sodium 138 mmol/L (135-145); Total Bilirubin 0.2 mg/dl (0.2-1.3); Total Protein 7.8 g/dl (6.3-8.2); eGFR > 60.00
[2024-04-08 05:38] LABS: Troponin I 0.194 ng/ml
[2024-04-08 05:40] LABS: COVID-19 Antigen Negative (Negative)
--- NOTE | 2024-04-08 05:54 | ED.GENMED ---
History of Present Illness
<Rodger Lama MD, Resident - Last Filed: 04/08/24 06:44>
General
Chief Complaint: Breathing Problem
Time Seen by Provider: 04/08/24 05:10
History of Present Illness
History of Present Illness:
Patient is a cachectic 64-year-old female with past medical history of scleroderma and interstitial lung disease (on 4 L of home oxygen), dysphagia status post G J-tube, multifocal strokes (on aspirin and Plavix), suspicious liver mass who presents
with sudden-onset worsening of shortness of breath starting around 4 PM yesterday while lying in bed. Also mentions 'pressure feeling' on chest which radiates to her jaw. Pain is constant. Denies nausea. Denies recent travel and recent surgery.
Patient was recently discharged from [facility] on Monday, where she was scheduled for liver biopsy. Patient experienced transient left eye blurred vision which impeded the biopsy although workup for CVA was unrevealing. She has not been taking DAPT
since 10 days ago in preparation for liver biopsy. Also had transient fevers at [facility] which resolved spontaneously.
<Nellie Odonnell MD - Last Filed: 04/08/24 09:49>
General
Source: patient and other (Boyfriend)
Exam Limitations: none
Nursing documentation reviewed up to this point in time: agreed with
History of Present Illness
History of Present Illness:
Patient is a cachectic 64-year-old female with past medical history of scleroderma and interstitial lung disease (on 4 L of home oxygen), dysphagia status post G J-tube, multifocal strokes (on aspirin and Plavix), suspicious liver mass who presents
with sudden-onset worsening of shortness of breath starting around 4 PM yesterday while lying in bed. Also mentions 'pressure feeling' on chest which radiates to her jaw. Pain is constant. Denies nausea. Denies recent travel and recent surgery.
Patient recently left AMA 2 days ago from [facility] where she had been scheduled to undergo a liver biopsy for concerns for malignancy. Unfortunately while attempting to do the biopsy, the patient experienced transient left eye blurred vision which
impeded the biopsy. It was thought that the patient had a TIA. Additionally, while at [facility], the patient experienced a fever of unknown etiology. Additionally, her boyfriend reports that she experienced multiple episodes of tachycardia at [facility] and
had an elevated troponin
Past History
<Rodger Lama MD, Resident - Last Filed: 04/08/24 06:44>
Past History
ED Past Medical History: Asthma, CVA, GERD, HTN, Hypercholesterolemia, NIDDM, Other (Scleroderma, esophageal stricture, PNA, interstitial lung disease, Raynaud's, Right enlarged heart) and Other (fx left shoulder)
ED Past Surgical History: Other (Skin grafts, Surgery on neck to remove cyst)
Social History
Tobacco: Former smoker
Alcohol: None
Drug: None
Personal:
Living: with family
Employment: Employed
Family History
Family History: Hypertension
<Nellie Odonnell MD - Last Filed: 04/08/24 09:49>
Social History
Personal: Partner
Review of Systems
<Rodger Lama MD, Resident - Last Filed: 04/08/24 06:44>
Review of Systems
Allergies reviewed?: Yes
All Other Systems: ROS reviewed and negative except as documented in HPI and ROS
<Nellie Odonnell MD - Last Filed: 04/08/24 09:49>
Review of Systems
Constitutional: Reports fatigue
EENT: Reports no symptoms
Respiratory: Reports trouble breathing
Cardiac: Reports chest pain
ABD/GI: Reports no symptoms
: Reports no symptoms
Musculoskeletal: Reports joint pain and muscle stiffness
Skin: Reports no symptoms
Neurological: Reports no symptoms
Endocrine: Reports no symptoms
Hematologic/Lymphatic: Reports no symptoms
Psychiatric: Reports no symptoms
Phy Exam
<Rodger Lama MD, Resident - Last Filed: 04/08/24 06:44>
General Physical Exam
General Presentation: severe distress
General Habitus: cachetic and failure to thrive
Cardiovascular Exam
Cardiovascular Exam: regular rate/rhythm, no edema, no gallop, no JVD and no murmur
Pulmonary Exam
Pulmonary Exam: lungs clear, no rales, no crackles, no cough and generalized wheezing
Gastrointestinal Exam
Gastrointestinal Exam: normal bowel sounds, non tender, soft, no organomegaly, no pulsatile mass, non distended and no cva tenderness
Neurological Exam
Neurological Exam: alert, oriented x3, no motor deficits, normal reflexs and no sensory deficits
Musculoskeletal Exam
Musculoskeletal Exam: full ROM and no edema
<Nellie Odonnell MD - Last Filed: 04/08/24 09:49>
Physical Exam
Physical Exam:
General: Patient appears anxious, tachypneic, cachectic
Neck: Dry mucous membrane
Cardiovascular: Tachycardic, regular
Lungs: Tachypneic, wheezing throughout, able to speak in sentences with tachypnea
Abdomen: Soft, nontender throughout
Extremities: No edema, negative Homans' sign
Neurological: Nonfocal
Psychiatric: Calm, cooperative
Skin: No rash
Scores
<Rodger Lama MD, Resident - Last Filed: 04/08/24 06:44>
Heart Failure Risk
Heart Failure Risk Score: Not Applicable
Course
<Rodger Lama MD, Resident - Last Filed: 04/08/24 06:44>
Orders/Labs/Results
Orders:
Orders
04/08/24 04:42
EKG [Electrocardiogram (*1)] Urgent
Reason for Study: Shortness of Breath
EKG- Treatment ONCE
04/08/24 05:03
Complete Blood Count/With Diff Urgent
Comprehensive Metabolic Panel Urgent
Lactic Acid Urgent
Troponin I Urgent
04/08/24 05:18
COVID-19 Antigen Urgent
Source: Nasal Swab
Influenza A+B Rapid Molecular Urgent
CELESTINO Source: Nasal Swab
Specimen Description:
04/08/24 05:24
Chest [CR Chest - 2 Views ] Urgent
Comment:
Reason For Exam: SOB/fever
04/08/24 05:39
Acetaminophen 1000MG/100Ml [Ofirmev] 1,000 mg in 100 ml IV ONCE
Acetaminophen IV Indication:: Targeted Temp Management
04/08/24 06:02
Blood Culture Routine
CELESTINO Source: Blood/Venous
Specimen Description:
Blood Culture Urgent
CELESTINO Source: Blood/Venous
Specimen Description:
04/08/24 06:23
Dexamethasone Sod Phosphate [Decadron] 10 mg IV NOW STA
04/08/24 06:28
Bipap [RESP] Urgent
Patient to use own unit?: No
Inspiratory Pressure (cm H2O): 10
Expiratory Pressure (cm H2O): 5
04/08/24 06:36
Morphine Sulfate 8 mg .ROUTE .STK-MED ONE
04/08/24 06:39
0.9% Sodium Chloride 250 ml [Nss] 250 ml IV BOLUS
04/08/24 06:41
Albuterol Sulfate [Ventolin Nebules] 15 mg INH R NOW STA
Morphine Sulfate 6 mg IV NOW STA
04/08/24 06:53
ABG [Arterial Blood Gas] Urgent
%Oxygen/Room Air: 4L nasal oxygen
04/08/24 08:27
Troponin I Urgent
04/08/24 08:48
Procalcitonin Urgent
PCT Algorithmm Indication: Sepsis
UA Reflex to Culture [Urinalysis Reflex To Culture] Urgent
Abnormal Lab Results
04/08/24 04/08/24 04/08/24
05:03 06:53 08:27
RBC 2.93 L 10^6/uL
(4.20-5.40)
Hgb 7.4 L g/dL
(12.0-16.0)
Hct 24.8 L %
(37.0-47.0)
MCH 25.3 L pg
(27.0-31.0)
MCHC 29.8 L g/dL
(33.0-37.0)
RDW 16.8 H %
(11.5-14.5)
Absolute Neuts (auto) 9.3 H 10^3/uL
(1.4-6.5)
Absolute Lymphs (auto) 0.5 L 10^3/uL
(1.2-3.4)
Absolute Monos (auto) 0.7 H 10^3/uL
(0.1-0.6)
Neutrophils % 87.0 H %
(42.2-75.2)
Lymphocytes % 4.3 L %
(20.5-51.1)
pH 7.47 H
(7.35-7.45)
pCO2 46 H mmHg
(32-35)
pO2 73 L mmHg
(83-108)
HCO3 33.5 H mmol/L
(21-28)
Chloride 94 L mmol/L
(98-107)
Carbon Dioxide 32 H mmol/L
(22-30)
Creatinine 0.3 L mg/dL
(0.6-1.0)
Glucose 108 H mg/dl
(70-99)
Alkaline Phosphatase 188 H U/L
(38-126)
Troponin I 0.194 H* ng/ml 0.191 H* ng/ml
04/08/24 05:03
04/08/24 05:03
Vital Signs
Initial and Last Documented VS:
Initial Vital Signs
BP
136/87
04/08/24 04:31
Last Documented Vital Signs
Temp Pulse Resp BP Pulse Ox
101.2 F H 114 18 128/79 99
04/08/24 05:06 04/08/24 09:00 04/08/24 08:00 04/08/24 08:50 04/08/24 09:00
<Nellie Odonnell MD - Last Filed: 04/08/24 09:49>
Orders/Labs/Results
Orders:
Orders
04/08/24 04:42
EKG [Electrocardiogram (*1)] Urgent
Reason for Study: Shortness of Breath
EKG- Treatment ONCE
04/08/24 05:03
Complete Blood Count/With Diff Urgent
Comprehensive Metabolic Panel Urgent
Lactic Acid Urgent
Troponin I Urgent
04/08/24 05:18
COVID-19 Antigen Urgent
Source: Nasal Swab
Influenza A+B Rapid Molecular Urgent
CELESTINO Source: Nasal Swab
Specimen Description:
04/08/24 05:24
Chest [CR Chest - 2 Views ] Urgent
Comment:
Reason For Exam: SOB/fever
04/08/24 05:39
Acetaminophen 1000MG/100Ml [Ofirmev] 1,000 mg in 100 ml IV ONCE
Acetaminophen IV Indication:: Targeted Temp Management
04/08/24 06:02
Blood Culture Routine
CELESTINO Source: Blood/Venous
Specimen Description:
Blood Culture Urgent
CELESTINO Source: Blood/Venous
Specimen Description:
04/08/24 06:23
Dexamethasone Sod Phosphate [Decadron] 10 mg IV NOW STA
04/08/24 06:28
Bipap [RESP] Urgent
Patient to use own unit?: No
Inspiratory Pressure (cm H2O): 10
Expiratory Pressure (cm H2O): 5
04/08/24 06:36
Morphine Sulfate 8 mg .ROUTE .STK-MED ONE
04/08/24 06:39
0.9% Sodium Chloride 250 ml [Nss] 250 ml IV BOLUS
04/08/24 06:41
Albuterol Sulfate [Ventolin Nebules] 15 mg INH R NOW STA
Morphine Sulfate 6 mg IV NOW STA
04/08/24 06:53
ABG [Arterial Blood Gas] Urgent
%Oxygen/Room Air: 4L nasal oxygen
04/08/24 08:27
Troponin I Urgent
04/08/24 08:48
Procalcitonin Urgent
PCT Algorithmm Indication: Sepsis
UA Reflex to Culture [Urinalysis Reflex To Culture] Urgent
Abnormal Lab Results
04/08/24 04/08/24 04/08/24
05:03 06:53 08:27
RBC 2.93 L 10^6/uL
(4.20-5.40)
Hgb 7.4 L g/dL
(12.0-16.0)
Hct 24.8 L %
(37.0-47.0)
MCH 25.3 L pg
(27.0-31.0)
MCHC 29.8 L g/dL
(33.0-37.0)
RDW 16.8 H %
(11.5-14.5)
Absolute Neuts (auto) 9.3 H 10^3/uL
(1.4-6.5)
Absolute Lymphs (auto) 0.5 L 10^3/uL
(1.2-3.4)
Absolute Monos (auto) 0.7 H 10^3/uL
(0.1-0.6)
Neutrophils % 87.0 H %
(42.2-75.2)
Lymphocytes % 4.3 L %
(20.5-51.1)
pH 7.47 H
(7.35-7.45)
pCO2 46 H mmHg
(32-35)
pO2 73 L mmHg
(83-108)
HCO3 33.5 H mmol/L
(21-28)
Chloride 94 L mmol/L
(98-107)
Carbon Dioxide 32 H mmol/L
(22-30)
Creatinine 0.3 L mg/dL
(0.6-1.0)
Glucose 108 H mg/dl
(70-99)
Alkaline Phosphatase 188 H U/L
(38-126)
Troponin I 0.194 H* ng/ml 0.191 H* ng/ml
04/08/24 05:03
04/08/24 05:03
Vital Signs
Initial and Last Documented VS:
Initial Vital Signs
BP
136/87
04/08/24 04:31
Last Documented Vital Signs
Temp Pulse Resp BP Pulse Ox
101.2 F H 114 18 128/79 99
04/08/24 05:06 04/08/24 09:00 04/08/24 08:00 04/08/24 08:50 04/08/24 09:00
<Nellie Odonnell MD - Last Filed: 04/08/24 09:49>
MDM/Problems Addressed
Differential Diagnosis Includes:
Acute coronary syndrome, pneumonia, PE, CHF,
MDM/Problems Addressed:
Patient presents with acute on chronic respiratory failure and chest pain
Chronic conditions affecting care:
Chronic interstitial lung disease and scleroderma
Acute Exacerbation and/or Progression of Chronic Illness:
Patient presents with acute on chronic respiratory failure likely due to interstitial lung disease
Acute Exacerbation and/or Progression of Chronic Illness: Other (Interstitial lung disease)
<Nastaran Daina, MD, Resident - Last Filed: 04/08/24 06:44>
*Critical Care Note
Total Time (30-74mins, 75-104mins- exclusive of procedures): 30
<Nellie Odonnell MD - Last Filed: 04/08/24 09:49>
*Radiology
Radiology exam reviewed: preliminary read by ED provider (Chest x-ray read by me. No acute disease) and radiology read reviewed
*Pulse Oximetry
Patient hypoxic: no (On 4 L nasal cannula)
*EKG
Interpreted by ED Provider?: Yes
Interpretation: abnormal
Comparison EKG: changes noted
Rate: tachycardiac
Rhythm: sinus and PVC's
[place]: normal axis
Interval: normal interval
QRS Pattern: normal QRS
Ischemia: non-specific ST changes
*[facility] Nurse Practitioner Interpretation
Rate: tachycardiac
Interpretation: abnormal
Rhythm: sinus
*Critical Care Note
Total Time (30-74mins, 75-104mins- exclusive of procedures): 65 min
comment:
65 minutes critical care given to patient including frequent reassessments of her respiratory effort, heart rate, reviewing her recent discharge summary from [facility] as well as reviewing her blood work and chest x-ray today.
Data Reviewed
Review of Other/Old Records Reveals: Discharge Summary (Discharge summary reviewed from [facility] from 04/06/2024 when patient was admitted for liver lesion, acute on chronic respiratory distress, visual changes thought to be due to possible
TIA, tachycardia and fever)
Source: patient and other (Boyfriend)
Further Testing Considered But Not Given:
I feel that when patient's respiratory distress is improved, it would be helpful to get a CT with IV contrast to rule out pulmonary embolism given patient's chest pain and tachycardia.
<Nellie Odonnell MD - Last Filed: 04/08/24 09:49>
Patient Management
Social determinants of health affecting care: Living situation and Strong social support
Discussion with other providers: Hospitalist
Escalation/DeEscalation of care consider admission/obs:
Given patient's respiratory distress and need for BiPAP, decision made to admit the patient. Additionally, we will trend patient's troponin, although patient reports her chest pain is greatly improved after getting albuterol and being started on
BiPAP. Additionally, we will follow blood cultures. Chest x-ray shows no signs of pneumonia and patient denies increased cough.
<Nellie Odonnell MD - Last Filed: 04/08/24 09:49>
Update Note
Update Note:
7:30am patient states she is so much more comfortable with BiPAP and after getting the albuterol. She reports her chest pain is greatly improved. Troponin will be rechecked at 8 AM
Patient is still hemodynamically stable without an elevated white blood cell count. She does not appear septic. For now we will hold off on antibiotics and her blood culture can be followed. Patient was just admitted for fever of unknown etiology
at [facility]. Patient denies increased cough and is no sign of pneumonia on lung exam
Troponin is trending downward and patient still reports improved chest pain
ED Attending Note
<Rodger Lama MD, Resident - Last Filed: 04/08/24 06:44>
-
Portions of this chart may have been created with voice recognition software.� Occasional wrong word or��sound alike� substitutions may have occurred due to the inherent limitations of voice recognition software.
Discharge Plan
Departure
Patient Disposition: Admit
Date of Disposition: 04/08/24
Time of Disposition: 07:09
Admit to: Telemetry
Presentation/result/management discussed w/ accepting MD/DO: Hospitalist
Patient with high blood pressure during this ER visit?: Yes
Condition: Fair
Covid-19: Not Applicable
Discharge Problem:
Acute and chronic respiratory failure, Fever, Chest pain in adult, Elevated troponin, Chronic anemia
Prescriptions:
No Action
sertraline 100 mg Tablet
100 mg feeding tube HS
prednisone 5 mg Tablet
5 mg feeding tube NOON
olanzapine 5 mg Tablet
10 mg feeding tube HS
acetaminophen 500 mg Tablet
1,000 mg feeding tube Q8HPRN PRN (Reason: mild pain)
pantoprazole [Protonix] 40 mg Tablet,Delayed Release (Dr/Ec)
40 mg PO BID Qty: 0
Rx Instructions:
VIA TUBE
lorazepam 1 mg Tablet
1 mg feeding tube [id number] PRN (Reason: anxiety)
Patient Comments:
04/08/24: last filled 02/13/24 for 60 tablets over 30 days.
Linzess 290 mcg Capsule
290 mcg G-tube DAILYPRN PRN (Reason: CONSTIPATION)
Movantik 25 mg Tablet
25 mg PO DAILYPRN PRN (Reason: CONSTIPATION) Qty: 0
magnesium oxide 400 mg magnesium Tablet
400 mg feeding tube NOON
ondansetron HCl 4 mg Tablet
4 mg feeding tube Q8HPRN PRN (Reason: NAUSEA)
morphine 15 mg tablet
15 mg feeding tube Q4HPRN MDD 75 mg PRN (Reason: SEVERE PAIN)
Patient Comments:
04/08/24: last filled 03/18/24 for 150 tablets over 30 days
melatonin 3 mg Tablet
3 mg feeding tube HS
rosuvastatin 40 mg Tablet
40 mg feeding tube HS
naloxone 0.4 mg/mL Solution
0.4 mg SC DAILYPRN PRN (Reason: opioid overdose)
Referrals:
Qian Zelaya MD [Family Provider] -
Interventions
Interventions:
*Risk Screen - Suicide Last Done: 04/08/24 04:43
*General Assessment Last Done: 04/08/24 04:43
*Neglect/Abuse Screening Last Done: 04/08/24 04:43
ED- Fall Risk Assessment Last Done: 04/08/24 04:45
*ED COVID-19 Vaccine History Last Done: 04/08/24 04:43
ED- Cardiac Assessment Last Done: 04/08/24 04:45
ED- Pulmonary Assessment Last Done: 04/08/24 04:45
Discharge Date and Time
Print Language: MOHAWK
[2024-04-08] MEDS: OFIRMEV 100 IV (05:57)
[2024-04-08] MEDS: DECADRON 10 MG IV (06:38)
[2024-04-08] MEDS: NSS 250 IV (06:47)
[2024-04-08] MEDS: MORPHINE SULFATE 6 MG IV (06:54)
[2024-04-08] MEDS: VENTOLIN NEBULES 15 MG INH (06:56)
[2024-04-08 07:02] LABS: HCO3 33.5 mmol/L (21-28); O2 Saturation % 94.5 % (94-98); PCO2 46 mmHg (32-35); PO2 73 mmHg (83-108); pH 7.47 (7.35-7.45)
--- NOTE | 2024-04-08 08:59 | EDRN ---
Patient rang gurdeep at 0830 to request the bipap be removed. The hour long breathing treatment had completed and patient states she is feeling like she can breathe better now. Spoke with Dr. Odonnell about the removal and she approved. Notified
respiratory and then placed patient on her standard 4 liters O2. While patient was transitioning, she was on room air for a few minutes with SPO2 87% while blowing her nose. Placed the nasal O2 on and SPO2 returned to her baseline and maintains at
97% on the 4 liters. SO returned to the room and was speaking with the patient who then mentioned that she was ready to go home. Advised them to wait for all the test results and speak with the hospitalist.
[2024-04-08 09:33] LABS: Troponin I 0.191 ng/ml
--- NOTE | 2024-04-08 10:53 | HPS.HSE ---
Family Physician
-
Family Physician: Qian Zelaya
Chief Complaint
-
Shortness of breath
History of Present Illness
64-year-old female with past medical history of CVA, GERD, hypertension, asthma, hyperlipidemia, [id number] diabetes mellitus, scleroderma, esophageal stricture, pneumonia, interstitial lung disease, Raynaud's, Chronic hypoxic respiratory
failure on 4 L, Chronic anemia, Chronic opioid dependence/chronic pain syndrome came to the hospital with shortness of breath that started few days ago. Patient was admitted at [facility] and recently left from there past Monday. Patient noted to
have developed increased shortness of breath which prompted her to come to the ED for evaluation. In the ER patient was put on BiPAP and was started on nebulizer and steroids which improved her symptoms. Currently patient denies any chest pain.
She also noted to have fever. Per patient she also had fever intermittently at [facility]. Denies any abdominal pain.
Medical History
Past Medical History
Past Medical History: Reports Asthma and Other (Interstitial lung disease,VA, GERD, HTN, Hypercholesterolemia, NIDDM, Other (Scleroderma, esophageal stricture, PNA, interstitial lung disease, Raynaud's)
Past Surgical History: Reports Other (Skin graft, surgery on neck)
Social History
Tobacco: Former Smoker
Alcohol: None
Family History
Family History: Not pertinent
Allergies / Home Medications
Allergies reflects when Allergies were last updated in [employer].
Home Medications with original date entered in [employer]
Allergy/Medication List:
Allergies
Allergy/AdvReac Type Severity Reaction Status Date / Time
No Known Allergies Allergy Verified 04/08/24 04:31
Home Medications
acetaminophen 500 mg tablet 1,000 mg feeding tube Q8HPRN PRN mild pain 09/26/23
linaclotide 290 mcg capsule (Linzess) 290 mcg G-tube DAILYPRN PRN CONSTIPATION 09/26/23
lorazepam 1 mg tablet 1 mg feeding tube [id number] PRN anxiety 09/26/23
magnesium oxide 400 mg feeding tube NOON Supplement 09/26/23
naloxegol 25 mg tablet (Movantik) 25 mg PO DAILYPRN PRN CONSTIPATION ##0 09/26/23
olanzapine 5 mg tablet 10 mg feeding tube HS Neurological Condition 09/26/23
pantoprazole 40 mg tablet,delayed release (Protonix) 40 mg PO BID Gastrointestinal Issue ##0 09/26/23
prednisone 5 mg tablet 5 mg feeding tube NOON anti-inflammation 09/26/23
sertraline 100 mg tablet 100 mg feeding tube HS Mental Health 09/26/23
morphine 15 mg immediate release tablet 15 mg feeding tube Q4HPRN PRN SEVERE PAIN 02/05/24
ondansetron HCl 4 mg tablet 4 mg feeding tube Q8HPRN PRN NAUSEA 02/05/24
melatonin 3 mg tablet 3 mg feeding tube HS Sleep 02/26/24
naloxone 0.4 mg/mL injection solution 0.4 mg SC DAILYPRN PRN opioid overdose 04/08/24
rosuvastatin 40 mg tablet 40 mg feeding tube HS High Cholesterol 04/08/24
Review of Systems
-
History Source: Patient
A 12 point ROS was completed and negative except as noted: Yes
Respiratory: Reports Cough and Trouble Breathing
Physical Exam
Vital Signs
Vital Signs
Temp Pulse Resp BP Pulse Ox
101.2 F H 114 18 128/79 99
04/08/24 05:06 04/08/24 09:00 04/08/24 08:00 04/08/24 08:50 04/08/24 09:00
Physical Exam
General: No Apparent Distress and Comfortable
HEENT: Anicteric and Moist mucous membranes
Respiratory: Clear, Wheezes and Non Labored Respirations
Cardiac: S1/S2, Regular Rhythm and Tachycardia
Breast: Deferred by me
GI: Soft and Non Tender
Rectal: Deferred by Provider
Genito-urinary: No Quintana
Musculoskeletal: No Edema
Neuro: Awake, Alert, Oriented and AO x 3
Psych: Calm
Laboratory Results
-
04/08/24 05:03
04/08/24 05:03
Laboratory Results
pH 7.47 (7.35-7.45) H 04/08/24 06:53
pCO2 46 mmHg (32-35) H 04/08/24 06:53
pO2 73 mmHg (83-108) L 04/08/24 06:53
HCO3 33.5 mmol/L (21-28) H 04/08/24 06:53
Lactic Acid Cancelled 04/08/24 05:33
Total Bilirubin 0.2 mg/dl (0.2-1.3) 04/08/24 05:03
AST 33 U/L (14-36) 04/08/24 05:03
ALT 16 U/L (0-35) 04/08/24 05:03
Alkaline Phosphatase 188 U/L (38-126) H 04/08/24 05:03
Troponin I 0.191 ng/ml H* 04/08/24 08:27
Data Reviewed
-
Lab Data: Labs Reviewed by me and Discussed with Patient
Impression/Plan
-
Acute on chronic hypercarbic hypoxic respiratory failure
Required BiPAP on admission, admit to IMU
On chronic 4l O2
Chest x-ray noted
Check CT chest
Follow fever curve
Check Pro-Earle, if positive then likely will start empiric antibiotic
History of aspiration, could have been an aspiration event causing possible pneumonitis
follow fever curve; ID evaluation
bcx checked in ED; follow
Check UA
COVID, flu negative
Scleroderma, Raynaud's phenomenon, ILD: follows Dr Pedersen at [place]
Esophageal dysmotility
Follows up with GI outpatient
nutrition consult for tube feeds; gets tube feeds through [facility]. also does consume food by mouth if she likes; speech consulted
Elevated troponin suspect likely secondary to nonischemic myocardial injury
Continue to trend
Check echo,History of RV dysfunction
History of chronic anemia
Check iron panel, B12, folate
Continue to monitor hemoglobin
No signs of bleeding
Recent liver lesion noted at [facility]
Was scheduled for liver biopsy however that was postponed
Request records from [facility]
CT abdomen here on 10/17, patient had probable small hemangioma in the posterior right hepatic lobe
History of pulmonary hypertension
Follows up at [facility] outpatient
hx of diastolic CHF
hx of high alk phos
no abdominal pain; monitor
Hypertension
History of interstitial lung disease on 4 L O2 at home
Continue to monitor
hx of TIA
DVT prophylaxis
Lovenox
DNR, discussed with patient admission
I spent a total of 78 minutes with the patient or on the floor. More than 50% of this time involved counseling and coordination of care.
--- NOTE | 2024-04-08 11:18 | CON.PUL ---
Consultation
Consultation Request
Date/Time Consultation Requested: 04/08/20241057
Date/Time Consultation Performed: 04/08/2024 - 1101
Requesting Provider: Dr. Ramirez
Performing Provider: Dr. Ha
Reason for Consultation: Acute hypoxia
Medical History
-
Chief Complaint: SOB x 2 days
History of Present Illness:
64-year-old female with a past medical history of systemic sclerosis with scleroderma associated ILD, pulmonary hypertension, chronic hypoxic respiratory failure on 4 L/min, GERD, esophageal stricture s/p PEG tube placement, history of mitral
regurgitation, history of aspiration pneumonia, former tobacco smoker, history of lung nodule and history of A-fib who presents with SOB X 2 days. She was scheduled to go to [facility] this afternoon for a liver biopsy due to a liver lesion
seen on imaging at [facility]. She was apparently recently admitted at [facility] and went home this past Monday. Initial vitals in the ER showed she was afebrile to 90 �F, BP 136/87, heart rate 119 and saturating 90% on 5 L/min nasal
cannula. Repeat rectal temperature about 20 minutes after initial ER vitals showed she was febrile to 101.2 �F. Initial vitals showed normal WBC at 10.7, anemia to 7.4, serum bicarbonate level 32, iron saturation of 10, troponin 0.194, ALP 188,
and COVID antigen negative. Flu A/B swab also negative, and blood cultures were collected. CXR showed no acute cardiopulmonary process. CTA chest showed no acute PE with a large focal heterogeneous hypodensity in the left lobe of the liver
suspicious for neoplasm. Also a band shaped focus of hypodensity in the spleen concerning for splenic infarct. There is increased reticular + groundglass opacities bilaterally suggestive of pulmonary edema. In the ER she was given albuterol,
Decadron 10 mg, morphine, IVF with NS 0.9% 250cc + Ofirmev. She was admitted to the IMU for further care and pulmonary service now consulted for additional management/recommendations.
When saw patient she was resting in bed on 5 L (cannula, saturating 98%, heart rate 94 and BP 1 3/72. She says that she has been feeling short of breath all the time no matter what position she is in. She denies a cough. She denies taking any
inhalers at home. Denies chest pain, CHATTERJEE, abd pain, N/V/f/c.
Of note, patient previously used to follow with us in the [facility] office with Dr. Agarwal, last office visit on 06/07/2022. She was following for progressive dyspnea however walk study showed she did not need supplemental oxygen. EKG showed an
irregular rhythm due to MAT versus A-fib. She is followed by Dr. Pedersen through the [facility]. She was previously on CellCept for her scleroderma. She was also on chronic pain medications due to chronic pain syndrome. History of
left-sided pleural effusion s/p thoracentesis (2016) which was exudative and cytopathology negative. Also history of restrictive lung disease with FVC 43% predicted as well as severe gas exchange capacity defect with DLCO 35% predicted. Former
tobacco smoker, quit in her 20s with a 1.5-pack-year history. She was hospitalized in April 2022 due to COVID-19 with no infiltrate seen on CXR. She was told to follow-up with us as needed and to continue seeing her hourly shift manager through [facility].
PMHx: Scleroderma associated ILD, pulmonary hypertension, GERD, esophageal stricture s/p PEG tube placement, mitral regurgitation, history of aspiration pneumonia, former tobacco smoker, Raynaud's phenomenon, chronic hypoxic respiratory failure on 4
L/min, history of left lower lobe pulmonary nodule, personal history COVID-19 (April 2022), history of A-fib
PSHx: Skin graft, toe surgery, breast surgery, GJ tube
Past Medical History
Past Medical History: Other (Above as per HPI)
Past Surgical History: Other (Above as per HPI)
Social History
Tobacco: Former Smoker (Former light tobacco smoker, 1.5-pack-year history, quit in her 20s)
Alcohol: None
Drug: None
Employment: Not Employed
Family History
Family History: CAD (Mother), Diabetes (Mother) and Other (Mother: CHF, history of COPD/asthma and Hx of TB)
Allergies / Home Medications
Allergies
Allergy/AdvReac Type Severity Reaction Status Date / Time
No Known Allergies Allergy Verified 04/08/24 04:31
Home Medications
�Medication �Instructions �Recorded �Confirmed �Last Taken �Type
acetaminophen 500 mg tablet 1,000 mg feeding tube Q8HPRN PRN 09/26/23 04/08/24 02/26/24 History
mild pain
linaclotide 290 mcg capsule 290 mcg G-tube DAILYPRN PRN 09/26/23 04/08/24 09/25/23 History
(Linzess) CONSTIPATION
lorazepam 1 mg tablet 1 mg feeding tube [id number] PRN 09/26/23 04/08/24 02/25/24 History
anxiety
magnesium oxide 400 mg feeding tube NOON Supplement 09/26/23 04/08/24 02/25/24 History
naloxegol 25 mg tablet (Movantik) 25 mg PO DAILYPRN PRN CONSTIPATION 09/26/23 04/08/24 09/25/23 History
##0
olanzapine 5 mg tablet 10 mg feeding tube HS Neurological 09/26/23 04/08/24 02/25/24 History
Condition
pantoprazole 40 mg tablet,delayed 40 mg PO BID Gastrointestinal 09/26/23 04/08/24 02/26/24 History
release (Protonix) Issue ##0
prednisone 5 mg tablet 5 mg feeding tube NOON 09/26/23 04/08/24 02/25/24 History
anti-inflammation
sertraline 100 mg tablet 100 mg feeding tube HS Mental 09/26/23 04/08/24 02/25/24 History
Health
morphine 15 mg immediate release 15 mg feeding tube Q4HPRN PRN 02/05/24 04/08/24 02/26/24 History
tablet SEVERE PAIN
ondansetron HCl 4 mg tablet 4 mg feeding tube Q8HPRN PRN NAUSEA 02/05/24 04/08/24 Unknown History
melatonin 3 mg tablet 3 mg feeding tube HS Sleep 02/26/24 04/08/24 02/25/24 History
naloxone 0.4 mg/mL injection 0.4 mg SC DAILYPRN PRN opioid 04/08/24 04/08/24 Unknown History
solution overdose
rosuvastatin 40 mg tablet 40 mg feeding tube HS High 04/08/24 04/08/24 Unknown History
Cholesterol
Review of Systems
-
History Source: Patient
All other systems: Negative unless noted
Vitals / Labs / Diagnostic Testing
Vital Signs
Temp Pulse Resp BP Pulse Ox
101.2 F H 109 22 128/79 98
04/08/24 05:06 04/08/24 11:00 04/08/24 10:45 04/08/24 08:50 04/08/24 10:45
Lab Data
04/08/24 05:03
04/08/24 05:03
Laboratory Results
04/08/24
06:53
pH 7.47 H
pCO2 46 H
pO2 73 L
HCO3 33.5 H
O2 Delivery Level
Microbiology
04/08/24 05:18 Nasal Swab Influenza Types A & B (ERIS) - Final
Negative for Influenza A & B, NAAT
Negative results must be combined with clinical observations
and patient history.
Nucleic Acid Amplification test (NAAT)performed on the
[employer] platform.
Diagnostic Testing:
Physical Exam
-
HEENT: Normocephalic and Anicteric
Cardiovascular: S1/S2 and Peripheral Edema (negative)
Respiratory: Wheeze (negative), Rales (Bilaterally), Rhonchi (negative) and Non-Labored Respirations
GI: Non Tender and Normal Bowel Sounds
Neurology: Awake, Alert and Tremors (negative)
Skin: Warm and Dry
General: Respiratory Distress (negative), Comfortable, Fever (negative), Chills (negative) and Other (Cachectic appearing)
Assessment
-
Assessment: 64-year-old female with a past medical history of systemic sclerosis with scleroderma associated ILD, pulmonary hypertension, chronic hypoxic respiratory failure on 4 L/min, GERD, esophageal stricture s/p PEG tube placement, history of
mitral regurgitation, history of aspiration pneumonia, former tobacco smoker, history of lung nodule and history of A-fib who presents with SOB X 2 days. She was scheduled to go to [facility] this afternoon for a liver biopsy due to a liver
lesion seen on imaging at [facility]. She was apparently recently admitted at [facility] and went home this past Monday. Initial vitals in the ER showed she was afebrile to 90 �F, BP 136/87, heart rate 119 and saturating 90% on 5 L/min nasal
cannula. Repeat rectal temperature about 20 minutes after initial ER vitals showed she was febrile to 101.2 �F. Initial vitals showed normal WBC at 10.7, anemia to 7.4, serum bicarbonate level 32, iron saturation of 10, troponin 0.194, ALP 188,
and COVID antigen negative. Flu A/B swab also negative, and blood cultures were collected. CXR showed no acute cardiopulmonary process. CTA chest showed no acute PE with a large focal heterogeneous hypodensity in the left lobe of the liver
suspicious for neoplasm. Also a band shaped focus of hypodensity in the spleen concerning for splenic infarct. There is increased reticular + groundglass opacities bilaterally suggestive of pulmonary edema. In the ER she was given albuterol,
Decadron 10 mg, morphine, IVF with NS 0.9% 250cc + Ofirmev. She was admitted to the IMU for further care and pulmonary service now consulted for additional management/recommendations.
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
respiratory failure on 4 L/min, history of left lower lobe pulmonary nodule, personal history COVID-19 (April 2022), history of A-fib
Impression:
#Febrile illness
#Acute on chronic hypoxic respiratory failure likely due to ILD-flare +/- acute pulmonary edema
#Primary metabolic alkalosis with appropriate respiratory compensation
#Elevated troponin
#History of RV enlargement with RV systolic dysfunction, mild�moderate MR and moderate�severe TR (via TTE from June 2023)
#Chronic anemia (baseline Hb: 7.5�9g/dL) with iron deficiency anemia
#Elevated alkaline phosphatase (appears chronic with ALP levels ranging between 127�180 since June 2023)
#History of scleroderma associated ILD � CXR appears without any acute cardiopulmonary process, hence doubtful she is acutely in an ILD exacerbation
#Systemic sclerosis with history of esophageal dysmotility s/p GJ tube
Plan:
- Given her CT chest findings with bilateral reticular + groundglass opacities there is concern for acute ILD flare
- Continue systemic steroids
- Currently on Decadron 4mg IV q8hr --> wean as she clinically improves
- She does have a small R-sided pleural effusion and her GGO are central, making acute decompensated heart failure likely
- If no improvement with steroids then would start diuresis; check echo and check BNP as well
- Monitor H/H and transfuse if needed to keep Hb>7g/dL; keep plt>20k
- trend LFTs; consult IR for liver Bx given her CTA chest findings with a heterogeneous hypodensity in the left lower liver suspicious for neoplasia/malignancy
- Check CT Abd/Pelvis with IV contrast to eval further
- Troponin has peaked at 0.194 and there is no need to continue trending at this time
- Maintain SpO2 >90-94% with supplemental O2 and wean as tolerated
- trend serum HCO3 and pCO2 levels - check AM VBG
- Incentive spirometer encouraged 10x per hour for at least 4 hours a day
- Continue nebulized bronchodilators with xopenex and atrovent, with prn doses for breakthrough symptoms
- Hold off on antibiotics for now given procalcitonin is WNL at 0.14
- Monitor fever curve and trend WBC (although she is now on steroids so expect to be elevated)
- Follow up blood Cx collected X 2 today (04/08/2024)
- Replete electrolytes with K>4, Mg>2
- Maintain euglycemia with goal BG >100 and <180
- DVT ppx: LMWH
Given her chronic illness with cachectic appearance, it would not be unreasonable to discuss goals of care and consider hospice.
Pulmonary service will continue to follow along. She had previously followed with us in May [address] Agarwal and was told to continue following with us as needed and in 2 continue following with her primary hourly shift manager/ILD specialist
through [facility] with Dr. Pedersen.
Data:
CTA Chest 04/08/2024:
There is a large focal area of heterogeneous decreased density within the visualized left lobe of the liver, and this is highly suspicious for neoplasia/malignancy. Consider further evaluation with CT of the abdomen and pelvis.
Band-shaped focus of decreased density within the superior spleen, which likely represents an area of splenic infarction, new from examination of September 26, 2023.
Increased reticular and groundglass opacities within both lungs, which appear to have increased compared to CT examination of June 07, 2022. Findings would suggest the possibility of pulmonary edema superimposed on chronic changes from
scleroderma. Minimal right pleural effusion with trace amount of left pleural fluid.
Total time spent today was 76 minutes for this encounter. Time includes reviewing laboratory test/imaging results, reviewing pertinent medical records, obtaining and reviewing medical history, performing an appropriate exam, ordering medications,
tests and procedures. Time also includes documentation of this encounter, coordinating patient care and communicating with other healthcare professionals. Total time does not include separately billed tests performed on this date of service.
--- NOTE | 2024-04-08 12:15 | PTOTSP ---
Dysphagia Evaluation
Patient presents with signs of mild oral dysphagia and has a known history of esophageal dysphagia.
Recommend:
1. L6 Soft and Bite Sized, Thin Liquids in addition to non-oral means (GJ in place)
2. Medications via GJ tube
3. Upright to 90 degrees, alternate sips and bites, remain upright for at least 30 minutes as a reflux precaution
4. Oral care 3x daily
5. Brief dysphagia follow up at the acute care level. Determine if further objective swallowing assessment warranted.
[2024-04-08 12:53] LABS: Iron 33 ug/dl (37-170)
[2024-04-08 13:02] LABS: Percent Saturation 10 % (20-50); Total Iron Binding Capacity 329 ug/dl (265-497)
[2024-04-08 13:46] LABS: Procalcitonin 0.14 ng/ml (0.0-0.25)
[2024-04-08 14:00] LABS: Folate > 20.0 ng/ml (2.76-20); Vitamin B12 656 pg/ml (239-931)
[2024-04-08] MEDS: ATROVENT NEBULES 0.5 MG INH ×2 (14:14→20:00)
[2024-04-08] MEDS: XOPENEX 1.25 MG INHALANT SOLUTION INH ×2 (14:15→20:00)
[2024-04-08] MEDS: MORPHINE SULFATE 15 MG TUBE ×3 (14:38→23:09)
--- NOTE | 2024-04-08 15:11 | CON.ID ---
Consultation
-
Date/Time Consultation Requested: 04/08/24 14:04
Date/Time Consultation Performed: 04/08/24 15:12
Requesting Provider: Dr Ramirez
Performing Provider: Dr Shah
Reason for Consultation: Hypoxemia
Chief Complaint / Past History
Chief Complaint
hypoxemic resp failure
History of Present Illness
Ms Blair is a 64 year old female with Scleroderma and ILD on 4L O2 at baseline and prednisone 5 mg PO qday, s/p esophageal dilation for stricture who presented here for increased dyspnea and intermittent fevers. Of note with recent admission to
[facility] for elective biopsy of known liver mass, however found to have respiratory decompensation which prevented the biopsy from being completed. Course additionally complicated for possible small stroke. She reports she had a TTE there which was
negative. She was eventually discharged two days prior to arrival here. At home she does report coughing/choking while drinking H2O. Additionally he significant other had a recent cold and is a sick contact
She insists that she has not been on any recent steroid dose pack or increased dosages of steroids. Says she hasnt taken mycophenolate for years.
Since arrival here rectal Tmax 101.2 no frankly elevated oral Ts, bp stable, HR initially 120s now 100, wbc initially 10.7, hgb 7.2, plt 379, L shift is noted, eos are present, ABG ph 7/47, pco2 46, po2 73, hco3 33, na 138, cr 0.3, glucose 108,
lactic acid 1.6, ferritin 106, procal 0.14, last sharan on file from 2017 and was [id number], anti-ds dna also detected, covid ag neg, CT PE: no PE: large heterogenous area in the left lobe of the liver high suspicious for malignancy, likely new splenic
infarction,also reticular and GGOs within both lungs - suggest pulm edema
Past History
Additional Past Medical History:
Interstitial lung disease,VA, GERD, HTN, Hypercholesterolemia, NIDDM, Other (Scleroderma, esophageal stricture, PNA, interstitial lung disease, Raynaud's
Additional Past Surgical History:
Skin graft, surgery on neck
Allergy History:
No Known Allergies Allergy (Verified 04/08/24 04:31)
Medications Reviewed: Yes
Social History
Tobacco: Former Smoker
Alcohol: None
Drug: Other (on prescription narcotics for chronic pain)
Family History
Family History: Not Pertinent
Review of Systems
Review of Systems
General: Fever
All systems: All other systems were reviewed and were negative
Vital Signs
Temp Pulse Resp BP Pulse Ox
97.9 F 100 18 128/79 96
04/08/24 13:47 04/08/24 14:19 04/08/24 14:19 04/08/24 08:50 04/08/24 14:19
Physical Exam
Physical Exam
Constitutional: No Acute Distress
Cardiovascular: Regular Rate and S1/S2; Negative Murmur or Rub
Pulmonary: Clear and Symmetric; Negative Wheezes, Rales or Rhonchi
Gastrointestinal: Soft, Tender (bilateral upper quadrants), Non Distended and Normal Bowel Sounds
Skin: Warm and Dry; Negative Rash or Jaundice
Lab / Diagnostic Study Results
04/08/24 05:03
04/08/24 05:03
Abs Immat Gran (auto) 0.0 10^3/uL (0-0.05) 04/08/24 05:03
Absolute Neuts (auto) 9.3 10^3/uL (1.4-6.5) H 04/08/24 05:03
Absolute Lymphs (auto) 0.5 10^3/uL (1.2-3.4) L 04/08/24 05:03
Absolute Monos (auto) 0.7 10^3/uL (0.1-0.6) H 04/08/24 05:03
Absolute Basos (auto) 0.0 10^3/uL (0-0.2) 04/08/24 05:03
Immature Gran % 0.4 % (0-0.5) 04/08/24 05:03
Neutrophils % 87.0 % (42.2-75.2) H 04/08/24 05:03
Lymphocytes % 4.3 % (20.5-51.1) L 04/08/24 05:03
Monocytes % 6.2 % (1.7-9.3) 04/08/24 05:03
Eosinophils % 1.8 % (0-6) 04/08/24 05:03
Basophils % 0.3 % (0-2) 04/08/24 05:03
Lactic Acid Cancelled 04/08/24 05:33
Procalcitonin 0.14 ng/ml (0.0-0.25) 04/08/24 12:50
Microbiology Results
Micro:
04/08/24 06:02 Blood Culture - Pending
Blood/Venous
04/08/24 06:02 Blood Culture - Pending
Blood/Venous
04/08/24 05:18 Influenza Types A & B (ERIS) - Final
Nasal Swab Negative for Influenza A & B, NAAT
Negative results must be combined with clinical observations
and patient history.
Nucleic Acid Amplification test (NAAT)performed on the
[employer] platform.
Assessment / Plan
Splenic Infarction
Liver mass abscess vs malignancy
Profound cachexia
- denies taking any immunosuppressive drugs beyond her low dose steroids for many years, denies injections
- blood cultures x2 in progress
- repeat TTE
- awaiting [facility] records
- check EST, CRP
- start empiric ceftriaxone
- would plan liver biopsy if patient consents, will be very difficult to manage without it, right now she is refusing stating that she wants all of her care with regard to that to be done at [facility]. Doubt she would be accepted for transfer as care can
be provided here though it could be attempted. She was planned for outpatient liver biopsy at [facility] today however presented to our ER yesterday this AM for shortness of breath.
Acute Hypoxemic Resp Failure
Scleroderma with known ILD
- covid and influenza both negative
- CT chest with GGOs, liver mass and splenic infarct also noted
- agree with steroids
- suspect pulmonary edema vs viral cause vs ILD flare
Care Review
Plan reviewed with: Physician (Dr Ramirez - workup of the liver mass)
[2024-04-08 16:47] LABS: Urine Albumin Trace (Neg - Trace); Urine Bilirubin Negative (Negative); Urine Character Clear (Clear); Urine Color Yellow; Urine Glucose Negative (Negative); Urine Ketone Negative (Negative); Urine Leukocyte Negative (Negative); Urine Nitrite Negative (Negative); Urine Occult Blood Negative (Negative); Urine Urobilinogen Negative (Neg - 1+)
[2024-04-08] MEDS: DECADRON 4 MG IV ×2 (17:05→23:08)
[2024-04-08] MEDS: MAGONATE 86 MG TUBE (17:05)
[2024-04-08 17:38] LABS: Troponin I 0.112 ng/ml
--- NOTE | 2024-04-08 18:05 | PTCARENOTE ---
Pt remains on 4L NC. vital signs stable. sig other at bedside. Pt very anxious. oriented to unit, admission assessment completed.
[2024-04-08] MEDS: STERILE WATER FOR INJECTION 20 ML IV (18:40)
[2024-04-08] MEDS: ROCEPHIN 2000 MG IV (18:40)
[2024-04-08 20:32] LABS: Troponin I 0.115 ng/ml
[2024-04-08] MEDS: PREVACID 30 MG TUBE (20:36)
[2024-04-08] MEDS: ZOLOFT 100 MG TUBE (20:36)
[2024-04-08] MEDS: ZYPREXA 10 MG TUBE (20:36)
[2024-04-08] MEDS: MELATONIN 3 MG TUBE (20:36)
[2024-04-08] MEDS: CRESTOR 40 MG TUBE (20:36)
--- NOTE | 2024-04-08 22:00 | PTCARENOTE ---
Caring for pt overnight. Remains on 5LNC. NSR w/ PAC's. No CP, no SOB. C/o abdominal pain, prn morphine. OOB to [facility] w/ assistance. Very weak & cachetic. Trending Trops. Will continue to monitor.
[2024-04-09] VITALS (14 sets, daily range): BP systolic 97–128; BP diastolic 51–85; BMI 13.5
[2024-04-09 05:29] LABS: Venous Blood Gas B.E. 9.3 mmol/L (-4 to +4); Venous Blood Gas HCO3 34.1 mmol/L (22-27); Venous Blood Gas O2 Sat % 98.3 %; Venous Blood Gas pCO2 48 mmHg (35-48); Venous Blood Gas pH 7.46 (7.32-7.43); Venous Blood Gas pO2 170 mmHg (30-50)
[2024-04-09 05:31] LABS: Venous Blood Gas O2 Therapy 5L/min
[2024-04-09 05:40] LABS: % Basophils 0.1 % (0-2); % Immature Granulocytes 0.5 % (0-0.5); % Lymphocytes 3.5 % (20.5-51.1); % Monocytes 3.1 % (1.7-9.3); % Neutrophils 92.8 % (42.2-75.2); Absolute Immature Granulocytes 0.1 10^3/uL (0-0.05); Absolute Lymphocytes 0.5 10^3/uL (1.2-3.4); Absolute Monocytes 0.4 10^3/uL (0.1-0.6); Absolute Neutrophils 13.2 10^3/uL (1.4-6.5); Hematocrit 23.3 % (37.0-47.0); Mean Corpuscular Hgb 26.1 pg (27.0-31.0); Mean Corpuscular Volume 86.9 fL (81.0-99.0); Nucleated Red Blood Cells % 0 %; Platelet Count 416 10^3/uL (130-400); Red Blood Cell Count 2.68 10^6/uL (4.20-5.40); Red Cell Dist. Width 16.8 % (11.5-14.5); White Blood Cell Count 14.2 10^3/uL (4.8-10.8)
[2024-04-09 06:06] LABS: Troponin I 0.087 ng/ml
[2024-04-09] MEDS: MORPHINE SULFATE 15 MG TUBE ×4 (06:08→19:58)
[2024-04-09 06:26] LABS: ALT (SGPT) 15 U/L (0-35); AST (SGOT) 22 U/L (14-36); Albumin 3.5 g/dl (3.5-5.0); Alkaline Phosphatase 167 U/L (38-126); Blood Urea Nitrogen 13 mg/dl (7-17); Calcium 9.3 mg/dl (8.4-10.2); Carbon Dioxide 32 mmol/L (22-30); Chloride 95 mmol/L (98-107); Estimated Creatinine Clearance 60 ml/min; Glucose 129 mg/dl (70-99); Potassium 5.1 mmol/L (3.5-5.1); Sodium 139 mmol/L (135-145); Total Bilirubin < 0.1 mg/dl (0.2-1.3); Total Protein 7.4 g/dl (6.3-8.2); eGFR > 60.00
[2024-04-09 06:32] LABS: NT-proBNP 3200 pg/ml
[2024-04-09] MEDS: ATROVENT NEBULES 0.5 MG INH ×3 (07:53→19:45)
[2024-04-09] MEDS: XOPENEX 1.25 MG INHALANT SOLUTION INH ×3 (07:53→19:45)
[2024-04-09 08:35] LABS: Erythrocyte Sed Rate 88 mm/hour (0-20)
--- NOTE | 2024-04-09 09:06 | W.PN.ID1 ---
Date of Service
Date of Service: April 09, 2024
Today's Communication
c/w ceftriaxone
awaiting biopsy
Assessment / Plan
Splenic Infarction
Liver mass abscess vs malignancy
Profound cachexia
- follow up CT a/p
- TTE no valvular lesions
- denies taking any immunosuppressive drugs beyond her low dose steroids for many years, denies injections
- leukocytosis likely due to steroids
- blood cultures x2 in progress - no growth to date
- awaiting [facility] records - chart checked not yet available
- c/w empiric ceftriaxone - procalcitonin not validated to assess for hepatic abscess
- plan biopsy of liver mass for path/culture
Acute Hypoxemic Resp Failure
Scleroderma with known ILD
- covid and influenza both negative
- CT chest with GGOs, liver mass and splenic infarct also noted
- agree with steroids
- suspect pulmonary edema vs viral cause vs ILD flare - with respiratory viral illness over the weekend
AW
Chief Complaint
-: Leukocytosis and Other (liver abscess)
Subjective / Review of Systems
afebrile overnight
anxiety noted by staff overnight, otherwise no events
agrees to liver biopsy
Vital Signs / Physical Exam
Vital Signs
Vital Signs
Temp Pulse Resp BP Pulse Ox
97.8 F 56 20 116/77 100
04/09/24 07:58 04/09/24 07:57 04/09/24 07:57 04/09/24 06:00 04/09/24 07:57
Physical Exam
Constitutional: No Acute Distress
Cardiovascular: Regular Rate and S1/S2; Negative Murmur or Rub
Pulmonary: Clear and Symmetric; Negative Wheezes or Rales
Gastrointestinal: Soft, Non Tender, Non Distended and Normal Bowel Sounds
Skin: Warm and Dry; Negative Rash or Jaundice
Objective Data
Lab Data
Lab Results
04/09/24 05:21
04/09/24 05:21
ESR 88 mm/hour (0-20) H 04/09/24 05:21
Estimated Creat Clear 60 ml/min 04/09/24 05:21
Lactic Acid Cancelled 04/08/24 05:33
Total Bilirubin < 0.1 mg/dl (0.2-1.3) L 04/09/24 05:21
AST 22 U/L (14-36) 04/09/24 05:21
ALT 15 U/L (0-35) 04/09/24 05:21
Alkaline Phosphatase 167 U/L (38-126) H 04/09/24 05:21
C-Reactive Protein 44.10 mg/L (0.0-10.00) H 04/09/24 05:21
BNP 3200
Most recent labs reviewed.
MRSA screen was sent - pending
Micro Results:
04/08/24 06:02 Blood Culture - Preliminary
Blood/Venous No Growth in 24 hours- Final report to follow
04/08/24 06:02 Blood Culture - Preliminary
Blood/Venous No Growth in 24 hours- Final report to follow
04/08/24 15:10 MRSA Screen - Pending
Nose
04/08/24 05:18 Influenza Types A & B (ERIS) - Final
Nasal Swab Negative for Influenza A & B, NAAT
Negative results must be combined with clinical observations
and patient history.
Nucleic Acid Amplification test (NAAT)performed on the
[employer] platform.
--- NOTE | 2024-04-09 09:40 | W.PN.PUL3 ---
Today's Communication / Plan
-
Follow up MRI abd/pelvis --> depending on results, patient may need biopsy if there is concern for neoplasia, with Bx to be done at [facility] (as previously planned)
If MRI abd/pelvis shows concern for an abscess then she will need drainage sooner, which will be done here
IR following
Continue systemic steroids, trend inflammatory markers
Abx as per ID; follow up infectious workup
Keep sats >90-94%
Continue systemic steroids with wean as tolerated
Recommend palliative care consult to discuss GOC given she is cachectic, and apparently she mentioned hospice yesterday to the nursing staff
Assessment
-
Assessment: 64-year-old female with a past medical history of systemic sclerosis with scleroderma associated ILD, pulmonary hypertension, chronic hypoxic respiratory failure on 4 L/min, GERD, esophageal stricture s/p PEG tube placement, history of
mitral regurgitation, history of aspiration pneumonia, former tobacco smoker, history of lung nodule and history of A-fib who presents with SOB X 2 days. She was scheduled to go to [facility] this afternoon for a liver biopsy due to a liver
lesion seen on imaging at [facility]. She was apparently recently admitted at [facility] and went home this past Monday. Initial vitals in the ER showed she was afebrile to 90 �F, BP 136/87, heart rate 119 and saturating 90% on 5 L/min nasal
cannula. Repeat rectal temperature about 20 minutes after initial ER vitals showed she was febrile to 101.2 �F. Initial vitals showed normal WBC at 10.7, anemia to 7.4, serum bicarbonate level 32, iron saturation of 10, troponin 0.194, ALP 188,
and COVID antigen negative. Flu A/B swab also negative, and blood cultures were collected. CXR showed no acute cardiopulmonary process. CTA chest showed no acute PE with a large focal heterogeneous hypodensity in the left lobe of the liver
suspicious for neoplasm. Also a band shaped focus of hypodensity in the spleen concerning for splenic infarct. There is increased reticular + groundglass opacities bilaterally suggestive of pulmonary edema. In the ER she was given albuterol,
Decadron 10 mg, morphine, IVF with NS 0.9% 250cc + Ofirmev. She was admitted to the IMU for further care and pulmonary service now consulted for additional management/recommendations.
Chronic conditions BILINGUAL OFFICE ASSISTANT: Scleroderma associated ILD, pulmonary hypertension, GERD, esophageal stricture s/p PEG tube placement, mitral regurgitation, history of aspiration pneumonia, former tobacco smoker, Raynaud's phenomenon, chronic hypoxic
respiratory failure on 4 L/min, history of left lower lobe pulmonary nodule, personal history COVID-19 (April 2022), history of A-fib
Impression:
#Febrile illness
#Acute on chronic hypoxic respiratory failure likely due to ILD-flare +/- acute pulmonary edema
#Primary metabolic alkalosis with appropriate respiratory compensation
#Elevated troponin likely demand ischemia with type II LA
#History of RV enlargement with RV systolic dysfunction, mild�moderate MR and moderate�severe TR (via TTE from June 2023)
#Chronic anemia (baseline Hb: 7.5�9g/dL) with iron deficiency anemia
#Elevated alkaline phosphatase (appears chronic with ALP levels ranging between 127�180 since June 2023)
#Heterogeneous hypodensity seen in left lower liver suspicious for neoplasm vs abscess
#Splenic infarct
#History of scleroderma associated ILD
#Systemic sclerosis with history of esophageal dysmotility s/p GJ tube
Plan:
- Given her CT chest findings with bilateral reticular + groundglass opacities there is concern for acute ILD flare
-Inflammatory markers are elevated with ESR 88 + CRP: 44.1
- Continue systemic steroids
- Currently on Decadron 4mg IV q8hr --> wean down to 4mg IV q12hr --> continue to wean as she clinically improves
- She does have a small R-sided pleural effusion and her GGO are central, making acute decompensated heart failure likely
- If no improvement with steroids then would start diuresis; check echo (done today - follow up results); proBNP elevated at 3200, which is lower than what she was in Jun-Jul 2023
- Monitor H/H and transfuse if needed to keep Hb>7g/dL; keep plt>20k
- trend LFTs; consult IR for liver Bx given her CTA chest findings with a heterogeneous hypodensity in the left lower liver suspicious for neoplasia/malignancy
- Check MRI abd/pelvis to eval further; if there is concern for an abscess then she will need to be drained while here; if there is still concern for malignancy then she will get this done at [facility] - I confirmed this to be the plan with IR today
with Dr. Peace
- Troponin has peaked at 0.194 and there is no need to continue trending at this time
- Maintain SpO2 >90-94% with supplemental O2 and wean as tolerated
- trend serum HCO3 and pCO2 levels - AM VBG this shows shows stable metabolic alkalosis (pH: 7.46, pCO2: 48) --> no need to continue trending blood gasses
- Incentive spirometer encouraged 10x per hour for at least 4 hours a day
- Continue nebulized bronchodilators with xopenex and atrovent, with prn doses for breakthrough symptoms
- ID consulted and empiric ceftriaxone started; procalcitonin WNL at 0.14 on 04/08/2024
- Monitor fever curve and trend WBC (although she is now on steroids so expect to be elevated)
- Follow up blood Cx collected x 2 on 04/08/2024
- Trend H/H and transfuse if needed to keep Hb>7g/dL; keep plt>20k
- Replete electrolytes with K>4, Mg>2
- Maintain euglycemia with goal BG >100 and <180
- DVT ppx: LMWH
- Poor prognosis
Code status: DNR/DNI
Given her chronic illness with cachectic appearance, it would not be unreasonable to discuss goals of care and consider hospice.
Pulmonary service will continue to follow along. She had previously followed with us in May [address] Agarwal and was told to continue following with us as needed and in 2 continue following with her primary nurse esthetician/ILD specialist
through [facility] with Dr. Pedersen.
Data:
CTA Chest 04/08/2024:
There is a large focal area of heterogeneous decreased density within the visualized left lobe of the liver, and this is highly suspicious for neoplasia/malignancy. Consider further evaluation with CT of the abdomen and pelvis.
Band-shaped focus of decreased density within the superior spleen, which likely represents an area of splenic infarction, new from examination of September 26, 2023.
Increased reticular and groundglass opacities within both lungs, which appear to have increased compared to CT examination of June 07, 2022. Findings would suggest the possibility of pulmonary edema superimposed on chronic changes from
scleroderma. Minimal right pleural effusion with trace amount of left pleural fluid.
Total time spent today was 52 minutes for this encounter. Time includes reviewing laboratory test/imaging results, reviewing pertinent medical records, obtaining and reviewing medical history, performing an appropriate exam, ordering medications,
tests and procedures. Time also includes documentation of this encounter, coordinating patient care and communicating with other healthcare professionals. Total time does not include separately billed tests performed on this date of service.
Subjective Data
-
Date of Service:
Date of Service: April 09, 2024
Chief Complaint: Pulmonary Follow Up
Subjective:
Patient was seen and evaluated this morning. Afebrile overnight. She is sitting in chair with her at bedside. She is currently on 4 L/min nasal cannula, saturating 98%. Heart rate 95 and BP 97/69. She says she is breathing better as
well. She denies chest pain, CHATTERJEE, abdominal pain, nausea, fevers or chills.
Review of Systems
General: Other (Negative unless mentioned above)
Objective Data
Data Reviewed
Vital Signs / I&O / Oxygen:
Vital Signs
Temp Pulse Resp BP Pulse Ox
97.8 F 86 14 107/75 100
04/09/24 07:58 04/09/24 08:00 04/09/24 08:00 04/09/24 08:00 04/09/24 08:00
SaO2 100
Nasal Cannula flow liters per 4
minute
Physical Exam
General: Respiratory Distress (negative), Comfortable, Chills (negative), Sweats (negative) and Other (Cachectic/chronically ill appearing)
HEENT: Normocephalic and Anicteric
Cardiovascular: Irregular Rhythm (Irregularly irregular), Peripheral Edema (negative) and Other (normal rate)
Respiratory: Wheeze (negative), Crackles (Bilateral), Rhonchi (negative) and Non-Labored Respirations
GI: Soft, Non Distended, Non Tender, Normal Bowel Sounds and Feeding Tube
Neurology: Awake, Alert and Tremors (negative)
Skin: Warm, Dry and Cyanosis (negative)
Labs/Micro/Reports
Lab Data
04/09/24 05:21
04/09/24 05:21
Microbiology
04/08/24 06:02 Blood/Venous Blood Culture - Preliminary
No Growth in 24 hours- Final report to follow
04/08/24 06:02 Blood/Venous Blood Culture - Preliminary
No Growth in 24 hours- Final report to follow
04/08/24 05:18 Nasal Swab Influenza Types A & B (ERIS) - Final
Negative for Influenza A & B, NAAT
Negative results must be combined with clinical observations
and patient history.
Nucleic Acid Amplification test (NAAT)performed on the
[employer] platform.
[2024-04-09] MEDS: DECADRON 4 MG IV ×2 (10:11→19:42)
[2024-04-09] MEDS: PREVACID 30 MG TUBE (10:11)
--- NOTE | 2024-04-09 10:33 | W.PN.HOSP.TC ---
Addendum entered and electronically signed by Albert Hernandez MD 04/10/24 09:45:
Oncology not GI consult placed
Original Note:
Today's Communication/Plan
-
see PN
Assessment / Plan
Assessment / Plan
64yo F with PMHX of scleroderma, dysphagia, esophageal stricture with PEG, anxiety, anemiam chronic hypoxic respiratory failure on 4L O2 at home 2/2 ILD came to the with worsening SOB also found elevated temperature, managed for ILD exacerbation.
CTA chest showed focal heterogenous liver lesion, possible malignancy - known to patient and recently was scheduled for biopsy in [facility]. As per ID - cannot r/o liver abscess. Patient declined lesion drain/biopsy in at this time. Also declined
direct transfer to [facility]. SHe is persistent in her wishes and justified her choice with the fact that lesion was already in the w/u process in [facility] and she wants to come back there for further mgmt but after getting some rest at home.
A/P:
#ILD flare
continue steroids
Pulm follows
bronchodilators
Incentive spirometry
#Small R pleural effusion
#Pulmonary HTN
#Mild-moderate MR
No other clinical findings of CHF
Echo pennding
proBNP 3200 - less then previous
#Anemia of chronic disease with ANYLA (most likely 2/2 malnutrition)
monitor hgb
no overt bleeding
Hold off iron supplement with concern for infection
#Liver lesion
planned for biopsy in [facility]
ID follows: started epiric Rocephin with concern for abscess
ESR/.CRP elevated
#LEukocytosis and fever
concern for liver abscess
Abx and ID follows
Bcx NTD
can be exacerbated by steroids
#Scleroderma
cont home meds
#Dysphagia with severe protein calorie malnutrition
as per category development manager - Javity 1.5@45ml.h cont
tube feedings
SE[employer] TE[employer] LIBRARIAN - start soft and byte sized diet with thin liquids
#Non-ischemic troponin elevation
trop is lower then previous baseline
Check Echo
cont Telemetry
EKG without ST elevation
#Chronic pain
cont home meds
#Chronic alk.phos elevation
2/2 chronic disease
DVT ppx Lovenox
DNR/DNI
I have spent at least 58min reviewing the chart, test results and direct patient care
Anticipated Discharge: > 48 hours
Subjective/Interval History
-
Date of Service: April 09, 2024
Objective Data
-
Labs:
Laboratory Results
04/09/24
05:21
WBC 14.2 H
Hgb 7.0 L
Hct 23.3 L
Plt Count 416 H
Sodium 139
Potassium 5.1
Chloride 95 L
Carbon Dioxide 32 H
BUN 13
Creatinine 0.4 L
Glucose 129 H
Calcium 9.3
Total Bilirubin < 0.1 L
AST 22
ALT 15
Alkaline Phosphatase 167 H
Vital Signs:
Vital Signs
Temp Pulse Resp BP Pulse Ox
97.8 F 86 14 107/75 100
04/09/24 07:58 04/09/24 08:00 04/09/24 08:00 04/09/24 08:00 04/09/24 08:00
Review of Systems
-
History Source: Patient
All other systems: Reviewed and negative
Physical Exam
-
General: No Apparent Distress and Appears Chronically Ill
HEENT: Normocephalic
Cardiac: Regular Rhythm and Tachycardic
GI: Soft, Nontender and Nondistended
Musculoskeletal: No Clubbing
Skin: Warm
Neuro: Awake, Alert, Oriented and AO x 3
Psych: Calm
--- NOTE | 2024-04-09 13:27 | WOUNDNOTE ---
SACRUM WITH PHOTO FLASH
--- NOTE | 2024-04-09 13:30 | WOUNDNOTE ---
WON RN note: Patient admitted with acute on chronic respiratory failure, chest pain and elevated troponin.
See H&P for complete history. Lives at home with significant other.
PMH: NIDDM, Dysphagia, strokes, ex smoker, scleroderma, skin grafts post cyst removal, peg tube, anorexia.
Wound Location and type/assessment: Patient know to service, admitted with: Healing stage 2 vs healing stage 3 PI on Coccyx, improved since last admission. L elbow with healing ulcer, was unstageable PI last admission, now base clean pink with some
marbled yellow fibrin. Patient states a wound nurse visits her home and using Santyl for L elbow. R elbow intact and heels blanchable pink. Patient sitting in recliner, able to stand up on own.
Appetite:G-J tube, feeds starting today and PO foods also per nurse. Encourage protein in diet.
Pressure redistribution devices in place: On Air mattress, can be on Accumax, or air overlay, turns self.
Plan: L elbow cleaned with saline, adaptic and silicone foam with Spandage applied. Recommend starting collagen dressing with foam to secure, q 2-3 days and prn drainage. Offload elbow with pillow. Called [facility] for Collagen dressing, nurse Chelsie made
aware. Sacrum applied silicone foam to be changed q 2-3 days, air chair cushion in use. Will confirm orders with hospitalist and update care plan. Will follow as needed.
Note to case management of equipment requested for discharge: Continue VN.
Recommend follow up at wound care center upon discharge.
[2024-04-09] MEDS: MAGONATE 86 MG TUBE (14:32)
[2024-04-09] MEDS: ATIVAN 1 MG TUBE (16:07)
--- NOTE | 2024-04-09 16:32 | PTCARENOTE ---
pt off monitor for MRI.
[2024-04-09] MEDS: ROCEPHIN 2000 MG IV (17:56)
[2024-04-09] MEDS: STERILE WATER FOR INJECTION 20 ML IV (17:56)
[2024-04-09] MEDS: CRESTOR 40 MG TUBE (19:42)
[2024-04-09] MEDS: NSS (PRESERVATIVE FREE) 10 ML IV (19:42)
[2024-04-09] MEDS: PROTONIX IV 40 MG IV (19:42)
[2024-04-09] MEDS: ZYPREXA 10 MG TUBE (19:42)
[2024-04-09] MEDS: ZOLOFT 100 MG TUBE (19:42)
[2024-04-09] MEDS: MELATONIN 3 MG TUBE (19:42)
[2024-04-09] MEDS: TYLENOL 1000 MG TUBE (19:58)
[2024-04-09 20:18] LABS: Hemoglobin 7.5 g/dL (12.0-16.0)
--- NOTE | 2024-04-09 22:24 | PTCARENOTE ---
Caring for pt overnight. aaox3, flat affect. SR w/ frequent PVC & PAC, vent. bigem. NO CP, NO SOB. Remains on 4LNC, tolerating well. Still c/o pain in abdomen, morphine & tyl. PRN given. Continues to be on jevity 1.5 25/hr. Will increase to goal as
tolerated. NO N/V/D. OOB to [facility] as needed. No other issues at this time. Will monitor.
[2024-04-10] VITALS (13 sets, daily range): BP systolic 90–122; BP diastolic 50–78; BMI 13.7
[2024-04-10] MEDS: MORPHINE SULFATE 15 MG TUBE ×4 (00:31→19:43)
--- NOTE | 2024-04-10 04:07 | DOWNTIME ---
There was a [employer] Client Topographical Drafter Downtime on 04/10/2024 from 0100 to 04/10/2024 at 0355. Downtime documentation of patient's care, including medication administrations, has been reconciled in the electronic record per guidelines. Refer to the
patient's paper chart under the miscellaneous tab to see printed paper medication records and downtime forms.
[2024-04-10 05:26] LABS: % Basophils 0.1 % (0-2); % Eosinophils 0.2 % (0-6); % Immature Granulocytes 0.7 % (0-0.5); % Lymphocytes 3.5 % (20.5-51.1); % Monocytes 5.5 % (1.7-9.3); Absolute Immature Granulocytes 0.1 10^3/uL (0-0.05); Absolute Lymphocytes 0.5 10^3/uL (1.2-3.4); Absolute Monocytes 0.8 10^3/uL (0.1-0.6); Absolute Neutrophils 13.4 10^3/uL (1.4-6.5); Hematocrit 23.8 % (37.0-47.0); Hemoglobin 7.2 g/dL (12.0-16.0); Mean Corp Hgb Conc. 30.3 g/dL (33.0-37.0); Mean Corpuscular Hgb 25.5 pg (27.0-31.0); Mean Corpuscular Volume 84.4 fL (81.0-99.0); Mean Platelet Volume 11.3 fL (7.4-10.4); Nucleated Red Blood Cells % 0 %; Platelet Count 368 10^3/uL (130-400); Red Blood Cell Count 2.82 10^6/uL (4.20-5.40); Red Cell Dist. Width 16.7 % (11.5-14.5); White Blood Cell Count 14.9 10^3/uL (4.8-10.8)
[2024-04-10 05:47] LABS: ALT (SGPT) 18 U/L (0-35); AST (SGOT) 27 U/L (14-36); Albumin 3.6 g/dl (3.5-5.0); Alkaline Phosphatase 147 U/L (38-126); Blood Urea Nitrogen 22 mg/dl (7-17); Calcium 9.2 mg/dl (8.4-10.2); Carbon Dioxide 33 mmol/L (22-30); Chloride 95 mmol/L (98-107); Estimated Creatinine Clearance 61 ml/min; Glucose 139 mg/dl (70-99); Potassium 5.1 mmol/L (3.5-5.1); Sodium 137 mmol/L (135-145); Total Bilirubin < 0.1 mg/dl (0.2-1.3); Total Protein 7.1 g/dl (6.3-8.2); eGFR > 60.00
[2024-04-10] MEDS: ATROVENT NEBULES 0.5 MG INH ×3 (07:23→19:37)
[2024-04-10] MEDS: XOPENEX 1.25 MG INHALANT SOLUTION INH ×3 (07:23→19:37)
--- NOTE | 2024-04-10 08:09 | W.PN.PUL3 ---
Today's Communication / Plan
-
MRI abdomen/pelvis shows multiple liver lesions suspected for hepatic metastasis. Defer liver biopsy to IR which may happen next week versus as an outpatient
Left portal vein thrombosis seen and would recommend starting systemic anticoagulation assuming Hb remained stable
Abx stopped as per ID to monitor off antibiotics, trending fever curve and WBC; follow up infectious workup
Continue systemic steroids, trend inflammatory markers --> if markers continue to downtrend then start extended, slow prednisone taper tomorrow
Keep sats >90-94% and check ambulatory pulse oximetry prior to discharge
Recommend palliative care consult to discuss GOC given she is cachectic, and apparently she mentioned hospice on admission to the nursing staff
Assessment
-
Assessment: 64-year-old female with a past medical history of systemic sclerosis with scleroderma associated ILD, pulmonary hypertension, chronic hypoxic respiratory failure on 4 L/min, GERD, esophageal stricture s/p PEG tube placement, history of
mitral regurgitation, history of aspiration pneumonia, former tobacco smoker, history of lung nodule and history of A-fib who presents with SOB X 2 days. She was scheduled to go to [facility] this afternoon for a liver biopsy due to a liver
lesion seen on imaging at [facility]. She was apparently recently admitted at [facility] and went home this past Monday. Initial vitals in the ER showed she was afebrile to 90 �F, BP 136/87, heart rate 119 and saturating 90% on 5 L/min nasal
cannula. Repeat rectal temperature about 20 minutes after initial ER vitals showed she was febrile to 101.2 �F. Initial vitals showed normal WBC at 10.7, anemia to 7.4, serum bicarbonate level 32, iron saturation of 10, troponin 0.194, ALP 188,
and COVID antigen negative. Flu A/B swab also negative, and blood cultures were collected. CXR showed no acute cardiopulmonary process. CTA chest showed no acute PE with a large focal heterogeneous hypodensity in the left lobe of the liver
suspicious for neoplasm. Also a band shaped focus of hypodensity in the spleen concerning for splenic infarct. There is increased reticular + groundglass opacities bilaterally suggestive of pulmonary edema. In the ER she was given albuterol,
Decadron 10 mg, morphine, IVF with NS 0.9% 250cc + Ofirmev. She was admitted to the IMU for further care and pulmonary service now consulted for additional management/recommendations.
Chronic conditions [employer] PART [employer]: Scleroderma associated ILD, pulmonary hypertension, GERD, esophageal stricture s/p PEG tube placement, mitral regurgitation, history of aspiration pneumonia, former tobacco smoker, Raynaud's phenomenon, chronic hypoxic
respiratory failure on 4 L/min, history of left lower lobe pulmonary nodule, personal history COVID-19 (April 2022), history of A-fib
Impression:
#Febrile illness - afebrile since 04/08/2024
#Acute on chronic hypoxic respiratory failure likely due to ILD-flare +/- acute pulmonary edema
#Primary metabolic alkalosis with appropriate respiratory compensation
#Elevated troponin likely demand ischemia with type II WI � troponin peaked at 0.194 on 04/08/2024
#History of RV enlargement with RV systolic dysfunction, mild�moderate MR and moderate�severe TR (via TTE from June 2023)
#Chronic anemia (baseline Hb: 7.5�9g/dL) with iron deficiency anemia
#Elevated alkaline phosphatase (appears chronic with ALP levels ranging between 127�180 since June 2023)
#Multiple large liver masses suspicious for hepatic metastatic disease
#Left portal vein thrombosis
#Splenic infarct
#History of scleroderma associated ILD
#Systemic sclerosis with history of esophageal dysmotility s/p GJ tube
Plan:
- Given her CT chest findings with bilateral reticular + groundglass opacities there is concern for acute ILD flare
-Inflammatory markers are elevated with ESR 88 + CRP: 44.1 --> continue to trend
- Continue systemic steroids
- Currently on Decadron 4mg IV q8hr --> on 04/09 I weaned down to 4mg IV q12hr --> continue to wean as she clinically improves; if inflammatory markers continue to downtrend tomorrow then would wean down steroids further to prednisone taper
beginning at 40mg daily and reduce by 10mg every 6th day until off; she will need extended, slow taper
- She does have a small R-sided pleural effusion and her GGO are central, making acute decompensated heart failure likely
-Considering that she is now at her home oxygen dose, no need to start diuresis at this time; echo done on 04/09/2024 shows mild�moderate eccentric MR, mild�moderate TR with preserved LVEF at 60 to 65% with normal RV size and function. Compared to
prior echo from June 2023 her TR is now mild�moderate compared to previous when it was moderate�severe; proBNP elevated at 3200, which is lower than what she was in Jun-Jul 2023
- Monitor H/H and transfuse if needed to keep Hb>7g/dL; keep plt>20k
- trend LFTs; consult IR for liver Bx given her CTA chest findings with a heterogeneous hypodensity in the left lower liver suspicious for neoplasia/malignancy
- Abdominal MRI done on 04/09/2024 shows multiple new large liver masses suspicious for hepatic metastatic disease --> defer liver biopsy to IR which will likely take place next week versus an outpatient
- Would start systemic AC for portal vein thrombosis assuming Hb is stable and near her baseline with no signs of active bleeding
- Troponin has peaked at 0.194 and there is no need to continue trending at this time
- Maintain SpO2 >90-94% with supplemental O2 and wean as tolerated
- trend serum HCO3 and pCO2 levels - AM VBG from 04/09/2024 shows shows stable metabolic alkalosis (pH: 7.46, pCO2: 48) --> no need to continue trending blood gasses
- Incentive spirometer encouraged 10x per hour for at least 4 hours a day
- Continue nebulized bronchodilators with xopenex and atrovent TID, with prn doses for breakthrough symptoms
- ID consulted and empiric ceftriaxone started; procalcitonin WNL at 0.14 on 04/08/2024 --> Abx now stopped as of 04/09
- Monitor fever curve and trend WBC (although she is now on steroids so expect to be elevated)
- Follow up blood Cx collected x 2 on 04/08/2024 (NGTD)
- Replete electrolytes with K>4, Mg>2
- Maintain euglycemia with goal BG >100 and <180
- DVT ppx: LMWH
- Poor prognosis
Code status: DNR/DNI
Given her chronic illness with cachectic appearance, it would not be unreasonable to discuss goals of care and consider hospice.
Pulmonary service will continue to follow along. She had previously followed with us in May [address] Agarwal and was told to continue following with us as needed and in 2 continue following with her primary roller checker/ILD specialist
through [facility] with Dr. Pedersen.
Data:
CTA Chest 04/08/2024:
There is a large focal area of heterogeneous decreased density within the visualized left lobe of the liver, and this is highly suspicious for neoplasia/malignancy. Consider further evaluation with CT of the abdomen and pelvis.
Band-shaped focus of decreased density within the superior spleen, which likely represents an area of splenic infarction, new from examination of September 26, 2023.
Increased reticular and groundglass opacities within both lungs, which appear to have increased compared to CT examination of June 07, 2022. Findings would suggest the possibility of pulmonary edema superimposed on chronic changes from
scleroderma. Minimal right pleural effusion with trace amount of left pleural fluid.
Abdominal MRI 04/09/2024:
1. Multiple new large liver masses are highly suspicious for hepatic metastatic disease with the largest measuring up to 7.4 cm in the left hepatic lobe.
2. Thrombosis of the left portal vein.
3. Suspicion for shantelle metastases in the upper abdomen and retroperitoneum.
4. New wedge-shaped splenic infarct at the periphery of the spleen.
5. Stable small posterior right hepatic lobe hemangioma.
6. Percutaneous gastrojejunostomy tube.
Total time spent today was 37 minutes for this encounter. Time includes reviewing laboratory test/imaging results, reviewing pertinent medical records, obtaining and reviewing medical history, performing an appropriate exam, ordering medications,
tests and procedures. Time also includes documentation of this encounter, coordinating patient care and communicating with other healthcare professionals. Total time does not include separately billed tests performed on this date of service.
Subjective Data
-
Date of Service:
Date of Service: April 10, 2024
Chief Complaint: Pulmonary Follow Up
Subjective:
Patient was seen and evaluated this morning. Underwent MRI abdomen/pelvis yesterday showing multiple lesions in the liver. Current heart rate 103, BP 150 and saturating 100% on 4 L/min nasal cannula. She has no respiratory complaints, denying
SOB, cough or chest pain; also denies CHATTERJEE, abdominal pain, fevers or chills.
Review of Systems
General: Other (Negative unless mentioned above)
Objective Data
Data Reviewed
Vital Signs / I&O / Oxygen:
Vital Signs
Temp Pulse Resp BP Pulse Ox
97.5 F 97 14 104/62 99
04/10/24 04:24 04/10/24 07:29 04/10/24 07:29 04/10/24 06:00 04/10/24 07:29
SaO2 99
Nasal Cannula flow liters per 4
minute
Physical Exam
General: Respiratory Distress (negative), Comfortable, Chills (negative), Sweats (negative) and Other (Cachectic/chronically ill appearing)
HEENT: Normocephalic and Anicteric
Cardiovascular: Irregular Rhythm (Irregularly irregular), Peripheral Edema (negative) and Other (normal rate)
Respiratory: Wheeze (negative), Crackles (Bilateral), Rhonchi (negative) and Non-Labored Respirations
GI: Soft, Non Distended, Non Tender, Normal Bowel Sounds and Feeding Tube
Neurology: Awake, Alert and Tremors (negative)
Skin: Warm, Dry and Cyanosis (negative)
Labs/Micro/Reports
Lab Data
04/10/24 05:06
04/10/24 05:06
Microbiology
04/08/24 06:02 Blood/Venous Blood Culture - Preliminary
No Growth in 48 hours- Final report to follow
04/08/24 06:02 Blood/Venous Blood Culture - Preliminary
No Growth in 48 hours- Final report to follow
04/08/24 05:18 Nasal Swab Influenza Types A & B (ERIS) - Final
Negative for Influenza A & B, NAAT
Negative results must be combined with clinical observations
and patient history.
Nucleic Acid Amplification test (NAAT)performed on the
[employer] platform.
[2024-04-10] MEDS: DECADRON 4 MG IV ×2 (08:18→19:44)
[2024-04-10] MEDS: NSS (PRESERVATIVE FREE) 10 ML IV ×2 (08:18→19:44)
[2024-04-10] MEDS: PROTONIX IV 40 MG IV ×2 (08:19→19:43)
--- NOTE | 2024-04-10 09:10 | PN.CDI ---
Addendum entered and electronically signed by Albert Hernandez MD 04/11/24 15:03:
no sepsis
Original Note:
CDI
- -
CDI:
Physician Documentation Request
Admit Date: 04/08/24 11:24
Dear Doctor David,
Please review the following and provide your response in the progress notes.
Clinical Indicators:
- WBC 14.2, TMax 101.2, HR 100-120's
- IV abx Ceftriaxone
- 04/09 ID ' with respiratory viral illness'
- 04/09 PN 'ILD Flare'
- 04/09 Pulmonary 'Acute on chronic hypoxic respiratory failure likely due to ILD-flare'
Please clarify which most accurately describes the patient:
Sepsis due to viral illness
SIRS due to a ILD flare with acute respiratory failure
Other
Use of terms such as suspected, likely, concern for, or probable (associated with a specific diagnosis that is being evaluated, monitored, or treated as if it exists) are acceptable and can be coded in the inpatient setting, when documented at the
time of discharge.
Thank you,
Cordelia Goldman RN
CDI Specialist
Please use your independent medical judgment in providing your response.
--- NOTE | 2024-04-10 09:23 | W.PN.UPDATE ---
Update Note
Progress Note Update
I saw and evaluated the patient. I reviewed the resident�s separately documented note and agree with findings and plan as documented in the resident�s note with the following additions/corrections:
SOAP
S:
abdominal pain overnight
no other events
O:
hypothermic overnight to 95.0 rectal, bp overall stable, HR normal, rr normal
Physical Exam
Constitutional: No Acute Distress
Cardiovascular: Regular Rate and S1/S2; Negative Murmur or Rub
Pulmonary: Clear and Symmetric; Negative Wheezes or Rales
Gastrointestinal: Soft, Non Tender, Non Distended and Normal Bowel Sounds
Skin: Warm and Dry; Negative Rash or Jaundice
DLOA: PEG in place - no erythema, warmth or drainage
A&P
Splenic Infarction
Liver mass: most likely malignancy
Profound cachexia
- Abd MRI reviewed: multiple liver masses, thrombosis L portal vein, shantelle mets upper abd and retroperitoneum, splenic infarction
- TTE no valvular lesions
- denies taking any immunosuppressive drugs beyond her low dose steroids for many years, denies injections
- leukocytosis likely due to steroids
- blood cultures x2 in progress - no growth to date
- awaiting [facility] records - chart checked not yet available
- stopped ceftriaxone - MRI most consistent with cancer
- plan biopsy of liver mass for path/culture
Acute Hypoxemic Resp Failure
Scleroderma with known ILD
- covid and influenza both negative
- CT chest with GGOs, liver mass and splenic infarct also noted
- agree with steroids
- suspect pulmonary edema vs viral cause vs ILD flare - with respiratory viral illness over the weekend
Nothing further to add from ID standpoint at this time. ID service will no longer actively follow this patient please recall for further questions
AW
--- NOTE | 2024-04-10 09:34 | PN.CDI ---
CDI
- -
CDI:
Physician Documentation Request
Admit Date: 04/08/24 11:24
Dear Doctor David,
Please review the following and provide your response in the progress notes.
Clinical Indicators:
- 04/08 Rn skin assessments indicate:
- Stage 2 sacrum pressure injury, POA
- Stage 3 left elbow pressure injury, POA
Physician documentation of the type and location of wounds is required for compliant documentation. Based on the above clinical findings and your assessment, please provide the following in your progress note:
1. Location of the ulcer/wound, including laterality.
2. Type (etiology) of ulcer/wound:
- Diabetic ulcer
- Arterial (ischemic) ulcer
- Traumatic wound
- Venous stasis ulcer
- Pressure (decubitus) ulcer
- Non-healing surgical wound
- Other
- Unable to determine
Use of terms such as suspected, likely, concern for, or probable (associated with a specific diagnosis that is being evaluated, monitored, or treated as if it exists) are acceptable and can be coded in the inpatient setting, when documented at the
time of discharge.
Thank you,
Cordelia Goldman RN
CDI Specialist
Please use your independent medical judgment in providing your response.
*Source: National Pressure Ulcer Advisory Panel (NPUAP)
--- NOTE | 2024-04-10 09:36 | W.PN.HOSP.TC ---
Today's Communication/Plan
-
[facility] for biopsy
hold anticoagulation, pending GI consult
cont Rocephin and steroids - lap polisher does titration
Assessment / Plan
Assessment / Plan
64yo F with PMHX of scleroderma, dysphagia, esophageal stricture with PEG, anxiety, anemiam chronic hypoxic respiratory failure on 4L O2 at home 2/2 ILD came to the with worsening SOB also found elevated temperature, managed for ILD exacerbation.
CTA chest showed focal heterogenous liver lesion, possible malignancy - known to patient and recently was scheduled for biopsy in [facility] [place]. As per ID - cannot r/o liver abscess. Agreeable for biopsy of the liver lesion
A/P:
#PVT
#Splenic infarct
will need anticoagulation, will hold off pending liver biopsy since high bleeding risk
GI consult
#Cachexia 2/2 chronic disease and poor oral intake
Cont tube feeds
#ILD flare
continue steroids - improved to baseline
Pulm follows
bronchodilators
Incentive spirometry
#Small R pleural effusion
#Pulmonary HTN
#Mild-moderate MR
No other clinical findings of CHF
Echo: EF 60%, mild-moderate MR (improved from prior severe), moderate pulmonary HTN
proBNP 3200 - less then previous - no concern for decompensation
#Anemia of chronic disease with NAYLA (most likely 2/2 malnutrition)
monitor hgb
no overt bleeding
Hold off iron supplement with concern for infection
#Multiple large liver masses
#Suspiscion for retroperitoneal mets
#Hepatic hemangioma, small
MRI done - planned for biopsy by [facility]
ID follows: started empiric Rocephin with concern for abscess
ESR/CRP elevated
#Leukocytosis and fever
concern for liver abscess
Abx and ID follows
Bcx NTD
can be exacerbated by steroids
#Scleroderma
cont home meds
#Dysphagia with severe protein calorie malnutrition
as per engineering design supervisor - Javity 1.5@45ml.h cont
tube feedings
STEEL ROLLER - start soft and byte sized diet with thin liquids
#Non-ischemic troponin elevation
trop is lower then previous baseline
Check Echo
cont Telemetry
EKG without ST elevation
#Chronic pain
cont home meds
#Chronic alk.phos elevation
2/2 chronic disease
DVT ppx Lovenox
DNR/DNI
I have spent at least 58min reviewing the chart, test results and direct patient care
Anticipated Discharge: > 48 hours
Subjective/Interval History
-
Date of Service: April 10, 2024
Objective Data
-
Labs:
Laboratory Results
04/10/24
05:06
WBC 14.9 H
Hgb 7.2 L
Hct 23.8 L
Plt Count 368
Sodium 137
Potassium 5.1
Chloride 95 L
Carbon Dioxide 33 H
BUN 22 H
Creatinine 0.5 L
Glucose 139 H
Calcium 9.2
Total Bilirubin < 0.1 L
AST 27
ALT 18
Alkaline Phosphatase 147 H
Vital Signs:
Vital Signs
Temp Pulse Resp BP Pulse Ox
97.5 F 97 14 104/62 99
04/10/24 04:24 04/10/24 07:29 04/10/24 07:29 04/10/24 06:00 04/10/24 07:29
Review of Systems
-
History Source: Patient
All other systems: Reviewed and negative
Physical Exam
-
General: No Apparent Distress and Cachectic
HEENT: Normocephalic
Respiratory: Clear to Auscultation
GI: Soft and Peg Tube
Neuro: Awake, Alert, Oriented and AO x 3
Psych: Calm
--- NOTE | 2024-04-10 11:38 | PTCARENOTE ---
Contacted [facility], pt will need to be NPO after midnight for liver biopsy tomorrow. Pt educated. TF will be turned off at midnight. Pt and family educated
--- NOTE | 2024-04-10 11:44 | CON.IR ---
Medical History
Allergies / Home Medications
Allergy/AdvReac Type Severity Reaction Status Date / Time
No Known Allergies Allergy Verified 04/08/24 04:31
�Medication �Instructions �Recorded �Confirmed �Type
acetaminophen 500 mg tablet 1,000 mg feeding tube Q8HPRN PRN 09/26/23 04/08/24 History
mild pain
linaclotide 290 mcg capsule 290 mcg G-tube DAILYPRN PRN 09/26/23 04/08/24 History
(Linzess) CONSTIPATION
lorazepam 1 mg tablet 1 mg feeding tube [id number] PRN 09/26/23 04/08/24 History
anxiety
magnesium oxide 400 mg feeding tube NOON Supplement 09/26/23 04/08/24 History
naloxegol 25 mg tablet (Movantik) 25 mg PO DAILYPRN PRN CONSTIPATION 09/26/23 04/08/24 History
##0
olanzapine 5 mg tablet 10 mg feeding tube HS Neurological 09/26/23 04/08/24 History
Condition
pantoprazole 40 mg tablet,delayed 40 mg PO BID Gastrointestinal 09/26/23 04/08/24 History
release (Protonix) Issue ##0
prednisone 5 mg tablet 5 mg feeding tube NOON 09/26/23 04/08/24 History
anti-inflammation
sertraline 100 mg tablet 100 mg feeding tube HS Mental 09/26/23 04/08/24 History
Health
morphine 15 mg immediate release 15 mg feeding tube Q4HPRN PRN 02/05/24 04/08/24 History
tablet SEVERE PAIN
ondansetron HCl 4 mg tablet 4 mg feeding tube Q8HPRN PRN NAUSEA 02/05/24 04/08/24 History
melatonin 3 mg tablet 3 mg feeding tube HS Sleep 02/26/24 04/08/24 History
naloxone 0.4 mg/mL injection 0.4 mg SC DAILYPRN PRN opioid 04/08/24 04/08/24 History
solution overdose
rosuvastatin 40 mg tablet 40 mg feeding tube HS High 04/08/24 04/08/24 History
Cholesterol
Physical Exam
Vital Signs
Temp Pulse Resp BP Pulse Ox
97.5 F 97 14 104/62 99
04/10/24 04:24 04/10/24 07:29 04/10/24 07:29 04/10/24 06:00 04/10/24 07:29
Lab Results
04/10/24 05:06
04/10/24 05:06
Troponin I Cancelled 04/09/24 08:00
Elx-O-Umgyeowhtcc Pept 3200 pg/ml 04/09/24 05:21
Assessment / Plan
-
Multiple hepatic lesions concerning for metastases. No evidence of liver abscess. Left portal vein thrombosis. Patient currently receiving tube feeds so unable to provide sedation safely today. There is a high likelihood that we will be unable to
accommodate biopsy tomorrow or Monday due to scheduled outpatients and inpatient add ons. Would suggest arranging patient for outpatient biopsy which could likely take place next week. If anticoagulation is needed for portal vein thrombosis, ok to
start and we will arrange for appropriate hold as outpatient when date/time of biopsy is established.
[2024-04-10] MEDS: MAGONATE 86 MG TUBE (12:28)
[2024-04-10] MEDS: ATIVAN 1 MG TUBE (13:02)
--- NOTE | 2024-04-10 13:07 | W.PN.ID1 ---
Addendum entered and electronically signed by Suze Shah MD 04/11/24 16:43:
I saw and evaluated the patient. I reviewed the resident�s separately documented note and agree with findings and plan as documented in the resident�s note with the following additions/corrections:
SOAP
S:
abdominal pain overnight
no other events
O:
hypothermic overnight to 95.0 rectal, bp overall stable, HR normal, rr normal
Physical Exam
Constitutional: No Acute Distress
Cardiovascular: Regular Rate and S1/S2; Negative Murmur or Rub
Pulmonary: Clear and Symmetric; Negative Wheezes or Rales
Gastrointestinal: Soft, Non Tender, Non Distended and Normal Bowel Sounds
Skin: Warm and Dry; Negative Rash or Jaundice
DLOA: PEG in place - no erythema, warmth or drainage
A&P
Splenic Infarction
Liver mass: most likely malignancy
Profound cachexia
- Abd MRI reviewed: multiple liver masses, thrombosis L portal vein, shantelle mets upper abd and retroperitoneum, splenic infarction
- TTE no valvular lesions
- denies taking any immunosuppressive drugs beyond her low dose steroids for many years, denies injections
- leukocytosis likely due to steroids
- blood cultures x2 in progress - no growth to date
- awaiting [facility] records - chart checked not yet available
- stopped ceftriaxone - MRI most consistent with cancer
- plan biopsy of liver mass for path/culture
Acute Hypoxemic Resp Failure
Scleroderma with known ILD
- covid and influenza both negative
- CT chest with GGOs, liver mass and splenic infarct also noted
- agree with steroids
- suspect pulmonary edema vs viral cause vs ILD flare - with respiratory viral illness over the weekend
Nothing further to add from ID standpoint at this time. ID service will no longer actively follow this patient please recall for further questions
AW
Original Note:
Date of Service
Date of Service: April 10, 2024
Today's Communication
Stop antibiotics.
Assessment / Plan
[id number]old female with PMHx complicated for scleroderma, home O2 dependent for ILD, dysphagia-PEG tube placement on parenteral nutrition presents to the hospital with sudden onset shortness of breath and is diagnosed with splenic
infarction.
Subjective-patient is anxious, feels everything is falling apart, reports mild nausea, thinks nothing is working.
Objective-
Splenic infarction, MRI evidence for hepatic metastasis.
Blood cultures x 2-no growth for 24 hours.
Negative for MRSA.
Negative for flu and COVID.
TTE has no evidence for valvular lesions.
Plan-
With MRI results evident for liver metastasis and rectal metastasis, it is less likely that patient's symptoms are secondary to active infection. Hence discontinue empirical ceftriaxone.
Continue steroids. Plan is to obtain biopsy-diagnostic tomorrow in the a.m.
Acute hypoxemic respiratory failure-
Pulmonary edema secondary to scleroderma and ILD versus viral etiology.
Chief Complaint
-: Leukocytosis and Other (liver abscess)
Subjective / Review of Systems
64-year-old female with PMHx of scleroderma, interstitial lung disease and home O2 dependent-4 L, dysphagia secondary to scleroderma status post PEG placement, multiple episodes of CVA, suspicious liver mass presented to the hospital on 04/08/2024
for 1 day onset of sudden onset of shortness of breath while lying in bed. She also had a pressure-like sensation on her chest that radiated into her jaw which was constant and nagging and about 7/10 in intensity. She reported some associated
nausea. She was recently admitted to [facility] as she developed sudden onset chills and fever on the day she was scheduled for liver biopsy. Her fevers resolved spontaneously and she was discharged from [facility] on 04/06/2024.
She reported that her was sick with URI over the weekend, denies having any other sick contacts, she has not traveled outside [facility], and she was unsure if she acquired anything from her recent hospitalization.
In preparation for the planned liver biopsy she did not take her dual antiplatelet therapy for 10 days and she had a transient blurring of the vision in her left eye which impeded biopsy although her workup for CVA was negative.
She was not taking any steroids or mycophenolate mofetil for her scleroderma over the past several years.
Upon arrival to the hospital, her oral temperatures were difficult to obtain, she had an episode of fever with a temperature of 101.2, stable blood pressure, was tachycardic tachypneic and required oxygen levels at more than her baseline.
Her WBCs were 10.7, with presence of left shift, eosinophilia with a hemoglobin of 7.2, reactive thrombocytosis with platelet count at 379. ABG in the hospital showed pH-7.47, pO2-73, pCO2-46, HCO3-33.
She has low serum creatinine levels (0.3 upon arrival, BMI at 13.6), glucose 108, lactic acid 1.6, ferritin 106, Pro-Earle 0.14.
She had elevated RAY titers and anti-dsDNA titers.
CT PE showed no evidence of pulmonary embolism however there was a left lobe mass in the liver that is highly suggestive of malignancy. She was also found to have a splenic infarction and groundglass opacities with both lungs which is consistent
with her interstitial lung disease and is also suggestive of pulmonary edema.
Today upon talking to the patient, patient states that she is very anxious, has some nausea and pressure-like sensation in her chest.
Review of Systems: No Fever, No Chills, No Pharyngitis, No Stiff Neck, No Cough, No Sputum Production, Chest Pain, No Palpitations, Nausea, No Vomiting, No Diarrhea, No Dysuria and No Joint Pain
Vital Signs / Physical Exam
Vital Signs
Vital Signs
Temp Pulse Resp BP Pulse Ox
99.4 F 96 14 116/78 99
04/10/24 11:44 04/10/24 12:00 04/10/24 12:00 04/10/24 12:00 04/10/24 12:00
Physical Exam
Constitutional: Comfortable, Acutely Ill and Cachetic
Eyes: Pupils Equal
Cardiovascular: Irregular Rate, S1/S2 and Murmur; Negative Rub or Gallop
Pulmonary: Coarse (Bilateral crackles present.); Negative Wheezes or Rhonchi
Gastrointestinal: Soft, Non Tender, Non Distended, Normal Bowel Sounds and Other (PEG.)
Extremities: Edema
Skin: Warm
Neurological: Awake and Alert
Objective Data
Lab Data
Lab Results
04/10/24 05:06
04/10/24 05:06
ESR 88 mm/hour (0-20) H 04/09/24 05:21
Estimated Creat Clear 61 ml/min 04/10/24 05:06
Lactic Acid Cancelled 04/08/24 05:33
Total Bilirubin < 0.1 mg/dl (0.2-1.3) L 04/10/24 05:06
AST 27 U/L (14-36) 04/10/24 05:06
ALT 18 U/L (0-35) 04/10/24 05:06
Alkaline Phosphatase 147 U/L (38-126) H 04/10/24 05:06
C-Reactive Protein 44.10 mg/L (0.0-10.00) H 04/09/24 05:21
Most recent labs reviewed.
Micro Results:
04/08/24 15:10 MRSA Screen - Final
Nose No Methicillin Resistant Staphylococcus aureus isolated.
04/08/24 06:02 Blood Culture - Preliminary
Blood/Venous No Growth in 48 hours- Final report to follow
04/08/24 06:02 Blood Culture - Preliminary
Blood/Venous No Growth in 48 hours- Final report to follow
04/08/24 05:18 Influenza Types A & B (ERIS) - Final
Nasal Swab Negative for Influenza A & B, NAAT
Negative results must be combined with clinical observations
and patient history.
Nucleic Acid Amplification test (NAAT)performed on the
[employer].in platform.
Absolute lymphocytes-0.5, absolute neutrophils-13.4,
ESR-88,
VBG-pH-7.46, pCO2-48, pO2-170, HCO3 -34.1.
Elevated troponins-0.087, CRP-44.1.
proBNP-3200.
Total bilirubin less than 0.1, AST-27, ALT-18, ALP-147.
Urine analysis negative.
Imaging-
abdominal MRI-04/09/2024-
. Multiple new large liver masses are highly suspicious for hepatic metastatic disease with the largest measuring up to 7.4 cm in the left hepatic lobe.
2. Thrombosis of the left portal vein.
3. Suspicion for shantelle metastases in the upper abdomen and retroperitoneum.
4. New wedge-shaped splenic infarct at the periphery of the spleen.
5. Stable small posterior right hepatic lobe hemangioma.
6. Percutaneous gastrojejunostomy tube.
Chest CT-04/08/2024-
There is a large focal area of heterogeneous decreased density within the visualized left lobe of the liver, and this is highly suspicious for neoplasia/malignancy. Consider further evaluation with CT of the abdomen and pelvis.
Band-shaped focus of decreased density within the superior spleen, which likely represents an area of splenic infarction, new from examination of September 26, 2023.
Increased reticular and groundglass opacities within both lungs, which appear to have increased compared to CT examination of June 07, 2022. Findings would suggest the possibility of pulmonary edema superimposed on chronic changes from
scleroderma. Minimal right pleural effusion with trace amount of left pleural fluid.
Chest x-ray-04/08/2024-no acute cardiopulmonary process.
--- NOTE | 2024-04-10 15:01 | CM ---
CM met with pt bedside
She resides with her SO/K[facility] in a 2SH with 1 HERSON, 7 steps up to second floor
She has hospital bed which is on the 2nd floor
She notes she is typically independent with her WW for ambulation, utilizes a WC for long distances, unable to self propel
SO assists with her personal care
Pt has peg/tube feeds via pump provided through [facility]
Both pt and SO are able to manage feeds at home
Pt has home O2 4L baseline through [employer]
PCP- Qian Zelaya
Rx- [facility]
Requested PT/OT orders as pt with steps throughout her home
Awaiting outcome of evals however pt noted she is not interested in SNF placement
[facility] is preferred [facility] provider
Discharge Disposition- home, likely with [facility]
--- NOTE | 2024-04-10 15:52 | PTCARENOTE ---
Pt very anxious and has abdominal pain. PRN meds given. support given, vital signs stable.
[2024-04-10] MEDS: ZYPREXA 10 MG TUBE (19:42)
[2024-04-10] MEDS: ZOLOFT 100 MG TUBE (19:43)
[2024-04-10] MEDS: CRESTOR 40 MG TUBE (19:43)
[2024-04-10] MEDS: MELATONIN 3 MG TUBE (19:43)
[2024-04-10] MEDS: TYLENOL 1000 MG TUBE (19:45)
[2024-04-10 22:10] LABS: Transferrin 235 mg/dL (200-360)
[2024-04-11] VITALS (25 sets, daily range): BP systolic 94–134; BP diastolic 56–81; PULSE 94–98; O2SAT 98–99; BMI 13.0
[2024-04-11] MEDS: MORPHINE SULFATE 15 MG TUBE ×4 (03:08→18:00)
[2024-04-11 04:30] LABS: % Basophils 0.1 % (0-2); % Eosinophils 0.7 % (0-6); % Immature Granulocytes 0.7 % (0-0.5); % Lymphocytes 3.6 % (20.5-51.1); % Monocytes 5.8 % (1.7-9.3); % Neutrophils 89.1 % (42.2-75.2); Absolute Eosinophils 0.1 10^3/uL (0-0.7); Absolute Immature Granulocytes 0.1 10^3/uL (0-0.05); Absolute Lymphocytes 0.4 10^3/uL (1.2-3.4); Absolute Monocytes 0.7 10^3/uL (0.1-0.6); Absolute Neutrophils 10.7 10^3/uL (1.4-6.5); Hematocrit 23.4 % (37.0-47.0); Mean Corp Hgb Conc. 29.9 g/dL (33.0-37.0); Mean Corpuscular Hgb 24.8 pg (27.0-31.0); Mean Platelet Volume 10.2 fL (7.4-10.4); Nucleated Red Blood Cells % 0 %; Platelet Count 358 10^3/uL (130-400); Red Blood Cell Count 2.82 10^6/uL (4.20-5.40); Red Cell Dist. Width 16.7 % (11.5-14.5); White Blood Cell Count 12.1 10^3/uL (4.8-10.8)
[2024-04-11 04:32] LABS: INR 1.08
[2024-04-11 04:44] LABS: ALT (SGPT) 19 U/L (0-35); AST (SGOT) 29 U/L (14-36); Albumin 3.7 g/dl (3.5-5.0); Alkaline Phosphatase 148 U/L (38-126); Blood Urea Nitrogen 21 mg/dl (7-17); Calcium 8.9 mg/dl (8.4-10.2); Carbon Dioxide 33 mmol/L (22-30); Chloride 94 mmol/L (98-107); Estimated Creatinine Clearance 58 ml/min; Glucose 117 mg/dl (70-99); Potassium 5.1 mmol/L (3.5-5.1); Sodium 137 mmol/L (135-145); Total Bilirubin 0.2 mg/dl (0.2-1.3); Total Protein 7.1 g/dl (6.3-8.2); eGFR > 60.00
--- NOTE | 2024-04-11 04:54 | PTCARENOTE ---
No acute events overnight. TF turned off /NPO at midnight for upcoming liver biopsy. PRN morphine given for 10/10 abd pain.
[2024-04-11] MEDS: XOPENEX 1.25 MG INHALANT SOLUTION INH ×3 (07:39→19:21)
[2024-04-11] MEDS: ATROVENT NEBULES 0.5 MG INH ×2 (07:39→19:21)
[2024-04-11] MEDS: NSS (PRESERVATIVE FREE) 10 ML IV ×2 (08:37→21:14)
[2024-04-11] MEDS: DECADRON 4 MG IV (08:37)
[2024-04-11] MEDS: PROTONIX IV 40 MG IV ×2 (08:37→21:14)
--- NOTE | 2024-04-11 10:25 | CON.ONC ---
Impression
Impression
Radiologic findings suspicious for malignancy
Portal vein thrombosis and splenic infarct
Advanced autoimmune disease scleroderma/CREST
Anemia
Leukocytosis
Respiratory insufficiency
Scleroderma
Interstitial lung disease
Plan
Plan
Agree with biopsy
Suspect thrombophilia secondary to malignancy acuity of thrombosis unclear
Assess antiphospholipid antibodies
No evidence of pulmonary embolus on CTA
IR directed biopsy of the liver await pathology
Transfuse hemoglobin<7 g/dL appears to have a component of iron deficiency anemia without elevation of ferritin
Heme test stools
Monitor for bleeding
Currently on prophylactic Lovenox
Await pathology
Would be difficult to treat given her poor performance status with underlying/concomitant medical problems
Will follow along
Patient History
History of Present Illness
64-year-old female with past medical history of CVA, GERD, hypertension, asthma, hyperlipidemia, mam-rjcdfcv-[id number] diabetes mellitus, advanced scleroderma, esophageal stricture, interstitial lung disease, Raynaud's, chronic hypoxic respiratory
failure on 4 L, anemia, opioid dependence/chronic pain syndrome was admitted to the hospital with progressive dyspnea. She was discharged from [facility] less than 1 week ago. She has received pulmonary toilet and treatment for potential liver abscess.
She also noted to have fever. Imaging studies including MRI of the abdomen showed potential masses the largest measuring 7.4 cm not previously noted on imaging from 09/26/2023. There was also evidence of a splenic infarct and thrombosis in the
portal vein. Patient states that her breathing has improved and she has no significant abdominal pain currently.
Past-Medical/Surgical History
Past Medical History
Interstitial lung disease,VA, GERD, HTN, Hypercholesterolemia, NIDDM, Other (Scleroderma, esophageal stricture, PNA, interstitial lung disease, Raynaud's
Additional Past Surgical History:
Skin graft, surgery on neck
Social History
Tobacco: Former Smoker
Alcohol: None
Drug: Other (on prescription narcotics for chronic pain)
Family History
Family History: Not Pertinent
Patient Medication
�Medication �Instructions �Recorded �Confirmed �Last Taken �Type
acetaminophen 500 mg tablet 1,000 mg feeding tube Q8HPRN PRN 09/26/23 04/08/24 02/26/24 History
mild pain
linaclotide 290 mcg capsule 290 mcg G-tube DAILYPRN PRN 09/26/23 04/08/24 09/25/23 History
(Linzess) CONSTIPATION
lorazepam 1 mg tablet 1 mg feeding tube [id number] PRN 09/26/23 04/08/24 02/25/24 History
anxiety
magnesium oxide 400 mg feeding tube NOON Supplement 09/26/23 04/08/24 02/25/24 History
naloxegol 25 mg tablet (Movantik) 25 mg PO DAILYPRN PRN CONSTIPATION 09/26/23 04/08/24 09/25/23 History
##0
olanzapine 5 mg tablet 10 mg feeding tube HS Neurological 09/26/23 04/08/24 02/25/24 History
Condition
pantoprazole 40 mg tablet,delayed 40 mg PO BID Gastrointestinal 09/26/23 04/08/24 02/26/24 History
release (Protonix) Issue ##0
prednisone 5 mg tablet 5 mg feeding tube NOON 09/26/23 04/08/24 02/25/24 History
anti-inflammation
sertraline 100 mg tablet 100 mg feeding tube HS Mental 09/26/23 04/08/24 02/25/24 History
Health
morphine 15 mg immediate release 15 mg feeding tube Q4HPRN PRN 02/05/24 04/08/24 02/26/24 History
tablet SEVERE PAIN
ondansetron HCl 4 mg tablet 4 mg feeding tube Q8HPRN PRN NAUSEA 02/05/24 04/08/24 Unknown History
melatonin 3 mg tablet 3 mg feeding tube HS Sleep 02/26/24 04/08/24 02/25/24 History
naloxone 0.4 mg/mL injection 0.4 mg SC DAILYPRN PRN opioid 04/08/24 04/08/24 Unknown History
solution overdose
rosuvastatin 40 mg tablet 40 mg feeding tube HS High 04/08/24 04/08/24 Unknown History
Cholesterol
Active Medications
Generic Name Dose Route Start Last Admin
Trade Name Freq PRN Reason Stop Dose Admin
Acetaminophen 1,000 mg 04/08/24 13:37 04/10/24 19:45
Acetaminophen 500 Mg Tablet TUBE 05/06/24 13:36 1,000 mg
Q8HPRN PRN Administration
mild pain
Bisacodyl 10 mg 04/08/24 13:37
Bisacodyl 10 Mg Rectal Suppository RECTAL 05/06/24 13:36
[id number] PRN
constipation
Dexamethasone Sodium Phosphate 4 mg 04/09/24 20:00 04/11/24 08:37
Dexamethasone 4 Mg/Ml 1 Ml Vial IV 05/07/24 19:59 4 mg
Q12 MATILDE Administration
Enoxaparin Sodium 30 mg 04/08/24 18:00 04/10/24 15:51
Enoxaparin Sodium 30 Mg/0.3 Ml Syringe SC 05/06/24 17:59 Not Given
QPM MATILDE
Ipratropium Rio 0.5 mg 04/08/24 14:00 04/11/24 07:39
Ipratropium Nebs 0.5 Mg/2.5 Ml Ampul INH 0.5 mg
R TID MATILDE Administration
Protocol
Ipratropium Rio 0.5 mg 04/08/24 10:50
Ipratropium Nebs 0.5 Mg/2.5 Ml Ampul INH
R Q6HPRN PRN
sob or wheezing
Protocol
Levalbuterol HCl 1.25 mg 04/08/24 14:00 04/11/24 07:39
Levalbuterol 1.25 Mg/3 Ml Ampul INH 1.25 mg
R TID MATILDE Administration
Protocol
Levalbuterol HCl 1.25 mg 04/08/24 10:50
Levalbuterol 1.25 Mg/3 Ml Ampul INH
R Q6HPRN PRN
sob or wheezing
Protocol
Linaclotide 290 mcg 04/08/24 13:37
Linaclotide 290 Mcg Capsule TUBE 05/06/24 13:36
DAILYPRN PRN
CONSTIPATION
Lorazepam 1 mg 04/08/24 13:37 04/10/24 13:02
Lorazepam 1 Mg Tablet TUBE 05/06/24 13:36 1 mg
[id number] PRN Administration
anxiety
Magnesium Carbonate 86 mg 04/08/24 14:00 04/10/24 12:28
Magnesium Carbonate (Magonate) 86 Mg/8 Ml Cup TUBE 05/06/24 13:59 86 mg
NOON MATILDE Administration
Melatonin 3 mg 04/08/24 22:00 04/10/24 19:43
Melatonin 3 Mg Tablet TUBE 05/06/24 21:59 3 mg
HS MATILDE Administration
Morphine Sulfate 15 mg 04/08/24 13:37 04/11/24 08:36
Morphine 15 Mg Immediate Release Tablet TUBE 04/22/24 13:36 15 mg
Q4HPRN PRN Administration
SEVERE PAIN
Naloxone HCl 0.4 mg 04/08/24 13:37
Naloxone (0.4 Mg/Ml) 1 Ml Injection SC 05/06/24 13:36
DAILYPRN PRN
opioid overdose
Non-Formulary Medication 25 mg 04/08/24 13:37
Naloxegol [Movantik] PO
DAILYPRN PRN
CONSTIPATION
Olanzapine 10 mg 04/08/24 22:00 04/10/24 19:42
Olanzapine 5 Mg Tablet TUBE 05/06/24 21:59 10 mg
HS MATILDE Administration
Ondansetron HCl 4 mg 04/08/24 13:53
Ondansetron 4 Mg (Orally-Disintegrating) Tablet PO 05/06/24 13:52
Q8HPRN PRN
NAUSEA
Pantoprazole Sodium 40 mg 04/09/24 20:00 04/11/24 08:37
Pantoprazole Sodium 40 Mg/10 Ml Vial IV 05/07/24 19:59 40 mg
Q12 MATILDE Administration
Polyethylene Glycol 17 grams 04/08/24 13:37
Polyethylene Glycol Powder 17 Grams Packet TUBE 05/06/24 13:36
DAILYPRN PRN
constipation
Rosuvastatin Calcium 40 mg 04/08/24 22:00 04/10/24 19:43
Rosuvastatin (Crestor) 40 Mg Tablet TUBE 05/06/24 21:59 40 mg
HS MATILDE Administration
Senna/Docusate Sodium 1 tablet 04/08/24 14:23
Docusate W/Senna (Kalina-Colace) Tablet TUBE 05/06/24 13:36
BIDPRN PRN
constipation
Sertraline HCl 100 mg 04/08/24 22:00 04/10/24 19:43
Sertraline 100 Mg Tablet TUBE 05/06/24 21:59 100 mg
HS MATILDE Administration
Sodium Chloride 0 flush 04/08/24 14:00
Sodium Chloride 0.9% (Flush) Syringe IV 05/06/24 13:59
PER PROTOCOL MATILDE
Sodium Chloride 10 ml 04/09/24 20:00 04/11/24 08:37
Sodium Chloride 0.9% (Preservative Free) 10 Ml Vial IV 05/07/24 19:59 10 ml
Q12 MATILDE Administration
Review of Systems
-
12 point review of systems fails to elicit additional complaints other than sensation of fever.
Physical Exam
-
Physical Exam
General: No Apparent Distress
HEENT: Anicteric and Moist mucous membranes
Respiratory: Clear
GI: Soft and Non Tender
Musculoskeletal: No Edema
Neuro: Awake, Alert, Oriented and AO x 3
Skin diffuse scleroderma changes
Psych: Calm
Labs
Lab Results
WBC 12.1 10^3/uL (4.8-10.8) H 04/11/24 04:09
RBC 2.82 10^6/uL (4.20-5.40) L 04/11/24 04:09
Hgb 7.0 g/dL (12.0-16.0) L 04/11/24 04:09
Hct 23.4 % (37.0-47.0) L 04/11/24 04:09
MCV 83.0 fL (81.0-99.0) 04/11/24 04:09
MCH 24.8 pg (27.0-31.0) L 04/11/24 04:09
MCHC 29.9 g/dL (33.0-37.0) L 04/11/24 04:09
RDW 16.7 % (11.5-14.5) H 04/11/24 04:09
Plt Count 358 10^3/uL (130-400) 04/11/24 04:09
MPV 10.2 fL (7.4-10.4) 04/11/24 04:09
Abs Immat Gran (auto) 0.1 10^3/uL (0-0.05) H 04/11/24 04:09
Absolute Neuts (auto) 10.7 10^3/uL (1.4-6.5) H 04/11/24 04:09
Absolute Lymphs (auto) 0.4 10^3/uL (1.2-3.4) L 04/11/24 04:09
Absolute Monos (auto) 0.7 10^3/uL (0.1-0.6) H 04/11/24 04:09
Absolute Eos (auto) 0.1 10^3/uL (0-0.7) 04/11/24 04:09
Absolute Basos (auto) 0.0 10^3/uL (0-0.2) 04/11/24 04:09
Immature Gran % 0.7 % (0-0.5) H 04/11/24 04:09
Neutrophils % 89.1 % (42.2-75.2) H 04/11/24 04:09
Lymphocytes % 3.6 % (20.5-51.1) L 04/11/24 04:09
Monocytes % 5.8 % (1.7-9.3) 04/11/24 04:09
Eosinophils % 0.7 % (0-6) 04/11/24 04:09
Basophils % 0.1 % (0-2) 04/11/24 04:09
Creatinine 0.4 mg/dL (0.6-1.0) L 04/11/24 04:09
Vital Signs
Vital Signs
Temp Pulse Resp BP Pulse Ox
99.2 F 98 14 103/57 97
04/11/24 07:30 04/11/24 07:41 04/11/24 07:41 04/11/24 06:00 04/11/24 08:54
--- NOTE | 2024-04-11 11:04 | W.PN.PUL3 ---
Today's Communication / Plan
-
Possible liver biopsy
Anticoagulation-defer to oncology. Currently on Lovenox
Transition to prednisone 40 mg with a slow taper.
Continue oxygen for mentation
Incentive spirometry
Poor prognosis
Assessment
-
Assessment: 64-year-old female with a past medical history of systemic sclerosis with scleroderma associated ILD, pulmonary hypertension, chronic hypoxic respiratory failure on 4 L/min, GERD, esophageal stricture s/p PEG tube placement, history of
mitral regurgitation, history of aspiration pneumonia, former tobacco smoker, history of lung nodule and history of A-fib who presents with SOB X 2 days. She was scheduled to go to [facility] this afternoon for a liver biopsy due to a liver
lesion seen on imaging at [facility]. She was apparently recently admitted at [facility] and went home this past Monday. Initial vitals in the ER showed she was afebrile to 90 �F, BP 136/87, heart rate 119 and saturating 90% on 5 L/min nasal
cannula. Repeat rectal temperature about 20 minutes after initial ER vitals showed she was febrile to 101.2 �F. Initial vitals showed normal WBC at 10.7, anemia to 7.4, serum bicarbonate level 32, iron saturation of 10, troponin 0.194, ALP 188,
and COVID antigen negative. Flu A/B swab also negative, and blood cultures were collected. CXR showed no acute cardiopulmonary process. CTA chest showed no acute PE with a large focal heterogeneous hypodensity in the left lobe of the liver
suspicious for neoplasm. Also a band shaped focus of hypodensity in the spleen concerning for splenic infarct. There is increased reticular + groundglass opacities bilaterally suggestive of pulmonary edema. In the ER she was given albuterol,
Decadron 10 mg, morphine, IVF with NS 0.9% 250cc + Ofirmev. She was admitted to the IMU for further care and pulmonary service now consulted for additional management/recommendations.
Chronic conditions [employer]: Scleroderma associated ILD, pulmonary hypertension, GERD, esophageal stricture s/p PEG tube placement, mitral regurgitation, history of aspiration pneumonia, former tobacco smoker, Raynaud's phenomenon, chronic hypoxic
respiratory failure on 4 L/min, history of left lower lobe pulmonary nodule, personal history COVID-19 (April 2022), history of A-fib
Impression:
#Febrile illness - afebrile since 04/08/2024
#Acute on chronic hypoxic respiratory failure likely due to ILD-flare +/- acute pulmonary edema
#Primary metabolic alkalosis with appropriate respiratory compensation
#Elevated troponin likely demand ischemia with type II AK � troponin peaked at 0.194 on 04/08/2024
#History of RV enlargement with RV systolic dysfunction, mild�moderate MR and moderate�severe TR (via TTE from June 2023)
#Chronic anemia (baseline Hb: 7.5�9g/dL) with iron deficiency anemia
#Elevated alkaline phosphatase (appears chronic with ALP levels ranging between 127�180 since June 2023)
#Multiple large liver masses suspicious for hepatic metastatic disease
#Left portal vein thrombosis
#Splenic infarct
#History of scleroderma associated ILD
#Systemic sclerosis with history of esophageal dysmotility s/p GJ tube
Plan:
- Given her CT chest findings with bilateral reticular + groundglass opacities there is concern for acute ILD flare
-Inflammatory markers are elevated with ESR 88 + CRP: 44.1 --> continue to trend
- Continue systemic steroids
- Currently on Decadron 4mg IV q8hr --> on 04/09 I weaned down to 4mg IV q12hr --> CRP down to 44 significant lower compared to July 2023.
Transition to prednisone-40mg daily and reduce by 10mg every 6th day until off; 04/11/2024 per
- Small R-sided pleural effusion and her GGO are central, making acute decompensated heart failure likely.
She is back to her baseline oxygen requirements.
Echo done on 04/09/2024 shows mild�moderate eccentric MR, mild�moderate TR with preserved LVEF at 60 to 65% with normal RV size and function.
Compared to prior echo from June 2023 her TR is now mild�moderate compared to previous when it was moderate�severe; proBNP elevated at 3200, which is lower than what she was in Jun-Jul 2023.
- Monitor H/H and transfuse if needed to keep Hb>7g/dL; keep plt>20k
- trend LFTs; consult IR for liver Bx given her CTA chest findings with a heterogeneous hypodensity in the left lower liver suspicious for neoplasia/malignancy
- Abdominal MRI done on 04/09/2024 shows multiple new large liver masses suspicious for hepatic metastatic disease --> defer liver biopsy to IR which will likely take place next week versus an outpatient
-Currently on Lovenox. Deferred anticoagulation to oncology
Poor performance status, oncology correspondence reviewed. Will be difficult to treat malignancy.
- Maintain SpO2 >90-94% with supplemental O2 and wean as tolerated
- trend serum HCO3 and pCO2 levels - AM VBG from 04/09/2024 shows shows stable metabolic alkalosis (pH: 7.46, pCO2: 48) --> no need to continue trending blood gasses
- Incentive spirometer encouraged 10x per hour for at least 4 hours a day
- Continue nebulized bronchodilators with xopenex and atrovent TID, with prn doses for breakthrough symptoms
- ID consulted and empiric ceftriaxone started; procalcitonin WNL at 0.14 on 04/08/2024 --> Abx now stopped as of 04/09
- Monitor fever curve and trend WBC (although she is now on steroids so expect to be elevated)
- Follow up blood Cx collected x 2 on 04/08/2024 (NGTD)
- DVT ppx: LMWH
- Poor prognosis
Code status: DNR/DNI
Given her chronic illness with cachectic appearance, it would not be unreasonable to discuss goals of care and consider hospice.
Pulmonary service will continue to follow along. She had previously followed with us in May [address] Agarwal and was told to continue following with us as needed and in 2 continue following with her primary ink technician/ILD specialist
through [facility] with Dr. Pedersen.
Data:
CTA Chest 04/08/2024:
There is a large focal area of heterogeneous decreased density within the visualized left lobe of the liver, and this is highly suspicious for neoplasia/malignancy. Consider further evaluation with CT of the abdomen and pelvis.
Band-shaped focus of decreased density within the superior spleen, which likely represents an area of splenic infarction, new from examination of September 26, 2023.
Increased reticular and groundglass opacities within both lungs, which appear to have increased compared to CT examination of June 07, 2022. Findings would suggest the possibility of pulmonary edema superimposed on chronic changes from
scleroderma. Minimal right pleural effusion with trace amount of left pleural fluid.
Abdominal MRI 04/09/2024:
1. Multiple new large liver masses are highly suspicious for hepatic metastatic disease with the largest measuring up to 7.4 cm in the left hepatic lobe.
2. Thrombosis of the left portal vein.
3. Suspicion for shantelle metastases in the upper abdomen and retroperitoneum.
4. New wedge-shaped splenic infarct at the periphery of the spleen.
5. Stable small posterior right hepatic lobe hemangioma.
6. Percutaneous gastrojejunostomy tube.
Total time spent today was 39 minutes for this encounter. Time includes reviewing laboratory test/imaging results, reviewing pertinent medical records, obtaining and reviewing medical history, performing an appropriate exam, ordering medications,
tests and procedures. Time also includes documentation of this encounter, coordinating patient care and communicating with other healthcare professionals. Total time does not include separately billed tests performed on this date of service.
Subjective Data
-
Date of Service:
Date of Service: April 11, 2024
Chief Complaint: Pulmonary Follow Up
Subjective:
Continues to report shortness of breath
No significant phlegm production or hemoptysis
Review of Systems
General: Fever (n)
Cardiopulmonary: Dyspnea and Dyspnea on Exertion
GI: Abdominal Pain (n) and Nausea (n)
Objective Data
Data Reviewed
Vital Signs / I&O / Oxygen:
Vital Signs
Temp Pulse Resp BP Pulse Ox
99.2 F 99 16 94/80 97
04/11/24 07:30 04/11/24 10:16 04/11/24 10:16 04/11/24 10:16 04/11/24 08:54
Intake and Output
04/10/24 04/11/24 04/12/24
06:59 06:59 06:59
Intake Total 350 / 350
Balance 350 / 350
SaO2 97
Nasal Cannula flow liters per 4
minute
Physical Exam
General: Respiratory Distress (negative), Comfortable, Chills (negative), Sweats (negative) and Other (Cachectic/chronically ill appearing)
HEENT: Normocephalic and Anicteric
Cardiovascular: Irregular Rhythm (Irregularly irregular), Peripheral Edema (negative) and Other (normal rate)
Respiratory: Wheeze (negative), Crackles (Bilateral), Rhonchi (negative) and Non-Labored Respirations
GI: Soft, Non Distended, Non Tender, Normal Bowel Sounds and Feeding Tube
Neurology: Awake, Alert and Tremors (negative)
Skin: Warm, Dry and Cyanosis (negative)
Labs/Micro/Reports
Lab Data
04/11/24 04:09
04/11/24 04:09
Laboratory Results
04/11/24
04:09
PT 14.0
INR 1.08
Microbiology
04/08/24 06:02 Blood/Venous Blood Culture - Preliminary
No Growth in 72 hours- Final report to follow
04/08/24 06:02 Blood/Venous Blood Culture - Preliminary
No Growth in 72 hours- Final report to follow
04/08/24 15:10 Nose MRSA Screen - Final
No Methicillin Resistant Staphylococcus aureus isolated.
--- NOTE | 2024-04-11 11:58 | PTCARENOTE ---
Pt to [facility] via stretcher.
[2024-04-11] MEDS: ATROVENT NEBULES INH (13:03)
[2024-04-11] MEDS: MAGONATE 86 MG TUBE (13:42)
--- NOTE | 2024-04-11 14:00 | PTCARENOTE ---
Pt returned from IR. Bandaid in place on R abdomen, dry and intact. Medicated with PRN Morpine for whole body pain, see MAR. Per IR, pt is to be bed rest with HOB no higher than 30 degrees x3 hours; pt and visitors educated and verbalize
understanding. Resting comfortably at this time, call steele within reach.
--- NOTE | 2024-04-11 14:24 | W.PN.HOSP.TC ---
Addendum entered and electronically signed by Albert Hernandez MD 04/11/24 15:03:
Stage 2 sacrum pressure injury, POA
Stage 3 left elbow pressure injury, POA
wound care
Original Note:
Today's Communication/Plan
-
pending final recommendations on AC
Assessment / Plan
Assessment / Plan
64yo F with PMHX of scleroderma, dysphagia, esophageal stricture with PEG, anxiety, anemiam chronic hypoxic respiratory failure on 4L O2 at home 2/2 ILD came to the with worsening SOB also found elevated temperature, managed for ILD exacerbation.
CTA chest showed focal heterogenous liver lesion, possible malignancy - known to patient and recently was scheduled for biopsy in [facility]. As per ID - cannot r/o liver abscess. Agreeable for biopsy of the liver lesion - that was done on 04/11/24 and
patient will continue to follow with Oncology as outpatient.
A/P:
#PVT
#Splenic infarct
will need anticoagulation, will hold off pending liver biopsy since high bleeding risk
Hematology consult: no recommendations on anticoagulation
#Cachexia 2/2 chronic disease and poor oral intake
Cont tube feeds
#ILD flare
continue steroids - improved to baseline, as per Pulm - can switch to Prednisone on 04/11/24
Pulm follows
bronchodilators
Incentive spirometry
#Small R pleural effusion
#Pulmonary HTN
#Mild-moderate MR
No other clinical findings of CHF
Echo: EF 60%, mild-moderate MR (improved from prior severe), moderate pulmonary HTN
proBNP 3200 - less then previous - no concern for decompensation
#Anemia of chronic disease with NAYLA (most likely 2/2 malnutrition)
monitor hgb
no overt bleeding
Hold off iron supplement with concern for infection
#Multiple large liver masses
#Suspicion for retroperitoneal mets
#Hepatic hemangioma, small
MRI done - biopsy by [facility] on 04/11/24
Onc consult
ID follows: started empiric Rocephin with concern for abscess, but will new findings that concerning for metastatic disease - stopped Abx
ESR/CRP elevated
#Leukocytosis and fever
2/2 steroids and most likely fever 2/2 Cancer
Abx and ID follows
Bcx NTD
can be exacerbated by steroids
#Scleroderma
cont home meds
#Dysphagia with severe protein calorie malnutrition
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
tube feedings
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
#Non-ischemic troponin elevation
trop is lower then previous baseline
Echo: Mild-moderate MR, mild-moderate TR, pulmonary HTN, EF preserved
cont Telemetry
EKG without ST elevation
#Chronic pain
cont home meds
#Chronic alk.phos elevation
2/2 chronic disease
DVT ppx Lovenox
DNR/DNI
I have spent at least 58min reviewing the chart, test results and direct patient care
Anticipated Discharge: Within 24 hours
Subjective/Interval History
-
Date of Service: April 11, 2024
Objective Data
-
Labs:
Laboratory Results
04/11/24
04:09
WBC 12.1 H
Hgb 7.0 L
Hct 23.4 L
Plt Count 358
PT 14.0
INR 1.08
Sodium 137
Potassium 5.1
Chloride 94 L
Carbon Dioxide 33 H
BUN 21 H
Creatinine 0.4 L
Glucose 117 H
Calcium 8.9
Total Bilirubin 0.2
AST 29
ALT 19
Alkaline Phosphatase 148 H
Vital Signs:
Vital Signs
Temp Pulse Resp BP Pulse Ox
98.5 F 93 14 101/59 97
04/11/24 13:21 04/11/24 13:16 04/11/24 13:16 04/11/24 13:15 04/11/24 13:16
I&O
04/10/24 04/11/24 04/12/24
06:59 06:59 06:59
Intake Total 350 / 350
Balance 350 / 350
Review of Systems
-
History Source: Patient
All other systems: Reviewed and negative
Physical Exam
-
General: Cachectic
HEENT: Normocephalic
Respiratory: Clear to Auscultation
Cardiac: Regular Rhythm
Neuro: Awake, Alert, Oriented and AO x 3
--- NOTE | 2024-04-11 15:10 | W.PN.UPDATE ---
Update Note
Progress Note Update
while awaiting for recommendation for anticoagulation from hematology/oncology (complicated with patient anemia, general poor condition with cachexia) will do stool for occult blood and plan for trial of anticoagulation if negative
[2024-04-11 16:52] LABS: Hematocrit 24.8 % (37.0-47.0); Hemoglobin 7.4 g/dL (12.0-16.0)
[2024-04-11] MEDS: ATIVAN 1 MG TUBE (18:28)
[2024-04-11] MEDS: CRESTOR 40 MG TUBE (21:14)
[2024-04-11] MEDS: MELATONIN 3 MG TUBE (21:14)
[2024-04-11] MEDS: ZOLOFT 100 MG TUBE (21:14)
[2024-04-11] MEDS: ZYPREXA 10 MG TUBE (21:14)
[2024-04-12] VITALS (17 sets, daily range): BP systolic 97–139; BP diastolic 59–84; BMI 13.1
[2024-04-12 05:36] LABS: Hematocrit 22.3 % (37.0-47.0); Hemoglobin 6.8 g/dL (12.0-16.0)
[2024-04-12 05:38] LABS: D-Dimer 2.55 ug/mlFEU (0.00-0.50)
[2024-04-12 06:07] LABS: CEA 22.9 ng/ml
--- NOTE | 2024-04-12 06:32 | W.PN.UPDATE ---
Update Note
Progress Note Update
Hgb level this am 6.8 previously 7.4. No signs of bleeding. blood consent obtained, type and screen and one unit of blood ordered.
[2024-04-12] MEDS: XOPENEX 1.25 MG INHALANT SOLUTION INH (07:18)
[2024-04-12] MEDS: ATROVENT NEBULES 0.5 MG INH (07:18)
[2024-04-12] MEDS: NSS (PRESERVATIVE FREE) 10 ML IV ×2 (08:53→19:57)
[2024-04-12] MEDS: PROTONIX IV 40 MG IV ×2 (08:54→19:57)
[2024-04-12] MEDS: DELTASONE 40 MG PO (08:54)
[2024-04-12] MEDS: MORPHINE SULFATE 15 MG TUBE ×3 (09:23→22:10)
--- NOTE | 2024-04-12 09:27 | PTOTSP ---
SPEECH THERAPY SWALLOW FOLLOW UP NOTE:
Patient continues to exhibit clinical signs of oropharyngeal dysphagia, likely chronic related to GERD, scleroderma, esophageal dysphagia, and acutely exacerbated by suspected metastatic liver lesions of unknown primary with associated
weakness/deconditioning. Patient remains at high risk for aspiration and related complications at this time. Extensive education provided to patient regarding aspiration risks/precautions, aspiration-related complications, and rationale for VSE. Pt
refusing recommendation for VSE. Refusing further ST services at this time. Pt asking for diet upgrade to Regular texture solids, thin liquids; refusing diet modification at this time (currently on IDDSI Level 6 Soft and Bite size diet, thin
liquids). Defer to MD for diet recommendation. No further ST services are indicated at this time. ST to sign off at this time. Recommend GOC conversation. Please reconsult should plan of care change.
RECOMMEND:
1) Defer to MD for diet recommendation (on IDDSI Level 6 Soft and Bite size, thin liquids)
2) VSE (pt refusing at this time)
3) ST to sign off at this time as pt refusing recommendations at this time; Please reconsult should plan of care change
4) GOC conversation
--- NOTE | 2024-04-12 11:05 | W.PN.PUL3 ---
Today's Communication / Plan
-
Defer anticoagulation for portal vein thrombosis to oncology
Discontinue nebulizers and transition to as needed
Prednisone taper
Follow liver biopsy results
Incentive spirometry as able
Continue ox supplementation-currently at baseline
Poor prognosis
Outpatient pulmonary follow-up in the future with Dr. Agarwal
Sign off
Assessment
-
Assessment: 64-year-old female with a past medical history of systemic sclerosis with scleroderma associated ILD, pulmonary hypertension, chronic hypoxic respiratory failure on 4 L/min, GERD, esophageal stricture s/p PEG tube placement, history of
mitral regurgitation, history of aspiration pneumonia, former tobacco smoker, history of lung nodule and history of A-fib who presents with SOB X 2 days. She was scheduled to go to [facility] this afternoon for a liver biopsy due to a liver
lesion seen on imaging at [facility]. She was apparently recently admitted at [facility] and went home this past Monday. Initial vitals in the ER showed she was afebrile to 90 �F, BP 136/87, heart rate 119 and saturating 90% on 5 L/min nasal
cannula. Repeat rectal temperature about 20 minutes after initial ER vitals showed she was febrile to 101.2 �F. Initial vitals showed normal WBC at 10.7, anemia to 7.4, serum bicarbonate level 32, iron saturation of 10, troponin 0.194, ALP 188,
and COVID antigen negative. Flu A/B swab also negative, and blood cultures were collected. CXR showed no acute cardiopulmonary process. CTA chest showed no acute PE with a large focal heterogeneous hypodensity in the left lobe of the liver
suspicious for neoplasm. Also a band shaped focus of hypodensity in the spleen concerning for splenic infarct. There is increased reticular + groundglass opacities bilaterally suggestive of pulmonary edema. In the ER she was given albuterol,
Decadron 10 mg, morphine, IVF with NS 0.9% 250cc + Ofirmev. She was admitted to the IMU for further care and pulmonary service now consulted for additional management/recommendations.
Chronic conditions [employer] SE[employer]: Scleroderma associated ILD, pulmonary hypertension, GERD, esophageal stricture s/p PEG tube placement, mitral regurgitation, history of aspiration pneumonia, former tobacco smoker, Raynaud's phenomenon, chronic hypoxic
respiratory failure on 4 L/min, history of left lower lobe pulmonary nodule, personal history COVID-19 (April 2022), history of A-fib
Impression:
#Febrile illness - afebrile since 04/08/2024
#Acute on chronic hypoxic respiratory failure likely due to ILD-flare +/- acute pulmonary edema
#Primary metabolic alkalosis with appropriate respiratory compensation
#Elevated troponin likely demand ischemia with type II NH � troponin peaked at 0.194 on 04/08/2024
#History of RV enlargement with RV systolic dysfunction, mild�moderate MR and moderate�severe TR (via TTE from June 2023)
#Chronic anemia (baseline Hb: 7.5�9g/dL) with iron deficiency anemia
#Elevated alkaline phosphatase (appears chronic with ALP levels ranging between 127�180 since June 2023)
#Multiple large liver masses suspicious for hepatic metastatic disease
#Left portal vein thrombosis
#Splenic infarct
#History of scleroderma associated ILD
#Systemic sclerosis with history of esophageal dysmotility s/p GJ tube
Plan:
- Given her CT chest findings with bilateral reticular + groundglass opacities there is concern for acute ILD flare
-Inflammatory markers are elevated with ESR 88 + CRP: 44.1 --> continue to trend
- Continue systemic steroids
- Currently on Decadron 4mg IV q8hr --> on 04/09 I weaned down to 4mg IV q12hr --> CRP down to 44 significant lower compared to July 2023.
Transition to prednisone-40mg daily and reduce by 10mg every 6th day until off- 04/11/2024
- Small R-sided pleural effusion and her GGO are central, making acute decompensated heart failure likely.
She is back to her baseline oxygen requirements.
Echo done on 04/09/2024 shows mild�moderate eccentric MR, mild�moderate TR with preserved LVEF at 60 to 65% with normal RV size and function.
Compared to prior echo from June 2023 her TR is now mild�moderate compared to previous when it was moderate�severe; proBNP elevated at 3200, which is lower than what she was in Jun-Jul 2023.
Chronic anemia: Transfuse as necessary. Defer to primary team. Contribute to symptoms.
-
-Status post liver biopsy via interventional radiology concerns for malignancy.
- Abdominal MRI done on 04/09/2024 shows multiple new large liver masses suspicious for hepatic metastatic disease .left portal vein thrombosis. Splenic infarct. Suspicious for retroperitoneal metastatic disease.
-Currently onprophylactic Lovenox. Deferred anticoagulation to oncology
Poor performance status, oncology correspondence reviewed. Will be difficult to treat malignancy.
- Maintain SpO2 >90-94% with supplemental O2 and wean as tolerated
- trend serum HCO3 and pCO2 levels - AM VBG from 04/09/2024 shows shows stable metabolic alkalosis (pH: 7.46, pCO2: 48) --> no need to continue trending blood gasses
- Incentive spirometer encouraged 10x per hour for at least 4 hours a day
-Will transition to nebulizers on an as-needed basis.
- ID consulted and empiric ceftriaxone started; procalcitonin WNL at 0.14 on 04/08/2024 --> Abx now stopped as of 04/09
- Monitor fever curve and trend WBC (although she is now on steroids so expect to be elevated)
- Follow up blood Cx collected x 2 on 04/08/2024 (NGTD)
- DVT ppx: LMWH
- Poor prognosis
Code status: DNR/DNI
Given her chronic illness with cachectic appearance, it would not be unreasonable to discuss goals of care and consider hospice.
Pulmonary service will continue to follow along. She had previously followed with us in May [address] Agarwal and was told to continue following with us as needed and in 2 continue following with her primary seasonal sales associate/ILD specialist
through [facility] with Dr. Pedersen.
-
No additional pulmonary recommendations at this time.
Discussed with primary team.
Extensive discussion with patient as well at the bedside.
Prognosis is very poor
Every situation

Data:
CTA Chest 04/08/2024:
There is a large focal area of heterogeneous decreased density within the visualized left lobe of the liver, and this is highly suspicious for neoplasia/malignancy. Consider further evaluation with CT of the abdomen and pelvis.
Band-shaped focus of decreased density within the superior spleen, which likely represents an area of splenic infarction, new from examination of September 26, 2023.
Increased reticular and groundglass opacities within both lungs, which appear to have increased compared to CT examination of June 07, 2022. Findings would suggest the possibility of pulmonary edema superimposed on chronic changes from
scleroderma. Minimal right pleural effusion with trace amount of left pleural fluid.
Abdominal MRI 04/09/2024:
1. Multiple new large liver masses are highly suspicious for hepatic metastatic disease with the largest measuring up to 7.4 cm in the left hepatic lobe.
2. Thrombosis of the left portal vein.
3. Suspicion for shantelle metastases in the upper abdomen and retroperitoneum.
4. New wedge-shaped splenic infarct at the periphery of the spleen.
5. Stable small posterior right hepatic lobe hemangioma.
6. Percutaneous gastrojejunostomy tube.
Total time spent today was 38 minutes for this encounter. Time includes reviewing laboratory test/imaging results, reviewing pertinent medical records, obtaining and reviewing medical history, performing an appropriate exam, ordering medications,
tests and procedures. Time also includes documentation of this encounter, coordinating patient care and communicating with other healthcare professionals. Total time does not include separately billed tests performed on this date of service.
Subjective Data
-
Date of Service:
Date of Service: April 12, 2024
Chief Complaint: Pulmonary Follow Up
Subjective:
Denies any significant pulmonary complaints
Her appetite is poor
Oxygen supplementation is at baseline.
Denies significant cough or phlegm production
Review of Systems
Cardiopulmonary: Dyspnea (Chronic) and Cough (None)
GI: Abdominal Pain (n) and Nausea
Neuro: Headache (n)
Objective Data
Data Reviewed
Vital Signs / I&O / Oxygen:
Vital Signs
Temp Pulse Resp BP Pulse Ox
98.5 F 100 14 110/65 99
04/12/24 07:17 04/12/24 07:20 04/12/24 07:20 04/12/24 06:00 04/12/24 06:00
Intake and Output
04/11/24 04/12/24 04/13/24
06:59 06:59 06:59
Intake Total 350 / 350 480 / 480
Balance 350 / 350 480 / 480
SaO2 99
Nasal Cannula flow liters per 4
minute
Physical Exam
General: Respiratory Distress (negative), Comfortable, Chills (negative), Sweats (negative) and Other (Cachectic/chronically ill appearing)
HEENT: Normocephalic and Anicteric
Cardiovascular: Irregular Rhythm (Irregularly irregular), Peripheral Edema (negative) and Other (normal rate)
Respiratory: Wheeze (negative), Crackles (Bilateral), Rhonchi (negative) and Non-Labored Respirations
GI: Soft, Non Distended, Non Tender, Normal Bowel Sounds and Feeding Tube
Neurology: Awake, Alert and Tremors (negative)
Skin: Warm, Dry and Cyanosis (negative)
Labs/Micro/Reports
Lab Data
04/12/24 04:58
04/11/24 04:09
Microbiology
04/08/24 06:02 Blood/Venous Blood Culture - Preliminary
No Growth in 4 days- Final report to follow
04/08/24 06:02 Blood/Venous Blood Culture - Preliminary
No Growth in 4 days- Final report to follow
04/08/24 15:10 Nose MRSA Screen - Final
No Methicillin Resistant Staphylococcus aureus isolated.
--- NOTE | 2024-04-12 12:20 | CM ---
Patient with Dx portal vein thrombosis/splenic infarct, ILD flare, sm pleural effusion, anemia, hepatic masses suspect metastases, dysphagia with severe protein calorie malnutrition/cachexia. Dysphagia diet and Jevity tube feeds. PT/OT recommend
HH. Seen by wound care nurse.
Met with patient;
discussed her current functional status as per PT/OT. The patient agrees to [facility] for nurse/PT/OT.
She feels she has enough help at home. Her SO Kade assists her when he is not working and other family come in to provide assistance as well.
As per prior notes:
Pt has peg/tube feeds via pump provided through [facility] [facility]
Both pt and SO are able to manage feeds at home
Pt has home O2 4L baseline through [employer]
Referral to [facility].
Plan home with [facility], with resumption tube feeds.
[2024-04-12] MEDS: MAGONATE 86 MG TUBE (12:42)
--- NOTE | 2024-04-12 13:16 | W.PN.HOSP.TC ---
Today's Communication/Plan
-
Transfuse PRBC
Abd soft - no significant concern for bleeding after biopsy. Will hold Lovenox for 1 more day
FOBT
Need final plan for anticoagulation from hematology
Assessment / Plan
Assessment / Plan
64yo F with PMHX of scleroderma, dysphagia, esophageal stricture with PEG, anxiety, anemiam chronic hypoxic respiratory failure on 4L O2 at home 2/2 ILD came to the with worsening SOB also found elevated temperature, managed for ILD exacerbation.
CTA chest showed focal heterogenous liver lesion, possible malignancy - known to patient and recently was scheduled for biopsy in [facility]. As per ID - cannot r/o liver abscess. Agreeable for biopsy of the liver lesion - that was done on 04/11/24 and
patient will continue to follow with Oncology as outpatient. With severe persistent anemia - working on anticoagulation plan with hematology
A/P:
#PVT
#Splenic infarct
will need anticoagulation, will hold off pending liver biopsy since high bleeding risk
Hematology consult: no recommendations on anticoagulation yet due to severe anemia. Plan to check FOBT
#Cachexia 2/2 chronic disease and poor oral intake
Cont tube feeds
#ILD flare
continue steroids - improved to baseline, as per Pulm - can switch to Prednisone on 04/11/24
Pulm follows
bronchodilators
Incentive spirometry
#Small R pleural effusion
#Pulmonary HTN
#Mild-moderate MR
No other clinical findings of CHF
Echo: EF 60%, mild-moderate MR (improved from prior severe), moderate pulmonary HTN
proBNP 3200 - less then previous - no concern for decompensation
#Anemia of chronic disease with NAYLA (most likely 2/2 malnutrition)
s/p 1 unit PRBC on 04/12/24
monitor hgb
no overt bleeding
Hold off iron supplement with concern for infection
#Multiple large liver masses
#Suspicion for retroperitoneal mets
#Hepatic hemangioma, small
MRI done - biopsy by [facility] on 04/11/24
Onc consult
ID follows: started empiric Rocephin with concern for abscess, but will new findings that concerning for metastatic disease - stopped Abx
ESR/CRP elevated
#Leukocytosis and fever
2/2 steroids and most likely fever 2/2 Cancer
Abx and ID follows
Bcx NTD
can be exacerbated by steroids
#Scleroderma
cont home meds
#Dysphagia with severe protein calorie malnutrition
as per school aide - Javity 1.5@45ml.h cont
tube feedings
WORK AND FAMILY LIFE CONSULTANT - start soft and byte sized diet with thin liquids
#Non-ischemic troponin elevation
trop is lower then previous baseline
Echo: Mild-moderate MR, mild-moderate TR, pulmonary HTN, EF preserved
cont Telemetry
EKG without ST elevation
#Chronic pain
cont home meds
#Chronic alk.phos elevation
2/2 chronic disease
#Stage 2 sacrum pressure injury, POA
#Stage 3 left elbow pressure injury, POA
wound care
DVT ppx SCDs
DNR/DNI
I have spent at least 58min reviewing the chart, test results and direct patient care
Anticipated Discharge: 24 - 48 hours
Subjective/Interval History
-
Date of Service: April 12, 2024
Objective Data
-
Labs:
Laboratory Results
04/12/24
04:58
Hgb 6.8 L*
Hct 22.3 L
Vital Signs:
Vital Signs
Temp Pulse Resp BP Pulse Ox
98.6 F 99 18 105/75 100
04/12/24 12:55 04/12/24 12:55 04/12/24 12:55 04/12/24 12:55 04/12/24 12:55
I&O
10/17/24 10/18/24 10/19/24
06:59 06:59 06:59
Intake Total 350 / 350 480 / 480 0 / 0
Balance 350 / 350 480 / 480 0 / 0
Review of Systems
-
History Source: Patient
All other systems: Reviewed and negative
Physical Exam
-
General: Cachectic
GI: Soft, Nontender, Nondistended and Normal Bowel Sounds
Genito-urinary: No Costovertebral Tender
Musculoskeletal: No Clubbing, No Cyanosis and No Edema
Psych: Calm
--- NOTE | 2024-04-12 16:38 | PTCARENOTE ---
Patient AAOx3. 1u PRBCs given, recheck H&H pending. VSS. 100% on home dose O2 (4L NC). Tube feeds at goal and tolerating. Appetite fair. Requesting home movantik for constipation, boyfriend to bring in from home. Continuing to closely monitor.
[2024-04-12] MEDS: NON-FORMULARY ITEM 25 MG TUBE (17:22)
[2024-04-12 19:05] LABS: Hematocrit 27.5 % (37.0-47.0); Hemoglobin 8.7 g/dL (12.0-16.0)
[2024-04-12] MEDS: TYLENOL 1000 MG TUBE (19:57)
[2024-04-12] MEDS: ATIVAN 1 MG TUBE (19:58)
[2024-04-12] MEDS: CRESTOR 40 MG TUBE (22:07)
[2024-04-12] MEDS: ZYPREXA 10 MG TUBE (22:07)
[2024-04-12] MEDS: MELATONIN 3 MG TUBE (22:07)
[2024-04-12] MEDS: ZOLOFT 100 MG TUBE (22:07)
[2024-04-13] VITALS (8 sets, daily range): BP systolic 99–123; BP diastolic 61–85; BMI 13.1
--- NOTE | 2024-04-13 02:00 | SUR.OPER ---
Pt AAOx3. Pt talking about going home and 'what comes next'. Pt brought up hospice being a possibility but she does not think her boyfriend will be ready for that. Pt becoming tearful about how she is going to miss her sister and friends. Emotional
support given. Education given to the best of this RNs ability. Emotional support given multiple times through out shift. Pt appearing to be able to get some sleep, respirations even and unlabored spo2 100% on 4L. Assessment care and vitals as
charted.
[2024-04-13 06:17] LABS: Hematocrit 29.1 % (37.0-47.0); Hemoglobin 9.1 g/dL (12.0-16.0); Mean Corp Hgb Conc. 31.3 g/dL (33.0-37.0); Mean Corpuscular Hgb 26.3 pg (27.0-31.0); Mean Corpuscular Volume 84.1 fL (81.0-99.0); Mean Platelet Volume 11.5 fL (7.4-10.4); Platelet Count 329 10^3/uL (130-400); Red Blood Cell Count 3.46 10^6/uL (4.20-5.40); Red Cell Dist. Width 16.4 % (11.5-14.5); White Blood Cell Count 11.1 10^3/uL (4.8-10.8)
[2024-04-13] MEDS: DELTASONE 40 MG PO (08:35)
[2024-04-13] MEDS: PROTONIX IV 40 MG IV (08:35)
[2024-04-13] MEDS: NSS (PRESERVATIVE FREE) 10 ML IV (08:35)
[2024-04-13] MEDS: MORPHINE SULFATE 15 MG TUBE (08:39)
--- NOTE | 2024-04-13 10:54 | W.PN.ONC2 ---
Today's Communication / Plan
-
- ok to start DOAC with close monitoring for bleeding symptoms.
- CBC one week outpt
- hematology, oncology follow up will be arranged.
Impression
Impression
Radiologic findings suspicious for malignancy
Portal vein thrombosis and splenic infarct
Advanced autoimmune disease scleroderma/CREST
Anemia
Leukocytosis
Respiratory insufficiency
Scleroderma
Interstitial lung disease
Plan
Plan
# Liver lesions
- s/p bx of liver lesion 04/11, path pending.
- CEA normal. CA19-9 pending.
- will arrange out-pt oncology follow-up.
# PVT with splenic infarct
- Suspect thrombophilia secondary to malignancy acuity of thrombosis unclear
- antiphospholipid antibodies pending.
- full dose AC held initially with anemia. hgb stable after pRBCs. stool hemoccult negative. OK to start DOAC with appropriate loading dose. counseled pt on close stool monitoring for melena, BRbPr.
- recommend repeat CBC next week with PCP then we can take over monitoring once pt established.
# Anemia
- etiology unclear, ferritin 106 ng/ml, IS 10% which I suspect represents low iron stores. She received pRBCs inpt. will hold off on IV iron and reassess hgb trend and indication outpt.
- Transfuse hemoglobin<7 g/dL
- Heme test stools negative
Subjective/Objective
Chief Complaint
liver lesions, PVT with splenic infarct, anemia
Subjective
pt has no new complaints today. She is eager to be discharged. Hgb stable at 9.1 g/dl. Denies melena, BRBPR.
Vital Signs:
Vital Signs
Temp Pulse Resp BP Pulse Ox
98.2 F 106 17 123/73 100
04/13/24 07:23 04/13/24 06:00 04/13/24 06:00 04/13/24 06:00 04/13/24 06:00
Lab Results:
Laboratory Data
WBC 11.1 10^3/uL (4.8-10.8) H 04/13/24 05:46
Hgb 9.1 g/dL (12.0-16.0) L 04/13/24 05:46
Plt Count 329 10^3/uL (130-400) 04/13/24 05:46
PT 14.0 Sec (11.4-14.6) 04/11/24 04:09
INR 1.08 04/11/24 04:09
eGFR > 60.00 04/11/24 04:09
Physical Exam
HEENT: No Jaundice
Cardiology: Irregular rate/rhythm; No Murmur
Pulmonary: Clear
GI: Distended
Extremities: No Edema
Neuro: Non Focal
Review of Systems
Review of Systems
Constitutional: Denies Fever
Respiratory: Denies Cough
Gastrointestinal: Denies Nausea/Vomiting
[2024-04-13] MEDS: MAGONATE 86 MG TUBE (11:47)
[2024-04-13] MEDS: ATIVAN 1 MG TUBE (11:47)
--- NOTE | 2024-04-13 12:00 | W.PN.HOSP.TC ---
Today's Communication/Plan
-
dc
Assessment / Plan
Assessment / Plan
64yo F with PMHX of scleroderma, dysphagia, esophageal stricture with PEG, anxiety, anemiam chronic hypoxic respiratory failure on 4L O2 at home 2/2 ILD came to the with worsening SOB also found elevated temperature, managed for ILD exacerbation.
CTA chest showed focal heterogenous liver lesion, possible malignancy - known to patient and recently was scheduled for biopsy in [facility]. As per ID - cannot r/o liver abscess. Agreeable for biopsy of the liver lesion - that was done on 04/11/24 and
patient will continue to follow with Oncology as outpatient. FOBT neg so as per agreement with assistant professor of biochemistry - will start Eliquis. CM to provide starter pack. As patient remained on baseline O2 - medically stable for d/c for outpatient prednisone
titration to baseline of 5mg. Repeat CBC in 1 week with PCP - patient verbalized understanding of the instructions
A/P:
#PVT
#Splenic infarct
will need anticoagulation, will hold off pending liver biopsy since high bleeding risk
Hematology consult: FOBT neg - start DOAC, repeat CBC in 1 week with PCP
#Cachexia 2/2 chronic disease and poor oral intake
Cont tube feeds
#ILD flare
continue steroids - improved to baseline, as per Pulm - can switch to Prednisone on 04/11/24
Pulm follows
bronchodilators
Incentive spirometry
#Small R pleural effusion
#Pulmonary HTN
#Mild-moderate MR
No other clinical findings of CHF
Echo: EF 60%, mild-moderate MR (improved from prior severe), moderate pulmonary HTN
proBNP 3200 - less then previous - no concern for decompensation
#Anemia of chronic disease with NAYLA (most likely 2/2 malnutrition)
s/p 1 unit PRBC on 04/12/24
monitor hgb
no overt bleeding
Hold off iron supplement with concern for infection
#Multiple large liver masses
#Suspicion for retroperitoneal mets
#Hepatic hemangioma, small
MRI done - biopsy by [facility] on 04/11/24
Onc consult
ID follows: started empiric Rocephin with concern for abscess, but will new findings that concerning for metastatic disease - stopped Abx
ESR/CRP elevated
#Leukocytosis and fever
2/2 steroids and most likely fever 2/2 Cancer
Abx and ID follows
Bcx NTD
can be exacerbated by steroids
#Scleroderma
cont home meds
#Dysphagia with severe protein calorie malnutrition
as per experimental machinist - Javity 1.5@45ml.h cont
tube feedings
CLINICAL TEAM LEAD - start soft and byte sized diet with thin liquids
#Non-ischemic troponin elevation
trop is lower then previous baseline
Echo: Mild-moderate MR, mild-moderate TR, pulmonary HTN, EF preserved
cont Telemetry
EKG without ST elevation
#Chronic pain
cont home meds
#Chronic alk.phos elevation
2/2 chronic disease
#Stage 2 sacrum pressure injury, POA
#Stage 3 left elbow pressure injury, POA
wound care
DVT ppx SCDs
DNR/DNI
I have spent at least 58min reviewing the chart, test results and direct patient care
Anticipated Discharge: Today
Subjective/Interval History
-
Date of Service: April 13, 2024
Objective Data
-
Labs:
Laboratory Results
04/13/24
05:46
WBC 11.1 H
Hgb 9.1 L
Hct 29.1 L
Plt Count 329
Vital Signs:
Vital Signs
Temp Pulse Resp BP Pulse Ox
98.2 F 106 17 123/73 100
04/13/24 07:23 04/13/24 06:00 04/13/24 06:00 04/13/24 06:00 04/13/24 06:00
I&O
04/12/24 04/13/24 04/14/24
06:59 06:59 06:59
Intake Total 480 / 480 1210 / 1210
Balance 480 / 480 1210 / 1210
Review of Systems
-
History Source: Patient
All other systems: Reviewed and negative
Physical Exam
-
General: Cachectic
Cardiac: Regular Rhythm
GI: Soft, Nontender and Nondistended
Skin: Warm
Neuro: Awake, Alert, Oriented and AO x 3
Psych: Calm
--- NOTE | 2024-04-13 12:13 | W.DCSUMMARY ---
Discharge Summary
Discharge Data
Date of Admission: 04/08/24
Date of Discharge: 04/13/24
-
Pending Results: Yes
Additional Pending Results:
biopsy pathology
Hospital Course
64yo F with PMHX of scleroderma, dysphagia, esophageal stricture with PEG, anxiety, anemiam chronic hypoxic respiratory failure on 4L O2 at home 2/2 ILD came to the with worsening SOB also found elevated temperature, managed for ILD exacerbation.
CTA chest showed focal heterogenous liver lesion, possible malignancy - known to patient and recently was scheduled for biopsy in [facility]. As per ID - cannot r/o liver abscess. Agreeable for biopsy of the liver lesion - that was done on 04/11/24 and
patient will continue to follow with Oncology as outpatient. 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 [employer] to provide starter pack. As patient remained on baseline O2 - medically stable for d/c for outpatient prednisone
titration to baseline of 5mg. Repeat CBC in 1 week with PCP - patient verbalized understanding of the instructions
I have spent at least 39min discharging the patient
Patient was managed for:
#PVT
#Splenic infarct
#Cachexia 2/2 chronic disease and poor oral intake
#ILD flare
#Small R pleural effusion
#Pulmonary HTN
#Mild-moderate MR
#Anemia of chronic disease with NAYLA (most likely 2/2 malnutrition)
#Multiple large liver masses
#Suspicion for retroperitoneal mets
#Hepatic hemangioma, small
#Leukocytosis and fever
#Scleroderma
#Dysphagia with severe protein calorie malnutrition
#Non-ischemic troponin elevation
#Chronic pain
#Chronic alk.phos elevation
#Stage 2 sacrum pressure injury, POA
#Stage 3 left elbow pressure injury, POA
Discharge Plan
-
Patient Disposition: Home with Home Care
Discharge Diagnosis/Procedures: ILD exacerbation
Diet: Regular and Tube feeding
Additional Diets: Soft and chopped
Activity: As tolerated
Driving Restrictions: No driving
Blood Work: CBC with family doctor in 1 week
Activity Restrictions/Additional Instructions:
Wound Care Instructions
L elbow: clean with saline, Puracol plus collagen(*moisten with saline after cutting piece needed to fit base of wound), cover with silicone foam with Spandage to secure, change q 2-3 days and prn drainage. Offload elbow with pillow
Coccyx: clean with soap and water, skin prep periwound, silicone foam
air cushion when sitting.
Increase protein in diet
Follow up at wound care center if wounds not healing, call for an appointment.
Referrals:
Renan Hamlin DO [Active] - in less than 1 week
Qian Zelaya MD [Family Provider] - in one week (repeat CBC blood test)
Travis Agarwal MD [Active] - in three to four weeks
Prescriptions:
New
prednisone 10 mg Tablet
10 mg PO DIRECTED Qty: 60 0RF
Rx Instructions:
take daily 40mg x6 days then 30mg x6days, then 20mg x6days, then 10mg x6 days then 5mg until stopped by Dr
Eliquis DVT-PE Treat 30D Start 5 mg (74 tabs) tablets,dose pack
5 mg feeding tube ONCE Qty: 74 0RF
Rx Instructions:
take 10mg BID for 7 days, then 5mg BID until stopped by Dr
Continued
sertraline 100 mg Tablet
100 mg feeding tube HS
prednisone 5 mg Tablet
5 mg feeding tube NOON
olanzapine 5 mg Tablet
10 mg feeding tube HS
acetaminophen 500 mg Tablet
1,000 mg feeding tube Q8HPRN PRN (Reason: mild pain)
pantoprazole [Protonix] 40 mg Tablet,Delayed Release (Dr/Ec)
40 mg PO BID Qty: 0
Rx Instructions:
VIA TUBE
lorazepam 1 mg Tablet
1 mg feeding tube [id number] PRN (Reason: anxiety)
Patient Comments:
04/08/24: last filled 02/13/24 for 60 tablets over 30 days.
Linzess 290 mcg Capsule
290 mcg G-tube DAILYPRN PRN (Reason: CONSTIPATION)
Movantik 25 mg Tablet
25 mg PO DAILYPRN PRN (Reason: CONSTIPATION) Qty: 0
magnesium oxide 400 mg magnesium Tablet
400 mg feeding tube NOON
ondansetron HCl 4 mg Tablet
4 mg feeding tube Q8HPRN PRN (Reason: NAUSEA)
morphine 15 mg tablet
15 mg feeding tube Q4HPRN MDD 75 mg PRN (Reason: SEVERE PAIN)
Patient Comments:
04/08/24: last filled 03/18/24 for 150 tablets over 30 days
melatonin 3 mg Tablet
3 mg feeding tube HS
rosuvastatin 40 mg Tablet
40 mg feeding tube HS
naloxone 0.4 mg/mL Solution
0.4 mg SC DAILYPRN PRN (Reason: opioid overdose)
Discharge Orders:
Discharge Patient (As Directed); Ordered 04/13/24
Ordered By: Albert Hernandez
Discharge Date and Time
Print Language: UPPER SORBIAN
--- NOTE | 2024-04-13 14:25 | PTCARENOTE ---
pt discharged home w/ boyfriend. IV site removed prior to discharge. All instructions reviewed with patient. Pt and S/O understanding of all discharge instructions. Pt left with all belongings from room.
[2024-04-14 12:48] LABS: CA 19-9 648 U/mL (<=35)
[2024-04-15 01:35] LABS: Cardiolipin IgA Antibody <10 APL (<=11); Cardiolipin IgM Antibody <10 MPL (<=12); Cardiolipin Igg Antibody <10 GPL (<=14)
[2024-04-15 02:15] LABS: Beta-2-Glycoprotein I Ab. IgA 10 SAU (<=20); Beta-2-Glycoprotein I Ab. IgG <10 SGU (<=20); Beta-2-Glycoprotein I Ab. IgM <10 SMU (<=20)
[2024-04-16 00:32] LABS: Phosphatidylserine Ab, IgA 0 APS (0-19); Phosphatidylserine Ab, IgG 0 GPS (0-15); Phosphatidylserine Ab, IgM 0 MPS (0-21)
== END 2024-04-13 14:46 | disposition home health service (06) | DRG 196 ==
LOC: IMU 11:24
PROVIDERS: Emergency Medicine; Internal Medicine Hematology & Oncology; Nurse Practitioner Acute Care; Radiology Vascular & Interventional Radiology; ADMITTING PHYSICIAN Internal Medicine; ATTENDING PHYSICIAN Internal Medicine; CONSULT PHYSICIAN Internal Medicine Critical Care Medicine; CONSULT PHYSICIAN Internal Medicine Hematology & Oncology; CONSULT PHYSICIAN Radiology Diagnostic Radiology; CONSULT PHYSICIAN Student in an Organized Health Care Education/Training Program; EMERGENCY PHYSICIAN Emergency Medicine; FAMILY PHYSICIAN Family Medicine
PROC: 0FB13ZX Excision of Right Lobe Liver, Percutaneous Approach, Diagnostic (ICD-10-PCS; 2024-04-11)
PROC: 30233N1 Transfusion of Nonautologous Red Blood Cells into Peripheral Vein, Percutaneous Approach (ICD-10-PCS; 2024-04-12)
DX: M34.81 Systemic sclerosis with lung involvement (principal); E43 Unspecified severe protein-calorie malnutrition; L89.023 Pressure ulcer of left elbow, stage 3; J96.21 Acute and chronic respiratory failure with hypoxia; I81 Portal vein thrombosis; J81.0 Acute pulmonary edema; J96.22 Acute and chronic respiratory failure with hypercapnia; Z68.1 Body mass index [BMI] 19.9 or less, adult; I50.32 Chronic diastolic (congestive) heart failure; I5A Non-ischemic myocardial injury (non-traumatic); C25.9 Malignant neoplasm of pancreas, unspecified; C78.7 Secondary malignant neoplasm of liver and intrahepatic bile duct; E87.3 Alkalosis; J84.170 Interstitial lung disease with progressive fibrotic phenotype in diseases classified elsewhere; D73.5 Infarction of spleen; I11.0 Hypertensive heart disease with heart failure; D63.8 Anemia in other chronic diseases classified elsewhere; D18.03 Hemangioma of intra-abdominal structures; L89.152 Pressure ulcer of sacral region, stage 2
CPT/HCPCS: 88307; 47000; 71046; 71275; 74183; 76942; 80053; 81003; 82378; 82607; 82728; 82746; 82805; 83540; 83550; 83605; 83880; 84145; 84466; 84484; 85014; 85018; 85025; 85027; 85379; 85610; 85652; 86140; 86146; 86147; 86148; 86301; 86850; 86900; 86901; 86920; 87040; 87070; 87502; 87811; 88333; 88341; 88342; 92526; 92610; 93005; 93306; 94640; 94660; 96361; 96374; 96375; 97162; 97167; 99152; 99153; 99291; A9575; P9016; Q9967